=== PATIENT | male | born 1960 | race Caucasian/White ===

== ENCOUNTER → 2019-12-31 09:04 | Outpatient (BNVA) | payer MEDICARE, MEDICAID, SELFPAY | PROVIDERS: Family Provider Family Medicine; PCP Family Medicine; Referring Provider Dermatology; Visit Provider Dermatology | DX: L73.0 Acne keloid (principal); L72.9 Follicular cyst of the skin and subcutaneous tissue, unspecified | CPT/HCPCS: 10060; 99203; J3301 ==

== ENCOUNTER → 2020-01-08 14:52 | Outpatient (BNVA) | payer MEDICARE, SELFPAY | PROVIDERS: Family Provider Family Medicine; PCP Family Medicine; Visit Provider Dermatology | DX: L72.9 Follicular cyst of the skin and subcutaneous tissue, unspecified (principal); L08.9 Local infection of the skin and subcutaneous tissue, unspecified | CPT/HCPCS: 99024; 99213 ==

== ENCOUNTER → 2020-04-27 15:17 | Outpatient (BNVA) | payer MEDICARE, SELFPAY | PROVIDERS: Family Provider Family Medicine; PCP Family Medicine; Visit Provider Family Medicine Adult Medicine | DX: E66.9 Obesity, unspecified (principal); N52.9 Male erectile dysfunction, unspecified; E11.65 Type 2 diabetes mellitus with hyperglycemia; I10 Essential (primary) hypertension; I25.118 Atherosclerotic heart disease of native coronary artery with other forms of angina pectoris; E78.2 Mixed hyperlipidemia; F41.9 Anxiety disorder, unspecified; F32.9 Major depressive disorder, single episode, unspecified; I82.433 Acute embolism and thrombosis of popliteal vein, bilateral | CPT/HCPCS: 80053; 80061; 83036; 84403; 84443; 85025 ==

== ENCOUNTER 2020-05-12 11:59 | Emergency (ER) | payer MEDICARE, MEDICAID, SELFPAY ==
[2020-05-12 12:09] VITALS: BP 190/117; PULSE 104; RESP 18; TEMP 37.1; O2SAT 97; BMI 35.6
[2020-05-12 12:12] VITALS: BP 193/139; PULSE 103; RESP 18; O2SAT 97
--- NOTE | 2020-05-12 12:39 | W.ED.GENADLT ---
HPI - General Adult General: Chief complaint: General Medical Stated complaint: legs swollen Time Seen by Provider: 05/12/20 12:11 History of Present Illness: HPI narrative: 59-year-old male patient with a history of diabetes and coronary artery disease in with complaints of several weeks of lower extremity swelling. The patient reports that he doesn't seem like the swelling is going down. Is also complaining of some orthopnea and dyspnea on exertion. The patient is not currently on a diuretic. Patient has been taking his other medications as directed. He does report his blood sugars have been high. No chest pain. Denies any recent respiratory infection or exposure to COVID19. Bilateral lower extremity edema L>R. Onset (ago): week(s) Location: head Severity: moderate Associated symptoms: Reports nausea; Deny chest pain, headache(s), rash, palpitations, syncope or vomiting Review of Systems General: Reports: 10 or more systems reviewed and unremarkable except in HPI and below Const: Denies: fever(s) or chills Eyes: Denies: change in vision ENMT: Denies: throat pain Card: Reports: swelling of feet/ankles and orthopnea; Denies: chest pain, palpitations, irregular heart rhythm, lightheadedness or syncope Resp: Denies: productive cough GI: Reports: nausea; Denies: abdominal pain or vomiting : Denies: flank pain Skin/Breast: Denies: rash Neuro: Denies: headache(s) PFS ED PFSH: Medical History (Updated 05/12/20 @ 14:28 by Danyel Ayala DO) Abnormal nuclear stress test Adenomatous colon polyp Anxiety and depression Atherosclerotic heart disease of [place] coronary artery with other forms of angina pectoris Chest pain Deep vein thrombosis DVT involving the popliteal veins bilaterally Diabetes Diabetes type 2, uncontrolled Diabetic neuropathy History of claustrophobia Hyperlipidemia Hypertension Inability to maintain erection Insomnia 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 Ischemic cardiomyopathy Obesity (BMI 35.0-39.9 without comorbidity) Right foot drop Surgical History H/O circumcision Stented coronary artery Family History Mother Cancer Grandmother Diabetes Other Hypertension Denies family history of CAD (coronary artery disease) Social History Smoking and tobacco status: former smoker Alcohol intake: never Household members: spouse and children Marital status: service: No Current occupational status: disabled History of recent travel: No Physical Exam Const: COMMON NORMALS: no acute distress and no limitations; negative for average body habitus (Morbidly obese) HENMT: COMMON NORMALS: normocephalic HEAD & SCALP: normocephalic FACE & SINUS: normal facial exam Neck/C-Spine: COMMON NORMALS: full ROM GENERAL: Yes normal visual inspection Chest: COMMONS NORMALS: normal inspection of the chest Resp: COMMON NORMALS: normal respiratory effort AUSCULTATION: rales, no rhonchi, no wheezes, breath sounds present and lung sounds not diminished Cardio: COMMON NORMALS: regular rate and regular rhythm RATE: regular rate RHYTHM: regular rhythm GI: COMMON NORMALS: Normal to inspection, nondistended, normoactive bowel sounds present INSPECTION: Yes normal to inspection AUSCULTATION: Yes normoactive bowel sounds Extremity: COMMON NORMALS: full ROM and no clubbing, cyanosis or edema (2+ pitting edema up to knee bilaterally. Negative Homans sign. ); negative for normal to inspection Skin: COMMON NORMALS: no rashes or lesions noted GENERAL SKIN EXAM: no rashes or lesions noted Course Vital Signs: Vital signs: Vital Signs Temperature 98.8 F 05/12/20 12:09 Pulse Rate 104 H 05/12/20 12:09 Respiratory Rate 18 05/12/20 12:09 Blood Pressure 190/117 05/12/20 12:09 Pulse Oximetry 97 05/12/20 12:09 MDM - General Adult MDM Narrative: Medical decision making narrative: 51-year-old male with a history of hypertension and coronary artery disease presenting with persistent bilateral lower extremity edema. Patient also is complaining of orthopnea. Heart failure is leading consideration we talked about other things in the differential and recommended chest x-ray and routine serology and give some furosemide and nitroglycerin for symptomatic relief. Patient refused the nitroglycerin but felt much better after lasix. Breathing easier and overall improved. I think he likely has heart failure. Discussed DDx and likely diagnosis. Recommend sodium reduction, adding lasix and close follow up for ECHO. Return precautions were discussed. Lab Data: Labs: Lab Results 05/12/20 05/12/20 Range/Units 13:07 13:07 WBC 7.6 (4.0-10.0) 10^3/ uL RBC 5.70 H (4.1-5.3) 10^6/u L Hgb 16.6 (11.7-16.6) g/dL Hct 49.3 (42.0-52.0) % MCV 86.5 (80-94) fL MCH 29.1 (28.0-34.0) pg MCHC 33.7 (30.0-36.0) g/dL RDW 12.7 (12.1-15.1) % Plt Count 293 (130-400) 10^3/c mm MPV 11.1 H (7.4-10.4) fL Neut % (Auto) 52.4 % Lymph % (Auto) 34.1 % [place] % (Auto) 9.6 % Eos % (Auto) 2.8 % Baso % (Auto) 1.0 % Neut # (Auto) 3.99 (1.8-7.7) 10^3/u L Lymph # (Auto) 2.6 (0.8-4.8) 10^3/u L [place] # (Auto) 0.7 (0.2-0.9) 10^3/u L Eos # (Auto) 0.2 (0.0-0.8) 10^3/u L Baso # (Auto) 0.1 (0.0-0.1) 10^3/u L Nucleated RBC % (a uto) 0 % Nucleated RBCs # 0.0 /100WBC Sodium 136 (136-145) mmol/L Potassium 4.3 (3.5-5.1) mmol/L Chloride 100 (98-107) mmol/L Carbon Dioxide 27 (22-29) mmol/L Anion Gap 13.3 (5-19) BUN 12 (6-20) mg/dL Creatinine 0.7 (0.7-1.2) mg/dL GFR Calculation 115.8 (90-130) mL/min Calculated Osmolal ity 294 (285-295) mOsm/k g Calcium 9.5 (8.5-10.5) mg/dL Discharge Plan Discharge Patient Disposition: Home Clinical Impression: Edema leg Heart failure Qualifiers: Heart failure type: unspecified Heart failure chronicity: acute on chronic Qualified Code(s): I50.9 - Heart failure, unspecified Condition: Stable Prescriptions: New Lasix 20 mg tablet 20 mg PO DAILY Qty: 30 RF: 0 No Action sertraline 50 mg tablet 50 mg PO DAILY@0800 RF: 0 iodine 150 mcg Tablet 150 mcg PO DAILY@0800 RF: 0 Vitamin B-12 1 tab PO DAILY@0800 RF: 0 Vitamin C 1 tab PO DAILY@0800 RF: 0 Vitamin D3 1 tab PO DAILY@0800 RF: 0 selenium 1 tab PO DAILY@0800 RF: 0 zinc 1 tab PO DAILY@0800 RF: 0 glyburide 2.5 mg tablet 2.5 mg PO BID@0800,2000 RF: 0 Lopid 600 mg tablet 600 mg PO DAILY@0800 RF: 0 Xarelto 20 mg tablet 20 mg PO DAILY@0800 RF: 0 Discharge Orders: Discharge ED (Routine); Ordered 05/12/20 Ordered By: Danyel Ayala Referrals: Guy Burnham MD [Primary Care Provider] - Discharge Diet: Low Salt Discharge Activity: Resume usual activity Patient Instructions: Congestive Heart Failure Coding Level of Care Code 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
--- NOTE | 2020-05-12 12:41 | XRR_ITS ---
PROCEDURE INFORMATION: Exam: XR Chest, 1 View Exam date and time: 05/12/2020 1:16 PM Age: 59 years old Clinical indication: Shortness of breath; Additional info: SOB TECHNIQUE: Imaging protocol: XR of the chest Views: 1 view. COMPARISON: CR Chest 1 [place] [id number] 02/20/2019 1:18 PM FINDINGS: Lungs: Unremarkable. No consolidation. Pleural space: Unremarkable. No pleural effusion. No pneumothorax. Heart/Mediastinum: Unremarkable. No cardiomegaly. Bones/joints: Unremarkable. No interval changes are seen compared to prior examination XR/XR chest 1V portable [id number] IMPRESSION: Stable negative chest examination..
[2020-05-12] MEDS: FUROsemide 10 mg/mL SDV 4mL 40 MG IVP (12:45)
[2020-05-12 13:12] VITALS: BP 161/104; PULSE 93; RESP 18; O2SAT 96
[2020-05-12 13:45] LABS: Basophils # 0.1 10^3/uL (0.0-0.1); Eosinophils # 0.2 10^3/uL (0.0-0.8); Eosinophils % 2.8 %; Hematocrit 49.3 % (42.0-52.0); Hemoglobin 16.6 g/dL (11.7-16.6); Lymphocytes # 2.6 10^3/uL (0.8-4.8); Lymphocytes % 34.1 %; Mean Corpuscular HGB Conc 33.7 g/dL (30.0-36.0); Mean Corpuscular Hemoglobin 29.1 pg (28.0-34.0); Mean Corpuscular Volume 86.5 fL (80-94); Mean Platelet Volume 11.1 fL (7.4-10.4); Monocytes # 0.7 10^3/uL (0.2-0.9); Monocytes % 9.6 %; Neutrophils # 3.99 10^3/uL (1.8-7.7); Neutrophils % 52.4 %; Nucleated Red Blood Cells % 0 %; Platelet Count 293 10^3/cmm (130-400); Red Cell Distribution Width 12.7 % (12.1-15.1); White Blood Count 7.6 10^3/uL (4.0-10.0)
[2020-05-12] MEDS: nitroglycerin 0.4 mg sublingual Tablet SUBLINGUAL (14:08)
[2020-05-12 14:12] VITALS: BP 152/93; PULSE 91; RESP 18; O2SAT 93
[2020-05-12 14:25] LABS: Anion Gap 13.3 (5-19); Blood Urea Nitrogen 12 mg/dL (6-20); Calcium 9.5 mg/dL (8.5-10.5); Carbon Dioxide 27 mmol/L (22-29); Chloride 100 mmol/L (98-107); Glomerular Filtration Rate 115.8 mL/min (90-130); Glucose 310 mg/dL (65-115); NT Pro B Type Natriuretic Pept 168 pg/mL (0-125); Osmolality Calculated 294 mOsm/kg (285-295); Potassium 4.3 mmol/L (3.5-5.1); Sodium 136 mmol/L (136-145)
[2020-05-12 14:56] VITALS: BP 178/98; PULSE 92; RESP 18; O2SAT 91
== END 2020-05-12 14:58 | disposition home or self-care (01) ==
PROVIDERS: Emergency Provider Family Medicine; PCP Family Medicine
DX: R60.0 Localized edema (principal); I11.0 Hypertensive heart disease with heart failure; I50.9 Heart failure, unspecified; I25.118 Atherosclerotic heart disease of native coronary artery with other forms of angina pectoris; E11.40 Type 2 diabetes mellitus with diabetic neuropathy, unspecified; E78.5 Hyperlipidemia, unspecified; Z87.891 Personal history of nicotine dependence
CPT/HCPCS: 12345; 71045; 80048; 83880; 85025; 96374; 99281; 99283; J1940

== ENCOUNTER → 2020-06-22 08:34 | Outpatient (BNVA) | payer MEDICARE, SELFPAY | PROVIDERS: PCP Family Medicine Adult Medicine; Referring Provider Family Medicine Adult Medicine; Visit Provider Urology | DX: N52.9 Male erectile dysfunction, unspecified (principal); R79.89 Other specified abnormal findings of blood chemistry; Z12.5 Encounter for screening for malignant neoplasm of prostate | CPT/HCPCS: 81003; 84403; G0103 ==

== ENCOUNTER → 2021-04-05 09:13 | Outpatient (BNVA) | payer MEDICARE, MEDICAID, SELFPAY | PROVIDERS: PCP Family Medicine Adult Medicine; Visit Provider Family Medicine Adult Medicine | DX: S69.91XA Unspecified injury of right wrist, hand and finger(s), initial encounter (principal); X58.XXXA Exposure to other specified factors, initial encounter | CPT/HCPCS: 73120 ==

== ENCOUNTER → 2021-04-21 09:35 | Outpatient (BNVA) | payer MEDICARE, MEDICAID, SELFPAY | PROVIDERS: PCP Family Medicine Adult Medicine; Visit Provider Orthopaedic Surgery | DX: S62.90XA Unspecified fracture of unspecified hand, initial encounter for closed fracture (principal); X58.XXXA Exposure to other specified factors, initial encounter; Z46.89 Encounter for fitting and adjustment of other specified devices; S69.91XA Unspecified injury of right wrist, hand and finger(s), initial encounter | CPT/HCPCS: 73130; 97760; L3984 ==

== ENCOUNTER 2021-04-21 10:41 | Outpatient (CLI) | payer MEDICARE, MEDICAID, SELFPAY | END 2021-04-21 10:42 | disposition home or self-care (01) | LOC: SPT 10:41 | PROVIDERS: PCP Family Medicine Adult Medicine; Visit Provider Orthopaedic Surgery | DX: Z46.89 Encounter for fitting and adjustment of other specified devices (principal); S62.90XA Unspecified fracture of unspecified hand, initial encounter for closed fracture; S69.91XA Unspecified injury of right wrist, hand and finger(s), initial encounter; X58.XXXA Exposure to other specified factors, initial encounter | CPT/HCPCS: 97760; L3984 ==

== ENCOUNTER → 2021-08-30 10:18 | Outpatient (BNVA) | payer MEDICARE, MEDICAID, SELFPAY | PROVIDERS: PCP Family Medicine Adult Medicine; Visit Provider Family Medicine Adult Medicine | DX: E11.65 Type 2 diabetes mellitus with hyperglycemia (principal); E78.2 Mixed hyperlipidemia; I10 Essential (primary) hypertension; I82.433 Acute embolism and thrombosis of popliteal vein, bilateral; K59.00 Constipation, unspecified; E66.9 Obesity, unspecified; Z13.6 Encounter for screening for cardiovascular disorders | CPT/HCPCS: 80053; 80061; 83036; 84443; 85025 ==

== ENCOUNTER 2023-03-13 12:08 | Emergency (ER) | payer MEDICARE, MEDICAID, SELFPAY ==
[2023-03-13 12:23] VITALS: BP 166/136; PULSE 97; RESP 18; TEMP 36.8; O2SAT 98; BMI 33.9
--- NOTE | 2023-03-13 12:23 | ECG_ITS ---
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 Measurements Intervals [place] Rate: 98 P: 35 IN: 139 QRS: 11 QRSD: 94 T: 84 QT: 362 QTc: 463 Interpretive Statements SINUS RHYTHM POSSIBLE LEFT ATRIAL ENLARGEMENT [-0.1mV P-WAVE IN V1/V2] NONSPECIFIC ST & T-WAVE ABNORMALITY Compared to ECG 04/04/2019 06:16:35 Intraventricular conduction delay no longer present T-wave abnormality still present Electronically Signed On 03-13-2023 12:41:48 CDT by Thor Landin M.D. [id number]
[2023-03-13 12:29] VITALS: BP 169/107; PULSE 97; O2SAT 96
--- NOTE | 2023-03-13 12:45 | CT_ITS ---
WS: [id number] CT HEAD NONCONTRAST HISTORY: headache confusion TECHNIQUE: Contiguous axial imaging performed through the brain in 3.0 mm imaging. Bone and soft tiss ue windows. Sagittal and coronal reformats reviewed. All CT scans at [facility] use at least one of these dose optimization techniques: automated exposure control; mA and/or kV adjustment per pa tient size (includes targeted exams where dose is matched to clinical indication); or iterative recon struction. DLP: 1174.19 mGy.cm COMPARISON: 08/02/2017 No acute intracranial hemorrhage, midline shift or mass effect. Mild symmetric atrophy and volume loss. Moderate small vessel ischemic type changes throughout the wh ite matter. These findings have progressed since the prior examination from 2018. Small lacunar infar ct along the superior LEFT cerebellum. Mild volume loss in the cerebellum. Ventricles: Normal size with no hydrocephalus. No inferior displacement of the cerebellar tonsils. Paranasal sinuses: As visualized are clear. Mastoid air cells: Well pneumatized. Calvarium and scalp: Skull is intact with no soft tissue edema or swelling. IMPRESSION: 1. No acute intracranial hemorrhage or edema. 2. Mild cerebral and cerebellar volume loss. 3. Moderate small vessel ischemic type changes have progressed since the prior study from 2018. 4. Superior LEFT cerebellar lacunar infarct. New since 2018 but does not appear acute.
--- NOTE | 2023-03-13 12:58 | ED_ITS ---
HPI - Neuro Symptoms/Deficit General: Chief Complaint: Neuro Symptoms/Deficit Stated Complaint: hdache/weakness/confusion Time Seen by Provider: 03/13/23 12:23 Source: patient Mode of arrival: ambulatory History of Present Illness: 62-year-old male presents emergency room with 2 days of headache what he describes as confusion. He is complaining of numbness and tingling bilaterally in the arms and legs. He is awake and alert no difficulty with speech. He relates he was having difficulty finding words at times however at the time that I evaluated patient he is not having any difficulty with aphasia or dysarthria. Neurologic exam is benign NIH score is 0. He did have some balance issues when this first began but those have resolved. He is also complaining of some vague chest pain without radiation or shortness of breath. Onset (ago): day(s) (2) Location: left arm, right arm, left leg and right leg Quality: weak Relieving factors: none Exacerbating factors: none Associated symptoms: Reports chest pain; Deny cough, diaphoresis, fevers/chills, headache(s), anorexia, malaise, nausea, seizures, short of breath, syncope, tingling, vertigo, vomiting or weakness Treatments Prior to Arrival: none Review of Systems Const: Denies: fever(s), chills, malaise or diaphoresis Card: Reports: chest pain; Denies: palpitations, irregular heart rhythm, edema or syncope Resp: Denies: dyspnea GI: Denies: abdominal pain, nausea or vomiting : Denies: dysuria, urinary frequency or urinary urgency Musc: Denies: neck pain or back pain Skin/Breast: Denies: rash Neuro: Denies: headache(s) or vertigo PFSH ED PFSH: Medical History Abnormal nuclear stress test Adenomatous colon polyp Anxiety and depression Atherosclerotic heart disease of [place] coronary artery with other forms of angina pectoris Bilateral leg edema Closed hand fracture Right 4th metacarpal oblique, injury 04/03/2022 Constipation Diabetes Diabetes type 2, uncontrolled Diabetic neuropathy Erectile dysfunction History of claustrophobia History of DVT (deep vein thrombosis) 07/10/2019 DVT involving the popliteal veins bilaterally Hyperlipidemia Hypertension Insomnia 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 Ischemic cardiomyopathy Low testosterone Obesity (BMI 35.0-39.9 without comorbidity) Right foot drop Surgical History H/O circumcision Stented coronary artery Family History Mother , at age 45 Cancer lung Grandmother Diabetes Father , at age 23 [place] Other Hypertension Denies family history of CAD (coronary artery disease) Social History Smoking and tobacco/nicotine status: former use of tobacco/nicotine Alcohol intake: current Alcohol intake frequency: few times a month Substance/Drug Use: never Household members: spouse and children Marital status: service: No Current occupational status: disabled NIH stroke score NIHSS: Level Of Consciousness - 1a: 0 Level Of Consciousness Questions - 1b: Both Correct Level Of Consciousness Commands - 1c: Both Correct Best Gaze - 2: Normal Visual Bright - 3: No Visual Loss Facial Palsy - 4: Normal Motor Arm Right - 5: No Drift Motor Arm Left - 5: No Drift Motor Leg Right - 6: No Drift Motor Leg Left - 6: No Drift Limb Ataxia - 7: Absent Sensory - 8: Normal Best Language - 9: No Aphasia Dysarthia - 10: Normal Extinction And Inattention - 11: 0 Score: Total Score: 0 Physical Exam Const: GENERAL APPEARANCE: cooperative and comfortable ORIENTATION/CONSCIOUSNESS: Yes awake, Yes oriented to person, Yes oriented to place and Yes oriented to time HENMT: COMMON NORMALS: normocephalic, atraumatic and hearing grossly normal bilaterally HEAD & SCALP: normocephalic and atraumatic Resp: COMMON NORMALS: normal respiratory effort, No retractions, No use of accessory muscles and clear to auscultation bilaterally AUSCULTATION: clear to auscultation bilaterally Cardio: COMMON NORMALS: regular rate, regular rhythm and No murmurs present (Cardio) RATE: regular rate RHYTHM: regular rhythm GI: COMMON NORMALS: Soft to palpation and No hepatosplenomegaly present AUSCULTATION: Yes normoactive bowel sounds PALPATION: Yes Soft to palpation, No Tenderness to palpation present (GI), No Guarding due to palpation present (GI) and Yes No hepatosplenomegaly present Extremity: COMMON NORMALS: normal to inspection, capillary refill normal, no clubbing, cyanosis or edema, no calf tenderness and no pedal edema Neuro: SENSORIUM/ORIENTATION: Yes oriented to person, Yes oriented to place and Yes oriented to time Skin: COMMON NORMALS: no rashes or lesions noted GENERAL SKIN EXAM: no rashes or lesions noted Course Vital Signs: Vital signs: Vital Signs Temperature 98.2 F 03/13/23 12:23 Pulse Rate 93 03/13/23 15:17 Respiratory Rate 18 03/13/23 12:23 Blood Pressure 149/96 03/13/23 15:17 Pulse Oximetry 98 03/13/23 15:17 Oxygen Delivery Me thod Room Air 03/13/23 15:17 MDM - Neuro Symptoms/Deficit Medical Decision Making CT head shows old lacunar infarcts no subacute infarcts. Patient has a stroke score 0 at this time he is not having any further chest pain EKG is normal and cardiac enzymes are negative. We will discharge patient home set up outpatient Lexiscan sestamibi stress test as well as carotids echo MRI and follow-up with neurology. Add aspirin to his Xarelto. Recheck for his further problems. Medical Records I reviewed the patient's medical records. Lab Data I reviewed the patient's lab results. 03/13/23 13:15 03/13/23 13:15 Laboratory Results WBC 8.42 10^3/uL (3.29-11.43) 03/13/23 13:15 RBC 5.75 10^6/uL (3.85-5.65) H 03/13/23 13:15 Hgb 16.40 g/dL (11.27-16.99) 03/13/23 13:15 Hct 48.5 % (37-53) 03/13/23 13:15 MCV 84.3 fl (82-101) 03/13/23 13:15 MCH 28.5 pg (27-33) 03/13/23 13:15 MCHC 33.8 g/dL (30-55) 03/13/23 13:15 RDW 12.6 % (12.1-15.1) 03/13/23 13:15 Plt Count 304 10^3/cmm (157-399) 03/13/23 13:15 MPV 10.8 fL (7.4-10.4) H 03/13/23 13:15 Neut % (Auto) 57.6 % 03/13/23 13:15 Lymph % (Auto) 31.0 % 03/13/23 13:15 [place] % (Auto) 8.4 % 03/13/23 13:15 Eos % (Auto) 1.8 % 03/13/23 13:15 Baso % (Auto) 1.0 % 03/13/23 13:15 Neut # (Auto) 4.85 10^3/uL (1.8-7.7) 03/13/23 13:15 Lymph # (Auto) 2.6 10^3/uL (0.8-4.8) 03/13/23 13:15 [place] # (Auto) 0.7 10^3/uL (0.2-0.9) 03/13/23 13:15 Eos # (Auto) 0.2 10^3/uL (0.0-0.8) 03/13/23 13:15 Baso # (Auto) 0.1 10^3/uL (0.0-0.1) 03/13/23 13:15 Nucleated RBC % (auto) 0 % 03/13/23 13:15 Nucleated RBCs # 0.0 /100WBC 03/13/23 13:15 Sodium 134 mmol/L (136-145) L 03/13/23 13:15 Potassium 4.7 mmol/L (3.5-5.1) 03/13/23 13:15 Chloride 96 mmol/L (98-107) L 03/13/23 13:15 Carbon Dioxide 26 mmol/L (22-29) 03/13/23 13:15 Anion Gap 16.7 (5-19) 03/13/23 13:15 BUN 26 mg/dL (8-23) H 03/13/23 13:15 Creatinine 0.9 mg/dL (0.7-1.2) 03/13/23 13:15 GFR Calculation 85.8 mL/min (90-130) L 03/13/23 13:15 Glucose 365 mg/dL (65-115) H 03/13/23 13:15 Calculated Osmolality 298 mOsm/kg (285-295) H 03/13/23 13:15 Calcium 9.5 mg/dL (8.5-10.5) 03/13/23 13:15 Total Bilirubin 0.4 mg/dL (0.15-1.2) 03/13/23 13:15 AST 13 U/L (0-40) 03/13/23 13:15 ALT 17 U/L (0-41) 03/13/23 13:15 Alkaline Phosphatase 82 U/L (40-130) 03/13/23 13:15 Troponin T Baseline 47 ng/L (0-15) H 03/13/23 13:15 Troponin T 120 Minute 38.63 ng/L (0-15) H 03/13/23 15:10 Delta Troponin T -8.37 ABS# (0-10) L 03/13/23 15:10 Total Protein 7.4 g/dL (6.6-8.7) 03/13/23 13:15 Albumin 3.8 g/dL (3.5-5.2) 03/13/23 13:15 Globulin 3.6 g/dL (1.3-4.6) 03/13/23 13:15 Urine Color Yellow (Yellow) 03/13/23 13:10 Urine Appearance Clear (CLEAR) 03/13/23 13:10 Urine pH 5 (5-7) 03/13/23 13:10 Ur Specific [place] 1.020 (1.005-1.030) 03/13/23 13:10 Urine Protein Trace (Negative) 03/13/23 13:10 Urine Glucose (UA) 4+ (Normal) H 03/13/23 13:10 Urine Ketones 1+ (Negative) H 03/13/23 13:10 Urine Blood Neg (Negative) 03/13/23 13:10 Urine Nitrate Negative (Negative) 03/13/23 13:10 Urine Bilirubin Neg (Negative) 03/13/23 13:10 Urine Urobilinogen Norm mg/dL (Negative) 03/13/23 13:10 Ur Leukocyte Esterase Negative (Negative) 03/13/23 13:10 Urine RBC Rare /hpf (0-2) 03/13/23 13:10 Urine WBC Rare /hpf (0-5) 03/13/23 13:10 Ur Squamous Epith Cells Rare /hpf (0-5) 03/13/23 13:10 Amorphous Sediment Trace /hpf 03/13/23 13:10 Urine Bacteria None /hpf (NONE) 03/13/23 13:10 Hyaline Casts Rare /lpf 03/13/23 13:10 Fine Granular Casts Rare /lpf 03/13/23 13:10 Urine Mucus 1+ /hpf 03/13/23 13:10 All radiology interpretation(s) finalized by discharge Discharge Plan Discharge Patient Disposition: Home Clinical Impression: Diabetes type 2, uncontrolled, Bilateral leg edema, Factor V Leiden, Transient cerebral ischemia Condition: Stable Prescriptions: New aspirin 81 mg tablet,delayed release (DR/EC) 81 mg PO DAILY Qty: 30 0RF No Action turmeric root extract 500 mg capsule 500 mg PO DAILY (DME) fast form ulnar gutter See Rx Instructions .ROUTE .MEDSUPPLY Qty: 1 0RF Rx Instructions: As directed docusate sodium 250 mg capsule 250 mg PO BID Qty: 60 5RF (DME) Blood pressure machine See Rx Instructions .Route .MEDSUPPLY Qty: 1 0RF Rx Instructions: As directed, check blood pressure each day. (DME) blood-glucose meter [Accu-Chek Guide Glucose Meter] Misc See Rx Instructions .Route Qty: 1 0RF Rx Instructions: As directed, test blood sugar once a day. (DME) Accu-Chek Guide test strips Strip See Rx Instructions .Route Qty: 50 0RF Rx Instructions: As directed, check blood sugar, once a day. (DME) lancets [BD Ultra Fine Lancets] 33 gauge misc See Rx Instructions .Route Qty: 100 0RF Rx Instructions: As directed, test blood suagr once a day. iodine 150 mcg Tablet 150 mcg PO DAILY@0800 zinc acetate 25 mg (zinc) Capsule 25 mg PO DAILY selenium 50 mcg Tablet 50 mcg PO DAILY Vitamin C 500 mg Tablet 500 mg PO DAILY vitamin G12-uczgm acid 0.5-1 mg Tablet 1 tab PO DAILY Vitamin D3 50 mcg (2,000 unit) Capsule 50 mcg PO DAILY Xarelto 20 mg tablet 20 mg PO DAILY Discharge Orders: Discharge ED (Routine); Ordered 03/13/23 Ordered By: Jose Rafael Cavanaugh Referrals: Zach Amado MD [Primary Care Provider] - Discharge Diet: Usual diet Discharge Activity: Increase activity as tolerated Patient Instructions: Opioid Safety, Pain Management, TIA Activity Restrictions/Additional Instructions: You are seen today for complaints of weakness and visual changes. Your stroke score was [address] of your head was negative cardiac enzymes and EKG were normal. We will set you up for an outpatient stress test as well as echocardiogram 24-hour Holter and MRI head along with follow-up with neurology. Recommend you to start taking a baby aspirin daily in addition to your Xarelto. Coding Level of Care Code ED Bath Solution Maker for Lolita Gallegos
[2023-03-13 13:29] VITALS: BP 188/122; PULSE 93; O2SAT 95
--- NOTE | 2023-03-13 13:40 | XR_ITS ---
WS: [id number] Exam: XR chest 1V portable [id number] Date/Time of Exam: 03/13/2023 1:42 PM Reason For Exam: dyspnea/cough Comparison 05/12/2020. Findings: The lungs are clear and fully expanded. Costophrenic angles are sharp. No infiltrates. Bronchovascula r relief appears normal. Cardiac silhouette is unremarkable. Bony elements are intact. IMPRESSION: Unremarkable chest radiograph.
[2023-03-13 13:44] LABS: Basophils # 0.1 10^3/uL (0.0-0.1); Eosinophils # 0.2 10^3/uL (0.0-0.8); Eosinophils % 1.8 %; Hematocrit 48.5 % (37-53); Lymphocytes # 2.6 10^3/uL (0.8-4.8); Mean Corpuscular HGB Conc 33.8 g/dL (30-55); Mean Corpuscular Hemoglobin 28.5 pg (27-33); Mean Corpuscular Volume 84.3 fl (82-101); Mean Platelet Volume 10.8 fL (7.4-10.4); Monocytes # 0.7 10^3/uL (0.2-0.9); Monocytes % 8.4 %; Neutrophils # 4.85 10^3/uL (1.8-7.7); Neutrophils % 57.6 %; Nucleated Red Blood Cells % 0 %; Platelet Count 304 10^3/cmm (157-399); Red Blood Count 5.75 10^6/uL (3.85-5.65); Red Cell Distribution Width 12.6 % (12.1-15.1); White Blood Count 8.42 10^3/uL (3.29-11.43)
[2023-03-13 13:49] LABS: Add Urine Microscopic? YES; Bilirubin Urine Neg (Negative); Blood Urine Neg (Negative); Glucose Urine UA 4+ (Normal); Ketones Urine 1+ (Negative); Leukocyte Esterase Urine Negative (Negative); Nitrate Urine Negative (Negative); Protein Urine Trace (Negative); Urine Appearance Clear (CLEAR); Urine Color Yellow (Yellow); Urobilinogen Urine Norm (Negative); pH Urine 5 (5-7)
[2023-03-13 14:08] VITALS: BP 162/140; PULSE 92; O2SAT 98
[2023-03-13 14:08] LABS: Alanine Aminotransferase 17 U/L (0-41); Albumin Level 3.8 g/dL (3.5-5.2); Alkaline Phosphatase 82 U/L (40-130); Anion Gap 16.7 (5-19); Aspartate Amino Transferase 13 U/L (0-40); Blood Urea Nitrogen 26 mg/dL (8-23); Calcium 9.5 mg/dL (8.5-10.5); Carbon Dioxide 26 mmol/L (22-29); Chloride 96 mmol/L (98-107); Globulin 3.6 g/dL (1.3-4.6); Glomerular Filtration Rate 85.8 mL/min (90-130); Glucose 365 mg/dL (65-115); Osmolality Calculated 298 mOsm/kg (285-295); Potassium 4.7 mmol/L (3.5-5.1); Sodium 134 mmol/L (136-145); Total Bilirubin 0.4 mg/dL (0.15-1.2); Total Protein 7.4 g/dL (6.6-8.7)
--- NOTE | 2023-03-13 14:08 | ECG_ITS ---
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 Measurements Intervals [place] Rate: 94 P: 44 [place]: 156 QRS: 1 QRSD: 118 T: 11 QT: 369 QTc: 462 Interpretive Statements SINUS RHYTHM LEFT VENTRICULAR HYPERTROPHY AND ST-T CHANGE [VOLTAGE CRITERIA PLUS ST/T ABNORMALITY] INFERIOR MYOCARDIAL INFARCTION , PROBABLY OLD [40+ ms Q WAVE AND/OR ST/T ABNORMALITY IN II/aVF] Compared to ECG 03/13/2023 12:27:48 Left ventricular hypertrophy now present ST (T wave) deviation now present Myocardial infarct finding now present T-wave abnormality no longer present Electronically Signed On 03-13-2023 16:06:56 CDT by Thor Landin M.D. [id number]
[2023-03-13 14:11] LABS: Add Urine Culture? No; Amorphous Sediment Urine TRACE /hpf; Fine Granular Casts Urine RARE /lpf; Hyaline Casts Urine RARE /lpf; Mucus Urine 1+ /hpf; RBC Urine RARE /hpf (0-2); Squamous Epithelial Cell Urine RARE /hpf (0-5); WBC Urine RARE /hpf (0-5)
[2023-03-13 14:36] LABS: Troponin(5th) Baseline 47 ng/L (0-15)
[2023-03-13 15:17] VITALS: BP 149/96; PULSE 93; O2SAT 98
[2023-03-13 15:52] LABS: Troponin 5 2HR 38.63 ng/L (0-15); Troponin 5 2HR Delta -8.37 ABS# (0-10)
--- NOTE | 2023-03-13 15:52 | ECG_ITS ---
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 Measurements Intervals [place] Rate: 93 P: 43 [place]: 146 QRS: 4 QRSD: 120 T: 60 QT: 389 QTc: 485 Interpretive Statements SINUS RHYTHM POSSIBLE LEFT ATRIAL ENLARGEMENT [-0.1mV P-WAVE IN V1/V2] MODERATE INTRAVENTRICULAR CONDUCTION DELAY [110+ ms QRS DURATION] NONSPECIFIC T-WAVE ABNORMALITY Compared to ECG 03/13/2023 14:16:06 Intraventricular conduction delay now present T-wave abnormality now present Left ventricular hypertrophy no longer present ST (T wave) deviation no longer present Myocardial infarct finding no longer present Electronically Signed On 03-13-2023 16:07:13 CDT by Thor Landin M.D. [id number]
--- NOTE | 2023-03-14 08:47 | DCPLANNER ---
Sent message to heart care for referral of 48 hour holter monitor. SHAUNA 03/14/23 0848.
--- NOTE | 2023-03-15 07:57 | DCPLANNER ---
Referral was sent to Neurology for post MRI. Clinic to contact patient. 03/15 at 6721
--- NOTE | 2023-03-15 09:52 | DCPLANNER ---
Faxed stress test, echo,MRI head w/wo order to centralized scheduling on 03/15/23 at 0952. Centralized scheduling to contact patient.
== END 2023-03-13 16:26 | disposition home or self-care (01) ==
PROVIDERS: Emergency Provider Family Medicine; PCP Family Medicine Adult Medicine
DX: G45.9 Transient cerebral ischemic attack, unspecified (principal); D68.51 Activated protein C resistance; R60.0 Localized edema; Z87.891 Personal history of nicotine dependence; I25.10 Atherosclerotic heart disease of native coronary artery without angina pectoris; E11.40 Type 2 diabetes mellitus with diabetic neuropathy, unspecified; E78.5 Hyperlipidemia, unspecified; I10 Essential (primary) hypertension
CPT/HCPCS: 36415; 70450; 71045; 80053; 81001; 84484; 85025; 93005; 99285

== ENCOUNTER → 2023-03-26 15:32 | Outpatient (BNVA) | payer MEDICARE, MEDICAID, SELFPAY | PROVIDERS: PCP Family Medicine Adult Medicine; Visit Provider Specialist | DX: E11.65 Type 2 diabetes mellitus with hyperglycemia (principal); R56.9 Unspecified convulsions; F41.9 Anxiety disorder, unspecified; M51.06 Intervertebral disc disorders with myelopathy, lumbar region | CPT/HCPCS: 95813; 99205 ==

== ENCOUNTER 2023-03-29 08:36 | Outpatient (CLI) | payer MEDICARE, MEDICAID, SELFPAY ==
--- NOTE | 2023-03-29 | USCV_ITS ---
Adrián Vinson Age: 62 Gender: M : 1960 Exam Date: 03/29/2023 09:22 Ordering Phys: Jose Rafael Cavanaugh DO Technologist: DUC Exam Location: [facility] Indication: CHEST PAIN BP: 170 / 93 HR: 97 Rhythm: Sinus Technical Quality: Adequate MEASUREMENTS (Male / Female) Normal Values 2D ECHO LVOT Diameter 2.1 cm LV Ejection Fraction MOD 2C 42.6 % LV Ejection Fraction 2C AL 44.5 % LA Diameter 3.1 cm LA Width 3.5 cm LA Height 4.2 cm RA Width 3.2 cm RA Height 3.6 cm Aorta at Sinotubular Diameter 3.3 cm M-MODE Aortic Annulus Diameter 3.0 cm LA Ao Ratio MM 1.1 MV E Point Septal Separation 1.0 cm DOPPLER AV Peak Velocity 141.0 cm/s LVOT Peak Velocity 89.0 cm/s AV Area Cont Eq vti 2.3 cm squared AV Area Cont Eq pk 2.1 cm squared MV Peak Velocity 139.0 cm/s MV Area PHT 7.1 cm squared Mitral E to A Ratio 0.6 MV E' Velocity 70.0 cm/s Mitral E to LV E' Septal Ratio 20.0 TR Peak Velocity 157.3 cm/s TR Peak Gradient 9.9 mmHg TR Mean Velocity 106.0 cm/s TR Mean Gradient 5.3 mmHg TR Velocity Time Integral 43.7 cm TV Peak E Velocity 79.0 cm/s Right Atrial Pressure 8.0 mmHg Pulmonary Artery Systolic Pressu 17.9 mmHg PV Peak Velocity 98.0 cm/s FINDINGS Left Ventricle Normal LV size with a slightly diminished ejection fraction of 45 to 50%(based on contrast echo). Mild hypokinesia of the mid and apical septum and the anteroseptal segments. Right Ventricle Normal right ventricular systolic function. Right Atrium Normal right atrial size. Left Atrium Upper limit of normal size Mitral Valve Thickened mitral valve. Aortic Valve Thickened aortic valve. Tricuspid Valve No gross abnormalities noted Pulmonic Valve Pulmonic valve not well visualized. Pericardium No pericardial effusion. Aorta Normal aortic annulus size. IVC Normal inferior vena cava. CONCLUSIONS Normal LV size with a slightly diminished ejection fraction of 45 to 50%(based on contrast echo). Mild hypokinesia of the mid and apical septum and the anteroseptal segments. Thickened aortic and mitral valves Left atrium, upper limit of normal size. There is no pericardial effusion. Compared to the study from 02/27/2019, there may not be a significant change. Dr Cruz Bedolla MD [facility] (Electronically Signed) Final Date: 30 March 2023 07:48 S
--- NOTE | 2023-03-29 | ECG_ITS ---
[facility] Test Date: 2023-03-29 Pat Name: Adrián Vinson Department: Room: Gender: Male Superintendent Meters: Swetha LopezBoyd : 1960 Requested By: Jose Rafael Trevizo Order Number: [id number] Nadir MD: Cruz Bedolla M.D. Interpretive Statements NAME OF STUDY: LEXISCAN SESTAMIBI STRESS TEST INDICATION: Chest Pain, PROCEDURE: At the baseline, the EKG revealed normal sinus rhythm with normal ST Ts. The baseline heart was 98 bpm with a blood pressue of 177/122 mm of Hg Lexiscan was infused over a period of 20 seconds. A total of 0.4 milligrams of Lexiscan was infused. The stress phase was continued for a total of 5 minutes. Heart rate at the end of the stress phase was 103 bpm with a blood pressure 162/90 mm of Hg. The EKG at the peak infusion revealed no significant changes. Sestamibi was injected 20 seconds after the Lexiscan infusion. Heart rate at the end of the recovery phase was 93 bpm with a blood pressure of 158/100 mm of Hg. CONCLUSION: 1. No significant EKG changes with the LexiScan infusion 2. No LexiScan induced chest pain or cardiac arrhythmia 3. Normal blood pressure and heart rate response 4. Sestamibi/sestamibi perfusion scan pending; see separate report. Electronically Signed On 03-31-2023 13:35:30 [employer] by Cruz Bedolla M.D. [email or web address]
[2023-03-29 08:56] VITALS: BMI 33.0
--- NOTE | 2023-03-29 08:57 | NMCV_ITS ---
NM allison perf SPECT r/s* [id number] Adrián Vinson Age: 62 Gender: M : 1960 Exam Date: 03/29/2023 09:36 Ordering Phys: Jose Rafael Cavanaugh DO Technologist: OMAR Lozano Exam Location: [facility] Indications: TRANSIENT CEREBRAL ISCHEMIC ATTACK, ACTIVATED PROTEIN C RESISTANCE STRESS TEST Please [facility] IMAGE PROTOCOL Rest/Stress 1 Lexiscan Day Radiopharmaceutical Dose (mCi) Administration Site Administered by Rest: Tc-99m 10.8 IV OMAR Bahena Sestamibi Stress:Tc-99m 32.7 IV OMAR Bahena Sestamibi Rest: 29-Mar-2023 60 Discovery 630 Stress: 29-Mar-2023 30 Discovery 630 0.4mg Lexiscan. Supine position only as patient was unable to lay prone. SPECT RESULTS Technical Quality: Excellent Raw Data Analysis: Normal Image Corrections: No attenuation or motion correction applied Summed Stress Score: 13 Summed Rest Score: 10 Summed Difference Score: 3 PERFUSION FINDINGS Moderate area of moderate to severely decreased tracer uptake in the basal and mid inferior, basal and mid inferolateral, apical lateral and mid anterolateral segments. Some reversibility was noted at the basal inferior and mid anterolateral regions. FUNCTIONAL RESULTS (calculated via Gated SPECT) Stress Image LV EF (%): 46 Stress EDV (mL):151 TID: 0.88 Stress ESV (mL):81 FUNCTIONAL FINDINGS: Segmental wall motion analysis revealed mild diffuse hypokinesia diffuse hypokinesia of the septum and LV apex IMPRESSIONS 1. Myocardial perfusion imaging revealing moderate area of moderate to severely decreased aseptic involving the inferior, inferolateral knee, and lateral regions with some reversibility in the inferior and anterolateral regions, suggesting myocardial scarring in the distribution of the right coronary artery/circumflex artery with ischemia predominantly in the distribution of the circumflex artery and some involvement of the right coronary artery. 2. Slightly diminished left ventricular ejection fraction of 46%. 3. Segmental wall motion normalities as mentioned above. 3. Mildly dilated LV cavity with end-systolic volume of 81 ml. Compared to the study from 02/21/2019, there is some improvement in the LV ejection fraction with a slightly increased ischemic burden. Clinical correlation is recommended Dr Cruz Bedlola MD [facility] (Electronically Signed) Final Date: 29 March 2023 13:21 S
[2023-03-29] MEDS: perflutren protein-a microsphr 0.22 mg/mL SDV 3 mL IV (09:50)
[2023-03-29] MEDS: regadenoson 0.4 Mg/5 ml Syringe IVP (10:12)
[2023-03-29 10:21] VITALS: BP 158/100; PULSE 93
== END 2023-03-29 08:37 | disposition home or self-care (01) ==
PROVIDERS: PCP Family Medicine Adult Medicine; Visit Provider Family Medicine
DX: I08.0 Rheumatic disorders of both mitral and aortic valves (principal); D68.51 Activated protein C resistance; G45.9 Transient cerebral ischemic attack, unspecified; R07.9 Chest pain, unspecified; R06.02 Shortness of breath; I49.1 Atrial premature depolarization; I49.3 Ventricular premature depolarization
CPT/HCPCS: 36415; 78452; 93017; 93225; 96374; A9500; C8929; J2785; Q9956

== ENCOUNTER → 2023-04-22 11:45 | Outpatient (BNVA) | payer MEDICARE, MEDICAID, SELFPAY | PROVIDERS: PCP Family Medicine Adult Medicine; Visit Provider Emergency Medicine | DX: E11.621 Type 2 diabetes mellitus with foot ulcer (principal); L97.509 Non-pressure chronic ulcer of other part of unspecified foot with unspecified severity; M79.671 Pain in right foot | CPT/HCPCS: 73630 ==

== ENCOUNTER 2023-04-26 10:42 | Emergency (ER) | payer MEDICARE, MEDICAID, SELFPAY ==
[2023-04-26 10:48] VITALS: BP 165/97; PULSE 106; RESP 16; TEMP 36.6; O2SAT 96; BMI 33.6
--- NOTE | 2023-04-26 10:55 | XR_ITS ---
WS: [id number] Right foot, 3 views, 04/26/2023 Clinical Data: pain Comparison: Right foot, 04/22/2023 Findings: No fractures or dislocations are seen. No bone destruction or erosion is noted. There is narrowing of the right first MTP joint. The second through fifth PIP joints show narrowing. There is an Achilles spur. There is a soft tissue ulcer over the head of the right fifth metatarsal. Impression: 1. 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 2. Soft tissue ulceration over head of right fifth metatarsal.
--- NOTE | 2023-04-26 10:57 | ED_ITS ---
HPI - Extremity Problem 2 General: Chief complaint: Extremity Problem,Nontraumatic Stated complaint: right foot pain Time Seen by Provider: 04/26/23 10:48 Source: patient Mode of arrival: ambulatory Limitations: no limitations History of Present Illness: 62-year-old male has a history of diabet es states that he had a callus on the right lateral portion of his right foot over the weekend he had seen urgent care on Sunday was started on Zyvox states he had some worsening pain and erythema to that foot. He denies any fevers he has had a diabetic foot ulcer he states 2 years ago. Associated symptoms: Deny chest pain, fever(s) or rash Review of Systems 2 Const: Denies: fever(s), chills, body aches or change in appetite Eyes: Denies: blurry vision or eye discomfort ENMT: Denies: throat pain or dental pain Card: Denies: chest pain Resp: Denies: dyspnea GI: Denies: abdominal pain, nausea, vomiting or diarrhea Musc: Reports: extremity pain; Denies: neck pain or back pain Skin/Breast: Reports: erythema; Denies: rash Neuro: Denies: headache(s) PFSH ED 2 PFSH: Medical History Constipation History of DVT (deep vein thrombosis) 07/10/2019 DVT involving the popliteal veins bilaterally Closed hand fracture Right 4th metacarpal oblique, injury 04/03/2022 Bilateral leg edema Erectile dysfunction Low testosterone Anxiety and depression Obesity (BMI 35.0-39.9 without comorbidity) Diabetes type 2, uncontrolled Atherosclerotic heart disease of [place] coronary artery with other forms of angina pectoris Hypertension Hyperlipidemia Diabetes Diabetic neuropathy Insomnia Adenomatous colon polyp Ischemic cardiomyopathy Abnormal nuclear stress test History of claustrophobia Right foot drop 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 Surgical History Stented coronary artery H/O circumcision Family History Mother , at age 45 Cancer lung Grandmother Diabetes Father , at age 23 Drowning Other Hypertension Denies family history of CAD (coronary artery disease) Social History Smoking and tobacco/nicotine status: former use of tobacco/nicotine Alcohol intake: current Alcohol intake frequency: few times a month Substance/Drug Use: never Household members: spouse and children Marital status: service: No Current occupational status: disabled Physical Exam 2 Const: COMMON NORMALS: no acute distress, patient oriented x3 and healthy appearing HENMT: COMMON NORMALS: normocephalic and atraumatic HEAD & SCALP: n ormocephalic and atraumatic Neck/C-Spine: COMMON NORMALS: full ROM and supple Chest: COMMONS NORMALS: normal inspection of the chest Resp: COMMON NORMALS: normal respiratory effort Cardio: COMMON NORMALS: regular rate RATE: regular rate Extremity: COMMON NORMALS: normal to inspection and full ROM NARRATIVE EXTREMITY EXAM: Erythema noted to right foot going to the ankle slightly warm to touch she does have a callus with a small ulcer to the lateral portion of his foot no drainage Neuro: COMMON NORMALS: patient oriented x3, moves all extremities and no focal motor deficits Psych: COMMON NORMALS: mental status grossly normal, Normal thought process present and cooperative THOUGHT PROCESS: Normal thought process present Skin: COMMON NORMALS: no rashes or lesions noted and no wounds GENERAL SKIN EXAM: no rashes or lesions noted Course 2 Vital Signs: Vital signs: Vital Signs Temperature 97.8 F 04/26/23 10:48 Pulse Rate 103 H 04/26/23 11:23 Respiratory Rate 18 04/26/23 11:23 Blood Pressure 163/93 04/26/23 11:23 Pulse Oximetry 96 04/26/23 11:23 Oxygen Delivery Me thod Room Air 04/26/23 11:23 MDM - Extremity (Nontraumatic) Medical Decision Making Patient presents here with a diabetic foot ulcer he was seen by Dr. Lambert in the ER who debrided it he is going to follow him up he is continue antibiotics writing pain meds informed he is fever worsening he is to return to the ER he understands agrees to plan. Medical Records I reviewed the patient's medical records. Lab Data I reviewed the patient's lab results. 04/26/23 11:05 04/26/23 11:05 Laboratory Results WBC 12.33 10^3/uL (3.29-11.43) H 04/26/23 11:05 RBC 5.05 10^6/uL (3.85-5.65) 04/26/23 11:05 Hgb 14.00 g/dL (11.27-16.99) 04/26/23 11:05 Hct 42.3 % (37-53) 04/26/23 11:05 MCV 83.8 fl (82-101) 04/26/23 11:05 MCH 27.7 pg (27-33) 04/26/23 11:05 MCHC 33.1 g/dL (30-55) 04/26/23 11:05 RDW 13.2 % (12.1-15.1) 04/26/23 11:05 Plt Count 402 10^3/cmm (157-399) H 04/26/23 11:05 MPV 9.7 fL (7.4-10.4) 04/26/23 11:05 Neut % (Auto) 74.0 % 04/26/23 11:05 Lymph % (Auto) 13.4 % 04/26/23 11:05 [place] % (Auto) 9.7 % 04/26/23 11:05 Eos % (Auto) 0.8 % 04/26/23 11:05 Baso % (Auto) 0.8 % 04/26/23 11:05 Neut # (Auto) 9.13 10^3/uL (1.8-7.7) H 04/26/23 11:05 Lymph # (Auto) 1.7 10^3/uL (0.8-4.8) 04/26/23 11:05 [place] # (Auto) 1.2 10^3/uL (0.2-0.9) H 04/26/23 11:05 Eos # (Auto) 0.1 10^3/uL (0.0-0.8) 04/26/23 11:05 Baso # (Auto) 0.1 10^3/uL (0.0-0.1) 04/26/23 11:05 Nucleated RBC % (auto) 0 % 04/26/23 11:05 Nucleated RBCs # 0.0 /100WBC 04/26/23 11:05 ESR 41 mm/hr (0-10) H 04/26/23 11:05 Sodium 132 mmol/L (136-145) L 04/26/23 11:05 Potassium 4.3 mmol/L (3.5-5.1) 04/26/23 11:05 Chloride 92 mmol/L (98-107) L 04/26/23 11:05 Carbon Dioxide 26 mmol/L (22-29) 04/26/23 11:05 Anion Gap 18.3 (5-19) 04/26/23 11:05 BUN 14 mg/dL (8-23) 04/26/23 11:05 Creatinine 0.9 mg/dL (0.7-1.2) 04/26/23 11:05 GFR Calculation 85.8 mL/min (90-130) L 04/26/23 11:05 Glucose 303 mg/dL (65-115) H 04/26/23 11:05 Calculated Osmolality 286 mOsm/kg (285-295) 04/26/23 11:05 Calcium 10.4 mg/dL (8.5-10.5) 04/26/23 11:05 Total Bilirubin 0.6 mg/dL (0.15-1.2) 04/26/23 11:05 AST 62 U/L (0-40) H 04/26/23 11:05 ALT 107 U/L (0-41) H 04/26/23 11:05 Alkaline Phosphatase 311 U/L (40-130) H 04/26/23 11:05 C-Reactive Protein 311.8 mg/L (0.0-4.9) H 04/26/23 11:05 Total Protein 8.0 g/dL (6.6-8.7) 04/26/23 11:05 Albumin 3.5 g/dL (3.5-5.2) 04/26/23 11:05 Globulin 4.5 g/dL (1.3-4.6) 04/26/23 11:05 All radiology interpretation(s) finalized by discharge Discharge Plan Discharge Patient Disposition: Home Clinical Impression: Diabetic foot ulcer Condition: Stable Prescriptions: New hydrocodone-acetaminophen 5-325 mg tablet 1 tab PO Q6H PRN (Reason: pain) Qty: 14 0RF ondansetron 4 mg tablet,disintegrating 4 mg PO Q6H PRN (Reason: nausea and vomiting) Qty: 14 0RF No Action turmeric root extract 500 mg capsule 500 mg PO DAILY (DME) fast form ulnar gutter See Rx Instructions .ROUTE .MEDSUPPLY Qty: 1 0RF Rx Instructions: As directed Mounjaro 5 mg/0.5 mL pen injector 5 mg SUBCUT ONCE Qty: 2 0RF Rx Instructions: .25 mg/week for 4 weeks then 0.25 mg/week for 4 weeks then 0.75 mg/week Mounjaro 7.5 mg/0.5 mL pen injector 7.5 mg SUBCUT ONCE Qty: 2 0RF Rx Instructions: third month of treatment linezolid [Zyvox] 600 mg tablet 600 mg PO BID 6 Days Qty: 12 0RF (DME) Blood pressure machine See Rx Instructions .Route .MEDSUPPLY Qty: 1 0RF Rx Instructions: As directed, check blood pressure each day. (DME) blood-glucose meter [Accu-Chek Guide Glucose Meter] Misc See Rx Instructions .Route Qty: 1 0RF Rx Instructions: As directed, test blood sugar once a day. (DME) Accu-Chek Guide test strips Strip See Rx Instructions .Route Qty: 50 0RF Rx Instructions: As directed, check blood sugar, once a day. (DME) lancets [BD Ultra Fine Lancets] 33 gauge misc See Rx Instructions .Route Qty: 100 0RF Rx Instructions: As directed, test blood suagr once a day. iodine 150 mcg Tablet 150 mcg PO DAILY@0800 zinc acetate 25 mg (zinc) Capsule 25 mg PO DAILY selenium 50 mcg Tablet 50 mcg PO DAILY ascorbic acid (vitamin C) [Vitamin C] 500 mg Tablet 500 mg PO DAILY vitamin Q92-bvxtk acid 0.5-1 mg Tablet 1 tab PO DAILY cholecalciferol (vitamin D3) [Vitamin D3] 50 mcg (2,000 unit) Capsule 50 mcg PO DAILY Xarelto 20 mg tablet 20 mg PO DAILY aspirin 81 mg tablet,delayed release (DR/EC) 81 mg PO DAILY Qty: 30 0RF Discharge Orders: Discharge ED (Routine); Ordered 04/26/23 Ordered By: Edyta Bennett Referrals: Zach Amado MD [Primary Care Provider] - Manuel Lambert DPM [Physician] - 1-3 days Discharge Diet: Advance as tolerated Discharge Activity: Resume usual activity Patient Instructions: Diabetic Foot Ulcers (ED), Opioid Safety Coding Level of Care Code ED Industrial Diamond Polisher for Chg El
[2023-04-26 11:11] LABS: Basophils # 0.1 10^3/uL (0.0-0.1); Basophils % 0.8 %; Eosinophils # 0.1 10^3/uL (0.0-0.8); Eosinophils % 0.8 %; Hematocrit 42.3 % (37-53); Lymphocytes # 1.7 10^3/uL (0.8-4.8); Lymphocytes % 13.4 %; Mean Corpuscular HGB Conc 33.1 g/dL (30-55); Mean Corpuscular Hemoglobin 27.7 pg (27-33); Mean Corpuscular Volume 83.8 fl (82-101); Mean Platelet Volume 9.7 fL (7.4-10.4); Monocytes # 1.2 10^3/uL (0.2-0.9); Monocytes % 9.7 %; Neutrophils # 9.13 10^3/uL (1.8-7.7); Nucleated Red Blood Cells % 0 %; Platelet Count 402 10^3/cmm (157-399); Red Blood Count 5.05 10^6/uL (3.85-5.65); Red Cell Distribution Width 13.2 % (12.1-15.1); White Blood Count 12.33 10^3/uL (3.29-11.43)
[2023-04-26 11:14] LABS: Erythrocyte Sedimentation Rate 41 mm/hr (0-10)
[2023-04-26] MEDS: ondansetron 2 mg/ML SDV 2 mL 4 MG IVP (11:17)
[2023-04-26] MEDS: morphine 4 mg/mL SDV 1 mL IVP (11:22)
--- NOTE | 2023-04-26 11:22 | PC.PHAR ---
PT TOOK MOUNJARO 2.5 MG/05
[2023-04-26 11:23] VITALS: BP 163/93; PULSE 103; RESP 18; O2SAT 96
--- NOTE | 2023-04-26 11:23 | PC.PHAR ---
PT TOOK MOUNJARO 2.5 MG/0.5 ML LAST MONTH AND WAS DUE TO START 5 MG/0.5 ML TODAY. PT IS NOT SURE HE WILL BE ABLE TO START, DUE TO SIDE EFFECTS. 04/26/23
[2023-04-26 11:34] LABS: Alanine Aminotransferase 107 U/L (0-41); Albumin Level 3.5 g/dL (3.5-5.2); Alkaline Phosphatase 311 U/L (40-130); Anion Gap 18.3 (5-19); Aspartate Amino Transferase 62 U/L (0-40); Blood Urea Nitrogen 14 mg/dL (8-23); C Reactive Protein 311.8 mg/L (0.0-4.9); Calcium 10.4 mg/dL (8.5-10.5); Carbon Dioxide 26 mmol/L (22-29); Chloride 92 mmol/L (98-107); Globulin 4.5 g/dL (1.3-4.6); Glomerular Filtration Rate 85.8 mL/min (90-130); Glucose 303 mg/dL (65-115); Osmolality Calculated 286 mOsm/kg (285-295); Potassium 4.3 mmol/L (3.5-5.1); Sodium 132 mmol/L (136-145); Total Bilirubin 0.6 mg/dL (0.15-1.2)
[2023-04-26] MEDS: vancomycin 1,000 MG in sodium chloride 0.9% 250 ML 250 MG IV (11:41)
--- NOTE | 2023-04-26 12:17 | ED_ITS ---
HPI - Extremity Problem 2 General: Chief complaint: Extremity Problem,Nontraumatic Stated complaint: right foot pain Time Seen by Provider: 04/26/23 10:48 Source: patient Mode of arrival: ambulatory Limitations: no limitations History of Present Illness: 62-year-old diabetic male presents with worsening of wound right foot, was seen in urgent care and placed on Zyvox 2 to 3 days ago. Continues to have pain and is requesting pain medication. Patient denies any subjective nausea, vomiting, fever, chills, shortness of breath or chest pain. Associated symptoms: Deny chest pain or fever(s) Review of Systems 2 General: Reports: 10 or more systems reviewed and unremarkable except in HPI and below Const: Denies: fever(s) or chills Eyes: Denies: change in vision Card: Denies: chest pain or palpitations Resp: Denies: dyspnea or productive cough GI: Denies: abdominal pain, nausea or vomiting : Denies: flank pain Musc: Reports: extremity swelling, joint stiffness and deformity Skin/Breast: Reports: erythema, sores, changes in skin color, dry skin, nail changes and change in hair Neuro: Reports: numbness in extremities, sensory changes and difficulty walking Psych: Denies: suicidal ideation Endo: Denies: change in body appearance Mark/Lymph: Denies: tender lymph nodes PFSH ED 2 PFSH: Medical History Constipation History of DVT (deep vein thrombosis) 07/10/2019 DVT involving the popliteal veins bilaterally Closed hand fracture Right 4th metacarpal oblique, injury 04/03/2022 Bilateral leg edema Erectile dysfunction Low testosterone Anxiety and depression Obesity (BMI 35.0-39.9 without comorbidity) Diabetes type 2, uncontrolled Atherosclerotic heart disease of [place] coronary artery with other forms of angina pectoris Hypertension Hyperlipidemia Diabetes Diabetic neuropathy Insomnia Adenomatous colon polyp Ischemic cardiomyopathy Abnormal nuclear stress test History of claustrophobia Right foot drop 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 Surgical History Stented coronary artery H/O circumcision Family History Mother , at age 45 Cancer lung Grandmother Diabetes Father , at age 23 Drowning Other Hypertension Denies family history of CAD (coronary artery disease) Social History Smoking and tobacco/nicotine status: former use of tobacco/nicotine Alcohol intake: current Alcohol intake frequency: few times a month Substance/Drug Use: never Household members: spouse and children Marital status: service: No Current occupational status: disabled Physical Exam 2 Narrative: EXAM NARRATIVE: GENERAL: Patient is alert and oriented ?3 and in no acute distress. The following is a focused right lower extremity exam. Bedside with family. VASCULAR: Dorsalis pedis palpable bilaterally. Posterior tibial arteries palpable. Capillary refill time less than seconds to the distal hallux bilaterally. Calf is supple and nontender proximally and distally. NEUROLOGICAL: Protective sensation intact 0/10 sites, tested with [place] Di monofilament to bilateral feet. DERMATOLOGICAL: Grade 2 wound right plantar forefoot subfifth metatarsal head exposed to myofascial layer measures 2 cm x 3 cm x 0.3 cm, localized erythema, mild purulence. Wound does not probe to bone. MUSCULOSKELETAL: No crepitus with soft tissue palpation of the wound or with debridement. Tenderness to palpation at right foot. Course 2 Vital Signs: Vital signs: Vital Signs Temperature 97.8 F 04/26/23 10:48 Pulse Rate 103 H 04/26/23 11:23 Respiratory Rate 18 04/26/23 11:23 Blood Pressure 163/93 04/26/23 11:23 Pulse Oximetry 96 04/26/23 11:23 Oxygen Delivery Me thod Room Air 04/26/23 11:23 MDM - Extremity (Nontraumatic) Medical Decision Making Grade 2 ulceration down to myofascial layer right foot. Strict nonweightbearing right foot Discontinue Zyvox, begin clindamycin 3 mg 3 times daily and ciprofloxacin 500 mg twice daily for the next 7 days and gauge response Follow-up already scheduled appointment and wound care this 04/30/2023 Wheelchair order to [facility] medical admit facilitate nonweightbearing status. Also ordered bedside commode and cam boot for further offloading. PROCEDURE: Full thickness wound debridement Location: Right foot Local Anesthesia: none due to neuropathy Consent: Verbal Sterile Prep: with alcohol Details: full/partial thickness sharp debridement of the wound was performed using curette. The wound was debrided of hyperkeratotic rim and devitalized tissue down to myofascial layer, being the deepest level of debridement. Predebridement measurements: 2 cm x 3 cm x 0.3 cm Postdebridement measurements: 2.7 cm x 3.5 cm x 0.3 cm Hemostasis: Pressure Irrigation: sterile normal saline without Betadine Dressing: Betadine wet-to-dry Estimated Blood Loss: minimal Offloading: Cam boot and wheelchair Wound cultures taken postdebridement prior to Betadine dressing Differential Diagnosis Likely cellulitis Lab Data 04/26/23 11:05 04/26/23 11:05 Laboratory Results WBC 12.33 10^3/uL (3.29-11.43) H 04/26/23 11:05 RBC 5.05 10^6/uL (3.85-5.65) 04/26/23 11:05 Hgb 14.00 g/dL (11.27-16.99) 04/26/23 11:05 Hct 42.3 % (37-53) 04/26/23 11:05 MCV 83.8 fl (82-101) 04/26/23 11:05 MCH 27.7 pg (27-33) 04/26/23 11:05 MCHC 33.1 g/dL (30-55) 04/26/23 11:05 RDW 13.2 % (12.1-15.1) 04/26/23 11:05 Plt Count 402 10^3/cmm (157-399) H 04/26/23 11:05 MPV 9.7 fL (7.4-10.4) 04/26/23 11:05 Neut % (Auto) 74.0 % 04/26/23 11:05 Lymph % (Auto) 13.4 % 04/26/23 11:05 [place] % (Auto) 9.7 % 04/26/23 11:05 Eos % (Auto) 0.8 % 04/26/23 11:05 Baso % (Auto) 0.8 % 04/26/23 11:05 Neut # (Auto) 9.13 10^3/uL (1.8-7.7) H 04/26/23 11:05 Lymph # (Auto) 1.7 10^3/uL (0.8-4.8) 04/26/23 11:05 [place] # (Auto) 1.2 10^3/uL (0.2-0.9) H 04/26/23 11:05 Eos # (Auto) 0.1 10^3/uL (0.0-0.8) 04/26/23 11:05 Baso # (Auto) 0.1 10^3/uL (0.0-0.1) 04/26/23 11:05 Nucleated RBC % (auto) 0 % 04/26/23 11:05 Nucleated RBCs # 0.0 /100WBC 04/26/23 11:05 ESR 41 mm/hr (0-10) H 04/26/23 11:05 Sodium 132 mmol/L (136-145) L 04/26/23 11:05 Potassium 4.3 mmol/L (3.5-5.1) 04/26/23 11:05 Chloride 92 mmol/L (98-107) L 04/26/23 11:05 Carbon Dioxide 26 mmol/L (22-29) 04/26/23 11:05 Anion Gap 18.3 (5-19) 04/26/23 11:05 BUN 14 mg/dL (8-23) 04/26/23 11:05 Creatinine 0.9 mg/dL (0.7-1.2) 04/26/23 11:05 GFR Calculation 85.8 mL/min (90-130) L 04/26/23 11:05 Glucose 303 mg/dL (65-115) H 04/26/23 11:05 Calculated Osmolality 286 mOsm/kg (285-295) 04/26/23 11:05 Calcium 10.4 mg/dL (8.5-10.5) 04/26/23 11:05 Total Bilirubin 0.6 mg/dL (0.15-1.2) 04/26/23 11:05 AST 62 U/L (0-40) H 04/26/23 11:05 ALT 107 U/L (0-41) H 04/26/23 11:05 Alkaline Phosphatase 311 U/L (40-130) H 04/26/23 11:05 C-Reactive Protein 311.8 mg/L (0.0-4.9) H 04/26/23 11:05 Total Protein 8.0 g/dL (6.6-8.7) 04/26/23 11:05 Albumin 3.5 g/dL (3.5-5.2) 04/26/23 11:05 Globulin 4.5 g/dL (1.3-4.6) 04/26/23 11:05 All radiology interpretation(s) finalized by discharge Discharge Plan Discharge Patient Disposition: Home Clinical Impression: Diabetic foot ulcer Condition: Stable Prescriptions: New hydrocodone-acetaminophen 5-325 mg tablet 1 tab PO Q6H PRN (Reason: pain) Qty: 14 0RF ondansetron 4 mg tablet,disintegrating 4 mg PO Q6H PRN (Reason: nausea and vomiting) Qty: 14 0RF clindamycin HCl 300 mg capsule 300 mg PO TID 7 Days Qty: 21 0RF ciprofloxacin HCl 500 mg tablet 250 mg PO BID 7 Days Qty: 7 0RF No Action turmeric root extract 500 mg capsule 500 mg PO DAILY (DME) fast form ulnar gutter See Rx Instructions .ROUTE .MEDSUPPLY Qty: 1 0RF Rx Instructions: As directed Mounjaro 5 mg/0.5 mL pen injector 5 mg SUBCUT ONCE Qty: 2 0RF Rx Instructions: .25 mg/week for 4 weeks then 0.25 mg/week for 4 weeks then 0.75 mg/week Mounjaro 7.5 mg/0.5 mL pen injector 7.5 mg SUBCUT ONCE Qty: 2 0RF Rx Instructions: third month of treatment linezolid [Zyvox] 600 mg tablet 600 mg PO BID 6 Days Qty: 12 0RF (DME) Blood pressure machine See Rx Instructions .Route .MEDSUPPLY Qty: 1 0RF Rx Instructions: As directed, check blood pressure each day. (DME) blood-glucose meter [Accu-Chek Guide Glucose Meter] Misc See Rx Instructions .Route Qty: 1 0RF Rx Instructions: As directed, test blood sugar once a day. (DME) Accu-Chek Guide test strips Strip See Rx Instructions .Route Qty: 50 0RF Rx Instructions: As directed, check blood sugar, once a day. (DME) lancets [BD Ultra Fine Lancets] 33 gauge misc See Rx Instructions .Route Qty: 100 0RF Rx Instructions: As directed, test blood suagr once a day. iodine 150 mcg Tablet 150 mcg PO DAILY@0800 zinc acetate 25 mg (zinc) Capsule 25 mg PO DAILY selenium 50 mcg Tablet 50 mcg PO DAILY ascorbic acid (vitamin C) [Vitamin C] 500 mg Tablet 500 mg PO DAILY vitamin G46-dlhto acid 0.5-1 mg Tablet 1 tab PO DAILY cholecalciferol (vitamin D3) [Vitamin D3] 50 mcg (2,000 unit) Capsule 50 mcg PO DAILY Xarelto 20 mg tablet 20 mg PO DAILY aspirin 81 mg tablet,delayed release (DR/EC) 81 mg PO DAILY Qty: 30 0RF Discharge Orders: Discharge ED (Routine); Ordered 04/26/23 Ordered By: Edyta Bennett Referrals: Zach Amado MD [Primary Care Provider] - Manuel Lambert DPM [Physician] - 1-3 days Discharge Diet: Advance as tolerated Discharge Activity: Resume usual activity Patient Instructions: Diabetic Foot Ulcers (ED), Opioid Safety Coding Level of Care Code ED Log Washer for Lolita Gallegos
[2023-04-26 12:48] VITALS: PULSE 102; RESP 16; O2SAT 90
[2023-04-26 14:15] VITALS: PULSE 102; RESP 15; O2SAT 93
--- NOTE | 2023-04-26 16:34 | W.ED.EXTPRO ---
HPI - Extremity Problem General: Chief complaint: Extremity Problem,Nontraumatic Stated complaint: right foot pain Time Seen by Provider: 04/26/23 10:48 Source: patient Mode of arrival: ambulatory Limitations: no limitations History of Present Illness: 62-year-old diabetic male presents with worsening of wound right foot, was seen in urgent care and placed on Zyvox 2 to 3 days ago. Continues to have pain and is requesting pain medication. Patient denies any subjective nausea, vomiting, fever, chills, shortness of breath or chest pain. Associated symptoms: Deny chest pain or fever(s) Review of Systems General: Reports: 10 or more systems reviewed and unremarkable except in HPI and below Const: Denies: fever(s) or chills Eyes: Denies: change in vision Card: Denies: chest pain or palpitations Resp: Denies: dyspnea or productive cough GI: Denies: abdominal pain, nausea or vomiting : Denies: flank pain Musc: Reports: extremity swelling, joint stiffness and deformity Skin/Breast: Reports: erythema, sores, changes in skin color, dry skin, nail changes and change in hair Neuro: Reports: numbness in extremities, sensory changes and difficulty walking Psych: Denies: suicidal ideation Endo: Denies: change in body appearance Mark/Lymph: Denies: tender lymph nodes PFSH ED PFSH: Medical History Constipation History of DVT (deep vein thrombosis) 07/10/2019 DVT involving the popliteal veins bilaterally Closed hand fracture Right 4th metacarpal oblique, injury 04/03/2022 Bilateral leg edema Erectile dysfunction Low testosterone Anxiety and depression Obesity (BMI 35.0-39.9 without comorbidity) Diabetes type 2, uncontrolled Atherosclerotic heart disease of [place] coronary artery with other forms of angina pectoris Hypertension Hyperlipidemia Diabetes Diabetic neuropathy Insomnia Adenomatous colon polyp Ischemic cardiomyopathy Abnormal nuclear stress test History of claustrophobia Right foot drop 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 Surgical History Stented coronary artery H/O circumcision Family History Mother , at age 45 Cancer lung Grandmother Diabetes Father , at age 23 Drowning Other Hypertension Denies family history of CAD (coronary artery disease) Social History Smoking and tobacco/nicotine status: former use of tobacco/nicotine Alcohol intake: current Alcohol intake frequency: few times a month Substance/Drug Use: never Household members: spouse and children Marital status: service: No Current occupational status: disabled Physical Exam Narrative: EXAM NARRATIVE: Patient is alert and oriented ?3 and in no acute distress. The following is a focused right lower extremity exam. Bedside with family. VASCULAR: Dorsalis pedis palpable bilaterally. Posterior tibial arteries palpable. Capillary refill time less than seconds to the distal hallux bilaterally. Calf is supple and nontender proximally and distally. NEUROLOGICAL: Protective sensation intact 0/10 sites, tested with [place] Di monofilament to bilateral feet. DERMATOLOGICAL: Grade 2 wound right plantar forefoot subfifth metatarsal head exposed to myofascial layer measures 2 cm x 3 cm x 0.3 cm, localized erythema, mild purulence. Wound does not probe to bone. MUSCULOSKELETAL: No crepitus with soft tissue palpation of the wound or with debridement. Tenderness to palpation at right foot. Course Vital Signs: Vital signs: Vital Signs Temperature 97.8 F 04/26/23 10:48 Pulse Rate 102 H 04/26/23 14:15 Respiratory Rate 15 04/26/23 14:15 Blood Pressure 163/93 04/26/23 11:23 Pulse Oximetry 93 04/26/23 14:15 Oxygen Delivery Me thod Room Air 04/26/23 12:48 MDM - Extremity (Nontraumatic) Medical Decision Making Grade 2 ulceration down to myofascial layer right foot. Strict nonweightbearing right foot Discontinue Zyvox, begin clindamycin 3 mg 3 times daily and ciprofloxacin 500 mg twice daily for the next 7 days and gauge response Follow-up already scheduled appointment and wound care this 04/30/[address] [facility] medical admit facilitate nonweightbearing status. Also ordered bedside commode and cam boot for further offloading. PROCEDURE: Full thickness wound debridement Location: Right foot Local Anesthesia: none due to neuropathy Consent: Verbal Sterile Prep: with alcohol Details: full/partial thickness sharp debridement of the wound was performed using curette. The wound was debrided of hyperkeratotic rim and devitalized tissue down to myofascial layer, being the deepest level of debridement. Predebridement measurements: 2 cm x 3 cm x 0.3 cm Postdebridement measurements: 2.7 cm x 3.5 cm x 0.3 cm Hemostasis: Pressure Irrigation: sterile normal saline without Betadine Dressing: Betadine wet-to-dry Estimated Blood Loss: minimal Offloading: Cam boot and wheelchair Wound cultures taken postdebridement prior to Betadine dressing Lab Data 04/26/23 11:05 04/26/23 11:05 Laboratory Results WBC 12.33 10^3/uL (3.29-11.43) H 04/26/23 11:05 RBC 5.05 10^6/uL (3.85-5.65) 04/26/23 11:05 Hgb 14.00 g/dL (11.27-16.99) 04/26/23 11:05 Hct 42.3 % (37-53) 04/26/23 11:05 MCV 83.8 fl (82-101) 04/26/23 11:05 MCH 27.7 pg (27-33) 04/26/23 11:05 MCHC 33.1 g/dL (30-55) 04/26/23 11:05 RDW 13.2 % (12.1-15.1) 04/26/23 11:05 Plt Count 402 10^3/cmm (157-399) H 04/26/23 11:05 MPV 9.7 fL (7.4-10.4) 04/26/23 11:05 Neut % (Auto) 74.0 % 04/26/23 11:05 Lymph % (Auto) 13.4 % 04/26/23 11:05 [place] % (Auto) 9.7 % 04/26/23 11:05 Eos % (Auto) 0.8 % 04/26/23 11:05 Baso % (Auto) 0.8 % 04/26/23 11:05 Neut # (Auto) 9.13 10^3/uL (1.8-7.7) H 04/26/23 11:05 Lymph # (Auto) 1.7 10^3/uL (0.8-4.8) 04/26/23 11:05 [place] # (Auto) 1.2 10^3/uL (0.2-0.9) H 04/26/23 11:05 Eos # (Auto) 0.1 10^3/uL (0.0-0.8) 04/26/23 11:05 Baso # (Auto) 0.1 10^3/uL (0.0-0.1) 04/26/23 11:05 Nucleated RBC % (auto) 0 % 04/26/23 11:05 Nucleated RBCs # 0.0 /100WBC 04/26/23 11:05 ESR 41 mm/hr (0-10) H 04/26/23 11:05 Sodium 132 mmol/L (136-145) L 04/26/23 11:05 Potassium 4.3 mmol/L (3.5-5.1) 04/26/23 11:05 Chloride 92 mmol/L (98-107) L 04/26/23 11:05 Carbon Dioxide 26 mmol/L (22-29) 04/26/23 11:05 Anion Gap 18.3 (5-19) 04/26/23 11:05 BUN 14 mg/dL (8-23) 04/26/23 11:05 Creatinine 0.9 mg/dL (0.7-1.2) 04/26/23 11:05 GFR Calculation 85.8 mL/min (90-130) L 04/26/23 11:05 Glucose 303 mg/dL (65-115) H 04/26/23 11:05 Calculated Osmolality 286 mOsm/kg (285-295) 04/26/23 11:05 Calcium 10.4 mg/dL (8.5-10.5) 04/26/23 11:05 Total Bilirubin 0.6 mg/dL (0.15-1.2) 04/26/23 11:05 AST 62 U/L (0-40) H 04/26/23 11:05 ALT 107 U/L (0-41) H 04/26/23 11:05 Alkaline Phosphatase 311 U/L (40-130) H 04/26/23 11:05 C-Reactive Protein 311.8 mg/L (0.0-4.9) H 04/26/23 11:05 Total Protein 8.0 g/dL (6.6-8.7) 04/26/23 11:05 Albumin 3.5 g/dL (3.5-5.2) 04/26/23 11:05 Globulin 4.5 g/dL (1.3-4.6) 04/26/23 11:05 All radiology interpretation(s) finalized by discharge Discharge Plan Discharge Patient Disposition: Home Clinical Impression: Diabetic foot ulcer Condition: Stable Prescriptions: New hydrocodone-acetaminophen 5-325 mg tablet 1 tab PO Q6H PRN (Reason: pain) Qty: 14 0RF ondansetron 4 mg tablet,disintegrating 4 mg PO Q6H PRN (Reason: nausea and vomiting) Qty: 14 0RF clindamycin HCl 300 mg capsule 300 mg PO TID 7 Days Qty: 21 0RF ciprofloxacin HCl 500 mg tablet 250 mg PO BID 7 Days Qty: 7 0RF No Action turmeric root extract 500 mg capsule 500 mg PO DAILY (DME) fast form ulnar gutter See Rx Instructions .ROUTE .MEDSUPPLY Qty: 1 0RF Rx Instructions: As directed linezolid [Zyvox] 600 mg tablet 600 mg PO BID 6 Days Qty: 12 0RF (DME) Blood pressure machine See Rx Instructions .Route .MEDSUPPLY Qty: 1 0RF Rx Instructions: As directed, check blood pressure each day. (DME) blood-glucose meter [Accu-Chek Guide Glucose Meter] [facility] See Rx Instructions .Route Qty: 1 0RF Rx Instructions: As directed, test blood sugar once a day. (DME) Accu-Chek Guide test strips Strip See Rx Instructions .Route Qty: 50 0RF Rx Instructions: As directed, check blood sugar, once a day. (DME) lancets [BD Ultra Fine Lancets] [facility] See Rx Instructions .Route Qty: 100 0RF Rx Instructions: As directed, test blood suagr once a day. iodine 150 mcg Tablet 150 mcg PO DAILY@0800 zinc acetate 25 mg (zinc) Capsule 25 mg PO DAILY selenium 50 mcg Tablet 50 mcg PO DAILY ascorbic acid (vitamin C) [Vitamin C] 500 mg Tablet 500 mg PO DAILY vitamin Y25-cziqa acid 0.5-1 mg Tablet 1 tab PO DAILY cholecalciferol (vitamin D3) [Vitamin D3] 50 mcg (2,000 unit) Capsule 50 mcg PO DAILY Xarelto 20 mg tablet 20 mg PO DAILY aspirin 81 mg tablet,delayed release (DR/EC) 81 mg PO DAILY Qty: 30 0RF Discharge Orders: Discharge ED (Routine); Ordered 04/26/23 Ordered By: Edyta Bennett Referrals: Zach Amado MD [Primary Care Provider] - Manuel Lambert DPM [Physician] - 1-3 days Discharge Diet: Advance as tolerated Discharge Activity: Resume usual activity Patient Instructions: Diabetic Foot Ulcers (ED), Opioid Safety Coding Level of Care Code ED Recreational Vehicle Resort Manager for Lolita Gallegos
== END 2023-04-26 14:28 | disposition home or self-care (01) ==
PROVIDERS: Emergency Provider Emergency Medicine; PCP Family Medicine Adult Medicine
DX: L97.515 Non-pressure chronic ulcer of other part of right foot with muscle involvement without evidence of necrosis (principal); E11.621 Type 2 diabetes mellitus with foot ulcer; E11.42 Type 2 diabetes mellitus with diabetic polyneuropathy; M79.671 Pain in right foot; Z79.82 Long term (current) use of aspirin; Z87.891 Personal history of nicotine dependence; I25.10 Atherosclerotic heart disease of native coronary artery without angina pectoris; E78.5 Hyperlipidemia, unspecified; I25.5 Ischemic cardiomyopathy; I10 Essential (primary) hypertension
CPT/HCPCS: 11043; 73630; 80053; 85025; 85651; 86140; 87070; 87075; 87077; 87186; 87205; 96365; 96375; 99284; J2270; J2405; J3370; J7050

== ENCOUNTER → 2023-04-30 07:57 | Outpatient (BNVA) | payer MEDICARE, MEDICAID, SELFPAY | PROVIDERS: PCP Family Medicine Adult Medicine; Visit Provider Thoracic Surgery (Cardiothoracic Vascular Surgery) | DX: E11.52 Type 2 diabetes mellitus with diabetic peripheral angiopathy with gangrene (principal); E11.621 Type 2 diabetes mellitus with foot ulcer; L97.411 Non-pressure chronic ulcer of right heel and midfoot limited to breakdown of skin | CPT/HCPCS: 11042; 99213 ==

== ENCOUNTER → 2023-05-07 09:47 | Outpatient (BNVA) | payer MEDICARE, MEDICAID, SELFPAY | PROVIDERS: PCP Family Medicine Adult Medicine; Visit Provider Thoracic Surgery (Cardiothoracic Vascular Surgery) | DX: E11.52 Type 2 diabetes mellitus with diabetic peripheral angiopathy with gangrene (principal); E11.621 Type 2 diabetes mellitus with foot ulcer; L97.412 Non-pressure chronic ulcer of right heel and midfoot with fat layer exposed | CPT/HCPCS: 11042; A6213; A6252 ==

== ENCOUNTER → 2023-05-09 10:30 | Outpatient (BNVA) | payer MEDICARE, MEDICAID, SELFPAY | PROVIDERS: PCP Family Medicine Adult Medicine; Visit Provider Podiatrist Foot & Ankle Surgery | DX: E11.621 Type 2 diabetes mellitus with foot ulcer (principal); L97.522 Non-pressure chronic ulcer of other part of left foot with fat layer exposed; E11.52 Type 2 diabetes mellitus with diabetic peripheral angiopathy with gangrene; I96 Gangrene, not elsewhere classified; L97.412 Non-pressure chronic ulcer of right heel and midfoot with fat layer exposed; M86.171 Other acute osteomyelitis, right ankle and foot | CPT/HCPCS: 11043; 73630; 99214 ==

== ENCOUNTER 2023-05-11 05:39 | Day surgery (SDC) | payer MEDICARE, MEDICAID, SELFPAY ==
[2023-05-11] VITALS (11 sets, daily range): BP systolic 143–173; BP diastolic 90–116; PULSE 93–103; RESP 16–25; TEMP 36.1–36.8; O2SAT 93–98; BMI 33.6
[2023-05-11 06:20] LABS: Glucose Point of Care 336 mg/dL (70-110)
[2023-05-11] MEDS: sodium chloride 0.9% 1,000 ML 30 ML IV (06:21)
--- NOTE | 2023-05-11 06:30 | P.HPUD_ITS ---
Surgery/Procedure H&P Update DATE OF PROCEDURE: May 11, 2023 DATE H&P PERFORMED: 05/09/23 H&P UPDATE INFORMATION: I have reviewed H&P completed within last 30 days, I have examined patient prior to procedure, No changes to prior documentation and H&P is in [facility] on date indicated PREOP DIAGNOSIS: Diabetic ulcer right foot, gangrene right fifth toe PLANNED PROCEDURE: Operation Date: 05/11/23 07:00 Proposed Procedures p Incision of bone cortex, right foot, Right fifth toe amputation and Application of wound VAC right foot [id number], [id number], ,M86.171(Right) - Manuel hamilton DPM s Amputation Toe/s(Right) - Manuel Lambert DPM
--- NOTE | 2023-05-11 06:31 | P.OP_ITS ---
Operative Report Date of procedure: May 11, 2023 Pre-op diagnosis: Gangrene right fifth toe Osteomyelitis right fifth metatarsal Post-op diagnosis: None Procedure done: Incision of bone cortex, right foot. CPT code 10694 Right fifth toe amputation. CPT code 48152 Application of wound vac right foot. Surgeon: Manuel Lambert DPM
--- NOTE | 2023-05-11 06:31 | PM.OP ---
Operative Report Date of procedure: May 11, 2023 Pre-op diagnosis: Gangrene right fifth toe Osteomyelitis right fifth metatarsal Post-op diagnosis: None Procedure done: Incision of bone cortex, right foot. CPT code 57136 Right fifth toe amputation. CPT code 57513 Application of wound vac right foot. Surgeon: Manuel Lambert DPM
--- NOTE | 2023-05-11 07:00 | P.OP_ITS ---
Operative Report Date of procedure: May 16, 2023 Pre-op diagnosis: Gangrene right fifth toe Osteomyelitis right fifth metatarsal Post-op diagnosis: Same Procedure done: Incision of bone cortex, right foot. CPT code 59542 Right fifth toe amputation. CPT code 29227 Application of wound vac right foot. Implants: 3-0 Prolene Specimens removed/disposition: Bone cortex right fifth metatarsal sent to microbiology for Gram stain, culture and sensitivity. Pathology: Right fifth toe sent to pathology for permanent Surgeon: Manuel Lambert DPM Entry Level Automotive Technician: Jair Estimated blood loss: 5 See intraoperative documentation IV fluids: None Urine output: None Complications: None Brief History: Patient examined evaluated, findings and treatment options were discussed with patient at length. Discussed trying to preserve the fifth toe versus partial fifth ray resection of the right foot. Patient states that he would prefer a partial fifth ray amputation if this would offer a potential for more definitive means of infection control. Big picture would require advanced bracing to offload the right lateral column to help avoid transfer wound. Patient is in agreement. Plans for amputation of right fifth toe and incision down to bone on the right fifth metatarsal with application of wound VAC this Sunday. I reviewed at length with the patient, the risks, potential complications, benefits, alternatives, expectations, and typical outcomes associated with the surgery. The risks and potential complications were explained in detail, including but not limited to infection, wound dehiscence or soft tissue complications, bleeding and hematoma, chronic edema, neuritis or nerve damage producing numbness or chronic pain, CRPS, failure to relieve pain or worsening pain, thick / painful / unsightly scar, limited motion / stiffness, malposition, delayed union, malunion, or nonunion, fracture, reaction to implants, anesthetic complications, venous thromboembolism, and deformity recurrence. I discussed the notion of no regrets with the patient as it pertains to complications and outcomes. The patient seemed to understand the nature of the proposed care and required convalescence. They asked appropriate questions, answered to their satisfaction. They are aware no guarantees can be made as to a satisfactory outcome and they understand there may be other possible unforeseen complications or outcomes not listed here that will be treated accordingly if they arise. There were no written or implied guarantees given to the patient. They gave informed consent to proceed.
[2023-05-11] MEDS: ceFAZolin 2,000 MG in sodium chloride 0.9% (plus) 50 ML 100 MG IV (07:01)
[2023-05-11] MEDS: BUPivacaine 0.5% INJ 30 mL 15 ML INJECTION (07:19)
[2023-05-11] MEDS: lidocaine 2% INJ 20 mL 15 ML INJECTION (07:19)
[2023-05-11] MEDS: fentaNYL 50 mcg/mL INJ 2mL IVP (08:00)
--- NOTE | 2023-05-11 08:06 | P.ANESASSM_ITS ---
Pre-Anesthetic Assessment Height/Weight: Height 1.85 m Weight 115.666 kg Temp Pulse Resp BP Pulse Ox O2 Del Method 97.5 F L 95 17 173/116 96 Room Air 05/11/23 06:09 05/11/23 06:09 05/11/23 06:09 05/11/23 06:09 05/11/23 06:09 05/11/23 06:09 Preop Diagnosis: Diabetic ulcer right foot, gangrene right fifth toe Operation Date: 05/11/23 07:00 Proposed Procedures p Incision of bone cortex, right foot, Right fifth toe amputation and Application of wound VAC right foot 81254, [id number], ,M86.171(Right) - Manuel Lambert DPM s Amputation Toe/s(Right) - Manuel Lambert DPM Familial anesthetic complications: none Was Beta Chio taken within 24 hours: N/A Was Clonidine taken within 24 hours: N/A Last intake: Intake Last Liquid Date 05/10/23 Last Liquid Time 23:30 Last Solid Date 05/10/23 Last Solid Time 19:00 Social No alcohol and No tobacco Exam alert, oriented x 3, clear to auscultation bilaterally and regular rate & rhythm Airway Submandibular: within normal limits Cervical ROM: within normal limits Mallampati: Class II Dentition: chipped CV/HEM Deep Vein Thrombosis and Peripheral Vascular Disease anticoagulation, Factor 5 Leiden mutation Metabolic Diabetes Mellitus and Morbid Obesity [facility] [place] Lower Back Pain and Osteoarthritis/DJD Neuropsych Anxiety, Depression, Neuropathy and Transient Ischemic Attack Anesthetic Plan ASA status: 3 Anesthesia: Choice Medications/Allergies Home Medications Medication Instructions Recorded Confirmed Last Taken Type iodine 150 mcg tablet 150 mcg PO DAILY@0800 05/12/20 05/10/23 05/08/23 History turmeric root extract 500 mg 500 mg PO DAILY 06/22/20 05/10/23 04/25/23 History capsule fast form ulnar gutter #1 ea 04/21/21 05/09/23 Unknown Rx Blood pressure machine #1 ea 06/28/21 05/09/23 Unknown Rx blood sugar diagnostic (Accu-Chek #50 ea 06/29/21 05/09/23 Unknown Rx Guide test strips) blood-glucose meter (Accu-Chek #1 ea 06/29/21 05/09/23 Unknown Rx Guide Glucose Meter) lancets 33 gauge (BD Ultra Fine #100 ea 08/19/21 05/09/23 Unknown Rx Lancets) ascorbic acid (vitamin C) 500 mg 500 mg PO DAILY 03/13/23 05/11/23 05/09/23 History tablet (Vitamin C) aspirin 81 mg tablet,delayed 81 mg PO DAILY #30 tabs 03/13/23 05/10/23 05/08/23 Rx release cholecalciferol (vitamin D3) 50 50 mcg PO DAILY 03/13/23 05/10/23 05/08/23 History mcg (2,000 unit) capsule (Vitamin D3) rivaroxaban 20 mg tablet (Xarelto) 20 mg PO DAILY 03/13/23 05/10/23 05/08/23 History selenium 50 mcg tablet 50 mcg PO DAILY 03/13/23 05/10/23 04/25/23 History vitamin B12 0.5 mg-folic acid 1 mg 1 tab PO DAILY 03/13/23 05/11/23 04/25/23 History tablet zinc acetate 25 mg (zinc) capsule 25 mg PO DAILY 03/13/23 05/11/23 04/25/23 History ondansetron 4 mg disintegrating 4 mg PO Q6H PRN nausea and 04/26/23 05/11/23 05/10/23 Rx tablet vomiting #14 tabs ciprofloxacin HCl 500 mg tablet 500 mg PO BID 2 weeks #28 tabs 05/09/23 05/10/23 05/10/23 Rx oxycodone-acetaminophen 7.5 mg-325 1 tab PO DAILY PRN pain 7 days #7 05/09/23 05/10/23 05/10/23 Rx mg tablet (Percocet) tabs clindamycin HCl 300 mg capsule 300 mg PO TID 05/11/23 05/11/23 05/10/23 History Allergies Allergy/AdvReac Type Severity Reaction Status Date / Time No Known Allergies Allergy Verified 05/11/23 06:00 Current Medications Generic Name Dose Route Start Last Admin Trade Name Freq PRN Reason Stop Dose Admin Sodium Chloride 1,000 mls @ 30 mls/hr 05/11/23 06:00 05/11/23 06:21 Sodium Chloride 0.9% IV 05/12/23 05:59 30 mls/hr .Q24H SILVINA Administration PFSH Anesthesia Medical History Constipation History of DVT (deep vein thrombosis) 07/10/2019 DVT involving the popliteal veins bilaterally Closed hand fracture Right 4th metacarpal oblique, injury 04/03/2022 Bilateral leg edema Erectile dysfunction Low testosterone Anxiety and depression Obesity (BMI 35.0-39.9 without comorbidity) Diabetes type 2, uncontrolled 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 Hypertension Hyperlipidemia Diabetes Diabetic neuropathy Insomnia Adenomatous colon polyp Ischemic cardiomyopathy Abnormal nuclear stress test History of claustrophobia Right foot drop 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 Surgical History Stented coronary artery H/O circumcision Family History Mother , at age 45 Cancer lung Grandmother Diabetes Father , at age 23 Drowning Other Hypertension Denies family history of CAD (coronary artery disease) Social History Smoking and tobacco/nicotine status: former use of tobacco/nicotine Alcohol intake: current Alcohol intake frequency: few times a month Substance/Drug Use: never Household members: spouse and children Marital status: service: No Current occupational status: disabled Data Anesthesia Cardiac Studies: Echocardiogram 03/29/23 Sestamibi Stress Test (Cardiology) 03/29 Holter Monitor 03/29/23
--- NOTE | 2023-05-11 08:11 | PC.NURSE ---
0802 - right foot boot replaced per this nurse
--- NOTE | 2023-05-11 08:16 | W.PM.BPON ---
Date of Procedure: 05/11/23 Surgeon: Manuel Lambert DPM [employer] Counselor(s): Jair Procedure(s) performed: Right fifth toe amputation. Incision of bone cortex right foot. Application of wound VAC right foot. Findings of the procedure(s): Osteomyelitis right foot, gangrene right fifth toe Estimated blood loss: 5 Specimen(s) removed: Right fifth toe Post-operative diagnosis: Right fifth toe gangrene and osteomyelitis right foot
[2023-05-11] MEDS: HYDROmorphone 1 mg/mL INJ 1 mL 0.5 MG IVP (08:55)
[2023-05-11] MEDS: oxyCODONE-APAP 10-325 mg Tablet 1 TAB PO (09:25)
--- NOTE | 2023-05-11 14:04 | ANE.PACU2 ---
Inpatient post-anesthesia follow up: Airway intact: Yes Vital signs: Temperature 98.3 F Pulse Rate 93 Respiratory Rate 18 Blood Pressure 157/99 Pulse Oximetry 98 Oxygen Delivery Me thod Room Air Oxygen Flow Rate Fraction of Inspir ed Oxygen Hydration adequate: Yes Nausea and vomiting: No Pain level: 1 Mental status: Baseline
--- NOTE | 2023-05-15 | XR_ITS ---
WS: [id number] INTRAOPERATIVE TECHNIQUE: 2 Spot fluoroscopic images for intraoperative purposes. FLUOROSCOPY TIME: 2 seconds CLINICAL INFORMATION: Fifth toe amputation, or pic COMPARISON: None. FINDINGS: Intraoperative changes amputation through the proximal third fifth metatarsal shaft IMPRESSION: Images obtained for intraoperative purposes.
== END 2023-05-11 09:40 | disposition home or self-care (01) ==
PROVIDERS: PCP Family Medicine; Visit Provider Podiatrist Foot & Ankle Surgery
PROC: (CPT 28005; principal; 2023-05-11 07:00)
PROC: (CPT 28005; 2023-05-11 07:00)
DX: I96 Gangrene, not elsewhere classified (principal); M86.8X7 Other osteomyelitis, ankle and foot; Z86.718 Personal history of other venous thrombosis and embolism; E11.9 Type 2 diabetes mellitus without complications; E66.01 Morbid (severe) obesity due to excess calories; Z68.33 Body mass index [BMI] 33.0-33.9, adult; Z79.82 Long term (current) use of aspirin; I10 Essential (primary) hypertension; E11.40 Type 2 diabetes mellitus with diabetic neuropathy, unspecified; Z87.891 Personal history of nicotine dependence
CPT/HCPCS: 28005; 28820; 36416; 73620; 76000; 82962; 87070; 87075; 87176; 87205; 88305; 88311; J0690; J1170; J2250; J2704; J3010; J3490; J7030

== ENCOUNTER → 2023-05-15 14:20 | Outpatient (BNVA) | payer MEDICARE, MEDICAID, SELFPAY | PROVIDERS: PCP Family Medicine; Visit Provider Podiatrist Foot & Ankle Surgery | DX: Z98.890 Other specified postprocedural states (principal); I96 Gangrene, not elsewhere classified; M86.171 Other acute osteomyelitis, right ankle and foot; M79.671 Pain in right foot; E11.65 Type 2 diabetes mellitus with hyperglycemia | CPT/HCPCS: 99213 ==

== ENCOUNTER → 2023-05-28 13:47 | Outpatient (BNVA) | payer MEDICARE, MEDICAID, SELFPAY | PROVIDERS: PCP Family Medicine; Visit Provider Thoracic Surgery (Cardiothoracic Vascular Surgery) | DX: E11.621 Type 2 diabetes mellitus with foot ulcer (principal); E11.52 Type 2 diabetes mellitus with diabetic peripheral angiopathy with gangrene; L97.513 Non-pressure chronic ulcer of other part of right foot with necrosis of muscle | CPT/HCPCS: 11043 ==

== ENCOUNTER → 2023-05-31 10:44 | Outpatient (BNVA) | payer MEDICARE, MEDICAID, SELFPAY | PROVIDERS: PCP Family Medicine; Visit Provider Family Medicine | DX: E11.9 Type 2 diabetes mellitus without complications (principal); I25.118 Atherosclerotic heart disease of native coronary artery with other forms of angina pectoris; R94.39 Abnormal result of other cardiovascular function study; R79.89 Other specified abnormal findings of blood chemistry; I10 Essential (primary) hypertension; E78.2 Mixed hyperlipidemia; D68.51 Activated protein C resistance; Z86.718 Personal history of other venous thrombosis and embolism; E11.65 Type 2 diabetes mellitus with hyperglycemia; Z76.89 Persons encountering health services in other specified circumstances | CPT/HCPCS: 80053; 80061; 82607; 83036; 84403; 84443; 85025 ==

== ENCOUNTER 2023-06-01 13:16 | Outpatient (CLI) | payer MEDICARE, MEDICAID, SELFPAY ==
--- NOTE | 2023-06-01 14:00 | CTR_ITS ---
PROCEDURE INFORMATION: Exam: CTA Abdominal Aorta and Bilateral Lower Extremities (Run-off) With Contrast Exam date and time: 06/01/2023 2:12 PM Age: 62 years old Clinical indication: Condition or disease; Prior surgery; Surgery date: <1 month; Surgery type: 5th digit 05/12; Patient HX: Non-healing diabetic foot ulcer. PT states 5th digit removed from RT foot end of April with little healing TECHNIQUE: Imaging protocol: Computed tomographic angiography of the of the abdominal aorta, pelvis and bilateral lower extremities with contrast. 3D rendering (Not supervised by radiologist): MIP and/or 3D reconstructed images were created by the technologist. Radiation optimization: All CT scans at this facility use at least one of these dose optimization techniques: automated exposure control; mA and/or kV adjustment per patient size (includes targeted exams where dose is matched to clinical indication); or iterative reconstruction. Contrast material: OMNI 350; Contrast volume: 125 ml; Contrast route: INTRAVENOUS (IV); COMPARISON: 1. CT angio chest PE protcl [id number] 02/20/2019 2:07 PM 2. CR XR foot RT min 3V* [id number] 05/09/2023 10:36 AM RADIATION DOSE METRICS: Total DLP (mGy-cm): 1672.74 FINDINGS: Aorta: Mild atherosclerosis without aortic aneurysm. No aortic dissection. Celiac trunk and mesenteric arteries: Variant celiac axis anatomy with the left gastric artery arising directly from the aorta. Ghjr-cp-pyrhljmx narrowing of the celiac artery by soft plaque with moderate to high-grade proximal splenic artery stenosis, axial images 156-158 of series 6. No occlusion. SMA and SHINE are widely patent. Renal arteries: No occlusion or significant stenosis. Right iliac arteries: No occlusion or significant stenosis. Right femoral/popliteal arteries: Mild narrowing of the proximal femoral artery with subsequent focal moderate narrowing on axial image 553 of series 6. Intermittent areas of mild femoral and popliteal artery narrowing from the mid to lower thigh level. No occlusion. Right infrapopliteal arteries: Short-segment severe stenosis of the proximal anterior tibial artery with subsequent short-segment normal caliber prior to complete occlusion along nearly its entire length beginning on axial image 1000 of series 6 and extending distally. Severe stenosis of the tibioperoneal trunk with focal areas of non-opacification (axial images 1001 and 1013 of series 6) subsequent opacification at the tibioperoneal trunk bifurcation with patent posterior tibial and peroneal arteries. Left iliac arteries: No occlusion or significant stenosis. Left femoral/popliteal arteries: Multifocal areas of mild narrowing along the distal femoral and popliteal artery. No occlusion. Left infrapopliteal arteries: Multifocal stenoses along the anterior tibial artery. Posterior tibial and peroneal arteries remain patent. Lungs: Mild left basilar atelectasis. Mild dependent atelectasis. Right lower lobe calcified granuloma. Pleural spaces: Small gajg-wrrqhvm-gqnx-right pleural effusions. Heart: Mild aortic valve calcification. Coronary arteries: Coronary artery calcification. Liver: Enlarged liver measures 20.5 cm in craniocaudal dimension. No discrete masses. Gallbladder and bile ducts: Cholelithiasis without CT findings of cholecystitis. No biliary ductal dilatation. Pancreas: Normal without ductal dilatation. Spleen: Normal. Adrenal glands: Small bilateral adrenal nodules are stable from February 2019, favoring benignity. Kidneys and ureters: Left renal subcentimeter hypodensities too small to characterize are statistically likely benign and require no dedicated imaging follow-up. Otherwise unremarkable. Stomach and bowel: No obstruction. No mucosal thickening. Appendix: Normal. Urinary bladder: Urinary bladder is unremarkable. Reproductive: Enlarged prostate measures 5.2 cm in transverse dimension. Bilateral vas deferens calcification. Intraperitoneal space: No free air, free fluid, or well-organized fluid collection. Lymph nodes: No enlarged lymph nodes. Calcified mediastinal and right hilar lymph nodes in keeping with sequela of old granulomatous disease. Bones/joints: Status post right small toe amputation at the level of the metatarsal shaft with smooth margin and no focal demineralization or erosion. No acute fracture. Degenerative changes throughout the imaged axial and appendicular skeletal system. Soft tissues: Small fat containing bilateral inguinal hernias. Bilateral lower extremity subcutaneous edema from the mid thigh level distally. CT/CT angio abd aorta runof [id number] IMPRESSION: 1. Occlusion of nearly the entire right anterior tibial artery, likely nonacute. High-grade stenosis and possibly focal areas of occlusion at the right tibioperoneal trunk, also likely nonacute. 2. Status post right small toe amputation without evidence of osteomyelitis. 3. Multifocal stenoses along the left anterior tibial artery. 4. Moderate to high-grade proximal splenic artery stenosis. 5. Small yrut-cwocguz-ysbo-right pleural effusions and zlzy-waftedl-qmuo-right basilar/dependent atelectasis. 6. Additional chronic and incidental findings as above, to include hepatomegaly, cholelithiasis, and prostatomegaly. REFERENCES: Judit NELSON, et al. Management of Incidental Adrenal Masses: A White Paper of the ACR Incidental Findings Committee. J Am Kamari Radiol. 2017;14(8):5370-1480.
[2023-06-01] MEDS: iohexol 350 mg/mL 500 mL Btl (per mL) IV (14:25)
== END 2023-06-01 13:17 | disposition home or self-care (01) ==
LOC: RAD 13:16
PROVIDERS: PCP Family Medicine; Visit Provider Thoracic Surgery (Cardiothoracic Vascular Surgery)
DX: E11.621 Type 2 diabetes mellitus with foot ulcer (principal); L97.509 Non-pressure chronic ulcer of other part of unspecified foot with unspecified severity; I77.1 Stricture of artery; Z89.421 Acquired absence of other right toe(s); J90 Pleural effusion, not elsewhere classified; R94.8 Abnormal results of function studies of other organs and systems
CPT/HCPCS: 75635; Q9967

== ENCOUNTER 2023-06-04 12:27 | Emergency (ER) | payer MEDICARE, MEDICAID, SELFPAY ==
[2023-06-04 12:30] VITALS: BP 173/103; PULSE 88; TEMP 36.8; O2SAT 95; BMI 33.6
--- NOTE | 2023-06-04 12:38 | XR_ITS ---
WS: [id number] Exam: XR chest 1V portable [id number] Date/Time of Exam: 06/04/2023 12:40 PM Reason For Exam: sob Comparison 03/13/2023. Small LEFT basal pleural effusion has developed since the last exam. The lungs are clear and fully in flated. Normal cardiomediastinal silhouette. Regional bony structures are intact. Coronary artery digna cifications noted. IMPRESSION: 1. New small LEFT basal pleural effusion.
--- NOTE | 2023-06-04 12:39 | CT_ITS ---
WS: [id number] CT CHEST ANGIOGRAPHY WITH REFORMATS HISTORY: sob TECHNIQUE: Contiguous axial images are obtained through the chest during arterial injection of intrav enous contrast. Images are reconstructed to evaluate the pulmonary arteries. MIP imaging also reviewe d. All CT scans at [facility] use at least one of these dose optimization techniques: automat ed exposure control; mA and/or kV adjustment per patient size (includes targeted exams where dose is matched to clinical indication); or iterative reconstruction. CONTRAST: Omnipaque 350; 100 mL IV. DLP: 551.22 mGy.cm COMPARISON: 02/20/2019 Good opacification of the pulmonary arteries. No central pulmonary opacification. Reidentified are li near filling defects in the lower lobe segmental pulmonary arteries. These are nonocclusive filling d efects. Some of these defects were present on the prior study. The burden appears more pronounced kathleen n on the prior study but still minimal. There is a new nonocclusive filling defect proximal RIGHT upp er lobe pulmonary artery. Due to its position this is probably a chronic also. Mild hazy attenuation throughout the lungs. New, lobulated 6 mm noncalcified pulmonary nodule RIGHT u pper lobe. No additional pulmonary mass. Small bilateral pleural effusions, LEFT greater than RIGHT. Mild atelectasis at the LEFT lung base. H eart size is normal. No RIGHT heart strain. No adenopathy. Hepatic steatosis. No adrenal mass. Cholelithiasis. No evidence for acute cholecystitis. IMPRESSION: 1. Linear nonocclusive filling defects in the lower lobe pulmonary arteries and proximal RIGHT upper lobe pulmonary artery. Due to the appearance these are probably chronic. Filling defects were presen t on the prior study from 2019 but better visualized today due to better imaging technique. There is no large central or occlusive pulmonary emboli. 2. Small bilateral pleural effusions, LEFT greater than RIGHT. 3. New lobulated 6 mm nodule RIGHT upper lobe. Recommend follow-up chest CT in 6 months. 4. Cholelithiasis without acute cholecystitis.
--- NOTE | 2023-06-04 12:42 | W.ED.SOB ---
HPI - SOB/Dyspnea General: Chief Complaint: Shortness of Breath/Dyspnea Stated Complaint: sob Time Seen by Provider: 06/04/23 12:29 Source: patient and EMS Mode of arrival: EMS Limitations: no limitations History of Present Illness: HPI Narrative: 62-year-old male states over the last 2 days he had some slight dyspnea. He states he had a CT aorta runoff and got a call saying that he had a possible PE and recommended to have a CTA of his chest. He denies any cough or fever denies any worsening proving factors. Associated symptoms: Deny abdominal pain, chest pain, fever(s), nausea or vomiting Review of Systems Const: Denies: fever(s), chills, body aches or change in appetite ENMT: Denies: throat pain or dental pain Card: Denies: chest pain Resp: Reports: dyspnea GI: Denies: abdominal pain, nausea, vomiting or diarrhea : Denies: dysuria Musc: Denies: neck pain or back pain Skin/Breast: Denies: rash Neuro: Denies: headache(s) PFSH ED PFSH: Medical History (Updated 06/04/23 @ 15:13 by Edyta Bennett MD) Factor 5 Leiden mutation, heterozygous Constipation History of DVT (deep vein thrombosis) 07/10/2019 DVT involving the popliteal veins bilaterally Closed hand fracture Right 4th metacarpal oblique, injury 04/03/2022 Bilateral leg edema Erectile dysfunction Low testosterone Anxiety and depression Diabetes type 2, uncontrolled Atherosclerotic heart disease of [place] coronary artery with other forms of angina pectoris Hypertension Hyperlipidemia Diabetic neuropathy Adenomatous colon polyp Ischemic cardiomyopathy Abnormal nuclear stress test History of claustrophobia Right foot drop 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 Surgical History Stented coronary artery H/O circumcision Family History (Updated 05/31/23 @ 10:16 by Sondra May MD) Mother , at age 45 Lung cancer smoker Grandmother Diabetes Father , at age 23 Drowning Other Hypertension Denies family history of CAD (coronary artery disease) Social History (Updated 05/31/23 @ 10:22 by Sondra May MD) Smoking and tobacco/nicotine status: former use of tobacco/nicotine Quit status (tobacco/nicotine): has quit using Year quit tobacco: 2005 Alcohol intake: former Substance/Drug Use: former Household members: spouse and children Marital status: Number of children: 7 service: No Current occupational status: disabled 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 Abiola/Episcopalian: Christian Special abiola needs: Yes (seth) Agree to transfusion: Yes Physical Exam Const: COMMON NORMALS: patient oriented x3 HENMT: COMMON NORMALS: normocephalic and atraumatic HEAD & SCALP: normocephalic and atraumatic Eye: COMMON NORMALS: Equal, round and reactive pupils present and EOMs intact bilaterally PUPIL: Yes Equal, round and reactive pupils present Neck/C-Spine: COMMON NORMALS: full ROM and supple Chest: COMMONS NORMALS: normal inspection of the chest and normal palpation of entire chest wall Resp: COMMON NORMALS: normal respiratory effort, No retractions, No use of accessory muscles and clear to auscultation bilaterally AUSCULTATION: clear to auscultation bilaterally Cardio: COMMON NORMALS: regular rate, regular rhythm and No murmurs present (Cardio) RATE: regular rate RHYTHM: regular rhythm GI: COMMON NORMALS: Normal to inspection, nondistended, normoactive bowel sounds present, Soft to palpation, non-tender and no masses PALPATION: Yes Soft to palpation Extremity: COMMON NORMALS: normal to inspection and full ROM Neuro: COMMON NORMALS: patient oriented x3, moves all extremities and no focal motor deficits Psych: COMMON NORMALS: mental status grossly normal, Normal thought process present and cooperative THOUGHT PROCESS: Normal thought process present Skin: COMMON NORMALS: no rashes or lesions noted and no wounds GENERAL SKIN EXAM: no rashes or lesions noted Course Vital Signs: Vital signs: Vital Signs Temperature 98.3 F 06/04/23 12:30 Pulse Rate 102 H 06/04/23 15:00 Respiratory Rate 15 06/04/23 15:00 Blood Pressure 170/104 06/04/23 15:00 Pulse Oximetry 95 06/04/23 15:00 Oxygen Delivery Me thod Room Air 06/04/23 15:00 MDM - SOB/Dyspnea Medical Decision Making Patient presents here with shortness of breath CTA showed no signs of PE here. I did speak to Dr. Maradiaga will follow-up with patient with the CTA findings he has no signs of ischemic Mcintosh here he has good distal pulses and warm feet. He does have slightly elevated BNP we will start him on Lasix he is to return if worsening he understands agrees to plan. Medical Records I reviewed the patient's medical records. Lab Data I reviewed the patient's lab results. 06/04/23 13:19 06/04/23 12:00 Labs/Radiology: Laboratory Results WBC 9.11 10^3/uL (3.29-11.43) 06/04/23 13:19 Corrected WBC Cancelled 06/04/23 12:00 RBC 5.47 10^6/uL (3.85-5.65) 06/04/23 13:19 Hgb 14.70 g/dL (11.27-16.99) 06/04/23 13:19 Hct 44.9 % (37-53) 06/04/23 13:19 MCV 82.1 fl (82-101) 06/04/23 13:19 MCH 26.9 pg (27-33) L 06/04/23 13:19 MCHC 32.7 g/dL (30-55) 06/04/23 13:19 RDW 13.3 % (12.1-15.1) 06/04/23 13:19 Plt Count 326 10^3/cmm (157-399) 06/04/23 13:19 MPV 10.4 fL (7.4-10.4) 06/04/23 13:19 Gran % Cancelled 06/04/23 12:00 Neut % (Auto) 72.5 % 06/04/23 13:19 Lymph % (Auto) 16.9 % 06/04/23 13:19 [place] % (Auto) 8.5 % 06/04/23 13:19 Eos % (Auto) 1.1 % 06/04/23 13:19 Baso % (Auto) 0.8 % 06/04/23 13:19 Neut # (Auto) 6.61 10^3/uL (1.8-7.7) 06/04/23 13:19 Lymph # (Auto) 1.5 10^3/uL (0.8-4.8) 06/04/23 13:19 [place] # (Auto) 0.8 10^3/uL (0.2-0.9) 06/04/23 13:19 Eos # (Auto) 0.1 10^3/uL (0.0-0.8) 06/04/23 13:19 Baso # (Auto) 0.1 10^3/uL (0.0-0.1) 06/04/23 13:19 Absolute Gran (auto) Cancelled 06/04/23 12:00 Nucleated RBC % (auto) 0 % 06/04/23 13:19 Nucleated RBCs # 0.0 /100WBC 06/04/23 13:19 Sodium 130 mmol/L (136-145) L 06/04/23 12:00 Potassium 3.7 mmol/L (3.5-5.1) 06/04/23 12:00 Chloride 89 mmol/L (98-107) L 06/04/23 12:00 Carbon Dioxide 26 mmol/L (22-29) 06/04/23 12:00 Anion Gap 18.7 (5-19) 06/04/23 12:00 BUN 12 mg/dL (8-23) 06/04/23 12:00 Creatinine 0.7 mg/dL (0.7-1.2) 06/04/23 12:00 GFR Calculation 114.6 mL/min (90-130) 06/04/23 12:00 Glucose 412 mg/dL (65-115) H 06/04/23 12:00 Calculated Osmolality 287 mOsm/kg (285-295) 06/04/23 12:00 Calcium 10.0 mg/dL (8.5-10.5) 06/04/23 12:00 Total Bilirubin 0.5 mg/dL (0.15-1.2) 06/04/23 12:00 AST 11 U/L (0-40) 06/04/23 12:00 ALT 16 U/L (0-41) 06/04/23 12:00 Alkaline Phosphatase 128 U/L (40-130) 06/04/23 12:00 Troponin T Baseline 69 ng/L (0-15) H 06/04/23 12:00 Troponin T 120 Minute 53.53 ng/L (0-15) H 06/04/23 14:12 Delta Troponin T -15.47 ABS# (0-10) L 06/04/23 14:12 NT-Pro-B Natriuret Pep 2918 pg/mL (0-125) H 06/04/23 12:00 Total Protein 8.0 g/dL (6.6-8.7) 06/04/23 12:00 Albumin 3.5 g/dL (3.5-5.2) 06/04/23 12:00 Globulin 4.5 g/dL (1.3-4.6) 06/04/23 12:00 All radiology interpretation(s) finalized by discharge EKG Data EKG 1: I personally reviewed and interpreted this EKG as follows: EKG Interpretation Date: 06/04/23 EKG interpretation time: 12:47 Interpretation: sinus tach hr [address] or t wave abnormalities qrs 83 qtc 423 EKG 2: I personally reviewed and interpreted this EKG as follows: EKG Interpretation Date: 06/04/23 EKG interpretation time: 14:37 Interpretation: sinus tach hr [address] elevation qrs 89 qtc 427 Discharge Plan Discharge Patient Disposition: Home Clinical Impression: Dyspnea Condition: Stable Prescriptions: New Lasix 40 mg tablet 40 mg PO QAM Qty: 30 0RF No Action (DME) fast form ulnar gutter See Rx Instructions .ROUTE .MEDSUPPLY Qty: 1 0RF Rx Instructions: As directed (DME) blood-glucose meter Misc See Rx Instructions .MEDSUPPLY Qty: 1 0RF Rx Instructions: Use as directed for checking blood sugar (DME) Blood Glucose Test Strip See Rx Instructions .MEDSUPPLY Qty: 200 12RF Rx Instructions: Use as directed with glucometer to check blood sugar (DME) lancets Misc See Rx Instructions .MEDSUPPLY Qty: 200 12RF Rx Instructions: Use as directed to prick skin for blood sugar checks (DME) Blood pressure machine See Rx Instructions .Route .MEDSUPPLY Qty: 1 0RF Rx Instructions: As directed, check blood pressure each day. (DME) blood-glucose meter [Accu-Chek Guide Glucose Meter] Misc See Rx Instructions .Route Qty: 1 0RF Rx Instructions: As directed, test blood sugar once a day. (DME) Accu-Chek Guide test strips Strip See Rx Instructions .Route Qty: 50 0RF Rx Instructions: As directed, check blood sugar, once a day. (DME) lancets [BD Ultra Fine Lancets] 33 gauge misc See Rx Instructions .Route Qty: 100 0RF Rx Instructions: As directed, test blood suagr once a day. oxycodone-acetaminophen [Percocet] 5-325 mg tablet 1 tab PO Q12H PRN (Reason: pain) 7 Days Qty: 14 0RF Xarelto 20 mg tablet 20 mg PO DAILY aspirin 81 mg tablet,delayed release (DR/EC) 81 mg PO DAILY Qty: 30 0RF ondansetron 4 mg tablet,disintegrating 4 mg PO Q6H PRN (Reason: nausea and vomiting) Qty: 14 0RF Alocane Emergency Burn 4 % gel 1 applic TOPICAL BID PRN (Reason: Pain) Discharge Orders: Discharge ED (Routine); Ordered 06/04/23 Ordered By: Edyta Bennett Referrals: Sondra May MD [Primary Care Provider] - Discharge Diet: Advance as tolerated Discharge Activity: Resume usual activity Patient Instructions: Dyspnea (ED) Coding Level of Care Code ED Senior Software Quality Analyst for Lolita Gallegos
--- NOTE | 2023-06-04 12:47 | ECG_ITS ---
[facility] Test Date: 2023-06-04 Pat Name: Adrián Vinson Department: Room: Gender: Male Assistant Director: : 1960 Requested By: Edyta Bennett Order Number: [id number] Nadir MD: Cruz Bedolla M.D. Measurements Intervals [place] Rate: 107 P: 54 SD: 148 QRS: 65 QRSD: 83 T: 253 QT: 360 QTc: 481 Interpretive Statements SINUS TACHYCARDIA POSSIBLE LEFT ATRIAL ENLARGEMENT [-0.1mV P-WAVE IN V1/V2] SEPTAL MYOCARDIAL INFARCTION , PROBABLY OLD [40+ ms Q WAVE IN V1/V2] MODERATE T-WAVE ABNORMALITY, CONSIDER INFERIOR ISCHEMIA [-0.1+ mV T-WAVE IN II/aVF] Compared to ECG 03/13/2023 15:52:51 Myocardial infarct finding now present Possible ischemia now present Sinus rhythm no longer present Intraventricular conduction delay no longer present T-wave abnormality still present Electronically Signed On 06-05-2023 10:07:14 VEGETABLE INSPECTOR by Cruz Bedolla M.D. [id number]
--- NOTE | 2023-06-04 13:05 | PC.NURSE ---
Pt on bedside desk monitor
[2023-06-04 13:09] LABS: Troponin(5th) Baseline 69 ng/L (0-15)
[2023-06-04 13:24] LABS: Alanine Aminotransferase 16 U/L (0-41); Albumin Level 3.5 g/dL (3.5-5.2); Alkaline Phosphatase 128 U/L (40-130); Anion Gap 18.7 (5-19); Aspartate Amino Transferase 11 U/L (0-40); Blood Urea Nitrogen 12 mg/dL (8-23); Carbon Dioxide 26 mmol/L (22-29); Chloride 89 mmol/L (98-107); Globulin 4.5 g/dL (1.3-4.6); Glomerular Filtration Rate 114.6 mL/min (90-130); Glucose 412 mg/dL (65-115); NT Pro B Type Natriuretic Pept 2918 pg/mL (0-125); Osmolality Calculated 287 mOsm/kg (285-295); Potassium 3.7 mmol/L (3.5-5.1); Sodium 130 mmol/L (136-145); Total Bilirubin 0.5 mg/dL (0.15-1.2)
[2023-06-04 13:25] LABS: Basophils # 0.1 10^3/uL (0.0-0.1); Basophils % 0.8 %; Eosinophils # 0.1 10^3/uL (0.0-0.8); Eosinophils % 1.1 %; Hematocrit 44.9 % (37-53); Lymphocytes # 1.5 10^3/uL (0.8-4.8); Lymphocytes % 16.9 %; Mean Corpuscular HGB Conc 32.7 g/dL (30-55); Mean Corpuscular Hemoglobin 26.9 pg (27-33); Mean Corpuscular Volume 82.1 fl (82-101); Mean Platelet Volume 10.4 fL (7.4-10.4); Monocytes # 0.8 10^3/uL (0.2-0.9); Monocytes % 8.5 %; Neutrophils # 6.61 10^3/uL (1.8-7.7); Neutrophils % 72.5 %; Nucleated Red Blood Cells % 0 %; Platelet Count 326 10^3/cmm (157-399); Red Blood Count 5.47 10^6/uL (3.85-5.65); Red Cell Distribution Width 13.3 % (12.1-15.1); White Blood Count 9.11 10^3/uL (3.29-11.43)
[2023-06-04 13:37] VITALS: BP 163/102; PULSE 103; RESP 20; O2SAT 93
[2023-06-04] MEDS: iohexol 350 mg/mL 500 mL Btl (per mL) IV (14:03)
[2023-06-04 14:36] LABS: Troponin 5 2HR 53.53 ng/L (0-15)
--- NOTE | 2023-06-04 14:37 | ECG_ITS ---
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 Measurements Intervals [place] Rate: 105 P: 62 ND: 136 QRS: 66 QRSD: 89 T: 14 QT: 366 QTc: 486 Interpretive Statements SINUS TACHYCARDIA POSSIBLE LEFT ATRIAL ENLARGEMENT [-0.1mV P-WAVE IN V1/V2] SEPTAL MYOCARDIAL INFARCTION , OF INDETERMINATE AGE [40+ ms Q WAVE IN V1/V2] MODERATE T-WAVE ABNORMALITY, CONSIDER LATERAL ISCHEMIA [-0.1+ mV T-WAVE IN I/aVL/V5/V6] MODERATE T-WAVE ABNORMALITY, CONSIDER INFERIOR ISCHEMIA [-0.1+ mV T-WAVE IN II/aVF] Compared to ECG 06/04/2023 12:47:03 No significant changes Electronically Signed On 06-05-2023 19:40:22 JEWEL LATHE OPERATOR by Cruz Bedolla M.D. [id number]
[2023-06-04 15:00] VITALS: BP 170/104; PULSE 102; RESP 15; O2SAT 95
[2023-06-04] MEDS: FUROsemide 10 mg/mL SDV 4mL 40 MG IVP (15:17)
[2023-06-04 16:12] VITALS: BP 184/99; PULSE 91; RESP 18; O2SAT 94
--- NOTE | 2023-06-04 18:38 | ECG_ITS ---
[facility] Test Date: 2023-06-04 Pat Name: Adrián Vinson Department: Room: Gender: Male Obiee Obia Solution Architect: : 1960 Requested By: Edyta Bennett Order Number: [id number] Nadir MD: Cruz Bedolla M.D. Measurements Intervals [place] Rate: 108 P: 57 [place]: 132 QRS: 61 QRSD: 96 T: 39 QT: 228 QTc: 306 Interpretive Statements SINUS TACHYCARDIA POSSIBLE LEFT ATRIAL ENLARGEMENT [-0.1mV P-WAVE IN V1/V2] NONSPECIFIC ST & T-WAVE ABNORMALITY ABNORMAL RHYTHM ECG Compared to ECG 03/13/2023 15:52:51 Sinus rhythm no longer present Intraventricular conduction delay no longer present T-wave abnormality still present Electronically Signed On 06-05-2023 19:39:58 PRESS SET UP PERSON by Cruz Bedolla M.D. [id number]
== END 2023-06-04 16:17 | disposition home or self-care (01) ==
PROVIDERS: Emergency Provider Emergency Medicine; PCP Family Medicine
DX: R06.00 Dyspnea, unspecified (principal); Z79.82 Long term (current) use of aspirin; Z87.891 Personal history of nicotine dependence; I25.10 Atherosclerotic heart disease of native coronary artery without angina pectoris; I25.5 Ischemic cardiomyopathy; I10 Essential (primary) hypertension; E11.40 Type 2 diabetes mellitus with diabetic neuropathy, unspecified; E78.5 Hyperlipidemia, unspecified
CPT/HCPCS: 36415; 71045; 71275; 80053; 83880; 84484; 85025; 93005; 96374; 99285; J1940; Q9967

== ENCOUNTER → 2023-06-06 13:52 | Outpatient (BNVA) | payer MEDICARE, MEDICAID, SELFPAY | PROVIDERS: PCP Family Medicine; Visit Provider Thoracic Surgery (Cardiothoracic Vascular Surgery) | DX: E11.621 Type 2 diabetes mellitus with foot ulcer (principal); E11.52 Type 2 diabetes mellitus with diabetic peripheral angiopathy with gangrene; L97.514 Non-pressure chronic ulcer of other part of right foot with necrosis of bone | CPT/HCPCS: 11044; 87070; 87077; 87176; 87186; 87205 ==

== ENCOUNTER → 2023-06-07 08:29 | Outpatient (BNVA) | payer MEDICARE, MEDICAID, SELFPAY | PROVIDERS: PCP Family Medicine; Visit Provider Specialist | DX: R56.9 Unspecified convulsions (principal) | CPT/HCPCS: 95816 ==

== ENCOUNTER 2023-06-15 15:36 | Inpatient (IN) | payer MEDICARE, MEDICAID, SELFPAY ==
[2023-06-15] VITALS (10 sets, daily range): BP systolic 133–144; BP diastolic 83–90; PULSE 84–122; RESP 16–18; TEMP 36.7–37; O2SAT 92–95; BMI 33.6
--- NOTE | 2023-06-15 15:41 | XR_ITS ---
WS: [id number] XR foot RT min 3V* [id number] REASON FOR EXAM: pain FINDINGS: Last examination for comparison was 05/09/2023. Since that time there has been amputation of the fift h toe distal to the proximal third of the fifth metatarsal. The remnant of the first metatarsal has a permeative ill-defined cortex compared to 05/09/2023 along with irregular periosteal reaction. These findings are of concern for osteomyelitis. Compared to the previous examination of 05/09/2023 there is been fragmentation and loss of cortical d efinition in the base of the proximal phalanx of the fourth toe. These findings could represent a sub acute fracture however would have concern for osteomyelitis. No other interval change is identified compared to the previous study. IMPRESSION: Findings of concern for osteomyelitis in the remnant fifth metatarsal and possibly the base of the pr oximal phalanx of the fourth toe.
--- NOTE | 2023-06-15 16:39 | XRR_ITS ---
PROCEDURE INFORMATION: Exam: XR Chest Exam date and time: 06/15/2023 5:38 PM Age: 62 years old Clinical indication: Patient HX: Cough; SOB TECHNIQUE: Imaging protocol: Radiologic exam of the chest. Views: 1 view. COMPARISON: CT angio chest PE protcl [id number] 06/04/2023 1:53 PM FINDINGS: Lungs: Increased interstitial markings with peribronchial cuffing in the lung bases are nonspecific but can be seen the setting of bronchitis, pulmonary vascular congestion, viral infection and small-vessel airways disease. Pleural spaces: Unremarkable. No pleural effusion. No pneumothorax. Heart/Mediastinum: Unremarkable. No cardiomegaly. Bones/joints: Unremarkable. XR/XR chest 1V portable [id number] IMPRESSION: Increased interstitial markings with peribronchial cuffing in the lung bases are nonspecific but can be seen the setting of bronchitis, pulmonary vascular congestion, viral infection and small-vessel airways disease.
--- NOTE | 2023-06-15 16:44 | ED_ITS ---
Documented by User: LOIDA Atkinson 06/15/23 16:57 HPI - Extremity Problem 2 General: Chief complaint: General Medical Stated complaint: right foot pain Time Seen by Provider: 06/15/23 15:46 Source: patient Mode of arrival: wheelchair Limitations: no limitations History of Present Illness: Patient is a 62-year-old male who presents to ED today with concerns regarding a right foot infection. Patient had a right fifth digit and metatarsal amputation for osteomyelitis performed by Dr. Lambert approximately a month ago. He states he had been following up with Dr. Lambert as well as wound care although recently has been sick along with several of his children so these appointments have been delayed. Patient is here complaining of foul-smelling purulent drainage to the wound as well as redness and warmth to the top of his foot. Patient is complaining of some mild dyspnea. Again all of his children have been sick with similar symptoms. Patient was recently seen and evaluated for these complaints. He has also recently underwent CTA imaging. MD Complaint: extremity pain Onset (ago): day(s) Pain Consistency: constant Location: right and lower extremity Radiation: none Relieving factors: nothing Exacerbating factors: nothing Associated symptoms: Deny fever(s) Review of Systems 2 Const: Reports: chills; Denies: fever(s), body aches, fatigue or malaise Musc: Reports: extremity pain (R foot) Skin/Breast: Reports: other (redness/drainage from R foot) Neuro: Denies: headache(s), numbness in extremities, weakness in extremities or sensory changes PFS ED 2 PFSH: Medical History Factor 5 Leiden mutation, heterozygous Constipation History of DVT (deep vein thrombosis) 07/10/2019 DVT involving the popliteal veins bilaterally Closed hand fracture Right 4th metacarpal oblique, injury 04/03/2022 Bilateral leg edema Erectile dysfunction Low testosterone Anxiety and depression Diabetes type 2, uncontrolled Atherosclerotic heart disease of [place] coronary artery with other forms of angina pectoris Hypertension Hyperlipidemia Diabetic neuropathy Adenomatous colon polyp Ischemic cardiomyopathy Abnormal nuclear stress test History of claustrophobia Right foot drop 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 Surgical History Stented coronary artery H/O circumcision Family History Mother , at age 45 Lung cancer smoker Grandmother Diabetes Father , at age 23 Drowning Other Hypertension Denies family history of CAD (coronary artery disease) Social History Smoking and tobacco/nicotine status: former use of tobacco/nicotine Quit status (tobacco/nicotine): has quit using Year quit tobacco: 2005 Alcohol intake: former Substance/Drug Use: former Household members: spouse and children Marital status: Number of children: 7 service: No Current occupational status: disabled 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 Abiola/Synagogue: Synagogue Special abiola needs: Yes (seth) Agree to transfusion: Yes Physical Exam 2 Const: COMMON NORMALS: no acute distress, patient oriented x3, no limitations, alert and well nourished GENERAL APPEARANCE: cooperative O RIENTATION/CONSCIOUSNESS: Yes awake, Yes oriented to person, Yes oriented to place and Yes oriented to time Resp: COMMON NORMALS: normal respiratory effort and clear to auscultation bilaterally AUSCULTATION: clear to auscultation bilaterally Cardio: COMMON NORMALS: regular rhythm RATE: tachycardic RHYTHM: regular rhythm GI: COMMON NORMALS: Normal to inspection, nondistended, normoactive bowel sounds present, Soft to palpation, non-tender and no masses PALPATION: Yes Soft to palpation Extremity: RIGHT LOWER EXTREMITY: Yes foot & digits OTHER: pt has erythema to the dorsum of the R foot; wound to lateral R foot has purulent drainage; there is an area to the plantar aspect of the foot that is fluctuant and when pushed then purulent drainage flows from the open lateral wound; no lymphangitic streaking Neuro: COMMON NORMALS: patient oriented x3, moves all extremities, no focal motor deficits and no sensory deficits noted SENSORIUM/ORIENTATION: Yes alert, Yes oriented to person, Yes oriented to place and Yes oriented to time Course 2 Consultations: Consultation #1: Dr. Lambert-will come evaluate patient in ED Vital Signs: Vital signs: Vital Signs Temperature 98.6 F 06/15/23 20:00 Pulse Rate 115 H 06/15/23 20:30 Respiratory Rate 18 06/15/23 20:39 Blood Pressure 144/90 06/15/23 20:00 Pulse Oximetry 94 06/15/23 20:30 Oxygen Delivery Me thod Room Air 06/15/23 20:30 MDM - Extremity (Nontraumatic) Lab Data 06/15/23 17:00 06/15/23 17:00 Radiology Impressions Chest X-Ray 06/15/23 16:39 IMPRESSION: Increased interstitial markings with peribronchial cuffing in the lung bases are nonspecific but can be seen the setting of bronchitis, pulmonary vascular congestion, viral infection and small-vessel airways disease. Laboratory Results WBC 17.59 10^3/uL (3.29-11.43) H 06/15/23 17:00 RBC 5.02 10^6/uL (3.85-5.65) 06/15/23 17:00 Hgb 13.20 g/dL (11.27-16.99) 06/15/23 17:00 Hct 40.2 % (37-53) 06/15/23 17:00 MCV 80.1 fl (82-101) L 06/15/23 17:00 MCH 26.3 pg (27-33) L 06/15/23 17:00 MCHC 32.8 g/dL (30-55) 06/15/23 17:00 RDW 13.8 % (12.1-15.1) 06/15/23 17:00 Plt Count 347 10^3/cmm (157-399) 06/15/23 17:00 MPV 11.1 fL (7.4-10.4) H 06/15/23 17:00 Neut % (Auto) 86.8 % 06/15/23 17:00 Lymph % (Auto) 6.0 % 06/15/23 17:00 [place] % (Auto) 5.4 % 06/15/23 17:00 Eos % (Auto) 0.2 % 06/15/23 17:00 Baso % (Auto) 0.4 % 06/15/23 17:00 Neut # (Auto) 15.27 10^3/uL (1.8-7.7) H 06/15/23 17:00 Lymph # (Auto) 1.1 10^3/uL (0.8-4.8) 06/15/23 17:00 [place] # (Auto) 1.0 10^3/uL (0.2-0.9) H 06/15/23 17:00 Eos # (Auto) 0.0 10^3/uL (0.0-0.8) 06/15/23 17:00 Baso # (Auto) 0.1 10^3/uL (0.0-0.1) 06/15/23 17:00 Nucleated RBC % (auto) 0 % 06/15/23 17:00 Nucleated RBCs # 0.0 /100WBC 06/15/23 17:00 ESR > 130 mm/hr (0-10) H 06/15/23 17:00 Sodium 121 mmol/L (136-145) L 06/15/23 17:00 Potassium 5.0 mmol/L (3.5-5.1) 06/15/23 17:00 Chloride 83 mmol/L (98-107) L 06/15/23 17:00 Carbon Dioxide 25 mmol/L (22-29) 06/15/23 17:00 Anion Gap 18.0 (5-19) 06/15/23 17:00 BUN 36 mg/dL (8-23) H 06/15/23 17:00 Creatinine 1.3 mg/dL (0.7-1.2) H 06/15/23 17:00 GFR Calculation 56.1 mL/min (90-130) L 06/15/23 17:00 Glucose 428 mg/dL (65-115) H 06/15/23 17:00 Calculated Osmolality 279 mOsm/kg (285-295) L 06/15/23 17:00 Lactic Acid 2.7 mmol/L (0.5-2.2) H 06/15/23 17:00 Calcium 9.6 mg/dL (8.5-10.5) 06/15/23 17:00 Iron 18 ug/dL (59-158) L 06/15/23 17:00 TIBC 174 mcg/dl 06/15/23 17:00 % Saturation 10.3 % (20-50) L 06/15/23 17:00 Unsat Iron Binding 156 ug/dL (112-347) 06/15/23 17:00 Total Bilirubin 0.3 mg/dL (0.15-1.2) 06/15/23 17:00 AST 31 U/L (0-40) 06/15/23 17:00 ALT 35 U/L (0-41) 06/15/23 17:00 Alkaline Phosphatase 278 U/L (40-130) H 06/15/23 17:00 C-Reactive Protein 299.1 mg/L (0.0-4.9) H 06/15/23 17:00 Total Protein 8.0 g/dL (6.6-8.7) 06/15/23 17:00 Albumin 2.9 g/dL (3.5-5.2) L 06/15/23 17:00 Globulin 5.1 g/dL (1.3-4.6) H 06/15/23 17:00 Vitamin B12 802 pg/mL (232-1245) 06/15/23 17:00 Procalcitonin 0.39 ng/mL (0-0.5) 06/15/23 17:00 Adenovirus (PCR) Not detected (NOT DETECT) 06/15/23 17:17 C. pneumoniae DNA (PCR) Not detected (NOT DETECT) 06/15/23 17:17 Coronavirus 229E (PCR) Not detected (NOT DETECT) 06/15/23 17:17 Human Metapneumovir PCR Detected (NOT DETECT) A 06/15/23 17:17 Influenza A (H1) PCR Not detected (NOT DETECT) 06/15/23 17:17 Influ A (H1/09) PCR Not detected (NOT DETECT) 06/15/23 17:17 Influenza A (H3) PCR Not detected (NOT DETECT) 06/15/23 17:17 Influenza Type A (PCR) Not detected (NOT DETECT) 06/15/23 17:17 Influenza Type B (PCR) Not detected (NOT DETECT) 06/15/23 17:17 M. pneumoniae (PCR) Not detected (NOT DETECT) 06/15/23 17:17 Parainfluenza 1 (PCR) Not detected (NOT DETECT) 06/15/23 17:17 Parainfluenza 2 (PCR) Not detected (NOT DETECT) 06/15/23 17:17 Parainfluenza 3 (PCR) Not detected (NOT DETECT) 06/15/23 17:17 Parainfluenza 4 (PCR) Not detected (NOT DETECT) 06/15/23 17:17 RSV Type A (PCR) Not detected (NOT DETECT) 06/15/23 17:17 RSV Type B (PCR) Not detected (NOT DETECT) 06/15/23 17:17 Entero/Rhino (PCR) Not detected (NOT DETECT) 06/15/23 17:17 SARS-CoV-2 (PCR) Not detected (NOT DETECT) 06/15/23 17:17 Discharge Plan Discharge Patient Disposition: Admitted As Inpatient Admit Provider: Donaldo Oneal Clinical Impression: Acute osteomyelitis of right foot, Diabetic neuropathy, Cellulitis of right foot Condition: Stable Sign Out Sign Out Data: Patient Sign Out occurred on 06/15/23 at 17:23. Patient's care was discussed, and care was transferred from LOIDA Atkinson to LOIDA Neff. Coding Level of Care Code ED Weatherization Coordinator for Chg Fwd Documented by User: LOIDA Neff 06/15/23 18:57 HPI - Extremity Problem 2 General: Chief complaint: General Medical Stated complaint: right foot pain Time Seen by Provider: 06/15/23 15:46 PFS ED 2 PFSH: Medical History Factor 5 Leiden mutation, heterozygous Constipation History of DVT (deep vein thrombosis) 07/10/2019 DVT involving the popliteal veins bilaterally Closed hand fracture Right 4th metacarpal oblique, injury 04/03/2022 Bilateral leg edema Erectile dysfunction Low testosterone Anxiety and depression Diabetes type 2, uncontrolled Atherosclerotic heart disease of [place] coronary artery with other forms of angina pectoris Hypertension Hyperlipidemia Diabetic neuropathy Adenomatous colon polyp Ischemic cardiomyopathy Abnormal nuclear stress test History of claustrophobia Right foot drop 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 Surgical History Stented coronary artery H/O circumcision Family History Mother , at age 45 Lung cancer smoker Grandmother Diabetes Father , at age 23 Drowning Other Hypertension Denies family history of CAD (coronary artery disease) Social History Smoking and tobacco/nicotine status: former use of tobacco/nicotine Quit status (tobacco/nicotine): has quit using Year quit tobacco: 2006 Alcohol intake: former Substance/Drug Use: former Household members: spouse and children Marital status: Number of children: 7 service: No Current occupational status: disabled 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 Leola informed of the patient's past medical history and indicated that lab work has been collected, initial x-ray had been performed and that she had already consulted with Dr. Lambert with podiatry for this patient. Dr. Lambert was planning on coming down and talking to the patient at bedside. Dr. Lambert evaluated this patient here in the emergency department and afterwards, we were able to speak regarding treatment plan for this patient. He is requesting starting empiric therapy with vancomycin and Zosyn-both of which were ordered here in the emergency department. He indicated the need for the patient to have an MRI with contrast tomorrow and requested the patient be admitted to the hospitalist services [facility] for further evaluation and possible surgical intervention tomorrow. I then called Dr. Oneal to discuss my consult with Dr. Lambert. He indicated that he would come see the patient here in the emergency department as well. Patient will be admitted to the hospitalist services. Both Dr. Bennett and Dr. Saenz were consulted during the patient's evaluation here in the emergency department. We will defer further intervention and imaging to the hospitalist and podiatry services for management and treatment of this patient. Patient was notified of the plan for admission and treatment by the specialty services and was in agreement to the treatment plan. Differential Diagnosis Likely cellulitis; Unlikely herpes zoster, gout, superficial thrombophlebitis, lower extremity edema or deep vein thrombosis of lower extremity Lab Data 06/15/23 17:00 06/15/23 17:00 Radiology Impressions Chest X-Ray 06/15/23 16:39 IMPRESSION: Increased interstitial markings with peribronchial cuffing in the lung bases are nonspecific but can be seen the setting of bronchitis, pulmonary vascular congestion, viral infection and small-vessel airways disease. Laboratory Results WBC 17.59 10^3/uL (3.29-11.43) H 06/15/23 17:00 RBC 5.02 10^6/uL (3.85-5.65) 06/15/23 17:00 Hgb 13.20 g/dL (11.27-16.99) 06/15/23 17:00 Hct 40.2 % (37-53) 06/15/23 17:00 MCV 80.1 fl (82-101) L 06/15/23 17:00 MCH 26.3 pg (27-33) L 06/15/23 17:00 MCHC 32.8 g/dL (30-55) 06/15/23 17:00 RDW 13.8 % (12.1-15.1) 06/15/23 17:00 Plt Count 347 10^3/cmm (157-399) 06/15/23 17:00 MPV 11.1 fL (7.4-10.4) H 06/15/23 17:00 Neut % (Auto) 86.8 % 06/15/23 17:00 Lymph % (Auto) 6.0 % 06/15/23 17:00 [place] % (Auto) 5.4 % 06/15/23 17:00 Eos % (Auto) 0.2 % 06/15/23 17:00 Baso % (Auto) 0.4 % 06/15/23 17:00 Neut # (Auto) 15.27 10^3/uL (1.8-7.7) H 06/15/23 17:00 Lymph # (Auto) 1.1 10^3/uL (0.8-4.8) 06/15/23 17:00 [place] # (Auto) 1.0 10^3/uL (0.2-0.9) H 06/15/23 17:00 Eos # (Auto) 0.0 10^3/uL (0.0-0.8) 06/15/23 17:00 Baso # (Auto) 0.1 10^3/uL (0.0-0.1) 06/15/23 17:00 Nucleated RBC % (auto) 0 % 06/15/23 17:00 Nucleated RBCs # 0.0 /100WBC 06/15/23 17:00 ESR > 130 mm/hr (0-10) H 06/15/23 17:00 Sodium 121 mmol/L (136-145) L 06/15/23 17:00 Potassium 5.0 mmol/L (3.5-5.1) 06/15/23 17:00 Chloride 83 mmol/L (98-107) L 06/15/23 17:00 Carbon Dioxide 25 mmol/L (22-29) 06/15/23 17:00 Anion Gap 18.0 (5-19) 06/15/23 17:00 BUN 36 mg/dL (8-23) H 06/15/23 17:00 Creatinine 1.3 mg/dL (0.7-1.2) H 06/15/23 17:00 GFR Calculation 56.1 mL/min (90-130) L 06/15/23 17:00 Glucose 428 mg/dL (65-115) H 06/15/23 17:00 Calculated Osmolality 279 mOsm/kg (285-295) L 06/15/23 17:00 Lactic Acid 2.7 mmol/L (0.5-2.2) H 06/15/23 17:00 Calcium 9.6 mg/dL (8.5-10.5) 06/15/23 17:00 Iron 18 ug/dL (59-158) L 06/15/23 17:00 TIBC 174 mcg/dl 06/15/23 17:00 % Saturation 10.3 % (20-50) L 06/15/23 17:00 Unsat Iron Binding 156 ug/dL (112-347) 06/15/23 17:00 Total Bilirubin 0.3 mg/dL (0.15-1.2) 06/15/23 17:00 AST 31 U/L (0-40) 06/15/23 17:00 ALT 35 U/L (0-41) 06/15/23 17:00 Alkaline Phosphatase 278 U/L (40-130) H 06/15/23 17:00 C-Reactive Protein 299.1 mg/L (0.0-4.9) H 06/15/23 17:00 Total Protein 8.0 g/dL (6.6-8.7) 06/15/23 17:00 Albumin 2.9 g/dL (3.5-5.2) L 06/15/23 17:00 Globulin 5.1 g/dL (1.3-4.6) H 06/15/23 17:00 Vitamin B12 802 pg/mL (232-1245) 06/15/23 17:00 Procalcitonin 0.39 ng/mL (0-0.5) 06/15/23 17:00 Adenovirus (PCR) Not detected (NOT DETECT) 06/15/23 17:17 C. pneumoniae DNA (PCR) Not detected (NOT DETECT) 06/15/23 17:17 Coronavirus 229E (PCR) Not detected (NOT DETECT) 06/15/23 17:17 Human Metapneumovir PCR Detected (NOT DETECT) A 06/15/23 17:17 Influenza A (H1) PCR Not detected (NOT DETECT) 06/15/23 17:17 Influ A (H1/09) PCR Not detected (NOT DETECT) 06/15/23 17:17 Influenza A (H3) PCR Not detected (NOT DETECT) 06/15/23 17:17 Influenza Type A (PCR) Not detected (NOT DETECT) 06/15/23 17:17 Influenza Type B (PCR) Not detected (NOT DETECT) 06/15/23 17:17 M. pneumoniae (PCR) Not detected (NOT DETECT) 06/15/23 17:17 Parainfluenza 1 (PCR) Not detected (NOT DETECT) 06/15/23 17:17 Parainfluenza 2 (PCR) Not detected (NOT DETECT) 06/15/23 17:17 Parainfluenza 3 (PCR) Not detected (NOT DETECT) 06/15/23 17:17 Parainfluenza 4 (PCR) Not detected (NOT DETECT) 06/15/23 17:17 RSV Type A (PCR) Not detected (NOT DETECT) 06/15/23 17:17 RSV Type B (PCR) Not detected (NOT DETECT) 06/15/23 17:17 Entero/Rhino (PCR) Not detected (NOT DETECT) 06/15/23 17:17 SARS-CoV-2 (PCR) Not detected (NOT DETECT) 06/15/23 17:17 All radiology interpretation(s) finalized by discharge Discharge Plan Discharge Patient Disposition: Admitted As Inpatient Admit Provider: Donaldo Oneal Clinical Impression: Acute osteomyelitis of right foot, Diabetic neuropathy, Cellulitis of right foot Condition: Stable Sign Out Sign Out Data: Patient Sign Out occurred on 06/15/23 at 17:23. Patient's care was discussed, and care was transferred from LOIDA Atkinson to LOIDA Neff. Coding Level of Care Code ED Weatherization Coordinator for Chg Fwd Documented by User: Sb Saenz, 06/15/23 23:48 HPI - Extremity Problem 2 General: Chief complaint: General Medical Stated complaint: right foot pain Time Seen by Provider: 06/15/23 15:46 PFS ED 2 PFSH: Medical History Factor 5 Leiden mutation, heterozygous Constipation History of DVT (deep vein thrombosis) 07/10/2019 DVT involving the popliteal veins bilaterally Closed hand fracture Right 4th metacarpal oblique, injury 04/03/2022 Bilateral leg edema Erectile dysfunction Low testosterone Anxiety and depression Diabetes type 2, uncontrolled Atherosclerotic heart disease of [place] coronary artery with other forms of angina pectoris Hypertension Hyperlipidemia Diabetic neuropathy Adenomatous colon polyp Ischemic cardiomyopathy Abnormal nuclear stress test History of claustrophobia Right foot drop 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 Surgical History Stented coronary artery H/O circumcision Family History Mother , at age 45 Lung cancer smoker Grandmother Diabetes Father , at age 23 Drowning Other Hypertension Denies family history of CAD (coronary artery disease) Social History Smoking and tobacco/nicotine status: former use of tobacco/nicotine Quit status (tobacco/nicotine): has quit using Year quit tobacco: 2006 Alcohol intake: former Substance/Drug Use: former Household members: spouse and children Marital status: Number of children: 7 service: No Current occupational status: disabled 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 Leola informed of the patient's past medical history and indicated that lab work has been collected, initial x-ray had been performed and that she had already consulted with Dr. Lambert with podiatry for this patient. Dr. Lambert was planning on coming down and talking to the patient at bedside. Dr. Lambert evaluated this patient here in the emergency department and afterwards, we were able to speak regarding treatment plan for this patient. He is requesting starting empiric therapy with vancomycin and Zosyn-both of which were ordered here in the emergency department. He indicated the need for the patient to have an MRI with contrast tomorrow and requested the [facility] and possible surgical intervention tomorrow. I then called Dr. Oneal to discuss my consult with Dr. Lambert. He indicated that he would come see the patient here in the emergency department as well. Patient will be admitted to the hospitalist services. Both Dr. Bennett and Dr. Saenz were consulted during the patient's evaluation here in the emergency department. We will defer further intervention and imaging to the hospitalist and podiatry services for management and treatment of this patient. Patient was notified of the plan for admission and treatment by the specialty services and was in agreement to the treatment plan. This patient was originally seen by Mrs. Wong?DEVEN Kitchen.? I agree with her history, evaluation, and treatment. Lab Data 06/15/23 17:00 06/15/23 17:00 Radiology Impressions Chest X-Ray 06/15/23 16:39 IMPRESSION: Increased interstitial markings with peribronchial cuffing in the lung bases are nonspecific but can be seen the setting of bronchitis, pulmonary vascular congestion, viral infection and small-vessel airways disease. Laboratory Results WBC 17.59 10^3/uL (3.29-11.43) H 06/15/23 17:00 RBC 5.02 10^6/uL (3.85-5.65) 06/15/23 17:00 Hgb 13.20 g/dL (11.27-16.99) 06/15/23 17:00 Hct 40.2 % (37-53) 06/15/23 17:00 MCV 80.1 fl (82-101) L 06/15/23 17:00 MCH 26.3 pg (27-33) L 06/15/23 17:00 MCHC 32.8 g/dL (30-55) 06/15/23 17:00 RDW 13.8 % (12.1-15.1) 06/15/23 17:00 Plt Count 347 10^3/cmm (157-399) 06/15/23 17:00 MPV 11.1 fL (7.4-10.4) H 06/15/23 17:00 Neut % (Auto) 86.8 % 06/15/23 17:00 Lymph % (Auto) 6.0 % 06/15/23 17:00 [place] % (Auto) 5.4 % 06/15/23 17:00 Eos % (Auto) 0.2 % 06/15/23 17:00 Baso % (Auto) 0.4 % 06/15/23 17:00 Neut # (Auto) 15.27 10^3/uL (1.8-7.7) H 06/15/23 17:00 Lymph # (Auto) 1.1 10^3/uL (0.8-4.8) 06/15/23 17:00 [place] # (Auto) 1.0 10^3/uL (0.2-0.9) H 06/15/23 17:00 Eos # (Auto) 0.0 10^3/uL (0.0-0.8) 06/15/23 17:00 Baso # (Auto) 0.1 10^3/uL (0.0-0.1) 06/15/23 17:00 Nucleated RBC % (auto) 0 % 06/15/23 17:00 Nucleated RBCs # 0.0 /100WBC 06/15/23 17:00 ESR > 130 mm/hr (0-10) H 06/15/23 17:00 Sodium 121 mmol/L (136-145) L 06/15/23 17:00 Potassium 5.0 mmol/L (3.5-5.1) 06/15/23 17:00 Chloride 83 mmol/L (98-107) L 06/15/23 17:00 Carbon Dioxide 25 mmol/L (22-29) 06/15/23 17:00 Anion Gap 18.0 (5-19) 06/15/23 17:00 BUN 36 mg/dL (8-23) H 06/15/23 17:00 Creatinine 1.3 mg/dL (0.7-1.2) H 06/15/23 17:00 GFR Calculation 56.1 mL/min (90-130) L 06/15/23 17:00 Glucose 428 mg/dL (65-115) H 06/15/23 17:00 Calculated Osmolality 279 mOsm/kg (285-295) L 06/15/23 17:00 Lactic Acid 2.7 mmol/L (0.5-2.2) H 06/15/23 17:00 Calcium 9.6 mg/dL (8.5-10.5) 06/15/23 17:00 Iron 18 ug/dL (59-158) L 06/15/23 17:00 TIBC 174 mcg/dl 06/15/23 17:00 % Saturation 10.3 % (20-50) L 06/15/23 17:00 Unsat Iron Binding 156 ug/dL (112-347) 06/15/23 17:00 Total Bilirubin 0.3 mg/dL (0.15-1.2) 06/15/23 17:00 AST 31 U/L (0-40) 06/15/23 17:00 ALT 35 U/L (0-41) 06/15/23 17:00 Alkaline Phosphatase 278 U/L (40-130) H 06/15/23 17:00 C-Reactive Protein 299.1 mg/L (0.0-4.9) H 06/15/23 17:00 Total Protein 8.0 g/dL (6.6-8.7) 06/15/23 17:00 Albumin 2.9 g/dL (3.5-5.2) L 06/15/23 17:00 Globulin 5.1 g/dL (1.3-4.6) H 06/15/23 17:00 Vitamin B12 802 pg/mL (232-1245) 06/15/23 17:00 Procalcitonin 0.39 ng/mL (0-0.5) 06/15/23 17:00 Adenovirus (PCR) Not detected (NOT DETECT) 06/15/23 17:17 C. pneumoniae DNA (PCR) Not detected (NOT DETECT) 06/15/23 17:17 Coronavirus 229E (PCR) Not detected (NOT DETECT) 06/15/23 17:17 Human Metapneumovir PCR Detected (NOT DETECT) A 06/15/23 17:17 Influenza A (H1) PCR Not detected (NOT DETECT) 06/15/23 17:17 Influ A (H1/09) PCR Not detected (NOT DETECT) 06/15/23 17:17 Influenza A (H3) PCR Not detected (NOT DETECT) 06/15/23 17:17 Influenza Type A (PCR) Not detected (NOT DETECT) 06/15/23 17:17 Influenza Type B (PCR) Not detected (NOT DETECT) 06/15/23 17:17 M. pneumoniae (PCR) Not detected (NOT DETECT) 06/15/23 17:17 Parainfluenza 1 (PCR) Not detected (NOT DETECT) 06/15/23 17:17 Parainfluenza 2 (PCR) Not detected (NOT DETECT) 06/15/23 17:17 Parainfluenza 3 (PCR) Not detected (NOT DETECT) 06/15/23 17:17 Parainfluenza 4 (PCR) Not detected (NOT DETECT) 06/15/23 17:17 RSV Type A (PCR) Not detected (NOT DETECT) 06/15/23 17:17 RSV Type B (PCR) Not detected (NOT DETECT) 06/15/23 17:17 Entero/Rhino (PCR) Not detected (NOT DETECT) 06/15/23 17:17 SARS-CoV-2 (PCR) Not detected (NOT DETECT) 06/15/23 17:17 Discharge Plan Discharge Patient Disposition: Admitted As Inpatient Admit Provider: Donaldo Oneal Clinical Impression: Acute osteomyelitis of right foot, Diabetic neuropathy, Cellulitis of right foot Condition: Stable Sign Out Sign Out Data: Patient Sign Out occurred on 06/15/23 at 17:23. Patient's care was discussed, and care was transferred from LOIDA Atkinson to LOIDA Neff. Coding Level of Care Code ED Weatherization Coordinator for Lolita Gallegos
[2023-06-15 17:16] LABS: Basophils # 0.1 10^3/uL (0.0-0.1); Basophils % 0.4 %; Eosinophils % 0.2 %; Hematocrit 40.2 % (37-53); Lymphocytes # 1.1 10^3/uL (0.8-4.8); Mean Corpuscular HGB Conc 32.8 g/dL (30-55); Mean Corpuscular Hemoglobin 26.3 pg (27-33); Mean Corpuscular Volume 80.1 fl (82-101); Mean Platelet Volume 11.1 fL (7.4-10.4); Monocytes % 5.4 %; Neutrophils # 15.27 10^3/uL (1.8-7.7); Neutrophils % 86.8 %; Nucleated Red Blood Cells % 0 %; Platelet Count 347 10^3/cmm (157-399); Red Blood Count 5.02 10^6/uL (3.85-5.65); Red Cell Distribution Width 13.8 % (12.1-15.1); White Blood Count 17.59 10^3/uL (3.29-11.43)
[2023-06-15] MEDS: sodium chloride 0.9% 1,000 ML 999 ML IV (17:35)
--- NOTE | 2023-06-15 17:37 | PC.NURSE ---
this nurse was starting fluids on pt and pt stated he hates his life. this nurse asked why pt said that. pt stated just look at me and everything i have going on. pt states he is more than frustrated with everything going on.
[2023-06-15 17:41] LABS: Alanine Aminotransferase 35 U/L (0-41); Albumin Level 2.9 g/dL (3.5-5.2); Alkaline Phosphatase 278 U/L (40-130); Aspartate Amino Transferase 31 U/L (0-40); Blood Urea Nitrogen 36 mg/dL (8-23); C Reactive Protein 299.1 mg/L (0.0-4.9); Calcium 9.6 mg/dL (8.5-10.5); Carbon Dioxide 25 mmol/L (22-29); Chloride 83 mmol/L (98-107); Globulin 5.1 g/dL (1.3-4.6); Glomerular Filtration Rate 56.1 mL/min (90-130); Glucose 428 mg/dL (65-115); Osmolality Calculated 279 mOsm/kg (285-295); Sodium 121 mmol/L (136-145); Total Bilirubin 0.3 mg/dL (0.15-1.2)
[2023-06-15 17:42] LABS: Lactic Sepsis W/Reflex 2.7 mmol/L (0.5-2.2)
--- NOTE | 2023-06-15 18:21 | P.CONIM_ITS ---
Providers/Reason For Consult 2 Consulting Physician/Specialty*: Manuel Lambert D.P.M. Reason for Consult*: Acute osteomyelitis right foot Primary Care Provider: Sondra May MD History of Present Illness History of Present Illness Adrián Vinson is a 62 year old uncontrolled diabetic male presents with worsening of right diabetic foot ulceration with increased redness, increased pain and purulent drainage. Has had upper respiratory symptoms along with his and children over the past few weeks. Endorses malaise, nausea and decreased appetite increasing over the past 3 days. He was unable to keep his wound care clinic appointment for his right foot wound, he had contacted wound care and they advised him to report to the emergency department given his exacerbation of symptoms. Review of Systems 2 General: Reports: 10 or more systems reviewed and unremarkable except in HPI and below Const: Denies: fever(s) or chills Eyes: Denies: change in vision Card: Denies: chest pain or palpitations Resp: Denies: dyspnea or productive cough GI: Denies: abdominal pain, nausea or vomiting : Denies: flank pain Musc: Reports: extremity swelling, joint stiffness and deformity Skin/Breast: Reports: erythema, sores, changes in skin color, dry skin, nail changes and change in hair Neuro: Reports: numbness in extremities, sensory changes and difficulty walking Psych: Denies: suicidal ideation Endo: Denies: change in body appearance Mark/Lymph: Denies: tender lymph nodes Medications/Allergies Home Medications Medication Instructions Recorded Confirmed Last Taken Type fast form ulnar gutter #1 ea 04/21/21 06/08/23 Unknown Rx lancets 33 gauge (BD Ultra Fine #100 ea 08/19/21 06/08/23 Unknown Rx Lancets) aspirin 81 mg tablet,delayed 81 mg PO DAILY #30 tabs 03/13/23 06/08/23 06/04/23 Rx release rivaroxaban 20 mg tablet (Xarelto) 20 mg PO DAILY 03/13/23 06/08/23 06/04/23 History ondansetron 4 mg disintegrating 4 mg PO Q6H PRN nausea and 04/26/23 06/08/23 05/10/23 Rx tablet vomiting #14 tabs oxycodone-acetaminophen 5 mg-325 1 tab PO Q12H PRN pain 7 days #14 05/24/23 06/08/23 Unknown Rx mg tablet (Percocet) tabs Blood pressure machine #1 ea 05/31/23 06/08/23 Unknown Rx blood sugar diagnostic (Blood #200 ea 05/31/23 06/08/23 Unknown Rx Glucose Test strips) blood-glucose meter #1 ea 05/31/23 06/08/23 Unknown Rx lancets #200 ea 05/31/23 06/08/23 Unknown Rx furosemide 40 mg tablet (Lasix) 40 mg PO QAM #30 tabs 06/04/23 06/08/23 Unknown Rx lidocaine HCl 4 % topical gel 1 applic topical BID PRN Pain 06/04/23 06/08/23 Unknown History (Alocane Emergency Burn) blood sugar diagnostic (Accu-Chek #100 ea 06/05/23 06/08/23 Unknown Rx Guide test strips) blood-glucose meter (Accu-Chek #1 ea 06/05/23 06/08/23 Unknown Rx Guide Glucose Meter) sulfamethoxazole 800 1 tab PO BID #14 tabs 06/06/23 06/08/23 Unknown Rx mg-trimethoprim 160 mg tablet (Bactrim DS) Allergies Allergy/AdvReac Type Severity Reaction Status Date / Time No Known Allergies Allergy Verified 06/04/23 12:37 PFSH Acute 2 PFSH: Medical History Factor 5 Leiden mutation, heterozygous Constipation History of DVT (deep vein thrombosis) 07/10/2019 DVT involving the popliteal veins bilaterally Closed hand fracture Right 4th metacarpal oblique, injury 04/03/2022 Bilateral leg edema Erectile dysfunction Low testosterone Anxiety and depression Diabetes type 2, uncontrolled Atherosclerotic heart disease of [place] coronary artery with other forms of angina pectoris Hypertension Hyperlipidemia Diabetic neuropathy Adenomatous colon polyp Ischemic cardiomyopathy Abnormal nuclear stress test History of claustrophobia Right foot drop 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 Surgical History Stented coronary artery H/O circumcision Family History Mother , at age 45 Lung cancer smoker Grandmother Diabetes Father , at age 23 Drowning Other Hypertension Denies family history of CAD (coronary artery disease) Social History (Reviewed 06/15/23 @ 16:54 by JACKELYN Atkinson Smoking and tobacco/nicotine status: former use of tobacco/nicotine Quit status (tobacco/nicotine): has quit using Year quit tobacco: 2005 Alcohol intake: former Substance/Drug Use: former Household members: spouse and children Marital status: Number of children: 7 service: No Current occupational status: disabled 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 The following is a focused right lower extremity exam. He is agitated. VASCULAR: Dorsalis pedis palpable bilaterally. Posterior tibial arteries palpable. Capillary refill time less than seconds to the distal hallux bilaterally. Increased warmth right lateral forefoot. NEUROLOGICAL: Protective sensation absent to light touch bilateral foot. DERMATOLOGICAL: Wound probes to bone right forefoot, probes to fifth metatarsal diaphysis and fourth metatarsal phalangeal joint. Right lateral forefoot wound has erythema to the level of the midfoot, purulent drainage expressed from the wound, fluctuance at the plantar lateral aspect of the right forefoot, no crepitus with palpation of soft tissue. MUSCULOSKELETAL: No crepitus with soft tissue palpation of the wound or with debridement. Tenderness to palpation at right foot. Status post partial right fifth ray amputation. Data 06/15/23 17:00 06/15/23 17:00 A&P Assessment and plan (1) Acute osteomyelitis of right foot: (2) Cellulitis of right foot: (3) Diabetes type 2, uncontrolled: Qualifiers: Glycemic state: with hyperglycemia Qualified Code(s): E11.65 - Type 2 diabetes mellitus with hyperglycemia Plan 62-year-old uncontrolled diabetic male with infected wound that probes to bone right foot, acute osteomyelitis and cellulitis to the midfoot. Patient has malaise, nausea, decreased appetite leukocytosis with white count of 17.59, CRP 299.1 mg/L X-ray shows acute osteomyelitis at remaining diaphysis right fifth metatarsal and at the right fourth proximal phalanx base Patient has failed outpatient antibiotics and outpatient wound care clinic Recommend hospital admission Recommend empiric IV antibiotics. Last right foot culture taken 06/06/2023 significant for Enterobacter and Staph aureus also historically right foot wound culture 04/26/2023 demonstrated Klebsiella and Staph aureus. Betadine wet-to-dry dressing Nonweightbearing right foot Recommend MRI right foot with and without contrast to further evaluate extent of acute osteomyelitis. Will await MRI findings prior to formulating definitive surgical procedure. Podiatry will follow, greatly appreciate hospitalist for medical management of this admission. Coding Level of Care Code Acute Code for [facility] Diagnoses Acute osteomyelitis of right foot M86.171 Cellulitis of right foot L03.115 Uncontrolled type 2 diabetes mellitus with hyperglycemia E11.65 Glycemic state: with hyperglycemia
--- NOTE | 2023-06-15 18:24 | P.HP_ITS ---
Providers/Chief Complaint 2 Primary Care Provider: Sondra May MD Chief Complaint: right foot pain History of Present Illness Adrián Vinson is a 62 year old male with past medical history of factor V Leyden mutation, DVT, type 2 diabetes mellitus which is uncontrolled not on any medications with last A1c of 11.7 within the last 1 week on chronic anticoagulation with Xarelto, hyperlipidemia, hypertension, possibility of noncompliance who underwent right fifth toe amputation with wound VAC placement on 05/11/[address] Lambert after which she was discharged on oral antibiotics which she finished and was following up in wound care. Patient was also on oral Bactrim a week ago for which he finished a 7-day course. He missed few sessions of his wound care within the last 1 week because of not feeling well and having a viral prodrome after which his dose started having foul-smelling odor along with purulent discharge and redness hence he presented to the ER. In the ER he was diagnosed of having acute osteomyelitis and cellulitis of the midfoot hence podiatry was consulted and they recommended patient to be admitted. Review of Systems 2 General: Reports: 10 or more systems reviewed and unremarkable except in HPI and below Const: Denies: fever(s), chills, body aches, fatigue or malaise Eyes: Denies: change in vision or photophobia ENMT: Denies: enlarged tonsils Card: Denies: chest pain or palpitations Resp: Denies: dyspnea or productive cough GI: Denies: abdominal pain, nausea or vomiting : Denies: flank pain Musc: Reports: extremity pain (R foot), extremity swelling, joint stiffness and deformity Skin/Breast: Reports: erythema, sores, changes in skin color, dry skin, surgical incision, nail changes, change in hair and other (redness/drainage from R foot) Neuro: Reports: numbness in extremities, sensory changes and difficulty walking; Denies: headache(s) or weakness in extremities Psych: Denies: suicidal ideation Endo: Denies: change in body appearance Mark/Lymph: Denies: tender lymph nodes All/Imm: Denies: acute wheezing Medications/Allergies Home Medications Medication Instructions Recorded Confirmed Last Taken Type fast form ulnar gutter #1 ea 04/21/21 06/16/23 Unknown Rx lancets 33 gauge (BD Ultra Fine #100 ea 08/19/21 06/16/23 Unknown Rx Lancets) aspirin 81 mg tablet,delayed 81 mg PO DAILY #30 tabs 03/13/23 06/16/23 06/15/23 Rx release rivaroxaban 20 mg tablet (Xarelto) 20 mg PO QAM 03/13/23 06/16/23 06/15/23 History oxycodone-acetaminophen 5 mg-325 1 tab PO Q12H PRN pain 7 days #14 05/24/23 06/16/23 Unknown Rx mg tablet (Percocet) tabs Blood pressure machine #1 ea 05/31/23 06/16/23 Unknown Rx blood sugar diagnostic (Blood #200 ea 05/31/23 06/16/23 Unknown Rx Glucose Test strips) blood-glucose meter #1 ea 05/31/23 06/16/23 Unknown Rx lancets #200 ea 05/31/23 06/16/23 Unknown Rx furosemide 40 mg tablet (Lasix) 40 mg PO QAM #30 tabs 06/04/23 06/16/23 06/15/23 Rx lidocaine HCl 4 % topical gel 1 applic topical BID PRN Pain 06/04/23 06/16/23 Unknown History (Alocane Emergency Burn) blood sugar diagnostic (Accu-Chek #100 ea 06/05/23 06/16/23 Unknown Rx Guide test strips) blood-glucose meter (Accu-Chek #1 ea 06/05/23 06/16/23 Unknown Rx Guide Glucose Meter) sulfamethoxazole 800 1 tab PO BID #14 tabs 06/06/23 06/16/23 Unknown Rx mg-trimethoprim 160 mg tablet (Bactrim DS) ondansetron HCl 8 mg tablet 8 mg PO Q8H PRN Nausea And Vomiting 06/16/23 06/16/23 Unknown History tramadol 50 mg tablet 50 mg PO Q4H PRN Pain 06/16/23 06/16/23 Unknown History Allergies Allergy/AdvReac Type Severity Reaction Status Date / Time No Known Allergies Allergy Verified 06/04/23 12:37 PFSH Acute 2 PFSH: Medical History Factor 5 Leiden mutation, heterozygous Constipation History of DVT (deep vein thrombosis) 07/10/2019 DVT involving the popliteal veins bilaterally Closed hand fracture Right 4th metacarpal oblique, injury 04/03/2022 Bilateral leg edema Erectile dysfunction Low testosterone Anxiety and depression Diabetes type 2, uncontrolled Atherosclerotic heart disease of [place] coronary artery with other forms of angina pectoris Hypertension Hyperlipidemia Diabetic neuropathy Adenomatous colon polyp Ischemic cardiomyopathy Abnormal nuclear stress test History of claustrophobia Right foot drop 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 Surgical History Stented coronary artery H/O circumcision Family History Mother , at age 45 Lung cancer smoker Grandmother Diabetes Father , at age 23 Drowning Other Hypertension Denies family history of CAD (coronary artery disease) Social History Smoking and tobacco/nicotine status: former use of tobacco/nicotine Quit status (tobacco/nicotine): has quit using Year quit tobacco: 2006 Alcohol intake: former Substance/Drug Use: former Household members: spouse and children Marital status: Number of children: 7 service: No Current occupational status: disabled 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 Abiola/Cheondoism: Buddhism Special abiola needs: Yes (seth) Agree to transfusion: Yes Vitals/I&O/Wt Last Vital Signs Temp 98.1 F 06/15/23 15:55 Pulse 87 06/15/23 17:21 Resp 16 06/15/23 17:21 BP 138/86 06/15/23 17:21 Pulse Ox 93 06/15/23 17:21 O2 Del Method Room Air 06/15/23 17:21 Weight last 48 hrs Weight 115.666 kg Physical Exam 2 Narrative: General: No acute distress, AO x3, mildly obese HEENT: PERRLA, pupils bilaterally equal and reactive Chest: Normal vesicular breath sounds, no added sounds, equal good air entry bilaterally CVS: S1-S2 regular, no murmurs, no tachycardia, no gallops, no rubs Abdomen: Soft, nontender, no organomegaly, bowel sounds present VASCULAR: Dorsalis pedis palpable bilaterally. Posterior tibial arteries palpable. Capillary refill time less than seconds to the distal hallux bilaterally. Increased warmth right lateral forefoot. DERMATOLOGICAL: Right lateral forefoot wound has erythema to the level of the midfoot, purulent drainage expressed from the wound, fluctuance at the plantar lateral aspect of the right forefoot, no crepitus with palpation of soft tissue. MUSCULOSKELETAL: No crepitus with soft tissue palpation of the wound or with debridement. Tenderness to palpation at right foot. Status post partial right fifth ray amputation. Data 06/16/23 02:46 06/16/23 02:46 A&P Assessment and plan (1) Sepsis: (2) Acute osteomyelitis of right foot: (3) ELSY (acute kidney injury): (4) Hyponatremia: (5) Cellulitis of right foot: (6) Diabetes type 2, uncontrolled: Qualifiers: Glycemic state: with hyperglycemia Qualified Code(s): E11.65 - Type 2 diabetes mellitus with hyperglycemia (7) Hypertension: Qualifiers: Hypertension type: essential hypertension Qualified Code(s): I10 - Essential (primary) hypertension (8) Hyperlipidemia: Qualifiers: Hyperlipidemia type: mixed hyperlipidemia Qualified Code(s): E78.2 - Mixed hyperlipidemia (9) Abnormal stress test: Most recent cardiac stress test in March 2023 which showed a moderate area of moderate to severe decreased perfusion involving inferior, inferior lateral and lateral region with some reversibility in the inferior and anterolateral region suggesting of myocardial scarring in distribution of RCA/LCx with ischemia predominantly in LCx region. Patient should follow-up with cardiology as an outpatient. No active chest pain. Appreciate recent A1c and lipid panel. Started on baby aspirin, statin. Start on metoprolol 25 mg twice daily (10) Factor 5 Leiden mutation, heterozygous: (11) History of DVT (deep vein thrombosis): (12) S/P foot surgery: Plan Sepsis: In setting of osteomyelitis. Ruled in by leukocytosis, elevated lactate, tachycardia. Secondary to osteomyelitis. Endorgan damage with renal dysfunction. Already received fluid as per sepsis bolus in the ER. Osteomyelitis of the right foot: Appreciate podiatry recommendations. Plan for MRI foot and then definitive OR treatment plan. Reviewed patient's culture history which is positive for MSSA, Enterobacter and Klebsiella. Check blood culture, MRSA swab, procalcitonin, urine Legionella, bacterial antigen. Check ESR, CRP. Empirically start on IV vancomycin and Zosyn as per culture history. Wound care and weightbearing status as per podiatry team. Given need for OR for now we will hold off on Xarelto. Type 2 diabetes mellitus: Uncontrolled. Not sure of compliance. Patient states she was never started on medications. For now start on insulin sliding scale at moderate dose protocol. Will add Lantus as per insulin requirements. Hyponatremia: Most likely in setting of dehydration and hyperglycemia. Normal saline at 75 cc/h. Monitor BMP daily. ELSY: Baseline creatinine normal. Currently 1.3. Most likely in setting of dehydration and infection. Fluid as above. Monitor BMP daily. Medical reconciliation done for nephrotoxic drugs. Factor V Leiden mutation/history of DVT: Xarelto held as above. For now start patient on IV heparin drip. Hyperlipidemia: Start on oral atorvastatin 40 mg daily. Full code Cardiac carb consistent diet Heparin drip will suffice for DVT prophylaxis Protonix for PUD prophylaxis. Attestations 2 Medical Necessity Statement*: Admission for more than 2 midnights for management of right foot osteomyelitis in a patient with uncontrolled type 2 diabetes mellitus Diagnoses Sepsis A41.9 Acute osteomyelitis of right foot M86.171 ELSY (acute kidney injury) N17.9 Hyponatremia E87.1 Cellulitis of right foot L03.115 Uncontrolled type 2 diabetes mellitus with hyperglycemia E11.65 Glycemic state: with hyperglycemia Essential hypertension I10 Hypertension type: essential hypertension Mixed hyperlipidemia E78.2 Hyperlipidemia type: mixed hyperlipidemia Abnormal stress test R94.39 Factor 5 Leiden mutation, heterozygous D68.51 History of DVT (deep vein thrombosis) Z86.718 S/P foot surgery Z98.890
[2023-06-15] MEDS: vancomycin 1,500 MG/300 ML PIGGYBACK 200 MG IV (18:36)
[2023-06-15 18:58] LABS: Reflex Lactate Order REFLEX LACTIC ORDERD
[2023-06-15 19:00] LABS: Erythrocyte Sedimentation Rate > 130 mm/hr (0-10)
[2023-06-15 19:07] LABS: Adenovirus Not Detected (NOT DETECT); Chlamydia Pneumoniae Not Detected (NOT DETECT); Coronavirus 229E,HKU1,NL63,OC4 Not Detected (NOT DETECT); Human Metapneumovirus Detected (NOT DETECT); Human Rhinovirus/Enterovirus Not Detected (NOT DETECT); Influenza A Not Detected (NOT DETECT); Influenza A H1 Not Detected (NOT DETECT); Influenza A H1-2009 Not Detected (NOT DETECT); Influenza A H3 Not Detected (NOT DETECT); Influenza B Not Detected (NOT DETECT); Mycoplasma Pneumoniae Not Detected (NOT DETECT); Parainfluenza Virus Type 1 Not Detected (NOT DETECT); Parainfluenza Virus Type 2 Not Detected (NOT DETECT); Parainfluenza Virus Type 3 Not Detected (NOT DETECT); Parainfluenza Virus Type 4 Not Detected (NOT DETECT); Respiratory Syncytial Virus A Not Detected (NOT DETECT); Respiratory Syncytial Virus B Not Detected (NOT DETECT); SARS-COV-2 Not Detected (NOT DETECT)
[2023-06-15 19:15] LABS: Procalcitonin 0.39 ng/mL (0-0.5)
[2023-06-15 20:14] LABS: Iron 18 ug/dL (59-158); Percent Saturation 10.3 % (20-50); Total Iron Binding Capacity 174 mcg/dl; Unsaturated Iron Binding 156 ug/dL (112-347)
[2023-06-15 20:30] LABS: Vitamin B12 802 pg/mL (232-1245)
[2023-06-15] MEDS: ipratropium-albuterol 3 mL Neb INHALATION (20:30)
[2023-06-15] MEDS: morphine 4 mg/mL SDV 1 mL 2 MG IVP (20:39)
[2023-06-15] MEDS: pantoprazole 40 mg SDV IVP (20:40)
[2023-06-15] MEDS: piperacillin-tazobactam 3.375 GM in sodium chloride 0.9% (plus) 50 ML IV (20:42)
[2023-06-15] MEDS: sodium chloride 0.9% 1,000 ML 75 ML IV (20:42)
[2023-06-15] MEDS: heparin drip 25,000 UNIT/500 ML PREMIX 32.39 UNIT IV (20:49)
[2023-06-15 22:27] LABS: Glucose Point of Care 340 mg/dL (70-110)
[2023-06-15] MEDS: insulin lispro 100 unit/1 mL SUBCUT (22:53)
[2023-06-16] VITALS (16 sets, daily range): BP systolic 142–156; BP diastolic 84–98; PULSE 92–122; RESP 16–24; TEMP 36.7–37.2; O2SAT 86–98; BMI 35.3
[2023-06-16] MEDS: ipratropium-albuterol 3 mL Neb INHALATION ×4 (02:14→19:47)
[2023-06-16 02:59] LABS: Basophils # 0.1 10^3/uL (0.0-0.1); Basophils % 0.4 %; Eosinophils % 0.1 %; Hematocrit 38.8 % (37-53); Lymphocytes # 1.5 10^3/uL (0.8-4.8); Lymphocytes % 8.8 %; Mean Corpuscular HGB Conc 32.5 g/dL (30-55); Mean Corpuscular Hemoglobin 26.7 pg (27-33); Mean Corpuscular Volume 82.2 fl (82-101); Monocytes # 1.2 10^3/uL (0.2-0.9); Monocytes % 6.6 %; Neutrophils # 14.56 10^3/uL (1.8-7.7); Neutrophils % 83.5 %; Nucleated Red Blood Cells % 0 %; Platelet Count 391 10^3/cmm (157-399); Red Blood Count 4.72 10^6/uL (3.85-5.65); White Blood Count 17.45 10^3/uL (3.29-11.43)
[2023-06-16 03:21] LABS: Alanine Aminotransferase 33 U/L (0-41); Albumin Level 2.7 g/dL (3.5-5.2); Alkaline Phosphatase 263 U/L (40-130); Anion Gap 18.5 (5-19); Aspartate Amino Transferase 23 U/L (0-40); Blood Urea Nitrogen 31 mg/dL (8-23); Calcium 9.1 mg/dL (8.5-10.5); Carbon Dioxide 22 mmol/L (22-29); Chloride 90 mmol/L (98-107); Glomerular Filtration Rate 68.1 mL/min (90-130); Glucose 339 mg/dL (65-115); Magnesium 2.1 mg/dL (1.7-2.3); Osmolality Calculated 282 mOsm/kg (285-295); Phosphorus 3.4 mg/dL (2.5-4.5); Potassium 4.5 mmol/L (3.5-5.1); Sodium 126 mmol/L (136-145); Total Bilirubin 0.3 mg/dL (0.15-1.2); Total Protein 7.7 g/dL (6.6-8.7)
[2023-06-16 03:36] LABS: Folate Level 6.6 ng/mL (4.5-32.2)
[2023-06-16] MEDS: heparin 5,000 unit/mL INJ 1 mL IV (03:37)
[2023-06-16] MEDS: ondansetron 2 mg/ML SDV 2 mL 4 MG IVP (03:39)
[2023-06-16] MEDS: oxyCODONE-APAP 5-325 mg Tablet 1 TAB PO ×2 (03:43→22:17)
[2023-06-16] MEDS: piperacillin-tazobactam 3.375 GM in sodium chloride 0.9% (plus) 50 ML IV ×3 (03:44→20:16)
[2023-06-16] MEDS: vancomycin 1,500 MG/300 ML PIGGYBACK 200 MG IV (05:44)
[2023-06-16 07:30] LABS: Glucose Point of Care 323 mg/dL (70-110)
[2023-06-16 07:58] LABS: Glucose Point of Care 346 mg/dL (70-110)
[2023-06-16] MEDS: insulin lispro 100 unit/1 mL SUBCUT ×4 (08:42→22:16)
[2023-06-16] MEDS: aspirin 81 mg EC Tablet PO (08:42)
[2023-06-16] MEDS: morphine 4 mg/mL SDV 1 mL 2 MG IVP (08:43)
--- NOTE | 2023-06-16 08:43 | PC.PHAR ---
PT STATES TAKES CARE OF HIS MEDICATIONS. LEFT MESSAGE AT 8:44AM 06/16/23
[2023-06-16 09:50] LABS: Partial Thromboplastin Time 54.1 SECONDS (23.9-36.7)
--- NOTE | 2023-06-16 10:40 | P.PN_ITS ---
Subjective 2 Subjective: No acute events overnight. Today morning seen sitting at the edge of the bed. Denies any nausea, ting, headache. Agreeable to continue with insulin. Agreeable to discharge on insulin as well. States he is claustrophobic for MRI and his concern. But is agreeable to try. Vitals/I&O/Wt Last Vital Signs Temp 98.7 F 06/16/23 08:00 Pulse 112 H 06/16/23 08:30 Resp 18 06/16/23 08:43 BP 142/98 06/16/23 08:00 Pulse Ox 92 06/16/23 08:00 O2 Del Method Room Air 06/16/23 08:00 O2 Flow Rate 2 06/16/23 04:00 06/15/23 06/16/23 06/16/23 22:59 06:59 14:59 Intake Total 1300 / 1300 270.252 / 1570.252 494.32 / 494.32 Output Total 725 / 725 Balance 575 / 575 270.252 / 845.252 494.32 / 494.32 Weight last 48 hrs Weight 121.563 kg Weight 115.666 kg Weight 115.666 kg Physical Exam 2 Narrative: General: No acute distress, AO x3, mildly obese HEENT: PERRLA, pupils bilaterally equal and reactive Chest: Normal vesicular breath sounds, no added sounds, equal good air entry bilaterally CVS: S1-S2 regular, no murmurs, no tachycardia, no gallops, no rubs Abdomen: Soft, nontender, no organomegaly, bowel sounds present Foot: Surgically bandaged Data 06/16/23 02:46 06/16/23 02:46 Micro: Microbiology 06/15/23 17:15 Gram Stain - Final Toe - Toe and Finger A&P Assessment and plan (1) Sepsis: (2) Acute osteomyelitis of right foot: (3) ELSY (acute kidney injury): (4) Hyponatremia: (5) Cellulitis of right foot: (6) Diabetes type 2, uncontrolled: Qualifiers: Glycemic state: with hyperglycemia Qualified Code(s): E11.65 - Type 2 diabetes mellitus with hyperglycemia (7) Hypertension: Qualifiers: Hypertension type: essential hypertension Qualified Code(s): I10 - Essential (primary) hypertension (8) Hyperlipidemia: Qualifiers: Hyperlipidemia type: mixed hyperlipidemia Qualified Code(s): E78.2 - Mixed hyperlipidemia (9) Abnormal stress test: Most recent cardiac stress test in March 2023 which showed a moderate area of moderate to severe decreased perfusion involving inferior, inferior lateral and lateral region with some reversibility in the inferior and anterolateral region suggesting of myocardial scarring in distribution of RCA/LCx with ischemia predominantly in LCx region. Patient should follow-up with cardiology as an outpatient. No active chest pain. Appreciate recent A1c and lipid panel. Started on baby aspirin, statin. Start on metoprolol 25 mg twice daily (10) Factor 5 Leiden mutation, heterozygous: (11) History of DVT (deep vein thrombosis): (12) S/P foot surgery: Plan Sepsis: In setting of osteomyelitis. Ruled in by leukocytosis, elevated lactate, tachycardia. Secondary to osteomyelitis. Endorgan damage with renal dysfunction. Already received fluid as per sepsis bolus in the ER. Continue normal saline at 75 cc/h. Osteomyelitis of the right foot: Appreciate podiatry recommendations. Plan for MRI foot and then definitive OR treatment plan. Reviewed patient's culture history which is positive for MSSA, Enterobacter and Klebsiella. Check blood culture, MRSA swab, procalcitonin, urine Legionella, bacterial antigen. Check ESR, CRP. Empirically start on IV vancomycin and Zosyn as per culture history. Wound care and weightbearing status as per podiatry team. Given need for OR for now we will hold off on Xarelto. Type 2 diabetes mellitus: Uncontrolled. Not sure of compliance. Most recent A1c more than 11. Patient states she was never started on medications. Continue with insulin sliding scale at moderate dose protocol. Add Lantus 10 units twice daily Hyponatremia: Improving. Most likely in setting of dehydration and hyperglycemia. Normal saline at 75 cc/h. Monitor BMP daily. ELSY: Baseline creatinine normal. Improving. Most likely in setting of dehydration and infection. Fluid as above. Monitor BMP daily. Medical reconciliation done for nephrotoxic drugs. Factor V Leiden mutation/history of DVT: Xarelto held as above. For now start patient on IV heparin drip. Hyperlipidemia: Start on oral atorvastatin 40 mg daily. Hypertension: Goal blood pressure less than 140/90 MAG. # Tachycardia. Add metoprolol 25 mg twice daily. If needed will add ED inhibitor. Full code Cardiac carb consistent diet Heparin drip will suffice for DVT prophylaxis Protonix for PUD prophylaxis. Attestations 2 Medical Necessity Statement*: Requires further hospitalization for management of sepsis-in setting of right fourth in a patient with uncontrolled type 2 diabetes mellitus while MRI and surgical treatment plan is awaited Diagnoses Sepsis A41.9 Acute osteomyelitis of right foot M86.171 ELSY (acute kidney injury) N17.9 Hyponatremia E87.1 Cellulitis of right foot L03.115 Uncontrolled type 2 diabetes mellitus with hyperglycemia E11.65 Glycemic state: with hyperglycemia Essential hypertension I10 Hypertension type: essential hypertension Mixed hyperlipidemia E78.2 Hyperlipidemia type: mixed hyperlipidemia Abnormal stress test R94.39 Factor 5 Leiden mutation, heterozygous D68.51 History of DVT (deep vein thrombosis) Z86.718 S/P foot surgery Z98.890
[2023-06-16 11:24] LABS: Glucose Point of Care 353 mg/dL (70-110)
[2023-06-16] MEDS: metoprolol tartrate 25 mg Tablet PO ×2 (12:09→20:16)
[2023-06-16] MEDS: insulin glargine 100 units/1 mL 10 UNIT SUBCUT ×2 (12:17→17:25)
[2023-06-16] MEDS: sodium chloride 0.9% 1,000 ML 75 ML IV (12:17)
[2023-06-16] MEDS: heparin drip 25,000 UNIT/500 ML PREMIX 39.4 UNIT IV (14:18)
[2023-06-16 15:38] LABS: Partial Thromboplastin Time 75.4 SECONDS (23.9-36.7)
[2023-06-16 16:02] LABS: Glucose Point of Care 221 mg/dL (70-110)
[2023-06-16] MEDS: vancomycin 1,500 MG/300 ML PIGGYBACK 150 MG IV (17:25)
[2023-06-16] MEDS: pantoprazole 40 mg SDV IVP (20:13)
[2023-06-16] MEDS: atorvastatin 40 mg Tablet PO (20:16)
[2023-06-16 21:44] LABS: Glucose Point of Care 203 mg/dL (70-110)
[2023-06-16 22:16] LABS: Partial Thromboplastin Time 85.7 SECONDS (23.9-36.7)
[2023-06-17] VITALS (14 sets, daily range): BP systolic 111–169; BP diastolic 72–127; PULSE 75–120; RESP 16–28; TEMP 36.5–37.3; O2SAT 90–95; BMI 33.0
[2023-06-17] MEDS: morphine 4 mg/mL SDV 1 mL 2 MG IVP (00:59)
--- NOTE | 2023-06-17 01:04 | XRR_ITS ---
PROCEDURE INFORMATION: Exam: XR Chest Exam date and time: 06/17/2023 1:15 AM Age: 62 years old Clinical indication: Shortness of breath and wheezing; Patient HX: SOB with audible rales; Additional info: Cp SOB, crackles in bases TECHNIQUE: Imaging protocol: Radiologic exam of the chest. Views: 1 view. COMPARISON: CR (CHEST, ) 06/15/2023 5:38 PM FINDINGS: Lungs: Diffuse irregular opacities throughout both lungs with a lower lobe predominance. Pleural spaces: Unremarkable. No pleural effusion. No pneumothorax. Heart/Mediastinum: Unremarkable. No cardiomegaly. Bones/joints: Unremarkable. XR/XR chest 1V portable [id number] IMPRESSION: Diffuse irregular opacities throughout both lungs with a lower lobe predominance.
--- NOTE | 2023-06-17 01:06 | ECG_ITS ---
[facility] Test Date: 2023-06-17 Pat Name: Adrián Vinson Department: Room: 252 Gender: Male [employer] Teacher: : 1960 Requested By: Matty Schroeder Order Number: [id number] Nadir MD: Cruz Bedolla M.D. Measurements Intervals [place] Rate: 120 P: 35 HI: 116 QRS: 22 QRSD: 89 T: 214 QT: 338 QTc: 479 Interpretive Statements SINUS TACHYCARDIA WITH SHORT HI INTERVAL NONSPECIFIC ST & T-WAVE ABNORMALITY Compared to ECG 06/04/2023 14:37:37 Short HI interval now present Myocardial infarct finding no longer present Possible ischemia no longer present T-wave abnormality still present Electronically Signed On 06-17-2023 21:23:07 NOCTURNIST by Cruz Bedolla M.D. [id number]
[2023-06-17] MEDS: ipratropium-albuterol 3 mL Neb INHALATION ×3 (01:24→20:02)
[2023-06-17] MEDS: FUROsemide 10 mg/mL SDV 4mL 40 MG IVP ×2 (01:30→17:47)
--- NOTE | 2023-06-17 02:56 | PC.NURSE ---
Patient turned unix consultant light. Patient had pulled his IV out in his L wrist which had his heparin drip running through it. Patient had already stopped bleeding. Patient had pulled his oxygen off. Patient was tachypneic with audible wheezes. Patient was assisted over into a chair and bed was changed and patient was placed into a hospital gown. Patient was assisted back into bed. Patient become more tachypneic and auditory inspiratory and expiratory wheezes became more pronounced. This nurse educated the patient the importance of leaving his oxygen on. Patient was educated on keeping his legs elevated to help reduce swelling. Patient stated, I feel like I am dying. This nurse listened to the patient and fine crackles were heard in posterior bases. IVF fluids were stopped. Vital signs were obtained and a blood pressure of 162/120 was manually recorded. Patient stated he was having chest pain. Patient kept asking if he could get up and sit on the side of the bed. This nurse as well as SARAH Bassett educated the patient that due to him having chest pain and an elevated blood pressure that he was not able to get up at this moment. An order for EKG was put in and Dr. Schroeder was notified. Chest xray, IV lasix, IVF stopped, mcneal catheter was ordered. RT Gloria was notified for a breathing treatment and to assess the patient. Patient again asked to get up to the side of the bed and was instructed not to do so. Patient stated. I'm just lying to you. I am not having chest pain. SARAH Bassett inquired as to why the patient stated he had then stated he was lying about it. Patient stated, I've been through this before and that's how you get medication. SARAH Bassett educated patient that chest pain is taken very seriously and with patient's shortness of breath and elevated blood pressure that the likelihood of chest pain seemed very real and that a workup needed to be done before allowing the patient to sit at the side of the bed. Patient was very agitated about having to wait due to being in respiratory distress and kept cursing at situation.
--- NOTE | 2023-06-17 03:16 | PC.NURSE ---
Patient resting in bed. Patient asked, Well, where have you been? This nurse asked the patient how he was feeling. The patient stated, I don't know what you did, but you fixed me! The patient no longer had audible wheezes and respirations were even and non-labored. This nurse reminded patient to leave his oxygen and that we were going to take good care of him.
[2023-06-17] MEDS: piperacillin-tazobactam 3.375 GM in sodium chloride 0.9% (plus) 50 ML IV ×3 (04:37→20:47)
[2023-06-17] MEDS: heparin drip 25,000 UNIT/500 ML PREMIX 32.4 UNIT IV (04:38)
[2023-06-17 06:04] LABS: Basophils # 0.1 10^3/uL (0.0-0.1); Basophils % 0.4 %; Eosinophils % 0.1 %; Hematocrit 41.3 % (37-53); Lymphocytes # 1.4 10^3/uL (0.8-4.8); Lymphocytes % 7.2 %; Mean Corpuscular HGB Conc 31.7 g/dL (30-55); Mean Corpuscular Hemoglobin 26.4 pg (27-33); Mean Corpuscular Volume 83.3 fl (82-101); Mean Platelet Volume 12.8 fL (7.4-10.4); Neutrophils # 16.95 10^3/uL (1.8-7.7); Neutrophils % 86.5 %; Nucleated Red Blood Cells % 0 %; Platelet Count 292 10^3/cmm (157-399); Red Blood Count 4.96 10^6/uL (3.85-5.65); Red Cell Distribution Width 14.6 % (12.1-15.1)
[2023-06-17 06:26] LABS: Alanine Aminotransferase 42 U/L (0-41); Albumin Level 2.9 g/dL (3.5-5.2); Alkaline Phosphatase 384 U/L (40-130); Blood Urea Nitrogen 38 mg/dL (8-23); Calcium 8.8 mg/dL (8.5-10.5); Carbon Dioxide 21 mmol/L (22-29); Chloride 92 mmol/L (98-107); Globulin 4.2 g/dL (1.3-4.6); Glomerular Filtration Rate 56.1 mL/min (90-130); Glucose 167 mg/dL (65-115); Osmolality Calculated 283 mOsm/kg (285-295); Sodium 130 mmol/L (136-145); Total Bilirubin 0.3 mg/dL (0.15-1.2); Total Protein 7.1 g/dL (6.6-8.7)
[2023-06-17 06:30] LABS: Anion Gap 22.2 (5-19); Aspartate Amino Transferase 45 U/L (0-40); Potassium 5.2 mmol/L (3.5-5.1)
[2023-06-17] MEDS: vancomycin 1,500 MG/300 ML PIGGYBACK 200 MG IV ×2 (06:42→18:01)
[2023-06-17] MEDS: heparin 5,000 unit/mL INJ 1 mL IV ×2 (07:09→23:00)
[2023-06-17 07:44] LABS: Glucose Point of Care 180 mg/dL (70-110)
--- NOTE | 2023-06-17 07:51 | USCV_ITS ---
Adrián Vinson Age: 62 Gender: M : 1960 Exam Date: 06/17/2023 13:54 Ordering Phys: Donaldo Oneal MD Technologist: Rom Patrick [place] [facility] [place]: chf BP: 123 / 85 HR: 106 Rhythm: Sinus Technical Quality: Adequate MEASUREMENTS (Male / Female) Normal Values 2D ECHO LVOT Diameter 2.0 cm LV Ejection Fraction MOD 2C 28.1 % LV Ejection Fraction 2C AL 30.6 % LA Diameter 4.0 cm LA Width 3.5 cm LA Height 4.3 cm RA Width 3.2 cm RA Height 4.5 cm Aorta at Sinotubular Diameter 3.1 cm IVC Diameter 2.5 cm M-MODE Aortic Annulus Diameter 2.3 cm LA Ao Ratio MM 1.9 MV E Point Septal Separation 1.1 cm DOPPLER AV Peak Velocity 195.0 cm/s LVOT Peak Velocity 81.0 cm/s AV Area Cont Eq vti 1.5 cm squared AV Area Cont Eq pk 1.3 cm squared MV Peak Velocity 132.0 cm/s MV Area PHT 4.3 cm squared Mitral E to A Ratio 1.2 MV E' Velocity 54.5 cm/s Mitral E to MV E' Ratio 13.9 Mitral E to LV E' Lateral Ratio 12.1 Mitral E to LV E' Septal Ratio 16.6 TR Peak Velocity 333.3 cm/s TR Peak Gradient 44.4 mmHg TR Mean Velocity 249.7 cm/s TR Mean Gradient 29.8 mmHg TR Velocity Time Integral 81.4 cm Right Atrial Pressure 8.0 mmHg Pulmonary Artery Systolic Pressu 52.4 mmHg PV Peak Velocity 82.0 cm/s RV Acceleration Time 0.1 s RV Ejection Time 0.2 s RV AcT/ET 0.3 FINDINGS Left Ventricle Slightly dilated left-ventricle ejection fraction of 35 to 40%, by echocardiogram (visual). Since that the endocardium could not be visualized, the ejection fraction estimation could be misleading technically difficult study Right Ventricle The right ventricle is normal in size and function. Right Atrium The right atrium is normal in size. Left Atrium Mildly increased left atrial size. Mitral Valve Thickened mitral valve. Aortic Valve Thickened aortic valve. Tricuspid Valve No gross abnormalities noted Pulmonic Valve No pulmonary valve regurgitation. Pericardium No pericardial effusion. Aorta Normal ascending aorta dimension. IVC The inferior vena cava appears normal. CONCLUSIONS Mildly dilated left ventricular with an ejection fraction around 40% 35 to 40% (visual). Because of the poor endocardial delineation, the ejection fraction estimation could be misleading. Recommend contrast echo to better evaluate the ejection fraction I am the endocardial delineation 03/29/2023 Mildly dilated left atrium. No intracardiac masses. Comparison with the previous echocardiogram from 03/29/2023. There appears to be a drop in the ejection fraction. Because of the suboptimal study, this cannot be ascertained Dr Cruz Bedolla MD [facility] (Electronically Signed) Final Date: 17 June 2023 18:31 S
--- NOTE | 2023-06-17 07:55 | CTR_ITS ---
PROCEDURE INFORMATION: Exam: CT Abdomen And Pelvis Without Contrast Exam date and time: 06/17/2023 12:54 PM Age: 62 years old Clinical indication: Abdominal pain; Additional info: Transaminitis, chon, possible obs nephropathy TECHNIQUE: Imaging protocol: Computed tomography of the abdomen and pelvis without contrast. Radiation optimization: All CT scans at this facility use at least one of these dose optimization techniques: automated exposure control; mA and/or kV adjustment per patient size (includes targeted exams where dose is matched to clinical indication); or iterative reconstruction. COMPARISON: CT angio abd aorta runof [id number] 06/01/2023 2:12 PM current chest x-ray. RADIATION DOSE METRICS: Total DLP (mGy-cm): 1016.68 FINDINGS: Lungs: The imaged lung bases demonstrate areas of consolidation in the bilateral lung bases.. Additional patchy opacities are noted in the right lower lobe. Pleural spaces: Moderate bilateral pleural effusions. Coronary arteries: Coronary artery atherosclerotic calcification. Mediastinal space: Mediastinal calcification favored post granulomatous. Liver: Unremarkable. The liver is enlarged although appears homogeneous. Attenuation does not suggest significant fatty infiltration. Gallbladder and bile ducts: Gallbladder is unremarkable. No extrahepatic biliary ductal dilatation for age. Radiodense material in the gallbladder consistent with sludge or stones. Internal lucency favored to represent nitrogenous degeneration within a gallstone. Pancreas: Unremarkable. Mild fatty replacement of the pancreas, pancreas is otherwise unremarkable. Spleen: Unremarkable. The spleen is homogeneous without enlargement. Small accessory splenule. Adrenal glands: Not enlarged. Kidneys and ureters: No hydronephrosis. No intrarenal calculus evident. Stomach and bowel: No bowel obstruction identified. No bowel wall thickening noted, within the limits of the examination. The right colon is distended by stool at up to 9 cm, but no discrete obstruction is identified. Appendix: No acute inflammatory change of the appendix noted. Intraperitoneal space: Increased density is noted along the left paracolic gutter region, thought to represent a motion artifact, less likely fluid, please correlate with clinical findings. There is no free intraperitoneal fluid. Vasculature: No abdominal aortic aneurysm identified. Lymph nodes: Several small retroperitoneal nodes are identified without pathologic jonatan enlargement observed. There are however prominent bilateral inguinal nodes more so on the right. Urinary bladder: Urinary bladder is decompressed by a Govea catheter. Small amount of gas within the bladder presumably secondary to recent instrumentation. Reproductive: Unremarkable as visualized. Bones/joints: Skeletal windows demonstrate moderate multilevel degenerative changes. Anterior wedge compression deformity of the T12 through L2 vertebral bodies appears unchanged as does retrolisthesis of L2 on L3 favored degenerative. Soft tissues: There is moderate edema of the body wall of the subcutaneous tissues bilaterally. Other findings: Mild motion artifact. CT/CT abdomen pelvis wo con [id number] IMPRESSION: 1. Bilateral pulmonary opacities, increased from 06/01/2023 and consistent with findings on current chest x-ray. Differential diagnosis would include pneumonia or aspiration. 2. Enlarged bilateral pleural effusions. 3. Mild hepatomegaly without evidence of significant hepatic steatosis. 4. Nitrogenous degeneration within a gallstone. Faint radiodensity within the gallbladder contents could reflect radiodense sludge. 5. No hydronephrosis. 6. Moderate body wall edema. 7. Please see above additional comments. COMMENTS: Please note that lack of IV contrast limits both the sensitivity, and the specificity, of the examination, particularly as regards focal lesions in the solid organs.
[2023-06-17] MEDS: dextrose 50% syringe 50 mL IVP (08:26)
[2023-06-17] MEDS: sodium bicarbonate 8.4% 1 mEq/mL 50mL Syr 50 MEQ IVP (08:26)
[2023-06-17] MEDS: calcium gluconate 0.9% NaCL 1 GM/50 ML PREMIX IV (08:26)
[2023-06-17] MEDS: insulin regular-human 10 UNIT in SYRINGE 1 EACH IVP (08:27)
--- NOTE | 2023-06-17 08:56 | P.PN_ITS ---
Vitals/I&O/Wt Last Vital Signs Temp 98.3 F 06/17/23 07:46 Pulse 106 H 06/17/23 07:46 Resp 18 06/17/23 07:46 BP 160/104 06/17/23 07:46 Pulse Ox 95 06/17/23 07:46 O2 Del Method Nasal Cannula 06/17/23 04:00 O2 Flow Rate 4 06/17/23 01:26 06/16/23 06/17/23 06/17/23 22:59 06:59 14:59 Intake Total 988.81 / 2978.558 654.39 / 3632.948 Output Total 500 / 500 800 / 1300 Balance 488.81 / 2478.558 -145.61 / 2332.948 Weight last 48 hrs Weight 250 lb 9.6 oz Weight 273 lb Weight 268 lb Weight 255 lb Weight 255 lb Physical Exam 2 Narrative: Patient is alert and oriented ?3 and in no acute distress. The following is a focused right lower extremity exam. He is agitated. VASCULAR: Dorsalis pedis palpable bilaterally. Posterior tibial arteries palpable. Capillary refill time less than seconds to the distal hallux bilaterally. Increased warmth right lateral forefoot. NEUROLOGICAL: Protective sensation absent to light touch bilateral foot. DERMATOLOGICAL: Wound probes to bone right forefoot, probes to fifth metatarsal diaphysis and fourth metatarsal phalangeal joint. Right lateral forefoot wound has erythema to the level of the midfoot, purulent drainage expressed from the wound, fluctuance at the plantar lateral aspect of the right forefoot that tracks plantarly to the instep medially, no crepitus with palpation of soft tissue. MUSCULOSKELETAL: No crepitus with soft tissue palpation of the wound or with debridement. Tenderness to palpation at right foot. Status post partial right fifth ray amputation. Urinary Catheter Management: Govea: Cath Placed During This Visit: yes Reason for Continuing Indwelling Catheter: Other Urinary Catheter Date of Insertion: 06/17/23 Urinary Catheter Time of Insertion: 01:20 Data 06/17/23 05:24 06/17/23 05:24 Micro: Microbiology 06/15/23 17:15 Gram Stain - Final Toe - Toe and Finger Wound Culture - Preliminary Coag positive Staphylococcus A&P Assessment and plan (1) Acute osteomyelitis of right foot: (2) Cellulitis of right foot: (3) Diabetes type 2, uncontrolled: Qualifiers: Glycemic state: with hyperglycemia Qualified Code(s): E11.65 - Type 2 diabetes mellitus with hyperglycemia Plan 62-year-old uncontrolled diabetic male with infected wound that probes to bone right foot, acute osteomyelitis and cellulitis to the midfoot. Patient has malaise, nausea, decreased appetite leukocytosis with white count of 17.59, CRP 299.1 mg/L X-ray shows acute osteomyelitis at remaining diaphysis right fifth metatarsal and at the right fourth proximal phalanx base Patient has failed outpatient antibiotics and outpatient wound care clinic Recommend hospital admission Recommend empiric IV antibiotics. Wound culture pending. Previous cultures grew Enterobacter, Staphylococcus and Klebsiella. Nonweightbearing right foot Pending MRI right foot with and without contrast to further evaluate extent of acute osteomyelitis. Podiatry will follow, greatly appreciate hospitalist for medical management of this admission. Moving forward I think patient would be best served being transferred to a senior living facility. He has already failed a right partial fifth ray resection and wound care due to poor follow-up and noncompliance of weightbearing status. Attestations 2 Medical Necessity Statement*: Diabetic foot infection Coding Level of Care Code Acute Code for [facility] Diagnoses Acute osteomyelitis of right foot M86.171 Cellulitis of right foot L03.115 Uncontrolled type 2 diabetes mellitus with hyperglycemia E11.65 Glycemic state: with hyperglycemia
[2023-06-17] MEDS: insulin lispro 100 unit/1 mL SUBCUT ×4 (09:29→23:00)
[2023-06-17] MEDS: insulin glargine 100 units/1 mL 10 UNIT SUBCUT ×2 (09:31→18:01)
[2023-06-17] MEDS: oxyCODONE-APAP 5-325 mg Tablet 1 TAB PO (09:41)
[2023-06-17] MEDS: amlodipine 10 mg Tablet PO (09:41)
[2023-06-17] MEDS: aspirin 81 mg EC Tablet PO (09:41)
[2023-06-17] MEDS: metoprolol tartrate 25 mg Tablet PO ×2 (09:41→20:47)
[2023-06-17 09:50] LABS: Troponin T (5th) Once 91 ng/L (0-15)
[2023-06-17 11:12] LABS: Glucose Point of Care 162 mg/dL (70-110)
[2023-06-17 12:49] LABS: Partial Thromboplastin Time 66.2 SECONDS (23.9-36.7)
[2023-06-17 12:57] LABS: Anion Gap 18.2 (5-19); Blood Urea Nitrogen 40 mg/dL (8-23); Calcium 9.4 mg/dL (8.5-10.5); Carbon Dioxide 21 mmol/L (22-29); Chloride 91 mmol/L (98-107); Glomerular Filtration Rate 68.1 mL/min (90-130); Glucose 127 mg/dL (65-115); Osmolality Calculated 273 mOsm/kg (285-295); Potassium 4.2 mmol/L (3.5-5.1); Sodium 126 mmol/L (136-145)
--- NOTE | 2023-06-17 15:13 | P.PN_ITS ---
Subjective 2 Subjective: Overnight patient developed mild shortness of breath with concerns of congestive heart failure for which fluid was stopped and he was given IV Lasix 40 mg one- time. Govea catheter was placed. Today morning patient is again seen sitting at the side of the bed saturating around 90% on 2 to 3 L of supplementation. Blood pressure mildly elevated. Seen with family at bedside. Vitals/I&O/Wt Last Vital Signs Temp 98.2 F 06/17/23 12:00 Pulse 76 06/17/23 13:43 Resp 16 06/17/23 13:42 BP 123/85 06/17/23 12:00 Pulse Ox 90 06/17/23 13:43 O2 Del Method Nasal Cannula 06/17/23 13:42 O2 Flow Rate 3 06/17/23 13:42 06/17/23 06/17/23 06/17/23 06:59 14:59 22:59 Intake Total 654.39 / 3632.948 1120.1 / 1120.1 Output Total 800 / 1300 Balance -145.61 / 2332.948 1120.1 / 1120.1 Weight last 48 hrs Weight 113.67 kg Weight 123.831 kg Weight 121.563 kg Weight 115.666 kg Weight 115.666 kg Physical Exam 2 Narrative: General: No acute distress, AO x3, mildly obese HEENT: PERRLA, pupils bilaterally equal and reactive Chest: Normal vesicular breath sounds, no added sounds, equal good air entry bilaterally CVS: S1-S2 regular, Pansystolic murmur at apex radiating to axilla, no tachycardia, no gallops, no rubs Abdomen: Soft, nontender, no organomegaly, bowel sounds present Foot: VASCULAR: Dorsalis pedis palpable bilaterally. Posterior tibial arteries palpable. Capillary refill time less than seconds to the distal hallux bilaterally. Increased warmth right lateral forefoot. DERMATOLOGICAL: Wound probes to bone right forefoot, probes to fifth metatarsal diaphysis and fourth metatarsal phalangeal joint. Right lateral forefoot wound has erythema to the level of the midfoot, purulent drainage expressed from the wound, fluctuance at the plantar lateral aspect of the right forefoot that tracks plantarly to the instep medially, no crepitus with palpation of soft tissue. MUSCULOSKELETAL: No crepitus with soft tissue palpation of the wound or with debridement. Tenderness to palpation at right foot. Status post partial right fifth ray amputation. Urinary Catheter Management: Govea: Cath Placed During This Visit: yes Reason for Continuing Indwelling Catheter: Other Urinary Catheter Date of Insertion: 06/17/23 Urinary Catheter Time of Insertion: 01:20 Data 06/17/23 05:24 06/17/23 12:32 Micro: Microbiology 06/15/23 17:15 Gram Stain - Final Toe - Toe and Finger Wound Culture - Preliminary Coag positive Staphylococcus A&P Assessment and plan (1) Sepsis: (2) Acute osteomyelitis of right foot: (3) ELSY (acute kidney injury): (4) Hyponatremia: (5) Cellulitis of right foot: (6) Congestive heart failure: (7) Diabetes type 2, uncontrolled: Qualifiers: Glycemic state: with hyperglycemia Qualified Code(s): E11.65 - Type 2 diabetes mellitus with hyperglycemia (8) Abnormal stress test: Most recent cardiac stress test in March 2023 which showed a moderate area of moderate to severe decreased perfusion involving inferior, inferior lateral and lateral region with some reversibility in the inferior and anterolateral region suggesting of myocardial scarring in distribution of RCA/LCx with ischemia predominantly in LCx region. With concerns for congestive heart failure/fluid overload overnight will check troponin one-time. Repeat echocardiogram. If shows worsening in ejection fraction or worsening of regional wall motion normality patient would benefit from cardiology consultation and possible angiogram. If echocardiogram stable would most likely need an outpatient cardiology follow- up. Appreciate recent A1c and lipid panel. Started on baby aspirin, statin. Continue with metoprolol 25 mg twice daily (9) Hypertension: Qualifiers: Hypertension type: essential hypertension Qualified Code(s): I10 - Essential (primary) hypertension (10) Hyperlipidemia: Qualifiers: Hyperlipidemia type: mixed hyperlipidemia Qualified Code(s): E78.2 - Mixed hyperlipidemia (11) Factor 5 Leiden mutation, heterozygous: (12) History of DVT (deep vein thrombosis): (13) S/P foot surgery: (14) Hyperkalemia: Plan Sepsis: In setting of osteomyelitis. Ruled in by leukocytosis, elevated lactate, tachycardia. Secondary to osteomyelitis. Endorgan damage with renal dysfunction. Already received fluid as per sepsis bolus in the ER. Stop fluids. Concerns for fluid overload overnight. Osteomyelitis of the right foot: Appreciate podiatry recommendations. Plan for MRI foot and then definitive OR treatment plan. Reviewed patient's culture history which is positive for MSSA, Enterobacter and Klebsiella. Blood cultures so far negative, MRSA swab negative, procalcitonin mildly elevated. Urine Legionella, bacterial antigen negative. Appreciate ESR, CRP. Wound cultures are now growing coag positive staph. Empirically start on IV vancomycin and Zosyn as per culture history. Wound care and weightbearing status as per podiatry team. Given need for OR for now we will hold off on Xarelto. Congestive heart failure: Last known EF of 45 to 50%. Stress test positive. Most likely ischemic in nature. Repeat echocardiogram today. IV Lasix 40 mg given at night. Will repeat 1 more dose. Patient will most likely need daily Lasix 40 mg IV for now. Govea in place. Strict input charting, daily weights. Patient would benefit with guideline directed medical therapy. Would plan to add ED/ARB once infection improves. Type 2 diabetes mellitus: Uncontrolled. Not sure of compliance. Most recent A1c more than 11. Patient states she was never started on medications. Blood sugars better controlled. Continue with insulin sliding scale at moderate dose protocol. Continue with Lantus 10 units twice daily Hyponatremia: Most likely pseudohyponatremia along with hypervolemic hyponatremia Monitor BMP daily. Already received IV Lasix 40 mg one-time. Will repeat during the day depending on urine output. ELSY: Baseline creatinine normal. Most likely CRS. Lasix as above. Monitor BMP daily. Medical reconciliation done for nephrotoxic drugs. Hyperkalemia: Most likely in setting of mild ELSY. Will treat with calcium gluconate 1 g IV, D50 and 10 units of insulin. Repeat BMP in afternoon. Factor V Leiden mutation/history of DVT: Xarelto held as above. For now start patient on IV heparin drip. Hyperlipidemia: Start on oral atorvastatin 40 mg daily. Hypertension: Goal blood pressure less than 140/90 mmHg. Blood pressure elevated. Continue with metoprolol 25 mg twice daily. Add amlodipine 10 mg oral daily. Patient would benefit with ED/ARB. Would like to add once renal function stable. Full code Cardiac carb consistent diet Heparin drip will suffice for DVT prophylaxis Protonix for PUD prophylaxis. Care plan discussed in detail with patient and patient's family at bedside. They verbalized understanding. They are agreeable with treatment plan. Attestations 2 Medical Necessity Statement*: Requires further hospitalization for management of sepsis in setting of osteomyelitis of right foot, uncontrolled type 2 diabetes mellitus, CAD with positive stress test, congestive heart failure Diagnoses Sepsis A41.9 Acute osteomyelitis of right foot M86.171 ELSY (acute kidney injury) N17.9 Hyponatremia E87.1 Cellulitis of right foot L03.115 Congestive heart failure I50.9 Uncontrolled type 2 diabetes mellitus with hyperglycemia E11.65 Glycemic state: with hyperglycemia Abnormal stress test R94.39 Essential hypertension I10 Hypertension type: essential hypertension Mixed hyperlipidemia E78.2 Hyperlipidemia type: mixed hyperlipidemia Factor 5 Leiden mutation, heterozygous D68.51 History of DVT (deep vein thrombosis) Z86.718 S/P foot surgery Z98.890 Hyperkalemia E87.5
[2023-06-17 16:36] LABS: Glucose Point of Care 179 mg/dL (70-110)
[2023-06-17] MEDS: pantoprazole 40 mg SDV IVP (20:44)
[2023-06-17] MEDS: heparin drip 25,000 UNIT/500 ML PREMIX 34.4 UNIT IV (20:45)
[2023-06-17 20:46] LABS: Partial Thromboplastin Time 50.2 SECONDS (23.9-36.7)
[2023-06-17] MEDS: atorvastatin 40 mg Tablet PO (20:47)
[2023-06-17 22:04] LABS: Glucose Point of Care 258 mg/dL (70-110)
[2023-06-18] VITALS (15 sets, daily range): BP systolic 106–142; BP diastolic 68–91; PULSE 75–107; RESP 16–20; TEMP 36.3–36.6; O2SAT 90–97; BMI 22.8
[2023-06-18] MEDS: ipratropium-albuterol 3 mL Neb INHALATION ×4 (01:56→20:00)
[2023-06-18] MEDS: piperacillin-tazobactam 3.375 GM in sodium chloride 0.9% (plus) 50 ML IV ×3 (04:22→23:19)
[2023-06-18 05:26] LABS: Basophils # 0.1 10^3/uL (0.0-0.1); Basophils % 0.4 %; Eosinophils % 0.2 %; Hematocrit 42.4 % (37-53); Lymphocytes # 1.5 10^3/uL (0.8-4.8); Lymphocytes % 7.8 %; Mean Corpuscular HGB Conc 30.4 g/dL (30-55); Mean Corpuscular Hemoglobin 26.4 pg (27-33); Mean Corpuscular Volume 86.9 fl (82-101); Mean Platelet Volume 9.9 fL (7.4-10.4); Monocytes # 1.3 10^3/uL (0.2-0.9); Monocytes % 6.7 %; Neutrophils # 16.41 10^3/uL (1.8-7.7); Nucleated Red Blood Cells % 0 %; Platelet Count 483 10^3/cmm (157-399); Red Blood Count 4.88 10^6/uL (3.85-5.65); Red Cell Distribution Width 14.6 % (12.1-15.1); White Blood Count 19.53 10^3/uL (3.29-11.43)
[2023-06-18 05:34] LABS: Partial Thromboplastin Time 44.2 SECONDS (23.9-36.7)
[2023-06-18 05:38] LABS: Alanine Aminotransferase 34 U/L (0-41); Albumin Level 2.6 g/dL (3.5-5.2); Alkaline Phosphatase 334 U/L (40-130); Anion Gap 17.4 (5-19); Aspartate Amino Transferase 25 U/L (0-40); Blood Urea Nitrogen 39 mg/dL (8-23); Calcium 8.9 mg/dL (8.5-10.5); Carbon Dioxide 21 mmol/L (22-29); Chloride 94 mmol/L (98-107); Globulin 5.2 g/dL (1.3-4.6); Glomerular Filtration Rate 68.1 mL/min (90-130); Glucose 215 mg/dL (65-115); Osmolality Calculated 282 mOsm/kg (285-295); Potassium 4.4 mmol/L (3.5-5.1); Sodium 128 mmol/L (136-145); Total Bilirubin 0.3 mg/dL (0.15-1.2); Total Protein 7.8 g/dL (6.6-8.7)
[2023-06-18] MEDS: vancomycin 1,500 MG/300 ML PIGGYBACK 200 MG IV ×2 (06:13→16:59)
[2023-06-18] MEDS: heparin 5,000 unit/mL INJ 1 mL IV (06:19)
[2023-06-18] MEDS: morphine 4 mg/mL SDV 1 mL 2 MG IVP ×2 (06:23→21:20)
--- NOTE | 2023-06-18 07:00 | MR_ITS ---
WS: [id number] EXAMINATION: MR foot RT wo/w con [id number] ORDER DATE: 06/18/2023 7:00 AM COMPARISON: None. HISTORY: Osteo/abscess CONTRAST: None. TECHNIQUE: Sagittal T1, sagittal STIR, coronal PD, coronal T2, axial T1, axial T2, and axial PD imagi ng with fat saturation technique. Post gadolinium imaging includes axial T1, coronal T1, and sagittal T1 with fat saturation technique. FINDINGS: Osteopenia. Prior postoperative changes amputation at the fifth mid metatarsal and distal phalanges. Plantar and Achilles calcaneal spurring. Diffuse soft tissue edema lower leg, ankle, and foot. No evidence of drainable abscess or fluid collection. Soft tissue edema with soft tissue enhancement worse involving the lateral aspect of the foot compatible with postoperative changes and cellulitis. Associated skin thickening. Replacement of the normal bone marrow signal involving the fourth proxima l phalanx suspicious for osteomyelitis. Replacement of the normal bone marrow signal involving the re mnant fifth metatarsal with distal enhancement suspicious for osteomyelitis. Additional edema and enhancement involving the fourth metatarsal head suspicious for developing osteo myelitis IMPRESSION: 1. Replacement of normal fatty T1 bone marrow signal involving the remnant distal fifth metatarsal a nd fourth proximal phalanx compatible with osteomyelitis. 2. Additional edema and enhancement involving the fourth metatarsal head suspicious for developing o steomyelitis. Fluid within the fourth MTP joint. 3. Diffuse skin thickening with edema and enhancement compatible with cellulitis worse involving the lateral aspect of the foot. 4. No drainable abscess or fluid collection.
[2023-06-18 07:42] LABS: Glucose Point of Care 239 mg/dL (70-110)
[2023-06-18] MEDS: aspirin 81 mg EC Tablet PO (07:57)
[2023-06-18] MEDS: amlodipine 10 mg Tablet PO (07:57)
[2023-06-18] MEDS: metoprolol tartrate 25 mg Tablet PO ×2 (07:57→21:21)
[2023-06-18] MEDS: insulin lispro 100 unit/1 mL SUBCUT ×4 (07:58→21:20)
[2023-06-18] MEDS: insulin glargine 100 units/1 mL 10 UNIT SUBCUT ×2 (07:58→17:00)
--- NOTE | 2023-06-18 10:48 | PC.SOCIAL ---
Pg 2 IMM Explained to pt Pg 2 IMM. No questions voiced. Provided pt a copy. Initialed, dated, & timed a copy & placed in chart.
[2023-06-18] MEDS: gadobenate dimeglumine 20 mL vial IV (11:48)
[2023-06-18] MEDS: heparin drip 25,000 UNIT/500 ML PREMIX 41.4 UNIT IV (11:51)
--- NOTE | 2023-06-18 12:00 | PC.NURSE ---
Patient complains of not being able to shave his face and head due to being too sick previously. Patient asked if he wanted staff to perform hygiene care or if he wanted supplies to care for himself today. Patient offered shaving supplies for hygiene and patient refused. Patient refuses bath pack and oral hygiene care.
[2023-06-18 12:01] LABS: Glucose Point of Care 271 mg/dL (70-110)
[2023-06-18] MEDS: FUROsemide 10 mg/mL SDV 4mL 40 MG IVP ×2 (14:30→18:47)
[2023-06-18] MEDS: oxyCODONE-APAP 5-325 mg Tablet 1 TAB PO (14:45)
[2023-06-18 15:16] LABS: Methicillin-Resist S.aureu PCR NOT DETECTED (NOT DETECTED)
--- NOTE | 2023-06-18 16:33 | P.PN_ITS ---
Subjective 2 Subjective: Patient seen bedside this afternoon after his MRI was completed of his right foot. His is also present. Wishing to review MRI findings and treatment options. Vitals/I&O/Wt Last Vital Signs Temp 97.6 F 06/18/23 16:07 Pulse 99 06/18/23 16:07 Resp 16 06/18/23 16:07 BP 136/88 06/18/23 16:07 Pulse Ox 90 06/18/23 16:07 O2 Del Method Nasal Cannula 06/18/23 16:07 O2 Flow Rate 3 06/18/23 13:26 06/18/23 06/18/23 06/18/23 06:59 14:59 22:59 Intake Total 393.660 / 2533.560 706.34 / 706.34 50 / 756.34 Output Total 900 / 900 Balance -506.340 / 1633.560 706.34 / 706.34 50 / 756.34 Weight last 48 hrs Weight 173 lb 8 oz Weight 172 lb 3.2 oz Weight 250 lb 9.6 oz Physical Exam 2 Narrative: Patient is alert and oriented ?3 and in no acute distress. The following is a focused right lower extremity exam. He is agitated. VASCULAR: Dorsalis pedis palpable bilaterally. Posterior tibial arteries palpable. Capillary refill time less than seconds to the distal hallux bilaterally. Increased warmth right lateral forefoot. NEUROLOGICAL: Protective sensation absent to light touch bilateral foot. DERMATOLOGICAL: Wound probes to bone right forefoot, probes to fifth metatarsal diaphysis and fourth metatarsal phalangeal joint. Right lateral forefoot wound has erythema to the level of the midfoot, purulent drainage expressed from the wound, fluctuance at the plantar lateral aspect of the right forefoot that tracks plantarly to the instep medially, no crepitus with palpation of soft tissue. MUSCULOSKELETAL: No crepitus with soft tissue palpation of the wound or with debridement. Tenderness to palpation at right foot. Status post partial right fifth ray amputation. Urinary Catheter Management: Govea: Cath Placed During This Visit: yes Reason for Continuing Indwelling Catheter: Other Urinary Catheter Date of Insertion: 06/17/23 Urinary Catheter Time of Insertion: 01:20 Data 06/18/23 05:10 06/18/23 05:10 Micro: Microbiology 06/15/23 17:08 Blood Culture - Preliminary Blood 06/15/23 17:00 Blood Culture - Preliminary Blood 06/15/23 17:15 Gram Stain - Final Toe - Toe and Finger Wound Culture - Final Methicillin Resis Staph Aureus A&P Assessment and plan (1) Acute osteomyelitis of right foot: (2) Cellulitis of right foot: (3) Diabetes type 2, uncontrolled: Qualifiers: Glycemic state: with hyperglycemia Qualified Code(s): E11.65 - Type 2 diabetes mellitus with hyperglycemia Plan 62-year-old uncontrolled diabetic male with infected wound that probes to bone right foot, acute osteomyelitis and cellulitis to the midfoot. X-ray 06/15/2023 shows acute osteomyelitis at remaining diaphysis right fifth metatarsal and at the right fourth proximal phalanx base MRI right foot with and without contrast 06/18/2023 findings suggestive of osteomyelitis of the fifth metatarsal, fourth proximal phalanx and head of the fourth metatarsal all right foot. Cellulitis right lateral foot. Patient receiving vancomycin and Zosyn, culture 06/15/2023 grew MRSA, culture 06/06/2023 grew Enterobacter and Staph aureus Nonweightbearing right foot Patient continues to have leukocytosis, right foot is the likely source. My initial recommendation is right below-knee amputation as most definitive source control. Patient is not open to the idea of a right below-knee amputation at this time. I also discussed this at length with his . I am guarded as to whether a right transmetatarsal amputation would provide adequate infection source control. Explained to the patient that a right transmetatarsal potation and resection of fifth metatarsal that is remaining will result in a varus foot as the posterior tibial tendon will overpower the lack of insertion of peroneal brevis. Should he successfully heal a right right transmetatarsal amputation would then he could stage out a right peroneal brevis tendon transfer for tendon balancing and plantar-grade foot. I also recommended a skilled nursing transfer for nursing home care. I discussed risks of proceeding with right transmetatarsal amputation and excision of complete right fifth metatarsal included but not limited to persistent infection, persistent sepsis, need for higher level of amputation such as below-knee amputation or above-knee amputation, varus foot deformity, nonfunctional and not plantigrade foot, need for long-term antibiotics and subsequent adverse reactions, need for long-term wound care, transfer pressure and transfer wound and future infections. Patient is agreeable and wishes to proceed with surgery tomorrow consisting of right transmetatarsal potation and right fifth metatarsal excision. I informed him that he does not have healthy soft tissue envelope that would allow primary closure, would require amputation and delayed closure pending his response to continued antibiotic therapy. Planning on surgery tomorrow at noon. Moving forward I think patient would be best served being transferred to a nursing home facility. He has already failed a right partial fifth ray resection and wound care due to poor follow-up and noncompliance of weightbearing status. Attestations 2 Medical Necessity Statement*: Right diabetic foot infection Coding Level of Care Code Acute Code for [facility] Diagnoses Acute osteomyelitis of right foot M86.171 Cellulitis of right foot L03.115 Uncontrolled type 2 diabetes mellitus with hyperglycemia E11.65 Glycemic state: with hyperglycemia
[2023-06-18 16:41] LABS: Glucose Point of Care 252 mg/dL (70-110)
--- NOTE | 2023-06-18 16:58 | P.CONIM_ITS ---
Providers/Reason For Consult 2 Consulting Physician/Specialty*: Thor Landin MD/ Cardiology Reason for Consult*: Congestive heart failure Requesting Physician: Dr Chew Attending Physician: Ap Chew Primary Care Provider: Sondra May MD History of Present Illness History of Present Illness Adrián Vinson is a 62 year old male with past medical history of ischemic cardiomyopathy, factor V [place], DVT on anticoagulation, TIA, diabetes and hypertension who was admitted for osteomyelitis of right foot. Plan for amputation. Some consideration of below the knee amputation as well however patient has declined. His troponins have not trended up. He did become short of breath and requiring Lasix. Echo shows moderately reduced LV systolic function with EF of 35 to 40%. This is slightly less than before. He had a stress test about 2 months ago that showed prior infarct with reva-infarct ischemia in circumflex artery and RCA territories. However ischemia territory was not significant and plan was for medical therapy. He denies any chest pain. Review of Systems 2 General: Reports: 10 or more systems reviewed and unremarkable except in HPI and below Const: Denies: fever(s), chills, body aches, fatigue or malaise Eyes: Denies: change in vision or photophobia ENMT: Denies: enlarged tonsils Card: Denies: chest pain or palpitations Resp: Denies: dyspnea or productive cough GI: Denies: abdominal pain, nausea or vomiting : Denies: flank pain Musc: Reports: extremity pain (R foot), extremity swelling, joint stiffness and deformity Skin/Breast: Reports: erythema, sores, changes in skin color, dry skin, surgical incision, nail changes, change in hair and other (redness/drainage from R foot) Neuro: Reports: numbness in extremities, sensory changes and difficulty walking; Denies: headache(s) or weakness in extremities Psych: Denies: suicidal ideation Endo: Denies: change in body appearance Mark/Lymph: Denies: tender lymph nodes All/Imm: Denies: acute wheezing Medications/Allergies Home Medications Medication Instructions Recorded Confirmed Last Taken Type fast form ulnar gutter #1 ea 04/21/21 06/16/23 Unknown Rx lancets 33 gauge (BD Ultra Fine #100 ea 08/19/21 06/16/23 Unknown Rx Lancets) aspirin 81 mg tablet,delayed 81 mg PO DAILY #30 tabs 03/13/23 06/16/23 06/15/23 Rx release rivaroxaban 20 mg tablet (Xarelto) 20 mg PO QAM 03/13/23 06/16/23 06/15/23 History oxycodone-acetaminophen 5 mg-325 1 tab PO Q12H PRN pain 7 days #14 05/24/23 06/16/23 Unknown Rx mg tablet (Percocet) tabs Blood pressure machine #1 ea 05/31/23 06/16/23 Unknown Rx blood sugar diagnostic (Blood #200 ea 05/31/23 06/16/23 Unknown Rx Glucose Test strips) blood-glucose meter #1 ea 05/31/23 06/16/23 Unknown Rx lancets #200 ea 05/31/23 06/16/23 Unknown Rx furosemide 40 mg tablet (Lasix) 40 mg PO QAM #30 tabs 06/04/23 06/16/23 06/15/23 Rx lidocaine HCl 4 % topical gel 1 applic topical BID PRN Pain 06/04/23 06/16/23 Unknown History (Alocane Emergency Burn) blood sugar diagnostic (Accu-Chek #100 ea 06/05/23 06/16/23 Unknown Rx Guide test strips) blood-glucose meter (Accu-Chek #1 ea 06/05/23 06/16/23 Unknown Rx Guide Glucose Meter) sulfamethoxazole 800 1 tab PO BID #14 tabs 06/06/23 06/16/23 Unknown Rx mg-trimethoprim 160 mg tablet (Bactrim DS) ondansetron HCl 8 mg tablet 8 mg PO Q8H PRN Nausea And Vomiting 06/16/23 06/16/23 Unknown History tramadol 50 mg tablet 50 mg PO Q4H PRN Pain 06/16/23 06/16/23 Unknown History Allergies Allergy/AdvReac Type Severity Reaction Status Date / Time No Known Allergies Allergy Verified 06/04/23 12:37 Current Medications Generic Name Dose Route Start Last Admin Trade Name Freq PRN Reason Stop Dose Admin Albuterol/Ipratropium 3 ml 06/16/23 14:00 06/18/23 13:26 Ipratropium-Albuterol 3 Ml Neb INHALATION 3 ml Q6H.RESP SILVINA Administration Amlodipine Besylate 10 mg 06/17/23 09:00 06/18/23 07:57 Amlodipine 10 Mg Tablet PO 10 mg DAILY SILVINA Administration Aspirin 81 mg 06/16/23 09:00 06/18/23 07:57 Aspirin 81 Mg Ec Tablet PO 81 mg DAILY SILVINA Administration Atorvastatin Calcium 40 mg 06/16/23 21:00 06/17/23 20:47 Atorvastatin 40 Mg Tablet PO 40 mg BEDTIME SILVINA Administration Heparin Sodium (Porcine) 0 unit 06/15/23 19:47 06/18/23 06:19 Heparin 5,000 Unit/Ml Inj 1 Ml IV 4,600 unit PRN PRN Administration Heparin weight-base protocol Protocol Piperacillin Sod/Tazobactam 50 mls @ 12.5 mls/hr 06/15/23 19:30 06/18/23 15:58 Sod 3.375 gm/ Sodium Chloride IV Infused Q8H SILVINA Infusion Protocol Vancomycin/PEG/NADA/Lysine/Water 1,500 mg in 300 mls @ 200 mls/hr 06/15/23 18:30 06/18/23 08:56 Vancocin IV Infused Q12H SILVINA Infusion Heparin Sodium/Sodium Chloride 25,000 unit in 500 mls @ 0 mls/hr 06/15/23 20:00 06/18/23 11:51 Heparin Drip IV 17.9 unit/kg/hr .Q0M SILVINA 41.4 mls/hr Administration Protocol Per Protocol Insulin Glargine 10 unit 06/16/23 10:25 06/18/23 07:58 Insulin Glargine 100 Units/1 Ml SUBCUT 10 unit BID SILVINA Administration Insulin Human Lispro 0 unit 06/15/23 21:00 06/18/23 12:48 Insulin Lispro 100 Unit/1 Ml SUBCUT 10 unit WM&BEDTIME SILVINA Administration Protocol Metoprolol Tartrate 25 mg 06/16/23 10:30 06/18/23 07:57 Metoprolol Tartrate 25 Mg Tablet PO 25 mg BID@0900,2100 SILVINA Administration Morphine Sulfate 2 mg 06/15/23 19:45 06/18/23 06:23 Morphine 4 Mg/Ml Sdv 1 Ml IVP 2 mg Q4H PRN Administration SEVERE PAIN Ondansetron HCl 4 mg 06/15/23 19:45 06/16/23 03:39 Ondansetron 2 Mg/Ml Sdv 2 Ml IVP 4 mg Q8H PRN Administration vomiting, or N/V if npo Oxycodone/Acetaminophen 1 tab 06/15/23 19:45 06/18/23 14:45 Oxycodone-Apap 5-325 Mg Tablet PO 1 tab Q12H PRN Administration pain Pantoprazole Sodium 40 mg 06/15/23 19:45 06/17/23 20:44 Pantoprazole 40 Mg Sdv IVP 40 mg Q24H SILVINA Administration PFSH Acute 2 PFSH: Medical History Factor 5 Leiden mutation, heterozygous Constipation History of DVT (deep vein thrombosis) 07/10/2019 DVT involving the popliteal veins bilaterally Closed hand fracture Right 4th metacarpal oblique, injury 04/03/2022 Bilateral leg edema Erectile dysfunction Low testosterone Anxiety and depression Diabetes type 2, uncontrolled Atherosclerotic heart disease of [place] coronary artery with other forms of angina pectoris Hypertension Hyperlipidemia Diabetic neuropathy Adenomatous colon polyp Ischemic cardiomyopathy Abnormal nuclear stress test History of claustrophobia Right foot drop 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 Surgical History Stented coronary artery H/O circumcision Family History Mother , at age 45 Lung cancer smoker Grandmother Diabetes Father , at age 23 Drowning Other Hypertension Denies family history of CAD (coronary artery disease) Social History Smoking and tobacco/nicotine status: former use of tobacco/nicotine Quit status (tobacco/nicotine): has quit using Year quit tobacco: 2006 Alcohol intake: former Substance/Drug Use: former Household members: spouse and children Marital status: Number of children: 7 service: No Current occupational status: disabled 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 Abiola/Yazidism: Mosque Special abiola needs: Yes (seth) Agree to transfusion: Yes Vitals/I&O/Wt Last Vital Signs Temp 97.6 F 06/18/23 16:07 Pulse 99 06/18/23 16:07 Resp 16 06/18/23 16:07 BP 136/88 06/18/23 16:07 Pulse Ox 90 06/18/23 16:07 O2 Del Method Nasal Cannula 06/18/23 16:07 O2 Flow Rate 3 06/18/23 13:26 06/18/23 06/18/23 06/18/23 06:59 14:59 22:59 Intake Total 393.660 / 2533.560 706.34 / 706.34 50 / 756.34 Output Total 900 / 900 Balance -506.340 / 1633.560 706.34 / 706.34 50 / 756.34 Weight last 48 hrs Weight 173 lb 8 oz Weight 172 lb 3.2 oz Weight 250 lb 9.6 oz Physical Exam 2 Narrative: GENERAL: Patient is alert, awake and oriented x3. [] NECK: No jugular vein distension. [] HEENT: No cyanosis. No icterus. No pallor. [] HEART: Regular S1 and S2. No murmur, rub or gallop. [] LUNGS:Diminished air entry CENTRAL NERVOUS SYSTEM: Grossly nonfocal. [] EXTREMITIES: Lower extremities with 1+ edema bilaterally Urinary Catheter Management: Govea: Cath Placed During This Visit: yes Reason for Continuing Indwelling Catheter: Other Urinary Catheter Date of Insertion: 06/17/23 Urinary Catheter Time of Insertion: 01:20 Data 06/19/23 01:15 06/19/23 01:15 Micro: Microbiology 06/15/23 17:08 Blood Culture - Preliminary Blood 06/15/23 17:00 Blood Culture - Preliminary Blood 06/15/23 17:15 Gram Stain - Final Toe - Toe and Finger Wound Culture - Final Methicillin Resis Staph Aureus A&P Assessment and plan (1) Atherosclerotic heart disease of [place] coronary artery with other forms of angina pectoris: (2) Hypertension: Qualifiers: Hypertension type: essential hypertension Qualified Code(s): I10 - Essential (primary) hypertension (3) Hyperlipidemia: Qualifiers: Hyperlipidemia type: mixed hyperlipidemia Qualified Code(s): E78.2 - Mixed hyperlipidemia (4) Factor 5 Leiden mutation, heterozygous: (5) Congestive heart failure: (6) Diabetes type 2, uncontrolled: Qualifiers: Glycemic state: with hyperglycemia Qualified Code(s): E11.65 - Type 2 diabetes mellitus with hyperglycemia Plan Patient is not having any chest pain. LV systolic function is slightly lower compared to before. Troponins have not trended up significantly. With a recent stress test that was not showing any large area of ischemia, we will continue with medical therapy at this time. Can increase Lasix for today in preparation for surgery tomorrow. Resume oral anticoagulation after the surgery when appropriate per surgical team. Thank you for involving us with care of this patient. Will continue to follow. Please call with questions. Consult Attestations 2 Medical Necessity Statement: Care expected to cross 2 midnights. Coding Level of Care Code Acute Code for [facility] Diagnoses Atherosclerotic heart disease of [place] coronary artery with other forms of angina pectoris I25.118 Essential hypertension I10 Hypertension type: essential hypertension Mixed hyperlipidemia E78.2 Hyperlipidemia type: mixed hyperlipidemia Factor 5 Leiden mutation, heterozygous D68.51 Congestive heart failure I50.9 Uncontrolled type 2 diabetes mellitus with hyperglycemia E11.65 Glycemic state: with hyperglycemia
--- NOTE | 2023-06-18 19:17 | PC.NURSE ---
Home medication documented and placed in sealed envelope at bedside. Oxycodone 3 tablets. Patient signature on envelope. Verified with second nurse.
[2023-06-18 19:44] LABS: Partial Thromboplastin Time 64.1 SECONDS (23.9-36.7)
[2023-06-18 20:42] LABS: Glucose Point of Care 197 mg/dL (70-110)
--- NOTE | 2023-06-18 20:47 | P.PN_ITS ---
Subjective 2 Subjective: He reports he is doing all right. Awaiting MRI. Denies chest pain or pressure. Has been having some cough, having trouble bringing up phlegm. Did not tolerate humidifier on the oxygen. Vitals/I&O/Wt Last Vital Signs Temp 97.8 F 06/18/23 20:00 Pulse 97 06/18/23 20:00 Resp 17 06/18/23 20:00 BP 138/81 06/18/23 20:00 Pulse Ox 93 06/18/23 20:00 O2 Del Method Room Air 06/18/23 20:00 O2 Flow Rate 3 06/18/23 13:26 06/18/23 06/18/23 06/18/23 06:59 14:59 22:59 Intake Total 393.660 / 2533.560 706.34 / 706.34 550 / 1256.34 Output Total 900 / 900 1000 / 1000 Balance -506.340 / 1633.560 706.34 / 706.34 -450 / 256.34 Weight last 48 hrs Weight 78.698 kg Weight 78.109 kg Weight 113.67 kg Physical Exam 2 Narrative: Accompanied by his and children. Const: COMMON NORMALS: patient oriented x3 and alert GENERAL APPEARANCE: c ooperative ORIENTATION/CONSCIOUSNESS: Yes awake HENMT: COMMON NORMALS: oropharynx normal Neck/C-Spine: COMMON NORMALS: no JVD Resp: COMMON NORMALS: normal respiratory effort and clear to auscultation bilaterally AUSCULTATION: clear to auscultation bilaterally Cardio: COMMON NORMALS: no JVD, regular rhythm, S1 normal heart sound present, S2 normal heart sound present and No murmurs present (Cardio) RHYTHM: regular rhythm HEART SOUNDS: S1 normal heart sound present and S2 normal heart sound present GI: COMMON NORMALS: Normal to inspection, nondistended, normoactive bowel sounds present, Soft to palpation and non-tender PALPATION: Yes Soft to palpation Extremity: OTHER: R foot/ankle wrapped in elastic dressing. Neuro: COMMON NORMALS: patient oriented x3 and moves all extremities S ENSORIUM/ORIENTATION: Yes alert Urinary Catheter Management: Govea: Cath Placed During This Visit: yes Reason for Continuing Indwelling Catheter: Other Urinary Catheter Date of Insertion: 06/17/23 Urinary Catheter Time of Insertion: 01:20 Data 06/18/23 05:10 06/18/23 05:10 Micro: Microbiology 06/15/23 17:08 Blood Culture - Preliminary Blood 06/15/23 17:00 Blood Culture - Preliminary Blood 06/15/23 17:15 Gram Stain - Final Toe - Toe and Finger Wound Culture - Final Methicillin Resis Staph Aureus A&P Assessment and plan (1) Sepsis: (2) Acute osteomyelitis of right foot: (3) ELSY (acute kidney injury): (4) Hyponatremia: (5) Cellulitis of right foot: (6) Congestive heart failure: (7) Diabetes type 2, uncontrolled: Qualifiers: Glycemic state: with hyperglycemia Qualified Code(s): E11.65 - Type 2 diabetes mellitus with hyperglycemia (8) Abnormal stress test: Most recent cardiac stress test in March 2023 which showed a moderate area of moderate to severe decreased perfusion involving inferior, inferior lateral and lateral region with some reversibility in the inferior and anterolateral region suggesting of myocardial scarring in distribution of RCA/LCx with ischemia predominantly in LCx region. With concerns for congestive heart failure/fluid overload overnight will check troponin one-time. Repeat echocardiogram. If shows worsening in ejection fraction or worsening of regional wall motion normality patient would benefit from cardiology consultation and possible angiogram. If echocardiogram stable would most likely need an outpatient cardiology follow- up. Appreciate recent A1c and lipid panel. Started on baby aspirin, statin. Continue with metoprolol 25 mg twice daily (9) Hypertension: Qualifiers: Hypertension type: essential hypertension Qualified Code(s): I10 - Essential (primary) hypertension (10) Hyperlipidemia: Qualifiers: Hyperlipidemia type: mixed hyperlipidemia Qualified Code(s): E78.2 - Mixed hyperlipidemia (11) Factor 5 Leiden mutation, heterozygous: (12) History of DVT (deep vein thrombosis): (13) S/P foot surgery: (14) Hyperkalemia: Plan Sepsis: Reviewed vitals, CBC, PTT, CMP. Persistent leukocytosis 19.53. Noted BUN elevation but creatinine is better, down to 1.11. Reviewed MRI of the foot, noted no abscess, osteomyelitis, possible fourth metatarsal septic arthritis. Discussed with spinning bath person. Discussed with patient and his . Appreciate additional cardiology assessment. Discussed with grounds maintenance manager. Secondary to osteomyelitis, Septic arthritis. Recommendation by podiatry is for BKA, however, he declines. Reviewed podiatry documentation. Transmetatarsal amputation at the minimum discussed. Given his condition, her, there is no guarantee that this may heal. He will also require IV antibiotics after surgery. With previously failed outpatient management at home, requirement for antibiotics, wound care, hyperglycemia/diabetes management, recommendation is also for him to go to nursing home facility after discharge. Otherwise he may be again at further elevated risk of failure. Continue optimization of blood glucose control. Patient is agreeable to continue with insulin at discharge, which he requires. Bronchitis: Reviewed panel. Human metapneumovirus Infection noted. Continues with bronchitis. Continue breathing treatments, add flutter valve. Will add Mucinex. Continue isolation. Oxygen support. Wean down as tolerating. Osteomyelitis of the right foot: Appreciate podiatry recommendations. Continue Zosyn, vancomycin. Monitor for risk of kidney injury with antibiotic combination. Reassess kidney function. Reviewed BUN, creatinine. Wound care and weightbearing status as per podiatry team. Given need for OR for now we will hold off on Xarelto. Congestive heart failure: Worsening ejection fraction discussed with him and spinning bath person. Anasarca. Received additional Lasix this morning, and prescription cardiology giving additional dose this evening. After cardiology assessment recommendation for the additional Lasix, otherwise cautiously likely to be safe for proceeding with needed amputation as opposed to delaying further. Small amount of reva- infarct ischemia noted on recent stress test. Govea in place. Strict input charting, daily weights. Patient would benefit with guideline directed medical therapy. Would plan to add ED/ARB once infection improves. Type 2 diabetes mellitus: He states they have discussed with prior hospitalist regarding continuation of insulin after discharge. He requires a due to uncontrolled diabetes, leading to elevated risk of poor wound healing, further infection, further loss of limb. Most recent A1c more than 11. Patient states she was never started on medications. Blood sugars better controlled. Continue with insulin sliding scale at moderate dose protocol. Continue with Lantus 10 units twice daily Hyponatremia: Reviewed sodium, 128. Continue diuresis with hypervolemic hyponatremia. Recheck chemistry. At risk of electrolyte abnormalities with diuresis. Reassess chemistry. Monitor on telemetry. Most likely pseudohyponatremia along with hypervolemic hyponatremia Monitor BMP daily. Already received IV Lasix 40 mg one-time. Will repeat during the day depending on urine output. ELSY: Baseline creatinine normal. Most likely CRS. Lasix as above. Monitor BMP daily. Medical reconciliation done for nephrotoxic drugs. Hyperkalemia: Most likely in setting of mild ELSY. Will treat with calcium gluconate 1 g IV, D50 and 10 units of insulin. Repeat BMP in afternoon. Factor V Leiden mutation/history of DVT: Xarelto held as above. For now start patient on IV heparin drip. Hyperlipidemia: Start on oral atorvastatin 40 mg daily. Hypertension: Goal blood pressure less than 140/90 mmHg. Blood pressure elevated. Continue with metoprolol 25 mg twice daily. Add amlodipine 10 mg oral daily. Patient would benefit with ED/ARB. Would like to add once renal function stable. Full code Cardiac carb consistent diet Heparin drip will suffice for DVT prophylaxis Protonix for PUD prophylaxis. Care plan discussed in detail with patient and patient's family at bedside. They verbalized understanding. They are agreeable with treatment plan. Attestations 2 Medical Necessity Statement*: Continue admission for assessment management of sepsis, osteomyelitis, septic arthritis, congestive heart failure exacerbation, uncontrolled diabetes. Additional medical problems as above. Diagnoses Sepsis A41.9 Acute osteomyelitis of right foot M86.171 ELSY (acute kidney injury) N17.9 Hyponatremia E87.1 Cellulitis of right foot L03.115 Congestive heart failure I50.9 Uncontrolled type 2 diabetes mellitus with hyperglycemia E11.65 Glycemic state: with hyperglycemia Abnormal stress test R94.39 Essential hypertension I10 Hypertension type: essential hypertension Mixed hyperlipidemia E78.2 Hyperlipidemia type: mixed hyperlipidemia Factor 5 Leiden mutation, heterozygous D68.51 History of DVT (deep vein thrombosis) Z86.718 S/P foot surgery Z98.890 Hyperkalemia E87.5
[2023-06-18] MEDS: atorvastatin 40 mg Tablet PO (21:21)
[2023-06-18] MEDS: pantoprazole 40 mg SDV IVP (21:21)
--- NOTE | 2023-06-18 22:39 | USCV_ITS ---
Adrián Vinson Age: 62 Gender: M : 1960 Exam Date: 06/18/2023 21:23 Ordering Phys: Donaldo Oneal MD Technologist: YOSHI Exam Location: [facility] [place] Indication: for EF and RWMA as per Dr. Bedolla. LIMITED STUDY BP: 136 / 88 HR: 104 Rhythm: Sinus Technical Quality: Adequate with [employer] MEASUREMENTS (Male / Female) Normal Values 2D ECHO LV Diastolic Diameter PLAX 5.5 cm 4.2 - 5.9 / 3.9 - 5.3 cm LV Systolic Diameter PLAX 4.1 cm IVS Diastolic Thickness 1.2 cm 0.6 - 1.0 / 0.6 - 0.9 cm IVS Systolic Thickness 1.5 cm LVPW Diastolic Thickness 1.2 cm 0.6 - 1.0 / 0.6 - 0.9 cm LVPW Systolic Thickness 1.4 cm LV Ejection Fraction 2D Teich 42.4 % LV Ejection Fraction MOD 2C 41.4 % LV Ejection Fraction 2C AL 41.8 % FINDINGS Left Ventricle Diffuse hypokinesia of the left ventricular with ejection fraction of 42%. Mildly dilated LV cavity Right Ventricle Normal right ventricular size. Normal right ventricular systolic function. Right Atrium Normal right atrial size. Left Atrium Mildly increased left atrial size. Mitral Valve Moderate mitral annular calcification. Aortic Valve Thickened aortic valve. Tricuspid Valve No gross abnormalities noted Pulmonic Valve Pulmonic valve not well visualized. Pericardium No pericardial effusion. Aorta Normal size aortic root and proximal ascending aorta. IVC Inferior vena cava not visualized. CONCLUSIONS Diffuse hypokinesia of the left ventricular with ejection fraction of 42%. Mildly dilated LV cavity. Mildly increased left atrial size. Moderate mitral annular calcification. Thickened aortic valve. There is no pericardial effusion. There are no intracardiac masses. The echo contrast study was a suboptimal quality . compared to the study from 03/29/2023, there is slight drop in the LV ejection fraction from 45- 50% to 42 % Dr Cruz Bedolla MD [facility] (Electronically Signed) Final Date: 08 July 2023 20:22 S
[2023-06-19] VITALS (15 sets, daily range): BP systolic 113–138; BP diastolic 65–89; PULSE 96–106; RESP 16–22; TEMP 36.4–36.6; O2SAT 91–99
--- NOTE | 2023-06-19 00:11 | PC.NURSE ---
This nurse went into patient room to give medications and patient notified this nurse that he did not want to do the scheduled surgery for tomorrow and would like to proceed with the BKA. This nurse called and notified Dr Lambert of the patient's request. will have to put in consult to Ortho for amputation
[2023-06-19] MEDS: magnesium hydroxide 30 mL UDC PO (00:16)
[2023-06-19] MEDS: heparin drip 25,000 UNIT/500 ML PREMIX 41.4 UNIT IV (00:16)
[2023-06-19 01:38] LABS: Basophils # 0.1 10^3/uL (0.0-0.1); Basophils % 0.3 %; Eosinophils # 0.1 10^3/uL (0.0-0.8); Eosinophils % 0.7 %; Hematocrit 37.9 % (37-53); Lymphocytes # 1.8 10^3/uL (0.8-4.8); Lymphocytes % 10.7 %; Mean Corpuscular HGB Conc 32.2 g/dL (30-55); Mean Corpuscular Hemoglobin 25.9 pg (27-33); Mean Corpuscular Volume 80.5 fl (82-101); Mean Platelet Volume 10.9 fL (7.4-10.4); Nucleated Red Blood Cells % 0 %; Platelet Count 428 10^3/cmm (157-399); Red Blood Count 4.71 10^6/uL (3.85-5.65); Red Cell Distribution Width 14.4 % (12.1-15.1); White Blood Count 16.77 10^3/uL (3.29-11.43)
[2023-06-19 01:47] LABS: Alanine Aminotransferase 25 U/L (0-41); Albumin Level 2.8 g/dL (3.5-5.2); Alkaline Phosphatase 294 U/L (40-130); Anion Gap 16.9 (5-19); Aspartate Amino Transferase 17 U/L (0-40); Blood Urea Nitrogen 38 mg/dL (8-23); Carbon Dioxide 22 mmol/L (22-29); Chloride 96 mmol/L (98-107); Globulin 4.8 g/dL (1.3-4.6); Glucose 175 mg/dL (65-115); Osmolality Calculated 285 mOsm/kg (285-295); Partial Thromboplastin Time 72.9 SECONDS (23.9-36.7); Potassium 3.9 mmol/L (3.5-5.1); Sodium 131 mmol/L (136-145); Total Bilirubin 0.3 mg/dL (0.15-1.2); Total Protein 7.6 g/dL (6.6-8.7)
[2023-06-19] MEDS: ipratropium-albuterol 3 mL Neb INHALATION ×4 (01:53→20:46)
[2023-06-19] MEDS: vancomycin 1,500 MG/300 ML PIGGYBACK 200 MG IV ×2 (05:39→17:38)
[2023-06-19] MEDS: oxyCODONE-APAP 5-325 mg Tablet 1 TAB PO ×3 (05:47→20:27)
[2023-06-19] MEDS: perflutren protein-a microsphr 0.22 mg/mL SDV 3 mL IV (06:09)
[2023-06-19 06:28] LABS: Glucose Point of Care 176 mg/dL (70-110)
--- NOTE | 2023-06-19 06:53 | P.PN_ITS ---
Subjective 2 Subjective: Patient seen bedside this morning, he is sitting on the side of his bed, he is in good spirits this morning. He is face timing his . He states that over night he decided to proceed with a right below-knee amputation thinking it would be his best option for infection control. Vitals/I&O/Wt Last Vital Signs Temp 97.9 F 06/19/23 04:00 Pulse 98 06/19/23 04:00 Resp 16 06/19/23 05:47 BP 138/89 06/19/23 04:00 Pulse Ox 93 06/19/23 04:00 O2 Del Method Nasal Cannula 06/19/23 01:53 O2 Flow Rate 4 06/19/23 01:53 06/18/23 06/18/23 06/19/23 14:59 22:59 06:59 Intake Total 706.34 / 706.34 1181.92 / 1888.26 158.08 / 2046.34 Output Total 1850 / 1850 250 / 2100 Balance 706.34 / 706.34 -668.08 / 38.26 -91.92 / -53.66 Weight last 48 hrs Weight 284 lb 14.4 oz Weight 173 lb 8 oz Weight 172 lb 3.2 oz Physical Exam 2 Narrative: Patient is alert and oriented ?3 and in no acute distress. The following is a focused right lower extremity exam. He is agitated. VASCULAR: Dorsalis pedis palpable bilaterally. Posterior tibial arteries palpable. Capillary refill time less than seconds to the distal hallux bilaterally. Increased warmth right lateral forefoot. NEUROLOGICAL: Protective sensation absent to light touch bilateral foot. DERMATOLOGICAL: Wound probes to bone right forefoot, probes to fifth metatarsal diaphysis and fourth metatarsal phalangeal joint. Right lateral forefoot wound has erythema to the level of the midfoot, purulent drainage expressed from the wound, fluctuance at the plantar lateral aspect of the right forefoot that tracks plantarly to the instep medially, no crepitus with palpation of soft tissue. MUSCULOSKELETAL: No crepitus with soft tissue palpation of the wound or with debridement. Tenderness to palpation at right foot. Status post partial right fifth ray amputation. Urinary Catheter Management: Govea: Cath Placed During This Visit: yes Reason for Continuing Indwelling Catheter: Acute Urinary Retention or Obstruction Urinary Catheter Date of Insertion: 06/17/23 Urinary Catheter Time of Insertion: 01:20 Data 06/19/23 01:15 06/19/23 01:15 A&P Assessment and plan (1) Acute osteomyelitis of right foot: (2) Cellulitis of right foot: (3) Diabetes type 2, uncontrolled: Qualifiers: Glycemic state: with hyperglycemia Qualified Code(s): E11.65 - Type 2 diabetes mellitus with hyperglycemia Plan 62-year-old uncontrolled diabetic male with infected wound that probes to bone right foot, acute osteomyelitis and cellulitis to the midfoot. X-ray 06/15/2023 shows acute osteomyelitis at remaining diaphysis right fifth metatarsal and at the right fourth proximal phalanx base MRI right foot with and without contrast 06/18/2023 findings suggestive of osteomyelitis of the fifth metatarsal, fourth proximal phalanx and head of the fourth metatarsal all right foot. Cellulitis right lateral foot. Patient receiving vancomycin and Zosyn, culture 06/15/2023 grew MRSA, culture 06/06/2023 grew Enterobacter and Staph aureus Patient's condition warrants consideration for a more proximal level of amputation, specifically a below-knee or above-knee amputation. 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 Mr. Vinson be demonstrated comprehension of the situation and the need for further surgical intervention. Mr. Vinson expressed agreement to proceed with the higher level of amputation as recommended. He understands the need for another surgical consultation with the appropriate expertise for further evaluation and has agreed to the referral process. Attestations 2 Medical Necessity Statement*: Right diabetic foot infection Coding Level of Care Code Acute Code for [facility] Diagnoses Acute osteomyelitis of right foot M86.171 Cellulitis of right foot L03.115 Uncontrolled type 2 diabetes mellitus with hyperglycemia E11.65 Glycemic state: with hyperglycemia
[2023-06-19] MEDS: piperacillin-tazobactam 3.375 GM in sodium chloride 0.9% (plus) 50 ML IV ×3 (07:26→23:38)
[2023-06-19 08:14] LABS: Partial Thromboplastin Time 90.9 SECONDS (23.9-36.7)
--- NOTE | 2023-06-19 08:29 | P.PN_ITS ---
Subjective 2 Subjective: Patient is stable. Deies chest pain. Vitals/I&O/Wt Last Vital Signs Temp 97.5 F L 06/19/23 08:06 Pulse 96 06/19/23 08:06 Resp 19 H 06/19/23 08:06 BP 135/65 06/19/23 08:06 Pulse Ox 99 06/19/23 08:06 O2 Del Method Nasal Cannula 06/19/23 08:06 O2 Flow Rate 4 06/19/23 01:53 06/18/23 06/19/23 06/19/23 22:59 06:59 14:59 Intake Total 1181.92 / 1888.26 158.08 / 2046.34 300 / 300 Output Total 1850 / 1850 250 / 2100 Balance -668.08 / 38.26 -91.92 / -53.66 300 / 300 Weight last 48 hrs Weight 284 lb 14.4 oz Weight 173 lb 8 oz Weight 172 lb 3.2 oz Physical Exam 2 Narrative: GENERAL: Patient is alert, awake and oriented x3. [] NECK: No jugular vein distension. [] HEENT: No cyanosis. No icterus. No pallor. [] HEART: Regular S1 and S2. No murmur, rub or gallop. [] LUNGS:Diminished air entry CENTRAL NERVOUS SYSTEM: Grossly nonfocal. [] EXTREMITIES: Lower extremities with 1+ edema bilaterally Urinary Catheter Management: Govea: Cath Placed During This Visit: yes Reason for Continuing Indwelling Catheter: Acute Urinary Retention or Obstruction Urinary Catheter Date of Insertion: 06/17/23 Urinary Catheter Time of Insertion: 01:20 Data 06/20/23 03:53 06/20/23 03:53 A&P Assessment and plan (1) Atherosclerotic heart disease of [place] coronary artery with other forms of angina pectoris: (2) Hypertension: Qualifiers: Hypertension type: essential hypertension Qualified Code(s): I10 - Essential (primary) hypertension (3) Hyperlipidemia: Qualifiers: Hyperlipidemia type: mixed hyperlipidemia Qualified Code(s): E78.2 - Mixed hyperlipidemia (4) Factor 5 Leiden mutation, heterozygous: (5) Congestive heart failure: (6) Diabetes type 2, uncontrolled: Qualifiers: Glycemic state: with hyperglycemia Qualified Code(s): E11.65 - Type 2 diabetes mellitus with hyperglycemia Plan Patient is diuresing. Continue diuresis. Plan for below the knee amputation tomorrow. Given recent stress test findings, he is at acceptable cardiac risk to undergo the procedure. Thank you for involving us with care of this patient. Will continue to follow. Please call with questions. Attestations 2 Medical Necessity Statement*: Care expected to cross 2 midnights. Coding Level of Care Code Acute Code for [facility] Diagnoses Atherosclerotic heart disease of [place] coronary artery with other forms of angina pectoris I25.118 Essential hypertension I10 Hypertension type: essential hypertension Mixed hyperlipidemia E78.2 Hyperlipidemia type: mixed hyperlipidemia Factor 5 Leiden mutation, heterozygous D68.51 Congestive heart failure I50.9 Uncontrolled type 2 diabetes mellitus with hyperglycemia E11.65 Glycemic state: with hyperglycemia
[2023-06-19] MEDS: insulin lispro 100 unit/1 mL SUBCUT ×4 (08:42→20:41)
[2023-06-19] MEDS: FUROsemide 10 mg/mL SDV 4mL 40 MG IVP (08:43)
[2023-06-19] MEDS: amlodipine 10 mg Tablet PO (08:43)
[2023-06-19] MEDS: insulin glargine 100 units/1 mL 10 UNIT SUBCUT ×2 (08:43→17:37)
[2023-06-19] MEDS: metoprolol tartrate 25 mg Tablet PO ×2 (08:43→20:41)
[2023-06-19] MEDS: aspirin 81 mg EC Tablet PO (08:43)
[2023-06-19] MEDS: guaiFENesin 600 mg Tablet 1200 MG PO ×2 (08:43→17:37)
[2023-06-19] MEDS: morphine 4 mg/mL SDV 1 mL 2 MG IVP (08:47)
--- NOTE | 2023-06-19 10:30 | PM.CONSULT ---
Providers/Reason For Consult Consulting Physician/Specialty*: hospitalist Reason for Consult*: Infected foot needing below the knee amputation Attending Physician: Ap Chew Primary Care Provider: Sondra May MD History of Present Illness History of Present Illness Adrián Vinson is a 62 year old male has an infected foot seen by podiatry and has got to the point where they cannot control infection the foot so patient needs a BKA Review of Systems General: Reports: 10 or more systems reviewed and unremarkable except in HPI and below Const: Denies: fever(s), chills, body aches, fatigue or malaise Eyes: Denies: change in vision or photophobia ENMT: Denies: enlarged tonsils Card: Denies: chest pain or palpitations Resp: Denies: dyspnea or productive cough GI: Denies: abdominal pain, nausea or vomiting : Denies: flank pain Musc: Reports: extremity pain (R foot), extremity swelling, joint stiffness and deformity Skin/Breast: Reports: erythema, sores, changes in skin color, dry skin, surgical incision, nail changes, change in hair and other (redness/drainage from R foot) Neuro: Reports: numbness in extremities, sensory changes and difficulty walking; Denies: headache(s) or weakness in extremities Psych: Denies: suicidal ideation Endo: Denies: change in body appearance Mark/Lymph: Denies: tender lymph nodes All/Imm: Denies: acute wheezing Medications/Allergies Home Medications Medication Instructions Recorded Confirmed Last Taken Type fast form ulnar gutter #1 ea 04/21/21 06/16/23 Unknown Rx lancets 33 gauge (BD Ultra Fine #100 ea 08/19/21 06/16/23 Unknown Rx Lancets) aspirin 81 mg tablet,delayed 81 mg PO DAILY #30 tabs 03/13/23 06/16/23 06/15/23 Rx release rivaroxaban 20 mg tablet (Xarelto) 20 mg PO QAM 03/13/23 06/16/23 06/15/23 History oxycodone-acetaminophen 5 mg-325 1 tab PO Q12H PRN pain 7 days #14 05/24/23 06/16/23 Unknown Rx mg tablet (Percocet) tabs Blood pressure machine #1 ea 05/31/23 06/16/23 Unknown Rx blood sugar diagnostic (Blood #200 ea 05/31/23 06/16/23 Unknown Rx Glucose Test strips) blood-glucose meter #1 ea 05/31/23 06/16/23 Unknown Rx lancets #200 ea 05/31/23 06/16/23 Unknown Rx furosemide 40 mg tablet (Lasix) 40 mg PO QAM #30 tabs 06/04/23 06/16/23 06/15/23 Rx lidocaine HCl 4 % topical gel 1 applic topical BID PRN Pain 06/04/23 06/16/23 Unknown History (Alocane Emergency Burn) blood sugar diagnostic (Accu-Chek #100 ea 06/05/23 06/16/23 Unknown Rx Guide test strips) blood-glucose meter (Accu-Chek #1 ea 06/05/23 06/16/23 Unknown Rx Guide Glucose Meter) sulfamethoxazole 800 1 tab PO BID #14 tabs 06/06/23 06/16/23 Unknown Rx mg-trimethoprim 160 mg tablet (Bactrim DS) ondansetron HCl 8 mg tablet 8 mg PO Q8H PRN Nausea And Vomiting 06/16/23 06/16/23 Unknown History tramadol 50 mg tablet 50 mg PO Q4H PRN Pain 06/16/23 06/16/23 Unknown History Allergies Allergy/AdvReac Type Severity Reaction Status Date / Time No Known Allergies Allergy Verified 06/04/23 12:37 Current Medications Generic Name Dose Route Start Last Admin Trade Name Freq PRN Reason Stop Dose Admin Albuterol/Ipratropium 3 ml 06/16/23 14:00 06/19/23 08:33 Ipratropium-Albuterol 3 Ml Neb INHALATION 3 ml Q6H.RESP SILVINA Administration Amlodipine Besylate 10 mg 06/17/23 09:00 06/19/23 08:43 Amlodipine 10 Mg Tablet PO 10 mg DAILY SILVINA Administration Aspirin 81 mg 06/16/23 09:00 06/19/23 08:43 Aspirin 81 Mg Ec Tablet PO 81 mg DAILY SILVINA Administration Atorvastatin Calcium 40 mg 06/16/23 21:00 06/18/23 21:21 Atorvastatin 40 Mg Tablet PO 40 mg BEDTIME SILVINA Administration Furosemide 40 mg 06/19/23 09:00 06/19/23 08:43 Furosemide 10 Mg/Ml Sdv 4ml IVP 40 mg DAILY SILVINA Administration Guaifenesin 1,200 mg 06/19/23 09:00 06/19/23 08:43 Guaifenesin 600 Mg Tablet PO 1,200 mg BID SILVINA Administration Heparin Sodium (Porcine) 0 unit 06/15/23 19:47 06/18/23 06:19 Heparin 5,000 Unit/Ml Inj 1 Ml IV 4,600 unit PRN PRN Administration Heparin weight-base protocol Protocol Piperacillin Sod/Tazobactam 50 mls @ 12.5 mls/hr 06/15/23 19:30 06/19/23 07:26 Sod 3.375 gm/ Sodium Chloride IV 12.5 mls/hr Q8H SILVINA Administration Protocol Vancomycin/PEG/NADA/Lysine/Water 1,500 mg in 300 mls @ 200 mls/hr 06/15/23 18:30 06/19/23 08:01 Vancocin IV Infused Q12H SILVINA Infusion Heparin Sodium/Sodium Chloride 25,000 unit in 500 mls @ 0 mls/hr 06/15/23 20:00 06/19/23 08:40 Heparin Drip IV 15.91 unit/kg/hr .Q0M SILVINA 36.8 mls/hr Titration Protocol Per Protocol Insulin Glargine 10 unit 06/16/23 10:25 06/19/23 08:43 Insulin Glargine 100 Units/1 Ml SUBCUT 10 unit BID SILVINA Administration Insulin Human Lispro 0 unit 06/15/23 21:00 06/19/23 08:42 Insulin Lispro 100 Unit/1 Ml SUBCUT 4 unit WM&BEDTIME SILVINA Administration Protocol Magnesium Hydroxide 30 ml 06/15/23 19:45 06/19/23 00:16 Magnesium Hydroxide 30 Ml Udc PO 30 ml DAILY PRN Administration Constipation (see protocol) Protocol Metoprolol Tartrate 25 mg 06/16/23 10:30 06/19/23 08:43 Metoprolol Tartrate 25 Mg Tablet PO 25 mg BID@0900,2100 [facility] Administration Morphine Sulfate 2 mg 06/15/23 19:45 06/19/23 08:47 Morphine 4 Mg/Ml Sdv 1 Ml IVP 2 mg Q4H PRN Administration SEVERE PAIN Ondansetron HCl 4 mg 06/15/23 19:45 06/16/23 03:39 Ondansetron 2 Mg/Ml Sdv 2 Ml IVP 4 mg Q8H PRN Administration vomiting, or N/V if npo Oxycodone/Acetaminophen 1 tab 06/15/23 19:45 06/19/23 05:47 Oxycodone-Apap 5-325 Mg Tablet PO 1 tab Q12H PRN Administration pain Pantoprazole Sodium 40 mg 06/15/23 19:45 06/18/23 21:21 Pantoprazole 40 Mg Sdv IVP 40 mg Q24H SILVINA Administration PFSH Acute PFSH: Medical History Factor 5 Leiden mutation, heterozygous Constipation History of DVT (deep vein thrombosis) 07/10/2019 DVT involving the popliteal veins bilaterally Closed hand fracture Right 4th metacarpal oblique, injury 04/03/2022 Bilateral leg edema Erectile dysfunction Low testosterone Anxiety and depression Diabetes type 2, uncontrolled Atherosclerotic heart disease of [place] coronary artery with other forms of angina pectoris Hypertension Hyperlipidemia Diabetic neuropathy Adenomatous colon polyp Ischemic cardiomyopathy Abnormal nuclear stress test History of claustrophobia Right foot drop 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 Surgical History Stented coronary artery H/O circumcision Family History Mother , at age 45 Lung cancer smoker Grandmother Diabetes Father , at age 23 Drowning Other Hypertension Denies family history of CAD (coronary artery disease) Social History Smoking and tobacco/nicotine status: former use of tobacco/nicotine Quit status (tobacco/nicotine): has quit using Year quit tobacco: 2006 Alcohol intake: former Substance/Drug Use: former Household members: spouse and children Marital status: Number of children: 7 service: No Current occupational status: disabled 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 [employer]: [employer] Special aboila needs: Yes (seth) Agree to transfusion: Yes Vitals/I&O/Wt Last Vital Signs Temp 97.5 F L 06/19/23 08:06 Pulse 99 06/19/23 08:34 Resp 18 06/19/23 08:47 BP 135/65 06/19/23 08:06 Pulse Ox 95 01/30/24 08:25 O2 Del Method Nasal Cannula 06/19/23 08:25 O2 Flow Rate 3 06/19/23 08:25 06/18/23 06/19/23 06/19/23 22:59 06:59 14:59 Intake Total 1181.92 / 1888.26 158.08 / 2046.34 647.76 / 647.76 Output Total 1850 / 1850 250 / 2100 Balance -668.08 / 38.26 -91.92 / -53.66 647.76 / 647.76 Weight last 48 hrs Weight 284 lb 14.4 oz Weight 173 lb 8 oz Physical Exam Narrative: Foot is wrapped up had previous surgeries skin around distal to the knee looks good Urinary Catheter Management: Govea: Cath Placed During This Visit: yes Reason for Continuing Indwelling Catheter: Acute Urinary Retention or Obstruction Urinary Catheter Date of Insertion: 06/17/23 Urinary Catheter Time of Insertion: 01:20 Data 06/19/23 01:15 06/19/23 01:15 A&P Assessment and plan (1) Gangrene of toe of right foot: Will plan on right below the knee amputation tomorrow. I had an open and honest discussion with the patient about the risks, benefits and alternatives to both surgical and nonsurgical treatment. The patient verbalized understanding of the inherent unpredictability associated with surgery. Risk of surgery were discussed including, but not limited to, infection, bleeding, temporary and permanent nerve damage, continued pain, stiffness, incomplete healing, need for revision surgery, blood clot and other complications. The patient verbalized understanding that there is spine is elective in nature and if they find any of these risks to be unacceptable then they should choose not to have the surgery. The patient verbalized understanding of these risks and elected to proceed with the surgery. Coding Level of Care Code Acute Code for Chg Fwd Diagnoses Gangrene of toe of right foot I96
[2023-06-19 11:07] LABS: Glucose Point of Care 191 mg/dL (70-110)
--- NOTE | 2023-06-19 11:20 | P.PN_ITS ---
Subjective 2 Subjective: Feel slightly better today. Breathing slightly easier. Lower extremity edema showing improvement. Vitals/I&O/Wt Last Vital Signs Temp 97.5 F L 06/19/23 08:06 Pulse 99 06/19/23 08:34 Resp 18 06/19/23 08:47 BP 135/65 06/19/23 08:06 Pulse Ox 95 06/19/23 08:25 O2 Del Method Nasal Cannula 06/19/23 08:25 O2 Flow Rate 3 06/19/23 08:25 06/18/23 06/19/23 06/19/23 22:59 06:59 14:59 Intake Total 1181.92 / 1888.26 158.08 / 2046.34 647.76 / 647.76 Output Total 1850 / 1850 250 / 2100 Balance -668.08 / 38.26 -91.92 / -53.66 647.76 / 647.76 Weight last 48 hrs Weight 129.228 kg Weight 78.698 kg Physical Exam 2 Narrative: Accompanied by his and children. Const: COMMON NORMALS: patient oriented x3 and alert GENERAL APPEARANCE: c ooperative ORIENTATION/CONSCIOUSNESS: Yes awake HENMT: COMMON NORMALS: oropharynx normal Neck/C-Spine: COMMON NORMALS: no JVD Resp: COMMON NORMALS: normal respiratory effort and clear to auscultation bilaterally AUSCULTATION: clear to auscultation bilaterally Cardio: COMMON NORMALS: no JVD, regular rhythm, S1 normal heart sound present, S2 normal heart sound present and No murmurs present (Cardio) RHYTHM: regular rhythm HEART SOUNDS: S1 normal heart sound present and S2 normal heart sound present GI: COMMON NORMALS: Normal to inspection, nondistended, normoactive bowel sounds present, Soft to palpation and non-tender PALPATION: Yes Soft to palpation Extremity: COMMON NORMALS: no joint enlargement and no pedal edema OTHER: R foot/ankle wrapped in elastic dressing. Neuro: COMMON NORMALS: patient oriented x3 and moves all extremities S ENSORIUM/ORIENTATION: Yes alert Skin: COMMON NORMALS: no rashes or lesions noted GENERAL SKIN EXAM: no rashes or lesions noted Urinary Catheter Management: Govea: Cath Placed During This Visit: yes Reason for Continuing Indwelling Catheter: Acute Urinary Retention or Obstruction Urinary Catheter Date of Insertion: 06/17/23 Urinary Catheter Time of Insertion: 01:20 Data 06/19/23:15 06/19/23 01:15 A&P Assessment and plan (1) Sepsis: (2) Acute osteomyelitis of right foot: (3) ELSY (acute kidney injury): (4) Hyponatremia: (5) Cellulitis of right foot: (6) Congestive heart failure: (7) Diabetes type 2, uncontrolled: Qualifiers: Glycemic state: with hyperglycemia Qualified Code(s): E11.65 - Type 2 diabetes mellitus with hyperglycemia (8) Abnormal stress test: Most recent cardiac stress test in March 2023 which showed a moderate area of moderate to severe decreased perfusion involving inferior, inferior lateral and lateral region with some reversibility in the inferior and anterolateral region suggesting of myocardial scarring in distribution of RCA/LCx with ischemia predominantly in LCx region. Aspirin, statin. Continue with metoprolol 25 mg twice daily (9) Hypertension: Qualifiers: Hypertension type: essential hypertension Qualified Code(s): I10 - Essential (primary) hypertension (10) Hyperlipidemia: Qualifiers: Hyperlipidemia type: mixed hyperlipidemia Qualified Code(s): E78.2 - Mixed hyperlipidemia (11) Factor 5 Leiden mutation, heterozygous: (12) History of DVT (deep vein thrombosis): (13) S/P foot surgery: (14) Hyperkalemia: Plan Sepsis: Reviewed vitals, CBC, PTT, CMP. Discussed with supervisor shuttle veneering this morning. Reviewed podiatry note. Discussed with orthopedic surgeon this morning. Patient is telling me he has reconsidered and would like to proceed with BKA. Discussed with orthopedic surgeon. N.p.o. after midnight. In the meantime we will keep on working on lower extremity edema, continue diuresis. Discussed with telephonic nurse case manager. Secondary to osteomyelitis, Septic arthritis. Continue Zosyn, vancomycin. Bronchitis: Discussed with him positive for human metapneumovirus. Continue isolation. Continue supportive care. Symptomatically he is showing some improvement. Oxygen requirement is improving as well, down to 3 L. Continue to wean off oxygen as tolerated. Continue breathing treatments, add flutter valve. Mucinex. Continue isolation. Oxygen support. Wean down as tolerating. Osteomyelitis of the right foot: Appreciate podiatry recommendations.Orthopedic recommendations. He is having pain. IV morphine and oxycodone did not take care of the pain. Switch to IV Dilaudid. Continue Zosyn, vancomycin. Monitor for risk of kidney injury with antibiotic combination. Reassess kidney function. Reviewed BUN, creatinine. Wound care and weightbearing status as per podiatry team. Given need for OR for now we will hold off on Xarelto. Congestive heart failure: Decompensated systolic congestive heart failure with worsened ejection fraction. Significant lower extremity edema. Reviewed vitals, CBC, chemistry, potassium, BUN, creatinine. So far tolerating diuresis. Discussed with him additional diuresis tonight, will give 60 mg IV Lasix, additionally start metolazone 2.5 mg 30 minutes before Lasix. Monitor AARON. Monitor on telemetry. At risk of electrolyte deficiency with IV diuretics, reassess chemistry. Check magnesium. At risk of arrhythmia, telemetry. At risk of renal dysfunction, reassess renal function. Anasarca. As above. Govea in place. Strict input charting, daily weights. Patient would benefit with guideline directed medical therapy. Would plan to add ED/ARB once infection improves. Type 2 diabetes mellitus: Reviewed Accu-Cheks. Continue insulin. Monitor for hypoglycemia. May be at risk of hypoglycemia with improving insulin sensitivity with control of source of infection. Hypoglycemia protocol Continue with insulin sliding scale at moderate dose protocol. Continue with Lantus 10 units twice daily Hyponatremia: Reviewed sodium, Improving. Sodium up to 131 Continue IV diuresis with hypervolemic hyponatremia. Recheck chemistry. At risk of electrolyte abnormalities with diuresis. Reassess chemistry. Monitor on telemetry. Most likely pseudohyponatremia along with hypervolemic hyponatremia Monitor BMP daily. ELSY: Baseline creatinine normal. Most likely CRS. Lasix as above. Monitor BMP daily. Medical reconciliation done for nephrotoxic drugs. Hyperkalemia: Reviewed potassium, hyperkalemia resolved. Most likely in setting of mild ELSY. Repeat chemistry requested Factor V Leiden mutation/history of DVT: Xarelto held as above. For now start patient on IV heparin drip. Hyperlipidemia: Start on oral atorvastatin 40 mg daily. Hypertension: Goal blood pressure less than 140/90 mmHg. Blood pressure elevated. Continue with metoprolol 25 mg twice daily. Add amlodipine 10 mg oral daily. Patient would benefit with ED/ARB. Would like to add once renal function stable. Full code Cardiac carb consistent diet Heparin drip will suffice for DVT prophylaxis Protonix for PUD prophylaxis. Attestations 2 Medical Necessity Statement*: Continue admission for assessment management of sepsis, osteomyelitis, septic arthritis, congestive heart failure exacerbation, uncontrolled diabetes. Additional medical problems as above. Diagnoses Sepsis A41.9 Acute osteomyelitis of right foot M86.171 ELSY (acute kidney injury) N17.9 Hyponatremia E87.1 Cellulitis of right foot L03.115 Congestive heart failure I50.9 Uncontrolled type 2 diabetes mellitus with hyperglycemia E11.65 Glycemic state: with hyperglycemia Abnormal stress test R94.39 Essential hypertension I10 Hypertension type: essential hypertension Mixed hyperlipidemia E78.2 Hyperlipidemia type: mixed hyperlipidemia Factor 5 Leiden mutation, heterozygous D68.51 History of DVT (deep vein thrombosis) Z86.718 S/P foot surgery Z98.890 Hyperkalemia E87.5
[2023-06-19] MEDS: HYDROmorphone 1 mg/mL INJ 1 mL 0.75 MG IVP (11:34)
[2023-06-19] MEDS: heparin drip 25,000 UNIT/500 ML PREMIX 36.8 UNIT IV (11:39)
[2023-06-19 15:36] LABS: Partial Thromboplastin Time 64.5 SECONDS (23.9-36.7)
[2023-06-19 16:04] LABS: Glucose Point of Care 166 mg/dL (70-110)
[2023-06-19] MEDS: metOLazone 5 MG Tablet 2.5 MG PO (16:29)
[2023-06-19] MEDS: saline nasal spray 44mL Btl 1 SPRAY NASAL (16:29)
[2023-06-19] MEDS: FUROsemide 10 mg/mL SDV 4mL 60 MG IVP (17:38)
[2023-06-19 20:14] LABS: Glucose Point of Care 206 mg/dL (70-110)
[2023-06-19] MEDS: atorvastatin 40 mg Tablet PO (20:27)
[2023-06-19] MEDS: pantoprazole 40 mg SDV IVP (20:27)
[2023-06-19 21:20] LABS: Partial Thromboplastin Time 65.6 SECONDS (23.9-36.7)
--- NOTE | 2023-06-19 23:41 | PC.NURSE ---
Paused heparin drip in preparation for surgery.
[2023-06-20] VITALS (25 sets, daily range): BP systolic 132–168; BP diastolic 80–108; PULSE 51–110; RESP 2–20; TEMP 36.4–36.8; O2SAT 90–98
[2023-06-20] MEDS: ipratropium-albuterol 3 mL Neb INHALATION ×3 (01:30→21:11)
[2023-06-20] MEDS: phenol oral Spray 177 mL 3 SPRAY MUCOUS MEM (03:46)
[2023-06-20] MEDS: metOLazone 5 MG Tablet 2.5 MG PO (03:46)
[2023-06-20] MEDS: oxyCODONE-APAP 5-325 mg Tablet 1 TAB PO ×4 (03:49→22:09)
[2023-06-20 04:22] LABS: Basophils # 0.1 10^3/uL (0.0-0.1); Basophils % 0.3 %; Eosinophils # 0.1 10^3/uL (0.0-0.8); Eosinophils % 0.6 %; Lymphocytes # 2.1 10^3/uL (0.8-4.8); Lymphocytes % 11.7 %; Mean Corpuscular HGB Conc 32.4 g/dL (30-55); Mean Corpuscular Hemoglobin 26.2 pg (27-33); Mean Corpuscular Volume 80.8 fl (82-101); Monocytes # 1.2 10^3/uL (0.2-0.9); Monocytes % 6.7 %; Neutrophils # 14.14 10^3/uL (1.8-7.7); Neutrophils % 79.2 %; Nucleated Red Blood Cells % 0 %; Platelet Count 462 10^3/cmm (157-399); Red Blood Count 4.58 10^6/uL (3.85-5.65); Red Cell Distribution Width 14.5 % (12.1-15.1); White Blood Count 17.85 10^3/uL (3.29-11.43)
[2023-06-20 04:43] LABS: Magnesium 2.1 mg/dL (1.7-2.3)
[2023-06-20 04:46] LABS: Alanine Aminotransferase 20 U/L (0-41); Albumin Level 2.6 g/dL (3.5-5.2); Alkaline Phosphatase 330 U/L (40-130); Anion Gap 18.6 (5-19); Aspartate Amino Transferase 14 U/L (0-40); Blood Urea Nitrogen 31 mg/dL (8-23); Calcium 9.2 mg/dL (8.5-10.5); Carbon Dioxide 22 mmol/L (22-29); Chloride 98 mmol/L (98-107); Globulin 4.8 g/dL (1.3-4.6); Glucose 88 mg/dL (65-115); Osmolality Calculated 286 mOsm/kg (285-295); Potassium 3.6 mmol/L (3.5-5.1); Sodium 135 mmol/L (136-145); Total Bilirubin 0.3 mg/dL (0.15-1.2); Total Protein 7.4 g/dL (6.6-8.7)
[2023-06-20] MEDS: FUROsemide 10 mg/mL SDV 4mL 60 MG IVP (05:00)
[2023-06-20] MEDS: vancomycin 1,500 MG/300 ML PIGGYBACK 200 MG IV ×2 (05:49→18:02)
[2023-06-20] MEDS: HYDROmorphone 1 mg/mL INJ 1 mL 0.75 MG IVP (06:01)
[2023-06-20 06:34] LABS: Glucose Point of Care 104 mg/dL (70-110)
[2023-06-20] MEDS: piperacillin-tazobactam 3.375 GM in sodium chloride 0.9% (plus) 50 ML IV ×2 (07:43→23:51)
--- NOTE | 2023-06-20 11:14 | ANES.PREANE2 ---
Pre-Anesthetic Assessment Height/Weight: Height 1.85 m Weight 117.934 kg Temp Pulse Resp BP Pulse Ox O2 Del Method O2 Flow Rate 97.8 F 57 L 20 H 133/89 93 Nasal Cannula 3 06/20/23 07:56 06/20/23 09:17 06/20/23 09:10 06/20/23 07:56 06/20/23 09:10 06/20/23 09:10 06/20/23 09:10 Preop Diagnosis: Acute osteomyelitis right foot Operation Date: 06/19/23 12:20 Proposed Procedures p Amputation Transmetatarsal with possible wound vac placement(Right) - Manuel Lambert DPM Operation Date: 06/20/23 12:35 Proposed Procedures p Below Knee Amputation(Right) - Moe Barbour DO Last intake: Intake Last Liquid Date 06/19/23 Last Liquid Time 00:00 Last Solid Date 06/19/23 Last Solid Time 22:00 CV/HEM Coronary Artery Disease, Deep Vein Thrombosis and Hypertension Perfusion Scan 2022 IMPRESSIONS 1. Myocardial perfusion imaging revealing moderate area of moderate to severely decreased aseptic involving the inferior, inferolateral knee, and lateral regions with some reversibility in the inferior and anterolateral regions, suggesting myocardial scarring in the distribution of the right coronary artery/circumflex artery with ischemia predominantly in the distribution of the circumflex artery and some involvement of the right coronary artery. 2. Slightly diminished left ventricular ejection fraction of 46%. 3. Segmental wall motion normalities as mentioned above. 3. Mildly dilated LV cavity with end-systolic volume of 81 ml. Compared to the study from 02/21/2019, there is some improvement in the LV ejection fraction with a slightly increased ischemic burden. Clinical correlation is recommended 06/17/23 [facility] CONCLUSIONS Mildly dilated left ventricular with an ejection fraction around 40% 35 to 40% (visual). Because of the poor endocardial delineation, the ejection fraction estimation could be misleading. Recommend contrast echo to better evaluate the ejection fraction I am the endocardial delineation 03/29/2023 Mildly dilated left atrium. No intracardiac masses. Comparison with the previous echocardiogram from 03/29/2023. There appears to be a drop in the ejection fraction. Because of the suboptimal study, this cannot be ascertained sestamibi stress test CONCLUSION: 1. No significant EKG changes with the LexiScan infusion 2. No LexiScan induced chest pain or cardiac arrhythmia 3. Normal blood pressure and heart rate response 4. Sestamibi/sestamibi perfusion scan pending; see separate report. Metabolic Hyperlipidemia [facility] [place] Factor V leiden mutation Anesthetic Plan ASA status: 3 Anesthesia: General and Regional (specify below) Risk of > 500 ml blood loss (7ml/kg in children): No Medications/Allergies Home Medications Medication Instructions Recorded Confirmed Last Taken Type fast form ulnar gutter #1 ea 04/21/21 06/16/23 Unknown Rx lancets 33 gauge (BD Ultra Fine #100 ea 08/19/21 06/16/23 Unknown Rx Lancets) aspirin 81 mg tablet,delayed 81 mg PO DAILY #30 tabs 03/13/23 06/16/23 06/15/23 Rx release rivaroxaban 20 mg tablet (Xarelto) 20 mg PO QAM 03/13/23 06/16/23 06/15/23 History oxycodone-acetaminophen 5 mg-325 1 tab PO Q12H PRN pain 7 days #14 05/24/23 06/16/23 Unknown Rx mg tablet (Percocet) tabs Blood pressure machine #1 ea 05/31/23 06/16/23 Unknown Rx blood sugar diagnostic (Blood #200 ea 05/31/23 06/16/23 Unknown Rx Glucose Test strips) blood-glucose meter #1 ea 05/31/23 06/16/23 Unknown Rx lancets #200 ea 05/31/23 06/16/23 Unknown Rx furosemide 40 mg tablet (Lasix) 40 mg PO QAM #30 tabs 06/04/23 06/16/23 06/15/23 Rx lidocaine HCl 4 % topical gel 1 applic topical BID PRN Pain 06/04/23 06/16/23 Unknown History (Alocane Emergency Burn) blood sugar diagnostic (Accu-Chek #100 ea 06/05/23 06/16/23 Unknown Rx Guide test strips) blood-glucose meter (Accu-Chek #1 ea 06/05/23 06/16/23 Unknown Rx Guide Glucose Meter) sulfamethoxazole 800 1 tab PO BID #14 tabs 06/06/23 06/16/23 Unknown Rx mg-trimethoprim 160 mg tablet (Bactrim DS) ondansetron HCl 8 mg tablet 8 mg PO Q8H PRN Nausea And Vomiting 06/16/23 06/16/23 Unknown History tramadol 50 mg tablet 50 mg PO Q4H PRN Pain 06/16/23 06/16/23 Unknown History Allergies Allergy/AdvReac Type Severity Reaction Status Date / Time No Known Allergies Allergy Verified 06/04/23 12:37 Current Medications Generic Name Dose Route Start Last Admin Trade Name Freq PRN Reason Stop Dose Admin Albuterol/Ipratropium 3 ml 06/16/23 14:00 06/20/23 09:14 Ipratropium-Albuterol 3 Ml Neb INHALATION 3 ml Q6H.RESP SILVINA Administration Amlodipine Besylate 10 mg 06/17/23 09:00 06/20/23 07:24 Amlodipine 10 Mg Tablet PO Not Given DAILY SILVINA Aspirin 81 mg 06/16/23 09:00 06/20/23 07:24 Aspirin 81 Mg Ec Tablet PO Not Given DAILY SILVINA Atorvastatin Calcium 40 mg 06/16/23 21:00 06/19/23 20:27 Atorvastatin 40 Mg Tablet PO 40 mg BEDTIME SILVINA Administration Furosemide 60 mg 06/19/23 16:00 06/20/23 05:00 Furosemide 10 Mg/Ml Sdv 4ml IVP 60 mg BID@0400,1600 SILVINA Administration Guaifenesin 1,200 mg 06/19/23 09:00 06/20/23 07:25 Guaifenesin 600 Mg Tablet PO Not Given BID [facility] Heparin Sodium (Porcine) 0 unit 06/15/23 19:47 06/18/23 06:19 Heparin 5,000 Unit/Ml Inj 1 Ml IV 4,600 unit PRN PRN Administration Heparin weight-base protocol Protocol Hydromorphone HCl 0.75 mg 06/19/23 11:28 06/20/23 06:01 Hydromorphone 1 Mg/Ml Inj 1 Ml IVP 0.75 mg Q4H PRN Administration SEVERE PAIN Piperacillin Sod/Tazobactam 50 mls @ 12.5 mls/hr 06/15/23 19:30 06/20/23 07:43 Sod 3.375 gm/ Sodium Chloride IV 12.5 mls/hr Q8H SILVINA Administration Protocol Vancomycin/PEG/NADA/Lysine/Water 1,500 mg in 300 mls @ 200 mls/hr 06/15/23 18:30 06/20/23 07:40 Vancocin IV Infused Q12H SILVINA Infusion Heparin Sodium/Sodium Chloride 25,000 unit in 500 mls @ 0 mls/hr 06/15/23 20:00 06/19/23 23:40 Heparin Drip IV 0 unit/kg/hr .Q0M SILVINA 0 mls/hr Titration Protocol Per Protocol Insulin Glargine 10 unit 06/16/23 10:25 06/20/23 07:39 Insulin Glargine 100 Units/1 Ml SUBCUT Not Given BID SILVINA Insulin Human Lispro 0 unit 06/15/23 21:00 06/20/23 11:10 Insulin Lispro 100 Unit/1 Ml SUBCUT Not Given WM&BEDTIME [facility] Protocol Magnesium Hydroxide 30 ml 06/15/23 19:45 06/19/23 00:16 Magnesium Hydroxide 30 Ml Udc PO 30 ml DAILY PRN Administration Constipation (see protocol) Protocol Metolazone 2.5 mg 06/19/23 15:30 06/20/23 03:46 Metolazone 5 Mg Tablet PO 2.5 mg BID@0330,1530 SILVINA Administration Metoprolol Tartrate 25 mg 06/16/23 10:30 06/20/23 07:25 Metoprolol Tartrate 25 Mg Tablet PO Not Given BID@0900,2100 SILVINA Ondansetron HCl 4 mg 06/15/23 19:45 06/16/23 03:39 Ondansetron 2 Mg/Ml Sdv 2 Ml IVP 4 mg Q8H PRN Administration vomiting, or N/V if npo Oxycodone/Acetaminophen 1 tab 06/19/23 12:49 06/20/23 07:48 Oxycodone-Apap 5-325 Mg Tablet PO 1 tab Q4H PRN Administration pain Pantoprazole Sodium 40 mg 06/15/23 19:45 06/19/23 20:27 Pantoprazole 40 Mg Sdv IVP 40 mg Q24H SILVINA Administration Phenol 3 spray 06/20/23 02:51 06/20/23 03:46 Phenol Oral [place] 177 Ml MUCOUS MEM 3 spray Q2H PRN Administration SORE THROAT Sodium Chloride 1 spray 06/19/23 13:05 06/19/23 16:29 Saline Nasal [place] 44ml Btl NASAL 1 spray PRN PRN Administration DRYNESS PFSH Anesthesia Medical History Factor 5 Leiden mutation, heterozygous Constipation History of DVT (deep vein thrombosis) 07/10/2019 DVT involving the popliteal veins bilaterally Closed hand fracture Right 4th metacarpal oblique, injury 04/03/2022 Bilateral leg edema Erectile dysfunction Low testosterone Anxiety and depression Diabetes type 2, uncontrolled Atherosclerotic heart disease of [place] coronary artery with other forms of angina pectoris Hypertension Hyperlipidemia Diabetic neuropathy Adenomatous colon polyp Ischemic cardiomyopathy Abnormal nuclear stress test History of claustrophobia Right foot drop 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 Surgical History Stented coronary artery H/O circumcision Family History Mother , at age 45 Lung cancer smoker Grandmother Diabetes Father , at age 23 Drowning Other Hypertension Denies family history of CAD (coronary artery disease) Social History Smoking and tobacco/nicotine status: former use of tobacco/nicotine Quit status (tobacco/nicotine): has quit using Year quit tobacco: 2005 Alcohol intake: former Substance/Drug Use: former Household members: spouse and children Marital status: Number of children: 7 service: No Current occupational status: disabled 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 Abiola/Pentec[employer]alism: [employer]ism Special abiola needs: Yes (seth) Agree to transfusion: Yes Data Anesthesia 06/20/23 03:53 06/20/23 03:53 Short CBC 06/19/23 06/20/23 Range/Units 01:15 03:53 WBC 16.77 H 17.85 H (3.29-11.43) 10^3/uL Hgb 12.20 12.00 (11.27-16.99) g/dL Hct 37.9 37.0 (37-53) % MCV 80.5 L D 80.8 L (82-101) fl Plt Count 428 H 462 H (157-399) 10^3/cmm Neut % (Auto) 81.0 79.2 % Neut # (Auto) 13.60 H 14.14 H (1.8-7.7) 10^3/uL BMP 06/19/23 06/20/23 01:15 03:53 Sodium 131 L 135 L Potassium 3.9 3.6 Chloride 96 L 98 Carbon Dioxide 22 22 BUN 38 H 31 H Creatinine 1.0 1.0 Glucose 175 H 88 Calcium 9.0 9.2 Liver Function 06/19/23 06/20/23 Range/Units 01:15 03:53 Total Bilirubin 0.3 0.3 (0.15-1.2) mg/dL AST 17 14 (0-40) U/L ALT 25 20 (0-41) U/L Alkaline Phosphatase 294 H 330 H (40-130) U/L Albumin 2.8 L 2.6 L (3.5-5.2) g/dL Coags 06/18/23 06/18/23 06/19/23 11:56 18:37 01:15 APTT 40.0 H 64.1 H D 72.9 H 06/19/23 06/19/23 06/19/23 07:28 15:00 20:59 APTT 90.9 H 64.5 H 65.6 H Cardiac Studies: Echocardiogram 06/17/23 Sestamibi Stress Test (Cardiology) 03/29/23 Holter Monitor 03/29/23
[2023-06-20 11:31] LABS: Glucose Point of Care 91 mg/dL (70-110)
--- NOTE | 2023-06-20 12:06 | PC.SOCIAL ---
IMM Updated Updated pt on IMM. No questions voiced. Provided pt a copy. Initialed, dated, & timed copy in chart.
--- NOTE | 2023-06-20 12:26 | P.PN_ITS ---
Subjective 2 Subjective: Patient had with below-knee amputation today. No chest pain. Vitals/I&O/Wt Last Vital Signs Temp 98 F 06/20/23 11:53 Pulse 109 H 06/20/23 11:53 Resp 17 06/20/23 11:53 BP 153/97 06/20/23 11:53 Pulse Ox 97 06/20/23 11:53 O2 Del Method Nasal Cannula 06/20/23 11:53 O2 Flow Rate 3 06/20/23 09:10 06/19/23 06/20/23 06/20/23 22:59 06:59 14:59 Intake Total 830 / 2117.547 582.213 / 2699.760 210 / 210 Output Total 2900 / 2900 2400 / 2400 Balance 830 / 2117.547 -2317.787 / -200.240 -2190 / -2190 Weight last 48 hrs Weight 260 lb Weight 284 lb 14.4 oz Physical Exam 2 Narrative: GENERAL: Patient is alert, awake and oriented x3. [] NECK: No jugular vein distension. [] HEENT: No cyanosis. No icterus. No pallor. [] HEART: Regular S1 and S2. No murmur, rub or gallop. [] LUNGS:Diminished air entry CENTRAL NERVOUS SYSTEM: Grossly nonfocal. [] EXTREMITIES: Lower extremities with 1+ edema bilaterally Urinary Catheter Management: Govea: Cath Placed During This Visit: yes Reason for Continuing Indwelling Catheter: Other Urinary Catheter Date of Insertion: 06/17/23 Urinary Catheter Time of Insertion: 01:20 Data 06/21/23 05:02 06/21/23 05:02 A&P Assessment and plan (1) Atherosclerotic heart disease of [place] coronary artery with other forms of angina pectoris: (2) Hypertension: Qualifiers: Hypertension type: essential hypertension Qualified Code(s): I10 - Essential (primary) hypertension (3) Hyperlipidemia: Qualifiers: Hyperlipidemia type: mixed hyperlipidemia Qualified Code(s): E78.2 - Mixed hyperlipidemia (4) Factor 5 Leiden mutation, heterozygous: (5) Congestive heart failure: (6) Diabetes type 2, uncontrolled: Qualifiers: Glycemic state: with hyperglycemia Qualified Code(s): E11.65 - Type 2 diabetes mellitus with hyperglycemia Plan Normal we will continue with diuresis. Monitor renal function. Close I&O's. He is s/p amputation. Resume anticoagulation once cleared by surgery. Thank you for involving us with care of this patient. Will continue to follow. Please call with questions. Attestations 2 Medical Necessity Statement*: Care expected to cross 2 midnights. Coding Level of Care Code Acute Code for Kathering Fwd Diagnoses Atherosclerotic heart disease of [place] coronary artery with other forms of angina pectoris I25.118 Essential hypertension I10 Hypertension type: essential hypertension Mixed hyperlipidemia E78.2 Hyperlipidemia type: mixed hyperlipidemia Factor 5 Leiden mutation, heterozygous D68.51 Congestive heart failure I50.9 Uncontrolled type 2 diabetes mellitus with hyperglycemia E11.65 Glycemic state: with hyperglycemia
--- NOTE | 2023-06-20 13:07 | ANES.PROC ---
Anesthesia Procedures Procedure/Date: 06/20/23 Nerve Block ^: Nerve Block 1: Main Anesthesia: general anesthesia Time Out Performed: Yes Consent: requested by attending/covering physician, from patient, from other, risks and benefits reviewed and patient agrees to proceed Nerve block location: popliteal (R) Anesthesia monitors applied: pulse oximetry, EKG and BP cuff Nerve block position: supine Anesthetic Used: ropivicaine 0.5% (30 ml) and with decadron (4 mg) Ultrasound used to: recognize landmarks Nerve Stimulator Used?: No Interscalene/Femoral BLK: 4 stimuplex 21 g needle used for position and inplane approach, visualize local anesthetic spread and no vascular puncture identified Patient Tolerated Procedure: well Complications: none
[2023-06-20] MEDS: sodium chloride 0.9% 1,000 ML 30 ML IV (13:11)
--- NOTE | 2023-06-20 14:15 | P.PN_ITS ---
Subjective 2 Subjective: Today overall he is doing better. Breathing is gradually improving. Still has some phlegm that he has bring up. Lower extremity edema is decreasing. No chest pain or pressure. Vitals/I&O/Wt Last Vital Signs Temp 98 F 06/20/23 12:30 Pulse 110 H 06/20/23 12:30 Resp 18 06/20/23 12:30 BP 168/108 06/20/23 12:30 Pulse Ox 96 06/20/23 12:30 O2 Del Method Nasal Cannula 06/20/23 12:30 O2 Flow Rate 3 06/20/23 12:30 06/19/23 06/20/23 06/20/23 22:59 06:59 14:59 Intake Total 830 / 2117.547 582.213 / 2699.760 210 / 210 Output Total 2900 / 2900 2400 / 2400 Balance 830 / 2117.547 -2317.787 / -200.240 -2190 / -2190 Weight last 48 hrs Weight 117.934 kg Weight 129.228 kg Physical Exam 2 Narrative: Accompanied by his and children. Const: COMMON NORMALS: patient oriented x3 and alert GENERAL APPEARANCE: c ooperative ORIENTATION/CONSCIOUSNESS: Yes awake HENMT: COMMON NORMALS: oropharynx normal Neck/C-Spine: COMMON NORMALS: no JVD Resp: COMMON NORMALS: normal respiratory effort AUSCULTATION: rhonchi Cardio: COMMON NORMALS: no JVD, regular rhythm, S1 normal heart sound present, S2 normal heart sound present and No murmurs present (Cardio) RHYTHM: regular rhythm HEART SOUNDS: S1 normal heart sound present and S2 normal heart sound present GI: COMMON NORMALS: Normal to inspection, nondistended, normoactive bowel sounds present, Soft to palpation and non-tender PALPATION: Yes Soft to palpation Extremity: COMMON NORMALS: no joint enlargement and no pedal edema OTHER: R foot/ankle wrapped in elastic dressing. Neuro: COMMON NORMALS: patient oriented x3 and moves all extremities S ENSORIUM/ORIENTATION: Yes alert Skin: COMMON NORMALS: no rashes or lesions noted GENERAL SKIN EXAM: no rashes or lesions noted Urinary Catheter Management: Govea: Cath Placed During This Visit: yes Reason for Continuing Indwelling Catheter: Other Urinary Catheter Date of Insertion: 06/17/23 Urinary Catheter Time of Insertion: 01:20 Data 06/20/23 03:53 06/20/23 03:53 A&P Assessment and plan (1) Sepsis: (2) Acute osteomyelitis of right foot: (3) ELSY (acute kidney injury): (4) Hyponatremia: (5) Cellulitis of right foot: (6) Congestive heart failure: (7) Diabetes type 2, uncontrolled: Qualifiers: Glycemic state: with hyperglycemia Qualified Code(s): E11.65 - Type 2 diabetes mellitus with hyperglycemia (8) Abnormal stress test: Most recent cardiac stress test in March 2023 which showed a moderate area of moderate to severe decreased perfusion involving inferior, inferior lateral and lateral region with some reversibility in the inferior and anterolateral region suggesting of myocardial scarring in distribution of RCA/LCx with ischemia predominantly in LCx region. Aspirin, statin. Continue with metoprolol 25 mg twice daily (9) Hypertension: Qualifiers: Hypertension type: essential hypertension Qualified Code(s): I10 - Essential (primary) hypertension (10) Hyperlipidemia: Qualifiers: Hyperlipidemia type: mixed hyperlipidemia Qualified Code(s): E78.2 - Mixed hyperlipidemia (11) Factor 5 Leiden mutation, heterozygous: (12) History of DVT (deep vein thrombosis): (13) S/P foot surgery: (14) Hyperkalemia: Plan Sepsis: Plans for BKA today. Has not been eating or drinking anything this morning. Shortness of breath has been improving, oxygenation has remained good since decreasing oxygen down to 3 L. Will continue to taper off as tolerating postoperatively. Proceeding to source control with right foot infection with septic arthritis, osteomyelitis. Continue treatment of bronchitis/viral pneumonia/possible secondary bacterial pneumonia. Reviewed vitals, CBC, PTT, CMP. Reviewed orthopedic note. Discussed with case filler. Bronchitis: Discussed with him positive for human metapneumovirus. With viral pneumonia. Possibility of superimposed bacterial pneumonia. Continue treatment with broad-spectrum antibiotic with Zosyn, vancomycin. Monitor due to risk of kidney injury, reassess kidney function. Reviewed kidney function. He is still bringing up phlegm. Will request from culture. Continue isolation. Continue supportive care. Symptomatically he is showing some improvement. Oxygen requirement is improving as well, down to 3 L. Continue to wean off oxygen as tolerated. Continue breathing treatments, flutter valve. Mucinex. Continue isolation. Oxygen support. Wean down as tolerating. Osteomyelitis of the right foot: Appreciate podiatry recommendations.Orthopedic recommendations. IV Dilaudid as needed for severe pain. Oxycodone for moderate. Continue Zosyn, vancomycin. Monitor for risk of kidney injury with antibiotic combination. Reassess kidney function. Reviewed BUN, creatinine. Wound care and weightbearing status as per podiatry team. Given need for OR for now we will hold off on Xarelto. Congestive heart failure: Reviewed vitals, INR, CBC, chemistry, magnesium. He responded well to increase in dose of Lasix, and addition of metolazone. Continue diuretics. Monitor renal function, electrolytes. Decompensated systolic congestive heart failure with worsened ejection fraction. Significant lower extremity edema. Reviewed vitals, CBC, chemistry, potassium, BUN, creatinine. So far tolerating diuresis. Discussed with him additional diuresis tonight, will give 60 mg IV Lasix, additionally start metolazone 2.5 mg 30 minutes before Lasix. Monitor AARON. Monitor on telemetry. At risk of electrolyte deficiency with IV diuretics, reassess chemistry. Check magnesium. At risk of arrhythmia, telemetry. At risk of renal dysfunction, reassess renal function. SVT: Had a run of SVT up to 190s and a self-limited episode this morning. Monitor on telemetry. Reviewed potassium, noted 3.6. Reviewed magnesium. Gave him a dose of potassium. Discussed with patient relations coordinator. Anasarca. As above. Govea in place. Strict input charting, daily weights. Patient would benefit with guideline directed medical therapy. Would plan to add ED/ARB once infection improves. Type 2 diabetes mellitus: Reviewed Accu-Cheks. Glucose with some further decrease down to 80s-90s. Decrease Lantus to 7 units twice daily. Risk of hypoglycemia. Continue insulin. Monitor for hypoglycemia. May be at risk of hypoglycemia with improving insulin sensitivity with control of source of infection. Hypoglycemia protocol Continue with insulin sliding scale at moderate dose protocol. Hyponatremia: Reviewed sodium, hyponatremia is resolving. Continue IV diuresis with hypervolemic hyponatremia. Recheck chemistry. At risk of electrolyte abnormalities with diuresis. Reassess chemistry. Monitor on telemetry. Most likely pseudohyponatremia along with hypervolemic hyponatremia Monitor BMP daily. ELSY: Baseline creatinine normal. Most likely CRS. Lasix as above. Monitor BMP daily. Medical reconciliation done for nephrotoxic drugs. Hyperkalemia: Reviewed potassium, hyperkalemia resolved. Most likely in setting of mild ELSY. Repeat chemistry requested Factor V Leiden mutation/history of DVT: Xarelto held as above. For now start patient on IV heparin drip. Hyperlipidemia: Start on oral atorvastatin 40 mg daily. Hypertension: Goal blood pressure less than 140/90 mmHg. Blood pressure elevated. Continue with metoprolol 25 mg twice daily. Add amlodipine 10 mg oral daily. Patient would benefit with ED/ARB. Would like to add once renal function stable. Full code Cardiac carb consistent diet Heparin drip will suffice for DVT prophylaxis Protonix for PUD prophylaxis. Attestations 2 Medical Necessity Statement*: Continue admission for assessment management of sepsis, osteomyelitis, septic arthritis, congestive heart failure exacerbation, uncontrolled diabetes., Viral bronchitis, pneumonia, possible secondary bacterial pneumonia. Additional medical problems as above. and High MDM includes amount and/or complexity of data reviewed/ordered [ resulted lab(s)/test(s), ordered lab(s)/test(s) and other healthcare professional discussion] and described risk of complication, morbidity or mortality of management as documented Diagnoses Sepsis A41.9 Acute osteomyelitis of right foot M86.171 ELSY (acute kidney injury) N17.9 Hyponatremia E87.1 Cellulitis of right foot L03.115 Congestive heart failure I50.9 Uncontrolled type 2 diabetes mellitus with hyperglycemia E11.65 Glycemic state: with hyperglycemia Abnormal stress test R94.39 Essential hypertension I10 Hypertension type: essential hypertension Mixed hyperlipidemia E78.2 Hyperlipidemia type: mixed hyperlipidemia Factor 5 Leiden mutation, heterozygous D68.51 History of DVT (deep vein thrombosis) Z86.718 S/P foot surgery Z98.890 Hyperkalemia E87.5
[2023-06-20] MEDS: midazolam 1 mg/mL INJ 2 mL 2 MG IVP (14:38)
--- NOTE | 2023-06-20 14:46 | W.PM.OPSUD ---
Surgery/Procedure H&P Update DATE OF PROCEDURE: June 20, 2023 DATE H&P PERFORMED: 06/19/23 H&P UPDATE INFORMATION: I have reviewed H&P completed within last 30 days, I have examined patient prior to procedure and No changes to prior documentation PREOP DIAGNOSIS: Acute osteomyelitis right foot PLANNED PROCEDURE: Operation Date: 06/19/23 12:20 Proposed Procedures p Amputation Transmetatarsal with possible wound vac placement(Right) - Manuel Lambert DPM Operation Date: 06/20/23 12:35 Proposed Procedures p Below Knee Amputation(Right) - Moe Barbour DO
--- NOTE | 2023-06-20 16:08 | PC.NURSE ---
Below the knee amputation sent with Pamela, Spinner [employer]er
--- NOTE | 2023-06-20 17:05 | PM.OP ---
Operative Report Date of procedure: June 20, 2023 Pre-op diagnosis: Infected foot on the right Post-op diagnosis: same Post-op findings: Right below the knee amputation Surgeon: Moe Barbour DO Estimated blood loss (mL): 50 Procedure: Right below the knee amputation Patient is brought to the operative suite after undergoing anesthesia was placed in the supine position. All his impingement well-padded. Patient was prepped draped normal sterile fashion. The bone cut was measured out to 12 cm. Skin incision was distal to this. Made in a flap posteriorly. The skin was cut and then Bovie was used to cut through the fascia tibia was exposed the anterior Part was cut through the fibula was exposed Hohmann retractors were placed and the tibia and fibula were cut. Once the tibia and fibula were cut then the muscle stripped off the back of it the tibial artery was tied off the and vein the tibial nerve was pulled and retracted and then cut proximally the posterior gastroc and soleus were used as a flap and sutured up into the anterior fascia covering the bone. Then the skin flap was brought up and sutured with 0 Vicryl 2-0 Vicryl and nylon suture. Sterile dressings were applied and patient was transferred to the PACU in stable condition.
[2023-06-20 17:07] LABS: Glucose Point of Care 95 mg/dL (70-110)
[2023-06-20] MEDS: labetalol 5 mg/mL SDV 20mL 100 MG (17:18)
--- NOTE | 2023-06-20 17:25 | ANE.PACU2 ---
Inpatient post-anesthesia follow up: Airway intact: Yes Vital signs: Temperature 97.6 F Pulse Rate 103 Respiratory Rate 24 Blood Pressure 133/77 Pulse Oximetry 98 Oxygen Delivery Me thod Nasal Cannula Oxygen Flow Rate 4 Fraction of Inspir ed Oxygen Hydration adequate: Yes Nausea and vomiting: No Pain level: 1 Mental status: Baseline
[2023-06-20] MEDS: guaiFENesin 600 mg Tablet 1200 MG PO (18:02)
--- NOTE | 2023-06-20 18:05 | PC.NURSE ---
Pt returns from surgery. Awake and alert. Continuous pulse ox placed on pt. VSS. at bedside
[2023-06-20] MEDS: metoprolol tartrate 25 mg Tablet PO (20:35)
[2023-06-20] MEDS: atorvastatin 40 mg Tablet PO (20:35)
[2023-06-20] MEDS: pantoprazole 40 mg SDV IVP (20:35)
[2023-06-20] MEDS: insulin glargine 100 units/1 mL 7 UNIT SUBCUT (20:35)
[2023-06-20] MEDS: insulin lispro 100 unit/1 mL SUBCUT (22:09)
[2023-06-21] VITALS (15 sets, daily range): BP systolic 122–149; BP diastolic 75–87; PULSE 94–105; RESP 16–24; TEMP 36.4–37.1; O2SAT 93–100
[2023-06-21] MEDS: HYDROmorphone 1 mg/mL INJ 1 mL 0.75 MG IVP (00:06)
[2023-06-21 01:23] LABS: Glucose Point of Care 261 mg/dL (70-110)
[2023-06-21 01:24] LABS: Glucose Point of Care 110 mg/dL (70-110)
[2023-06-21] MEDS: ipratropium-albuterol 3 mL Neb INHALATION ×3 (02:53→13:19)
[2023-06-21] MEDS: metOLazone 5 MG Tablet 2.5 MG PO (03:54)
[2023-06-21] MEDS: oxyCODONE-APAP 5-325 mg Tablet PO ×3 (03:54→13:59)
[2023-06-21] MEDS: FUROsemide 10 mg/mL SDV 4mL 60 MG IVP (05:02)
[2023-06-21 05:39] LABS: Basophils % 0.1 %; Hematocrit 35.6 % (37-53); Lymphocytes # 0.8 10^3/uL (0.8-4.8); Lymphocytes % 4.8 %; Mean Corpuscular HGB Conc 32.3 g/dL (30-55); Mean Corpuscular Hemoglobin 26.3 pg (27-33); Mean Corpuscular Volume 81.5 fl (82-101); Monocytes # 0.8 10^3/uL (0.2-0.9); Neutrophils # 14.49 10^3/uL (1.8-7.7); Neutrophils % 88.3 %; Nucleated Red Blood Cells % 0 %; Platelet Count 474 10^3/cmm (157-399); Red Blood Count 4.37 10^6/uL (3.85-5.65); Red Cell Distribution Width 14.7 % (12.1-15.1); White Blood Count 16.41 10^3/uL (3.29-11.43)
[2023-06-21] MEDS: vancomycin 1,500 MG/300 ML PIGGYBACK 200 MG IV (05:47)
[2023-06-21 06:07] LABS: Alanine Aminotransferase 16 U/L (0-41); Albumin Level 2.4 g/dL (3.5-5.2); Alkaline Phosphatase 292 U/L (40-130); Anion Gap 19.9 (5-19); Aspartate Amino Transferase 18 U/L (0-40); Blood Urea Nitrogen 32 mg/dL (8-23); Calcium 8.7 mg/dL (8.5-10.5); Carbon Dioxide 21 mmol/L (22-29); Chloride 98 mmol/L (98-107); Globulin 4.8 g/dL (1.3-4.6); Glomerular Filtration Rate 61.6 mL/min (90-130); Glucose 279 mg/dL (65-115); Osmolality Calculated 297 mOsm/kg (285-295); Potassium 3.9 mmol/L (3.5-5.1); Sodium 135 mmol/L (136-145); Total Bilirubin 0.2 mg/dL (0.15-1.2); Total Protein 7.2 g/dL (6.6-8.7)
[2023-06-21 06:38] LABS: Glucose Point of Care 346 mg/dL (70-110)
--- NOTE | 2023-06-21 07:47 | P.PN_ITS ---
Subjective 2 Subjective: Patient's pain is controlled. Sitting up at bedside eating breakfast. Told patient to keep his leg elevated is much as possible to keep swelling down. Vitals/I&O/Wt Last Vital Signs Temp 97.6 F 06/21/23 04:00 Pulse 98 06/21/23 07:38 Resp 18 06/21/23 07:38 BP 133/77 06/21/23 07:38 Pulse Ox 96 06/21/23 07:38 O2 Del Method Room Air 06/21/23 07:38 O2 Flow Rate 3 06/21/23 02:00 06/20/23 06/21/23 06/21/23 22:59 06:59 14:59 Intake Total 828.5 / 1038.5 290 / 1328.5 300 / 300 Output Total 750 / 3150 800 / 3950 Balance 78.5 / -2111.5 -510 / -2621.5 300 / 300 Weight last 48 hrs Weight 260 lb Weight 260 lb Physical Exam 2 Narrative: Dressing is clean dry and intact no evidence of any leakage to dressing. 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 Attestations 2 Medical Necessity Statement*: Per primary service Coding Level of Care Code Acute Code for Chg Fwd Diagnoses Gangrene of toe of right foot I96
[2023-06-21] MEDS: metoprolol tartrate 25 mg Tablet PO (08:18)
[2023-06-21] MEDS: aspirin 81 mg EC Tablet PO (08:21)
[2023-06-21] MEDS: guaiFENesin 600 mg Tablet 1200 MG PO (08:21)
[2023-06-21] MEDS: amlodipine 10 mg Tablet PO (08:21)
[2023-06-21] MEDS: insulin lispro 100 unit/1 mL SUBCUT ×2 (08:22→11:53)
[2023-06-21] MEDS: piperacillin-tazobactam 3.375 GM in sodium chloride 0.9% (plus) 50 ML IV (08:22)
[2023-06-21] MEDS: insulin glargine 100 units/1 mL 7 UNIT SUBCUT (09:38)
--- NOTE | 2023-06-21 10:16 | PC.CHAP ---
Pastoral Care Encounter/Spiritual Assessment Type of Contact [] Declined inventory control planner visit [] Patient/Family/Request visit [] Outpatient visit [] Follow-up visit [] Physician referral [] Code/Alert [] Routine visit [] Staff referral [] Actively dying [] Patient sleeping [] Family support [] [] Out of room [] Palliative care [] [] Receiving care in room [] Pre-surgical visit [] Trauma [] Long length of stay [] ICU visit [x ] Other: nIsolation Relational/Emotional Strength [] Patient feels connected with others/family/visitors/staff [] Distress [] Loneliness/isolation [] Abandonment Spirituality of Patient [] Person of [place] [] Attends [employer] of their [place] [] Believes in Prayer [] Reads Bible or Protestant materials [] There are Spiritual issues to be addressed Assistant Accounting Manager Interventions [] Prayer [] Active listening [] Non-anxious presence [] Spiritual/emotional support [] Crisis/trauma care [] Spiritual counseling [] Bereavement support [] Provided bereavement packet [] Provided Bible/devotional materials [] Provided toy/stuffed animal, coloring book to patient or family member [] Provided Communion [] Anointing/[place] [] Salvation [] Completed spiritual assessment [] Other: Impact on Illness or Injury [] Angry [] Fearful [] Anxious [] Often cries [] Exhaustion [] Unable to work [] Unable to attend yazidi [] Unable to walk/stand [] Unable to read [] Unable to drive [] Unable to eat/drink [] Unable to sleep [] Unable to be with family [] Patient intubated [] Other: Summary nIsolation Time spent with patient 5 mins
[2023-06-21 11:32] LABS: Glucose Point of Care 299 mg/dL (70-110)
[2023-06-21] MEDS: rivaroxaban 10 mg Tablet 20 MG PO (11:52)
--- NOTE | 2023-06-21 12:10 | P.PN_ITS ---
Subjective 2 Subjective: Patient is doing well. no chest pain. Vitals/I&O/Wt Last Vital Signs Temp 97.7 F 06/21/23 11:45 Pulse 102 H 06/21/23 11:45 Resp 18 06/21/23 11:45 BP 149/79 06/21/23 11:45 Pulse Ox 97 06/21/23 11:45 O2 Del Method Nasal Cannula 06/21/23 11:45 O2 Flow Rate 4 06/21/23 08:11 06/20/23 06/21/23 06/21/23 22:59 06:59 14:59 Intake Total 828.5 / 1038.5 290 / 1328.5 660 / 660 Output Total 750 / 3150 800 / 3950 Balance 78.5 / -2111.5 -510 / -2621.5 660 / 660 Weight last 48 hrs Weight 260 lb Weight 260 lb Physical Exam 2 Narrative: GENERAL: Patient is alert, awake and oriented x3. [] NECK: No jugular vein distension. [] HEENT: No cyanosis. No icterus. No pallor. [] HEART: Regular S1 and S2. No murmur, rub or gallop. [] LUNGS:Diminished air entry CENTRAL NERVOUS SYSTEM: Grossly nonfocal. [] EXTREMITIES: Lower extremities with 1+ edema Urinary Catheter Management: Govea: Cath Placed During This Visit: yes Reason for Continuing Indwelling Catheter: Other Urinary Catheter Date of Insertion: 06/17/23 Urinary Catheter Time of Insertion: 01:20 Data 06/21/23 05:02 06/21/23 05:02 A&P Assessment and plan (1) Atherosclerotic heart disease of [place] coronary artery with other forms of angina pectoris: (2) Hypertension: Qualifiers: Hypertension type: essential hypertension Qualified Code(s): I10 - Essential (primary) hypertension (3) Hyperlipidemia: Qualifiers: Hyperlipidemia type: mixed hyperlipidemia Qualified Code(s): E78.2 - Mixed hyperlipidemia (4) Factor 5 Leiden mutation, heterozygous: (5) Congestive heart failure: (6) Diabetes type 2, uncontrolled: Qualifiers: Glycemic state: with hyperglycemia Qualified Code(s): E11.65 - Type 2 diabetes mellitus with hyperglycemia Plan Patient is overall stable. Anticoagulation to be resumed. Outpatient further cardiac workup. Thank you for involving us with care of this patient. Patient is stable to be discharged from cardiology standpoint. Please call with questions. Attestations 2 Medical Necessity Statement*: Care expected to cross 2 midnights. Coding Level of Care Code Acute Code for Chg Fwd Diagnoses Atherosclerotic heart disease of [place] coronary artery with other forms of angina pectoris I25.118 Essential hypertension I10 Hypertension type: essential hypertension Mixed hyperlipidemia E78.2 Hyperlipidemia type: mixed hyperlipidemia Factor 5 Leiden mutation, heterozygous D68.51 Congestive heart failure I50.9 Uncontrolled type 2 diabetes mellitus with hyperglycemia E11.65 Glycemic state: with hyperglycemia
--- NOTE | 2023-06-21 14:08 | PM.DCS ---
Discharge Providers Date of Admission: 06/15/23 18:37 Date of Discharge: June 21, 2023 Attending Provider at Admission: Donaldo Oneal MD Attending Provider at Discharge: Ap Chew Primary Care Provider: Sondra May MD Diagnoses at Discharge Discharge Diagnosis (1) Atherosclerotic heart disease of [place] coronary artery with other forms of angina pectoris: Status: Acute (2) Hypertension: Status: Acute Qualifiers: Hypertension type: essential hypertension Qualified Code(s): I10 - Essential (primary) hypertension (3) Hyperlipidemia: Status: Acute Qualifiers: Hyperlipidemia type: mixed hyperlipidemia Qualified Code(s): E78.2 - Mixed hyperlipidemia (4) Factor 5 Leiden mutation, heterozygous: Status: Acute (5) Congestive heart failure: Status: Acute Permanent problem details: Systolic in nature. Last known EF 45 to 50%. 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 With poor healing, failed attempt at outpatient treatment, elevated risk of additional treatment failure recommendation for BKA, he initially hesitated but subsequently agreed and orthopedic service was consulted. Wound cultures grew MRSA. In addition while in the hospital requiring oxygen support, no PE on recent CTA, chest x-ray with increased interstitial markings, peribronchial cuffing, bronchitis, pulmonary vascular congestion, additionally with worsening dyspnea with fluid resuscitation initially, with congestive heart failure exacerbation started on IV diuretics, viral panel did come back positive for human metapneumovirus, continue treatment for combination of viral pneumonia, possible superimposed bacterial pneumonia, as well as congestive heart failure exacerbation. Echocardiogram showed new decrease in ejection fraction down to 30-40% with apparent drop in ejection fraction from before. With suspected prior PR with moderate area of hypokinesis with [place] of surrounding ischemia on prior stress test back in March cardiology was consulted for additional assessment. He has remained chest pain-free, no signs of additional new cardiac ischemia at the moment, most diuresed more extensively including with Lasix and metolazone with improving lower extremity edema, congestive changes, improving oxygenation. Weaning down on nasal cannula oxygen from 4 L down to room air at rest. Home oxygen evaluation is requested prior to discharge. He underwent right BKA, doing well per surgery, restarted on Xarelto. Returning home with request for home health, follow-up with orthopedics. He is agreeable to resume on insulin. He states he has previously had insulin in the past and knows how to administer it and how to measure his blood glucose. Discussed with him again regarding insulin administration including side rotation, glucose control strategies, hypoglycemia, other precautions. He knows to seek medical attention in case of any worsening or new concerning symptoms. Please follow-up following right-sided BKA, he is referred to wound care for additional assessment to reassess wound healing, he is asked to follow-up with her PCP in 2 weeks. Please reassess blood glucose control, assist with continued optimization of diabetes control and insulin therapy. Continue optimize cardiovascular risk factors, he started on antihypertensives to help control blood pressure including amlodipine, metoprolol, losartan. Please reassess kidney function with noted improving ELSY. Reassess electrolytes including potassium. Hyperkalemia on presentation resolved. He is asked to maintain low potassium diet. Had mild hyponatremia in the hospital. Avoid any potentially nephrotoxic medications. Reassess recovery from human metapneumovirus, suspected secondary pneumonia, bronchitis, he is given prescription for albuterol inhaler as needed, will complete antibiotic course with Levaquin, linezolid. Reassess respiratory status, consider referral for pulmonary function testing depending on condition and any residual/chronic symptoms. Reassess blood counts, he is resumed on Xarelto for history of DVT and factor V Leiden. Physical Exam Narrative: Sitting up at the side of the bed, he is overall feeling much better. Still having some cough bringing up a bit of phlegm, breathing overall better, continue to improve. No chest pain or pressure. No additional new symptoms. Doing well and would like to return home. Const: COMMON NORMALS: patient oriented x3 and alert GENERAL APPEARANCE: cooperative ORIENTATION/CONSCIOUSNESS: Yes awake HENMT: COMMON NORMALS: oropharynx normal Neck/C-Spine: COMMON NORMALS: no JVD Resp: COMMON NORMALS: normal respiratory effort and clear to auscultation bilaterally AUSCULTATION: clear to auscultation bilaterally and rhonchi Cardio: COMMON NORMALS: no JVD, regular rhythm, S1 normal heart sound present, S2 normal heart sound present and No murmurs present (Cardio) RHYTHM: regular rhythm HEART SOUNDS: S1 normal heart sound present and S2 normal heart sound present GI: COMMON NORMALS: Normal to inspection, nondistended, normoactive bowel sounds present, Soft to palpation and non-tender PALPATION: Yes Soft to palpation Extremity: COMMON NORMALS: no joint enlargement NARRATIVE EXTREMITY EXAM: R BKA, post-op dressing. Neuro: COMMON NORMALS: patient oriented x3 and moves all extremities SENSORIUM/ORIENTATION: Yes alert Skin: COMMON NORMALS: no rashes or lesions noted GENERAL SKIN EXAM: no rashes or lesions noted Urinary Catheter Management: Govea: Cath Placed During This Visit: yes Reason for Continuing Indwelling Catheter: Other Urinary Catheter Date of Insertion: 06/17/23 Urinary Catheter Time of Insertion: 01:20 Discharge Data Studies Completed and Pending Completed Studies During Hospitalization Category Date Time Status CT abdomen pelvis wo con [id number] Routine Cat Scan 06/17/23 07:55 Completed XR chest 1V portable [id number] Stat Exams 06/15/23 16:39 Completed XR chest 1V portable [id number] Stat Exams 06/17/23 01:04 Completed XR foot RT min 3V* [id number] Stat Exams 06/15/23 15:41 Completed MR foot RT wo/w con [id number] Routine MRI 06/18/23 07:00 Completed CV. echo complete* [id number] Routine Ultrasound 06/17/23 07:51 Completed Pending at discharge Category Date Time Status Blood Cultures ([facility]) Routine Lab 06/15/23 17:00 Results Blood Cultures ([facility]) Routine Lab 06/15/23 17:08 Results Sputum Culture and Gram Stain Routine Lab 06/20/23 14:24 Uncollected Pathology: Surgical [PTH] Routine Pth 06/20/23 16:08 Received CV. echo lmt w/w contras [id number] Routine Ultrasound 06/18/23 22:39 Taken Radiology Impressions Chest X-Ray 06/17/23 01:04 IMPRESSION: Diffuse irregular opacities throughout both lungs with a lower lobe predominance. Abdomen/Pelvis CT 06/17/23 07:55 IMPRESSION: 1. Bilateral pulmonary opacities, increased from 06/01/2023 and consistent with findings on current chest x-ray. Differential diagnosis would include pneumonia or aspiration. 2. Enlarged bilateral pleural effusions. 3. Mild hepatomegaly without evidence of significant hepatic steatosis. 4. Nitrogenous degeneration within a gallstone. Faint radiodensity within the gallbladder contents could reflect radiodense sludge. 5. No hydronephrosis. 6. Moderate body wall edema. 7. Please see above additional comments. COMMENTS: Please note that lack of IV contrast limits both the sensitivity, and the specificity, of the examination, particularly as regards focal lesions in the solid organs. Laboratory Results WBC 16.41 10^3/uL (3.29-11.43) H 06/21/23 05:02 RBC 4.37 10^6/uL (3.85-5.65) 06/21/23 05:02 Hgb 11.50 g/dL (11.27-16.99) 06/21/23 05:02 Hct 35.6 % (37-53) L 06/21/23 05:02 MCV 81.5 fl (82-101) L 06/21/23 05:02 MCH 26.3 pg (27-33) L 06/21/23 05:02 MCHC 32.3 g/dL (30-55) 06/21/23 05:02 RDW 14.7 % (12.1-15.1) 06/21/23 05:02 Plt Count 474 10^3/cmm (157-399) H 06/21/23 05:02 MPV 10.0 fL (7.4-10.4) 06/21/23 05:02 Neut % (Auto) 88.3 % 06/21/23 05:02 Lymph % (Auto) 4.8 % 06/21/23 05:02 Mcpherson % (Auto) 5.0 % 06/21/23 05:02 Eos % (Auto) 0.0 % 06/21/23 05:02 Baso % (Auto) 0.1 % 06/21/23 05:02 Neut # (Auto) 14.49 10^3/uL (1.8-7.7) H 06/21/23 05:02 Lymph # (Auto) 0.8 10^3/uL (0.8-4.8) 06/21/23 05:02 Mcpherson # (Auto) 0.8 10^3/uL (0.2-0.9) 06/21/23 05:02 Eos # (Auto) 0.0 10^3/uL (0.0-0.8) 06/21/23 05:02 Baso # (Auto) 0.0 10^3/uL (0.0-0.1) 06/21/23 05:02 Nucleated RBC % (auto) 0 % 06/21/23 05:02 Nucleated RBCs # 0.0 /100WBC 06/21/23 05:02 ESR > 130 mm/hr (0-10) H 06/15/23 17:00 APTT 65.6 SECONDS (23.9-36.7) H 06/19/23 20:59 Sodium 135 mmol/L (136-145) L 06/21/23 05:02 Potassium 3.9 mmol/L (3.5-5.1) 06/21/23 05:02 Chloride 98 mmol/L (98-107) 06/21/23 05:02 Carbon Dioxide 21 mmol/L (22-29) L 06/21/23 05:02 Anion Gap 19.9 (5-19) H 06/21/23 05:02 BUN 32 mg/dL (8-23) H 06/21/23 05:02 Creatinine 1.2 mg/dL (0.7-1.2) 06/21/23 05:02 GFR Calculation 61.6 mL/min (90-130) L 06/21/23 05:02 Glucose 279 mg/dL (65-115) H 06/21/23 05:02 POC Glucose 299 mg/dL (70-110) H 06/21/23 10:42 Calculated Osmolality 297 mOsm/kg (285-295) H 06/21/23 05:02 Lactic Acid 2.7 mmol/L (0.5-2.2) H 06/15/23 17:00 Lactic Acid (Sepsis) 3.0 mmol/L (0.5-2.2) H 06/15/23 20:09 Calcium 8.7 mg/dL (8.5-10.5) 06/21/23 05:02 Phosphorus 3.4 mg/dL (2.5-4.5) 06/16/23 02:46 Magnesium 2.1 mg/dL (1.7-2.3) 06/20/23 03:53 Iron 18 ug/dL (59-158) L 06/15/23 17:00 TIBC 174 mcg/dl 06/15/23 17:00 % Saturation 10.3 % (20-50) L 06/15/23 17:00 Unsat Iron Binding 156 ug/dL (112-347) 06/15/23 17:00 Total Bilirubin 0.2 mg/dL (0.15-1.2) 06/21/23 05:02 AST 18 U/L (0-40) 06/21/23 05:02 ALT 16 U/L (0-41) 06/21/23 05:02 Alkaline Phosphatase 292 U/L (40-130) H 06/21/23 05:02 Troponin T 5th Gen ng/L 91 ng/L (0-15) H 06/17/23 08:52 C-Reactive Protein 299.1 mg/L (0.0-4.9) H 06/15/23 17:00 Total Protein 7.2 g/dL (6.6-8.7) 06/21/23 05:02 Albumin 2.4 g/dL (3.5-5.2) L 06/21/23 05:02 Globulin 4.8 g/dL (1.3-4.6) H 06/21/23 05:02 Vitamin B12 802 pg/mL (232-1245) 06/15/23 17:00 Folate 6.6 ng/mL (4.5-32.2) 06/16/23 02:46 Procalcitonin 0.39 ng/mL (0-0.5) 06/15/23 17:00 Vancomycin Trough 17.0 ug/mL (10-15) H 06/17/23 05:24 Adenovirus (PCR) Not detected (NOT DETECT) 06/15/23 17:17 C. pneumoniae DNA (PCR) Not detected (NOT DETECT) 06/15/23 17:17 Coronavirus 229E (PCR) Not detected (NOT DETECT) 06/15/23 17:17 Human Metapneumovir PCR Detected (NOT DETECT) A 06/15/23 17:17 Influenza A (H1) PCR Not detected (NOT DETECT) 06/15/23 17:17 Influ A (H1/09) PCR Not detected (NOT DETECT) 06/15/23 17:17 Influenza A (H3) PCR Not detected (NOT DETECT) 06/15/23 17:17 Influenza Type A (PCR) Not detected (NOT DETECT) 06/15/23 17:17 Influenza Type B (PCR) Not detected (NOT DETECT) 06/15/23 17:17 M. pneumoniae (PCR) Not detected (NOT DETECT) 06/15/23 17:17 Parainfluenza 1 (PCR) Not detected (NOT DETECT) 06/15/23 17:17 Parainfluenza 2 (PCR) Not detected (NOT DETECT) 06/15/23 17:17 Parainfluenza 3 (PCR) Not detected (NOT DETECT) 06/15/23 17:17 Parainfluenza 4 (PCR) Not detected (NOT DETECT) 06/15/23 17:17 RSV Type A (PCR) Not detected (NOT DETECT) 06/15/23 17:17 RSV Type B (PCR) Not detected (NOT DETECT) 06/15/23 17:17 Entero/Rhino (PCR) Not detected (NOT DETECT) 06/15/23 17:17 SARS-CoV-2 (PCR) Not detected (NOT DETECT) 06/15/23 17:17 MRSA (PCR) Not detected (NOT DETECTED) 06/16/23 05:55 Vitals Last Vital Signs Temp 97.7 F 06/21/23 11:45 Pulse 104 H 06/21/23 13:20 Resp 20 H 06/21/23 13:59 BP 149/79 06/21/23 11:45 Pulse Ox 96 06/21/23 13:20 O2 Del Method Room Air 06/21/23 13:20 O2 Flow Rate 4 06/21/23 08:11 Discharge Plan Discharge Patient Disposition: Home Health Service Condition: Stable Prescriptions: New atorvastatin 40 mg Tablet 40 mg PO BEDTIME Qty: 90 0RF amlodipine 10 mg Tablet 10 mg PO DAILY Qty: 90 0RF metoprolol tartrate 25 mg Tablet 25 mg PO BID@0900,2100 Qty: 180 0RF linezolid 600 mg tablet 600 mg PO BID Qty: 10 0RF levofloxacin 750 mg tablet 750 mg PO DAILY 4 Days Qty: 4 0RF losartan 50 mg tablet 25 mg PO DAILY Qty: 90 0RF insulin glargine 100 unit/mL (3 mL) insulin pen 15 unit SUBCUT QAM Qty: 15 3RF insulin lispro 100 unit/mL insulin pen See Rx Instructions .ROUTE .COMPLEX Qty: 15 3RF Rx Instructions: TID before meals Glucose: 141-180 - 4 units 181-220 - 6 221-260 - 8 261-300 - 10 301-350 - 12 351-400 - 14 >400 - 16 units albuterol sulfate 90 mcg/actuation HFA aerosol inhaler 2 inh inhalation QID PRN (Reason: shortness of breath or wheezing) Qty: 8.5 0RF Continued (DME) fast form ulnar gutter See Rx Instructions .ROUTE .MEDSUPPLY Qty: 1 0RF Rx Instructions: As directed (DME) blood-glucose meter Misc See Rx Instructions .MEDSUPPLY Qty: 1 0RF Rx Instructions: Use as directed for checking blood sugar (DME) Blood Glucose Test Strip See Rx Instructions .MEDSUPPLY Qty: 200 12RF Rx Instructions: Use as directed with glucometer to check blood sugar (DME) lancets Misc See Rx Instructions .MEDSUPPLY Qty: 200 12RF Rx Instructions: Use as directed to prick skin for blood sugar checks (DME) Blood pressure machine See Rx Instructions .Route .MEDSUPPLY Qty: 1 0RF Rx Instructions: As directed, check blood pressure each day. (DME) lancets [BD Ultra Fine Lancets] 33 gauge misc See Rx Instructions .Route Qty: 100 0RF Rx Instructions: As directed, test blood suagr once a day. (DME) Accu-Chek Guide test strips Strip See Rx Instructions .Route Qty: 100 0RF Rx Instructions: As directed, check blood sugar, 4 times daily (DME) blood-glucose meter [Accu-Chek Guide Glucose Meter] Misc See Rx Instructions .Route Qty: 1 0RF Rx Instructions: As directed, test blood sugar once a day. Xarelto 20 mg tablet 20 mg PO QAM aspirin 81 mg tablet,delayed release (DR/EC) 81 mg PO DAILY Qty: 30 0RF Alocane Emergency Burn 4 % gel 1 applic TOPICAL BID PRN (Reason: Pain) ondansetron HCl 8 mg tablet 8 mg PO Q8H PRN (Reason: Nausea And Vomiting) Percocet 5-325 mg tablet 1 tab PO Q12H PRN (Reason: pain) 7 Days Qty: 10 0RF Changed Lasix 40 mg tablet 40 mg PO BID@0800,1600 Qty: 30 0RF Discontinued sulfamethoxazole-trimethoprim [Bactrim DS] 800-160 mg tablet 1 tab PO BID Qty: 14 0RF tramadol 50 mg tablet 50 mg PO Q4H PRN (Reason: Pain) Discharge Orders: Discharge Order (Routine); Ordered 06/21/23 Ordered By: Ap Chew Referrals: Wound Care [Provider Group] - 4-7 days (We have notified your physician's clinic of the need for a follow-up appointment to be scheduled. If you have not heard from them within the next 2 business days, please call them directly. ) Moe Barbour DO [Physician] - 2 weeks (We have notified your physician's clinic of the need for a follow-up appointment to be scheduled. If you have not heard from them within the next 2 business days, please call them directly. ) Sondra May MD [Primary Care Provider] - 4-7 days (We have notified your physician's clinic of the need for a follow-up appointment to be scheduled. If you have not heard from them within the next 2 business days, please call them directly. ) Amy Tang FNP [Nurse Practitioner] - 2 weeks (We have notified your physician's clinic of the need for a follow-up appointment to be scheduled. If you have not heard from them within the next 2 business days, please call them directly. ) Discharge Diet: Cardiac and Diabetic Discharge Activity: As per PT/OT instructions Patient Instructions: Diabetes and Diet, Insulin Glargine (By injection), Insulin Lispro (By injection), Potassium Content of Foods List (GEN), How to Give an Insulin Injection (GEN), Bacterial Pneumonia (GEN), Below the Knee Amputation (GEN), What to Do if Your Blood Sugar is Low (GEN), How to Check your Blood Sugar (GEN), Opioid Safety, Pneumonia - Viral Activity Restrictions/Additional Instructions: Continue to monitor blood glucose, target blood glucose 100-200, ideally 100-450. Avoid low blood glucoses discussed. In case of low blood sugar, less than 70, skip insulin dose and take sugary snacks, recheck in 15-20 minutes, if you are getting mental status changes or if sugars not improving, seek medical attention immediately. In case of low blood sugar contact your primary provider's office as insulin dose will need to be decreased. Rotate insulin injection sites. Continue consistent carbohydrate diet. Maintaining good sugar levels will be extremely important for healing after amputation. Follow-up also with wound care clinic for reassessment of wound healing and follow-up with orthopedics for reassessment after the amputation. Follow-up with cardiology as well for reassessment of suspected coronary disease as well as decreased ejection fraction, congestive heart failure. Continue diuretic. In case of rapid weight gain, worsening edema, worsening shortness of breath with laying flat or with exertion take additional dose of 40 mg Lasix, contact your primary provider's office. Follow-up with your primary doctor for reassessment of your kidney function. Avoid any medications that may injure your kidneys, avoid any NSAIDs like ibuprofen, Aleve, etc. Have your primary doctor also recheck your electrolytes at next visit. Monitor blood pressures at home, continue blood pressure medications as started here. You are also started on losartan, medication can lead to some transient worsening of creatinine, long-term should help protect your kidneys in the setting of diabetes, however, in case of persistent worsening creatinine may have to be discontinued. This medication can also help retain potassium. Have your primary doctor to recheck potassium level. Avoid large amount of foods rich in potassium. Discharge Attestations Time Spent in Discharge Care*: greater than 30 min Quality Metrics Clinical Quality Measures [ No reported AMI, CVA or VTE this stay] Coding Level of Care Code 66335 Total time (in minutes) for Discharge: 60 Diagnoses Atherosclerotic heart disease of [place] coronary artery with other forms of angina pectoris I25.118 Essential hypertension I10 Hypertension type: essential hypertension Mixed hyperlipidemia E78.2 Hyperlipidemia type: mixed hyperlipidemia Factor 5 Leiden mutation, heterozygous D68.51 Congestive heart failure I50.9 Uncontrolled type 2 diabetes mellitus with hyperglycemia E11.65 Glycemic state: with hyperglycemia
--- NOTE | 2023-06-21 15:22 | PC.OT ---
OT EVALUATION ORDERS RECEIVED. PATIENT SCHEDULED FOR D/C TODAY. WILL HOLD EVALUATION AT THIS TIME.
== END 2023-06-21 17:14 | disposition home health service (06) | DRG 853 ==
LOC: ER 18:57 → MEDSURG 19:20
PROVIDERS: Orthopaedic Surgery; Physician Assistant; Admitting Provider Student in an Organized Health Care Education/Training Program; Emergency Provider Physician Assistant; PCP Family Medicine; Visit Provider Internal Medicine
PROC: 0Y6H0Z1 Detachment at Right Lower Leg, High, Open Approach (ICD-10-PCS; CPT 27880; principal; 2023-06-20 12:25)
DX: A41.9 Sepsis, unspecified organism (principal); I50.23 Acute on chronic systolic (congestive) heart failure; J12.9 Viral pneumonia, unspecified; E11.52 Type 2 diabetes mellitus with diabetic peripheral angiopathy with gangrene; D68.51 Activated protein C resistance; L03.115 Cellulitis of right lower limb; L97.419 Non-pressure chronic ulcer of right heel and midfoot with unspecified severity; I47.10 Supraventricular tachycardia, unspecified; E87.1 Hypo-osmolality and hyponatremia; N17.9 Acute kidney failure, unspecified; E11.65 Type 2 diabetes mellitus with hyperglycemia; E11.40 Type 2 diabetes mellitus with diabetic neuropathy, unspecified; B97.81 Human metapneumovirus as the cause of diseases classified elsewhere; J40 Bronchitis, not specified as acute or chronic; E78.2 Mixed hyperlipidemia; I11.0 Hypertensive heart disease with heart failure; E11.621 Type 2 diabetes mellitus with foot ulcer; N52.9 Male erectile dysfunction, unspecified; F41.9 Anxiety disorder, unspecified; F32.A Depression, unspecified; I25.119 Atherosclerotic heart disease of native coronary artery with unspecified angina pectoris; B95.62 Methicillin resistant Staphylococcus aureus infection as the cause of diseases classified elsewhere; E87.70 Fluid overload, unspecified; E86.0 Dehydration; R94.39 Abnormal result of other cardiovascular function study; E87.5 Hyperkalemia; F40.240 Claustrophobia; I25.5 Ischemic cardiomyopathy; Z11.52 Encounter for screening for COVID-19; Z86.718 Personal history of other venous thrombosis and embolism; Z79.01 Long term (current) use of anticoagulants; Z89.421 Acquired absence of other right toe(s); Z79.82 Long term (current) use of aspirin; Z95.5 Presence of coronary angioplasty implant and graft; Z86.010 Personal history of colon polyps; Z87.891 Personal history of nicotine dependence
CPT/HCPCS: 36415; 36416; 51702; 71045; 73630; 73720; 74176; 80048; 80053; 80202; 82607; 82746; 82962; 83540; 83550; 83605; 83735; 84100; 84145; 84484; 85025; 85651; 85730; 86140; 87040; 87070; 87075; 87077; 87186; 87205; 87486; 87581; 87633; 87641; 88307; 88311; 93005; 93306; 94640; 94664; 94760; 96365; 96372; 97110; 97163; 99285; A9577; C8924; C9113; J0610; J1100; J1170; J1644; J1815; J1940; J2250; J2270; J2405; J2543; J2704; J2795; J3010; J3370; J3490; J7030; Q9956

== ENCOUNTER → 2023-07-06 11:06 | Outpatient (BNVA) | payer MEDICARE, MEDICAID, SELFPAY | PROVIDERS: PCP Family Medicine; Visit Provider Orthopaedic Surgery | DX: Z47.89 Encounter for other orthopedic aftercare (principal); Z89.511 Acquired absence of right leg below knee | CPT/HCPCS: 99024 ==

== ENCOUNTER → 2023-07-13 08:48 | Outpatient (BNVA) | payer MEDICARE, MEDICAID, SELFPAY | PROVIDERS: PCP Family Medicine; Visit Provider Orthopaedic Surgery | DX: Z47.89 Encounter for other orthopedic aftercare (principal); Z89.511 Acquired absence of right leg below knee | CPT/HCPCS: 99024 ==

== ENCOUNTER → 2023-07-16 11:28 | Outpatient (BNVA) | payer MEDICARE, MEDICAID, SELFPAY | PROVIDERS: PCP Family Medicine; Visit Provider Family Medicine | DX: N17.9 Acute kidney failure, unspecified (principal); M86.171 Other acute osteomyelitis, right ankle and foot | CPT/HCPCS: 80053; 85025 ==

== ENCOUNTER → 2023-07-26 14:08 | Outpatient (BNVA) | payer MEDICARE, MEDICAID, SELFPAY | PROVIDERS: PCP Family Medicine; Visit Provider Family Medicine | DX: R74.01 Elevation of levels of liver transaminase levels (principal) | CPT/HCPCS: 80053; 85025 ==

== ENCOUNTER → 2023-07-30 13:13 | Outpatient (BNVA) | payer MEDICARE, MEDICAID, SELFPAY | PROVIDERS: PCP Family Medicine; Referring Provider Family Medicine; Visit Provider Nurse Practitioner Family | DX: I11.0 Hypertensive heart disease with heart failure (principal); I50.22 Chronic systolic (congestive) heart failure; Z87.891 Personal history of nicotine dependence; I25.118 Atherosclerotic heart disease of native coronary artery with other forms of angina pectoris | CPT/HCPCS: 99213 ==

== ENCOUNTER → 2023-07-31 10:15 | Outpatient (BNVA) | payer MEDICARE, MEDICAID, SELFPAY | PROVIDERS: PCP Family Medicine; Referring Provider Thoracic Surgery (Cardiothoracic Vascular Surgery); Visit Provider Internal Medicine | DX: E11.65 Type 2 diabetes mellitus with hyperglycemia (principal); E78.2 Mixed hyperlipidemia; Z79.4 Long term (current) use of insulin; Z86.73 Personal history of transient ischemic attack (TIA), and cerebral infarction without residual deficits | CPT/HCPCS: 99204 ==

== ENCOUNTER → 2023-08-09 12:50 | Outpatient (BNVA) | payer MEDICARE, MEDICAID, SELFPAY | PROVIDERS: PCP Family Medicine; Visit Provider Orthopaedic Surgery | DX: Z98.890 Other specified postprocedural states; M25.561 Pain in right knee | CPT/HCPCS: 99024 ==

== ENCOUNTER → 2023-08-30 10:27 | Outpatient (BNVA) | payer MEDICARE, MEDICAID, SELFPAY | PROVIDERS: PCP Family Medicine; Visit Provider Internal Medicine | DX: E11.65 Type 2 diabetes mellitus with hyperglycemia (principal); E78.2 Mixed hyperlipidemia; R79.89 Other specified abnormal findings of blood chemistry; Z12.5 Encounter for screening for malignant neoplasm of prostate; Z79.4 Long term (current) use of insulin | CPT/HCPCS: 99215 ==

== ENCOUNTER → 2023-09-03 10:03 | Outpatient (BNVA) | payer MEDICARE, MEDICAID, SELFPAY | PROVIDERS: PCP Family Medicine; Visit Provider Nurse Practitioner Family | DX: I11.0 Hypertensive heart disease with heart failure (principal); I50.22 Chronic systolic (congestive) heart failure; Z87.891 Personal history of nicotine dependence | CPT/HCPCS: 99213 ==

== ENCOUNTER → 2023-09-10 09:31 | Outpatient (BNVA) | payer MEDICARE, MEDICAID, SELFPAY | PROVIDERS: PCP Family Medicine; Visit Provider Nurse Practitioner Family | DX: I50.22 Chronic systolic (congestive) heart failure (principal); J90 Pleural effusion, not elsewhere classified; I10 Essential (primary) hypertension | CPT/HCPCS: 36415; 71046; 80048; 83880; 99214 ==

== ENCOUNTER → 2023-09-17 08:43 | Outpatient (BNVA) | payer MEDICARE, MEDICAID, SELFPAY | PROVIDERS: PCP Family Medicine; Visit Provider Nurse Practitioner Family | DX: I11.0 Hypertensive heart disease with heart failure (principal); I50.22 Chronic systolic (congestive) heart failure; Z87.891 Personal history of nicotine dependence | CPT/HCPCS: 36415; 80048; 83880; 99214 ==

== ENCOUNTER 2023-10-01 14:26 | Outpatient (CLI) | payer MEDICARE, MEDICAID, SELFPAY ==
[2023-10-01 15:31] LABS: Alanine Aminotransferase 113 U/L (0-41); Albumin Level 3.8 g/dL (3.5-5.2); Alkaline Phosphatase 127 U/L (40-130); Aspartate Amino Transferase 73 U/L (0-40); Blood Urea Nitrogen 29 mg/dL (8-23); Calcium 9.1 mg/dL (8.5-10.5); Carbon Dioxide 29 mmol/L (22-29); Chloride 98 mmol/L (98-107); Globulin 4.5 g/dL (1.3-4.6); Glomerular Filtration Rate 61.3 mL/min (90-130); Glucose 233 mg/dL (65-115); NT Pro B Type Natriuretic Pept 1201 pg/mL (0-125); Osmolality Calculated 293 mOsm/kg (285-295); Sodium 135 mmol/L (136-145); Total Bilirubin 0.3 mg/dL (0.15-1.2); Total Protein 8.3 g/dL (6.6-8.7)
[2023-10-01 15:39] LABS: Anion Gap 11.9 (5-19); Potassium 3.9 mmol/L (3.5-5.1)
== END 2023-10-01 14:27 | disposition home or self-care (01) ==
LOC: LAB 14:28
PROVIDERS: PCP Family Medicine; Visit Provider Nurse Practitioner Family
DX: I50.22 Chronic systolic (congestive) heart failure (principal); E11.65 Type 2 diabetes mellitus with hyperglycemia; E78.2 Mixed hyperlipidemia
CPT/HCPCS: 36415; 80053; 83880

== ENCOUNTER 2023-10-24 09:43 | Emergency (ER) | payer MEDICARE, SELFPAY ==
[2023-10-24 09:48] VITALS: BP 149/97; PULSE 92; TEMP 36.8; O2SAT 99; BMI 33.0
[2023-10-24 11:12] LABS: Basophils # 0.1 10^3/uL (0.0-0.1); Basophils % 0.8 %; Eosinophils # 0.2 10^3/uL (0.0-0.8); Eosinophils % 2.1 %; Lymphocytes % 22.1 %; Mean Corpuscular Hemoglobin 27.5 pg (27-33); Mean Corpuscular Volume 83.2 fl (82-101); Mean Platelet Volume 10.7 fL (7.4-10.4); Monocytes # 0.6 10^3/uL (0.2-0.9); Monocytes % 6.3 %; Neutrophils # 6.32 10^3/uL (1.8-7.7); Neutrophils % 68.6 %; Nucleated Red Blood Cells % 0 %; Platelet Count 236 10^3/cmm (157-399); Red Blood Count 5.53 10^6/uL (3.85-5.65); Red Cell Distribution Width 13.6 % (12.1-15.1)
[2023-10-24 11:38] LABS: Alanine Aminotransferase 132 U/L (0-41); Albumin Level 3.6 g/dL (3.5-5.2); Alkaline Phosphatase 109 U/L (40-130); Anion Gap 15.9 (5-19); Aspartate Amino Transferase 38 U/L (0-40); Blood Urea Nitrogen 18 mg/dL (8-23); Calcium 9.3 mg/dL (8.5-10.5); Carbon Dioxide 23 mmol/L (22-29); Chloride 100 mmol/L (98-107); Creatinine Clr Calc Pharmacy 112.3046; Globulin 3.8 g/dL (1.3-4.6); Glomerular Filtration Rate 85.5 mL/min (90-130); Glucose 266 mg/dL (65-115); Lipase 37 U/L (13-60); Osmolality Calculated 291 mOsm/kg (285-295); Potassium 3.9 mmol/L (3.5-5.1); Sodium 135 mmol/L (136-145); Total Bilirubin 0.3 mg/dL (0.15-1.2); Total Protein 7.4 g/dL (6.6-8.7)
[2023-10-24 11:43] VITALS: BP 133/90; PULSE 99; RESP 16; O2SAT 100
--- NOTE | 2023-10-24 11:48 | CT_ITS ---
WS: [id number] CT ABDOMEN AND PELVIS WITH CONTRAST HISTORY: right flank pain TECHNIQUE: Imaging performed of the abdomen and pelvis with IV contrast. Single phase imaging of the abdomen. Coronal and sagittal reformats are submitted. All CT scans at [facility] use at [facility] one of these dose optimization techniques: automated exposure control; mA and/or kV adjustment per patient size (includes targeted exams where dose is matched to clinical indication); or iterative re construction. IV CONTRAST: Omnipaque 350; 100 mL IV. Oral contrast: No DLP: 1147.96 mGy.cm COMPARISON: 06/17/2023 Lower thorax: Increased pleural fat deposition. Heart is normal size. No hiatal hernia. Liver/biliary system: Normal size with no intrahepatic dilatation. Gallbladder: Cholelithiasis. Several stones are present within the gallbladder. No pericholecystic fl uid or gallbladder wall thickening. Mild hyperemia towards the neck of the gallbladder. No common sidney e duct dilatation. Pancreas: Normal size pancreas and pancreatic duct. No adjacent inflammation. Spleen: Normal size spleen. No mass or infarct. Adrenal glands: Mild adrenal gland nodularity. Right kidney: Normal. Left kidney: Normal size kidney. Cortical hypodensities too small to characterize in the upper pole. No obstruction. Aorta: Mild atherosclerosis with no aneurysm. Celiac axis and SMA are patent but do contain plaque. Lymphadenopathy: None. Free fluid: None. GI tract: Stomach is moderately distended with fluid and air. No small bowel obstruction. Normal appe ndix. No colon obstruction. Abdominal wall: Unremarkable abdominal wall. No hernia. Pelvis: Normally distended urinary bladder. No adenopathy or free fluid. Patent bilateral inguinal ca nals. Bones: Moderate lumbar degenerative disc disease and spondylosis. CT/CT abdomen pelvis w con* [id number] IMPRESSION: 1. Cholelithiasis with mild gallbladder wall hyperemia. Gallbladder ultrasound may provide additional information concerning acute cholecystitis. No bile [place] t dilatation. 2. No renal obstruction or perinephric stranding. 3. Normal appendix. 4. No GI tract obstruction.
--- NOTE | 2023-10-24 11:50 | W.ED.ABDPA2 ---
HPI - Abdominal Pain General: Chief Complaint: Abdominal Pain Stated Complaint: abd pain Time Seen by Provider: 10/24/23 11:38 Source: patient and family Mode of arrival: ambulatory History of Present Illness: This patient comes to the emergency department because of concerns about an episode of right flank pain that began this morning somewhere around 4:30 AM and continued for a period of time and then eventually went away and did not return since that time however he is never experienced pain like this before and therefore he is concerned. He has a history of coronary disease and congestive heart failure but is not having any cardiovascular symptoms. He has not any fevers or chills. He did get nauseated when the pain was at its maximum but has not had any nausea or vomiting since that time. He states states that he had an urge to have a bowel movement but did not have a bowel movement despite going to the toilet. He did urinate a small amount of urine. No prior history of kidney stones bowel obstruction etc. He has diabetes which is insulin controlled as well. He has had a prior below the knee amputation because of the nonhealing diabetic ulcer. He was no history of back injury etc. MD elicited complaint: abdominal pain and flank pain Pertinent past history: none Pain Consistency: now resolved Radiation: R flank Associated Symptoms: Denies chills, diarrhea, dysuria, fever(s), hematemesis and melena Review of Systems Const: Denies: fever(s) or chills ENMT: Denies: odynophagia, nasal discharge or nasal congestion Card: Denies: chest pain or palpitations Resp: Denies: dyspnea, productive cough or non-productive cough GI: Denies: hematemesis, diarrhea or melena : Reports: flank pain; Denies: difficulty urinating, dysuria or urinary frequency Musc: Denies: neck pain, back pain or extremity pain Skin/Breast: Denies: rash or pruritus Neuro: Denies: headache(s) or weakness in extremities Endo: Denies: polyuria or polydipsia [facility] ED PFSH: Medical History Factor 5 Leiden mutation, heterozygous Constipation History of DVT (deep vein thrombosis) 07/10/2019 DVT involving the popliteal veins bilaterally Closed hand fracture Right 4th metacarpal oblique, injury 04/03/2022 Bilateral leg edema Erectile dysfunction Low testosterone Anxiety and depression Diabetes type 2, uncontrolled Atherosclerotic heart disease of [place] coronary artery with other forms of angina pectoris Hypertension Hyperlipidemia Diabetic neuropathy Adenomatous colon polyp Ischemic cardiomyopathy Abnormal nuclear stress test History of claustrophobia Right foot drop 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 Surgical History Stented coronary artery H/O circumcision Family History Mother , at age 45 Lung cancer smoker Grandmother Diabetes Father , at age 23 Drowning Other Hypertension Denies family history of CAD (coronary artery disease) Social History Smoking and tobacco/nicotine status: former use of tobacco/nicotine Quit status (tobacco/nicotine): has quit using Year quit tobacco: 2005 Alcohol intake: former Substance/Drug Use: former Household members: spouse and children Marital status: Number of children: 7 service: No Current occupational status: disabled 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 Const: COMMON NORMALS: no acute distress and patient oriented x3 GENERAL APPEARANCE: cooperative and comfortable NUTRITIONAL APPEARANCE: overweight HENMT: COMMON NORMALS: normocephalic, Normal nasal mucous membranes and turbinates present, moist oral mucous membranes and oropharynx normal HEAD & SCALP: normocephalic FACE & SINUS: normal facial exam NOSE: Normal nasal mucous membranes and turbinates present Eye: COMMON NORMALS: Equal, round and reactive pupils present, EOMs intact bilaterally and conjunctivae normal CONJUNCTIVA: Yes conjunctivae normal PUPIL: Yes Equal, round and reactive pupils present Neck/C-Spine: COMMON NORMALS: full ROM, no lymphadenopathy, no JVD and No carotid bruits Chest: COMMONS NORMALS: normal inspection of the chest Resp: COMMON NORMALS: normal respiratory effort, No retractions, No use of accessory muscles and clear to auscultation bilaterally EFFORT & INSPECTION: Yes able to speak in complete sentences AUSCULTATION: clear to auscultation bilaterally Cardio: COMMON NORMALS: no JVD, regular rate, regular rhythm, No murmurs present (Cardio) and Peripheral pulses 2+ throughout RATE: regular rate RHYTHM: regular rhythm PERIPHERAL PULSES: Peripheral pulses 2+ throughout GI: COMMON NORMALS: Normal to inspection, nondistended, normoactive bowel sounds present, Soft to palpation, non-tender and no masses PALPATION: Yes Soft to palpation : COMMON NORMALS: Yes no CVA tenderness BLADDER/KIDNEY EXAM: Yes no CVA tenderness Back/Pelvis: COMMON NORMALS: no CVA tenderness, thoracic and lumbar spine normal to inspection, no thoracic nor lumbar tenderness, thoraco-lumbar ROM normal and straight leg raise negative bilaterally Extremity: COMMON NORMALS: full ROM, capillary refill normal and no calf tenderness NARRATIVE EXTREMITY EXAM: He has right BKA. Neuro: COMMON NORMALS: patient oriented x3, moves all extremities, no focal motor deficits and no sensory deficits noted CRANIAL NERVES: Yes CN normal except as noted Psych: COMMON NORMALS: mental status grossly normal Skin: COMMON NORMALS: no rashes or lesions noted, no wounds and turgor normal GENERAL SKIN EXAM: no rashes or lesions noted and turgor normal Course Reevaluation(s): Reevaluation #1: Patient remains comfortable and pain-free. Discussed current findings including CT scan and ultrasound report. He has gallstones without any evidence of cholecystitis Common bile duct obstruction etc. Emily expectant management and reasons to return or seek additional care such as fever increasing pain jaundice etc. Will provide him a prescription for Levsin to help with any recurrent symptoms. Both he and his spouse voiced understanding and were appreciative of care. Time: 14:41 Vital Signs: Vital signs: Vital Signs Temperature 98.2 F 10/24/23 09:48 Pulse Rate 88 10/24/23 13:37 Respiratory Rate 16 10/24/23 11:43 Blood Pressure 159/97 10/24/23 13:37 Pulse Oximetry 96 10/24/23 13:37 Oxygen Delivery Me thod Room Air 10/24/23 13:37 MDM - Abdominal Pain Medical Decision Making This patient initially presented to our emergency department because of right sided right upper quadrant abdominal pain. States the pain began early this morning and had a waxing and waning character to it. At time of arrival to the emergency department he was pain-free and had been for several hours was prompted to come by family. No prior history of similar symptoms no associated fevers chills chest pain etc. Differential included possible biliary colic, renal colic, bowel obstruction or other potential intra-abdominal pathology. Medical examination was reassuring without any evidence of surgical abdomen. Imaging as well as ancillary studies were obtained to help narrow the differential. CT scan did reveal evidence of gallstones without any other obvious pathology and a subsequent gallbladder ultrasound did not reveal wall thickening pericolic fluid or common bile duct dilatation. Patient is being discharged to outpatient and expectant management with good return precautions. No indication for additional observation and/or admission at this time. Lab Data I reviewed the patient's lab results. 10/24/23 11:01 10/24/23 11:01 Labs/Radiology: Radiology Impressions Abdomen/Pelvis CT 10/24/23 11:48 IMPRESSION: 1. Cholelithiasis with mild gallbladder wall hyperemia. Gallbladder ultrasound may provide additional information concerning acute cholecystitis. No bile duct dilatation. 2. No renal obstruction or perinephric stranding. 3. Normal appendix. 4. No GI tract obstruction. Gallbladder Ultrasound 10/24/23 13:25 IMPRESSION: 1. Cholelithiasis without acute cholecystitis. Without evidence for acute cholecystitis. 2. No bile duct dilatation. Laboratory Results WBC 9.20 10^3/uL (3.29-11.43) 10/24/23 11:01 RBC 5.53 10^6/uL (3.85-5.65) 10/24/23 11:01 Hgb 15.20 g/dL (11.27-16.99) 10/24/23 11:01 Hct 46.0 % (37-53) 10/24/23 11:01 MCV 83.2 fl (82-101) 10/24/23 11:01 MCH 27.5 pg (27-33) 10/24/23 11:01 MCHC 33.0 g/dL (30-55) 10/24/23 11:01 RDW 13.6 % (12.1-15.1) 10/24/23 11:01 Plt Count 236 10^3/cmm (157-399) 10/24/23 11:01 MPV 10.7 fL (7.4-10.4) H 10/24/23 11:01 Neut % (Auto) 68.6 % 10/24/23 11:01 Lymph % (Auto) 22.1 % 10/24/23 11:01 [place] % (Auto) 6.3 % 10/24/23 11:01 Eos % (Auto) 2.1 % 10/24/23 11:01 Baso % (Auto) 0.8 % 10/24/23 11:01 Neut # (Auto) 6.32 10^3/uL (1.8-7.7) 10/24/23 11:01 Lymph # (Auto) 2.0 10^3/uL (0.8-4.8) 10/24/23 11:01 [place] # (Auto) 0.6 10^3/uL (0.2-0.9) 10/24/23 11:01 Eos # (Auto) 0.2 10^3/uL (0.0-0.8) 10/24/23 11:01 Baso # (Auto) 0.1 10^3/uL (0.0-0.1) 10/24/23 11:01 Nucleated RBC % (auto) 0 % 10/24/23 11:01 Nucleated RBCs # 0.0 /100WBC 10/24/23 11:01 Sodium 135 mmol/L (136-145) L 10/24/23 11:01 Potassium 3.9 mmol/L (3.5-5.1) 10/24/23 11:01 Chloride 100 mmol/L (98-107) 10/24/23 11:01 Carbon Dioxide 23 mmol/L (22-29) 10/24/23 11:01 Anion Gap 15.9 (5-19) 10/24/23 11:01 BUN 18 mg/dL (8-23) 10/24/23 11:01 Creatinine 0.9 mg/dL (0.7-1.2) 10/24/23 11:01 GFR Calculation 85.5 mL/min (90-130) L 10/24/23 11:01 Glucose 266 mg/dL (65-115) H 10/24/23 11:01 Calculated Osmolality 291 mOsm/kg (285-295) 10/24/23 11:01 Calcium 9.3 mg/dL (8.5-10.5) 10/24/23 11:01 Total Bilirubin 0.3 mg/dL (0.15-1.2) 10/24/23 11:01 AST 38 U/L (0-40) 10/24/23 11:01 ALT 132 U/L (0-41) H 10/24/23 11:01 Alkaline Phosphatase 109 U/L (40-130) 10/24/23 11:01 Total Protein 7.4 g/dL (6.6-8.7) 10/24/23 11:01 Albumin 3.6 g/dL (3.5-5.2) 10/24/23 11:01 Globulin 3.8 g/dL (1.3-4.6) 10/24/23 11:01 Lipase 37 U/L (13-60) 10/24/23 11:01 Urine Color Yellow (Yellow) 10/24/23 11:29 Urine Appearance Clear (CLEAR) 10/24/23 11:29 Urine pH 7 (5-7) 10/24/23 11:29 Ur Specific [place] 1.020 (1.005-1.030) 10/24/23 11:29 Urine Protein 2+ (Negative) H 10/24/23 11:29 Urine Glucose (UA) 2+ (Normal) H 10/24/23 11:29 Urine Ketones Negative (Negative) 10/24/23 11:29 Urine Blood 2+ (Negative) H 10/24/23 11:29 Urine Nitrate Negative (Negative) 10/24/23 11:29 Urine Bilirubin Neg (Negative) 10/24/23 11:29 Urine Urobilinogen Norm mg/dL (Negative) 10/24/23 11:29 Ur Leukocyte Esterase Negative (Negative) 10/24/23 11:29 Urine RBC 0-4 /hpf (0-2) H 10/24/23 11:29 Urine WBC None /hpf (0-5) 10/24/23 11:29 Ur Squamous Epith Cells None /hpf (0-5) 10/24/23 11:29 Amorphous Sediment Not Reportable 10/24/23 11:29 Urine Bacteria None /hpf (NONE) 10/24/23 11:29 Urine Mucus Trace /hpf 10/24/23 11:29 All radiology interpretation(s) finalized by discharge Discharge Plan Discharge Patient Disposition: Home Clinical Impression: Biliary colic Cholelithiasis Qualifiers: Cholelithiasis location: gallbladder Biliary obstruction: without biliary obstruction Condition: Stable Prescriptions: New hyoscyamine sulfate [Levsin] 0.125 mg tablet 0.125 mg PO TID PRN (Reason: biliary colic) Qty: 30 0RF No Action (DME) blood-glucose meter Misc See Rx Instructions .MEDSUPPLY Qty: 1 0RF Rx Instructions: Use as directed for checking blood sugar (DME) Blood Glucose Test Strip See Rx Instructions .MEDSUPPLY Qty: 200 12RF Rx Instructions: Use as directed with glucometer to check blood sugar (DME) lancets Misc See Rx Instructions .MEDSUPPLY Qty: 200 12RF Rx Instructions: Use as directed to prick skin for blood sugar checks (DME) Stump Security Vehicle Patrol Officer See Rx Instructions .Route .MEDSUPPLY Qty: 1 0RF Rx Instructions: As directed by [place] and [place] rizatriptan 5 mg tablet See Rx Instructions PO .COMPLEX Qty: 10 0RF Rx Instructions: Take 1 tablet at onset of headache; if no relief, may repeat 1 tablet after at least 2 hrs. NEEDED furosemide 40 mg tablet 40 mg PO DAILY Qty: 90 2RF potassium chloride [Klor-Con 8] 8 mEq tablet extended release 8 meq PO DAILY Qty: 90 0RF (DME) lancets [BD Ultra Fine Lancets] 33 gauge misc See Rx Instructions .Route Qty: 100 0RF Rx Instructions: As directed, test blood suagr once a day. (DME) Accu-Chek Guide test strips Strip See Rx Instructions .Route Qty: 100 0RF Rx Instructions: As directed, check blood sugar, 4 times daily (DME) blood-glucose meter [Accu-Chek Guide Glucose Meter] Misc See Rx Instructions .Route Qty: 1 0RF Rx Instructions: As directed, test blood sugar once a day. (DME) Blood pressure machine See Rx Instructions .Route .MEDSUPPLY Qty: 1 0RF Rx Instructions: As directed, check blood pressure each day. (DME) fast form ulnar gutter See Rx Instructions .ROUTE .MEDSUPPLY Qty: 1 0RF Rx Instructions: As directed (DME) right below knee prosthesis See Rx Instructions .Route .MEDSUPPLY Qty: 1 0RF Rx Instructions: As directed (DME) Cam Boot and Wheel Chair See Rx Instructions .Route .MEDSUPPLY Qty: 1 0RF Rx Instructions: As directed HOME (DME) wheel chair leg linux developer See Rx Instructions .Route .MEDSUPPLY Qty: 1 0RF Rx Instructions: As directed Fiasp FlexTouch U-100 Insulin 100 unit/mL (3 mL) insulin pen See Rx Instructions .ROUTE .COMPLEX Qty: 15 0RF Dose Instruction: INJECT THREE TIMES DAILY BEFORE MEALS. GLUCOSE: 141-180:4U; 181-220:6U; 221-260:8U; 261-300:10U; 301-350:12U; 351-400:14U; >400:16U Rx Instructions: INJECT THREE TIMES DAILY BEFORE MEALS. GLUCOSE: 141-180:4U; 181-220:6U; 221-260:8U; 261-300:10U; 301-350:12U; 351-400:14U; >400:16U (DME) Right below the knne prosthetic See Rx Instructions .Route .MEDSUPPLY Qty: 1 0RF Rx Instructions: As directed albuterol sulfate 90 mcg/actuation HFA aerosol inhaler 2 puff INHALATION QID PRN (Reason: Shortness Of Breath Or Wheezing) Xarelto 20 mg tablet 20 mg PO DAILY Tresiba FlexTouch U-100 100 unit/mL (3 mL) insulin pen 36 unit SUBCUT QAM Discharge Orders: Discharge ED (Routine); Ordered 10/24/23 Ordered By: Can Cramer Referrals: Sondra May MD [Primary Care Provider] - Discharge Diet: Usual diet, Low Salt and Low Fat Discharge Activity: Increase activity as tolerated Patient Instructions: Abdominal Pain (ED), Opioid Safety, Pain Management Activity Restrictions/Additional Instructions: As we discussed you had pain which was likely due to your gallbladder and the gallstones. You do not have evidence of obstruction or infection and therefore safe to go home. As we discussed if you develop fever, increasing pain, inability eat or drink or other concerning symptoms you should return to the emergency department for reevaluation. We have provided a prescription that you may use if you get occasional similar episodes of discomfort however if the pain persist for more than several hours or you develop the other symptoms that we discussed you should return for reevaluation. Coding Level of Care Code ED Supervisor Slate Splitting for Lolita Gallegos
[2023-10-24] MEDS: lactated ringers 1,000 ML 999 ML IV (12:04)
[2023-10-24 12:07] LABS: Add Urine Microscopic? YES; Bilirubin Urine Neg (Negative); Blood Urine 2+ (Negative); Glucose Urine UA 2+ (Normal); Ketones Urine Negative (Negative); Leukocyte Esterase Urine Negative (Negative); Nitrate Urine Negative (Negative); Protein Urine 2+ (Negative); Urine Appearance Clear (CLEAR); Urine Color Yellow (Yellow); Urobilinogen Urine Norm (Negative); pH Urine 7 (5-7)
[2023-10-24 12:19] LABS: Add Urine Culture? No; Mucus Urine TRACE /hpf; RBC Urine 0-4 /hpf (0-2)
[2023-10-24] MEDS: iohexol 350 mg/mL 500 mL Btl (per mL) IV (12:34)
--- NOTE | 2023-10-24 13:25 | US_ITS ---
WS: [id number] RIGHT UPPER QUADRANT ULTRASOUND HISTORY: CT abd suggested GB disease COMPARISON: 02/21/2019 Liver: 16.9 cm in length. Normal size liver and echogenicity. No bile duct dilatation or mass. Portal Vein: Normal hepatopetal flow with monophasic waveform. Gallbladder: Normally distended gallbladder. Several stones noted within the gallbladder. Largest sto ne in the dependent portion of the gallbladder measuring at least 3.5 cm with shadowing. No perichole cystic fluid. No Alvarez sign. CBD: 0.3 cm Pancreas: Completely obscured by bowel gas. Right kidney: 13.1 cm in length. Normal size and echogenicity. No hydronephrosis or mass. Aorta and IVC: Unremarkable abdominal aorta and IVC. No ascites. US/US gall bladder 62554 IMPRESSION: 1. Cholelithiasis without acute cholecystitis. Without evidence for acute chol ecystitis. 2. No bile duct dilatation.
[2023-10-24 13:37] VITALS: BP 159/97; PULSE 88; O2SAT 96
[2023-10-24 14:54] VITALS: BP 159/97; PULSE 88; O2SAT 96
== END 2023-10-24 15:08 | disposition home or self-care (01) ==
PROVIDERS: Emergency Provider Emergency Medicine; PCP Family Medicine
DX: K80.20 Calculus of gallbladder without cholecystitis without obstruction (principal); Z79.4 Long term (current) use of insulin; Z89.511 Acquired absence of right leg below knee; Z87.891 Personal history of nicotine dependence; I25.10 Atherosclerotic heart disease of native coronary artery without angina pectoris; I25.5 Ischemic cardiomyopathy; I10 Essential (primary) hypertension; E78.5 Hyperlipidemia, unspecified; E11.40 Type 2 diabetes mellitus with diabetic neuropathy, unspecified
CPT/HCPCS: 36415; 74177; 76705; 80053; 81001; 83690; 85025; 99285; J7120; Q9967

== ENCOUNTER → 2023-11-06 12:39 | Outpatient (BNVA) | payer MEDICARE, SELFPAY | PROVIDERS: PCP Family Medicine; Visit Provider Orthopaedic Surgery | DX: Z98.890 Other specified postprocedural states (principal) | CPT/HCPCS: 99213 ==

== ENCOUNTER 2023-11-29 07:38 | Outpatient (CLI) | payer MEDICARE, MEDICAID, SELFPAY ==
[2023-11-29 08:08] LABS: Basophils # 0.1 10^3/uL (0.0-0.1); Basophils % 1.1 %; Eosinophils # 0.2 10^3/uL (0.0-0.8); Hematocrit 43.9 % (37-53); Lymphocytes # 2.1 10^3/uL (0.8-4.8); Lymphocytes % 29.1 %; Mean Corpuscular Hemoglobin 28.5 pg (27-33); Mean Corpuscular Volume 86.2 fl (82-101); Mean Platelet Volume 10.1 fL (7.4-10.4); Monocytes # 0.5 10^3/uL (0.2-0.9); Monocytes % 7.4 %; Neutrophils # 4.18 10^3/uL (1.8-7.7); Neutrophils % 59.3 %; Nucleated Red Blood Cells % 0 %; Platelet Count 264 10^3/cmm (157-399); Red Blood Count 5.09 10^6/uL (3.85-5.65); Red Cell Distribution Width 14.3 % (12.1-15.1); White Blood Count 7.05 10^3/uL (3.29-11.43)
[2023-11-29 08:30] LABS: Creatinine Urine, Random 96 mg/dL (39-259)
[2023-11-29 08:40] LABS: Alanine Aminotransferase 16 U/L (0-41); Albumin Level 3.5 g/dL (3.5-5.2); Alkaline Phosphatase 74 U/L (40-130); Aspartate Amino Transferase 17 U/L (0-40); Blood Urea Nitrogen 19 mg/dL (8-23); Calcium 8.9 mg/dL (8.5-10.5); Carbon Dioxide 28 mmol/L (22-29); Chloride 104 mmol/L (98-107); Chol HDL Ratio 5.39 mg/dL (1.0-5.00); Cholesterol 248 mg/dL (0-200); Globulin 3.5 g/dL (1.3-4.6); Glomerular Filtration Rate 85.5 mL/min (90-130); Glucose 167 mg/dL (65-115); HDL Cholesterol 46 mg/dL (60-100); LDL Cholesterol Calculated 167 mg/dL (50-129); LDL HDL Ratio 3.63 RATIO (0.00-3.22); Osmolality Calculated 296 mOsm/kg (285-295); Prostate Specific Antigen Scr 0.34 ng/mL (0-4); Sodium 140 mmol/L (136-145); Testosterone Total 296.9 ng/dL (193-740); Total Bilirubin 0.3 mg/dL (0.15-1.2); Triglycerides 176 mg/dL (0-150)
[2023-11-29 08:44] LABS: Microalbum Creatinine Ratio Ur 1302 mg/dL (0-20); Microalbumin Random Urine 125 ug/dL (0-20)
[2023-11-29 08:44] LABS: Anion Gap 11.9 (5-19); Potassium 3.9 mmol/L (3.5-5.1)
[2023-11-29 09:29] LABS: Estmated Average Glucose 171; Hemoglobin A1C 7.6 % (4.0-6.0)
[2023-12-01 00:29] LABS: C-Peptide 5.06 ng/mL (0.80-3.85)
== END 2023-11-29 07:39 | disposition home or self-care (01) ==
PROVIDERS: PCP Family Medicine; Visit Provider Internal Medicine
DX: E11.65 Type 2 diabetes mellitus with hyperglycemia (principal); E78.2 Mixed hyperlipidemia; R79.89 Other specified abnormal findings of blood chemistry; Z12.5 Encounter for screening for malignant neoplasm of prostate
CPT/HCPCS: 36415; 80053; 80061; 82044; 83036; 84402; 84403; 84681; 85025; 86337; 86341; G0103

== ENCOUNTER → 2023-12-03 15:03 | Outpatient (BNVA) | payer MEDICARE, MEDICAID, SELFPAY | PROVIDERS: PCP Family Medicine; Referring Provider Family Medicine; Visit Provider Surgery | DX: K80.20 Calculus of gallbladder without cholecystitis without obstruction (principal) | CPT/HCPCS: 99204 ==

== ENCOUNTER → 2023-12-06 10:21 | Outpatient (BNVA) | payer MEDICARE, SELFPAY | PROVIDERS: PCP Family Medicine; Visit Provider Internal Medicine | DX: E11.65 Type 2 diabetes mellitus with hyperglycemia (principal); E78.2 Mixed hyperlipidemia; R79.89 Other specified abnormal findings of blood chemistry; Z79.4 Long term (current) use of insulin | CPT/HCPCS: 99214 ==

== ENCOUNTER 2023-12-11 08:41 | Day surgery (SDC) | payer MEDICARE, SELFPAY ==
[2023-12-11] VITALS (13 sets, daily range): BP systolic 133–156; BP diastolic 73–99; PULSE 83–98; RESP 15–18; TEMP 36.1–36.6; O2SAT 92–99; BMI 33.0
--- NOTE | 2023-12-11 09:05 | ANES.PREANE2 ---
Pre-Anesthetic Assessment Height/Weight: Height 1.85 m Operation Date: 12/11/23 10:35 Proposed Procedures p Laparoscopic Cholecystectomy 51007, K80.20(Not Applicable) - Pavel Weeks DO Familial anesthetic complications: None Was Beta Chio taken within 24 hours: N/A Was Clonidine taken within 24 hours: N/A Last intake: > 8hrs Social No alcohol and No tobacco Exam alert, oriented x 3, clear to auscultation bilaterally and regular rate & rhythm Airway Mallampati: Class IV Dentition: false CV/HEM Coronary Artery Disease, Congestive Heart Failure and Hypertension Factor V leiden w/ frequent DVTs on xarelto HOlter 2022 CONCLUSION: 1. The baseline rhythm was found to be normal sinus rhythm with an overall average heart rate of 97 beats per minute. Rare ventricular and supraventricular ectopics were noted 2. No significant pauses , tachy or bradycardias noted. 3. No symptoms noted. 4. No similar previous studies are available for comparison perfusion scan 2022 IMPRESSIONS 1. Myocardial perfusion imaging revealing moderate area of moderate to severely decreased aseptic involving the inferior, inferolateral knee, and lateral regions with some reversibility in the inferior and anterolateral regions, suggesting myocardial scarring in the distribution of the right coronary artery/circumflex artery with ischemia predominantly in the distribution of the circumflex artery and some involvement of the right coronary artery. 2. Slightly diminished left ventricular ejection fraction of 46%. 3. Segmental wall motion normalities as mentioned above. 3. Mildly dilated LV cavity with end-systolic volume of 81 ml. Compared to the study from 02/21/2019, there is some improvement in the LV ejection fraction with a slightly increased ischemic burden. Clinical correlation is recommended Echo 2023 CONCLUSIONS Diffuse hypokinesia of the left ventricular with ejection fraction of 42%. Mildly dilated LV cavity. Mildly increased left atrial size. Moderate mitral annular calcification. Thickened aortic valve. There is no pericardial effusion. There are no intracardiac masses. The echo contrast study was a suboptimal quality . compared to the study from 03/29/2023, there is slight drop in the LV ejection fraction from 45- 50% to 42 % Metabolic Diabetes Mellitus and Morbid Obesity Neuropsych Seizure and Transient Ischemic Attack Anesthetic Plan ASA status: 4 Anesthesia: General Risk of > 500 ml blood loss (7ml/kg in children): No Medications/Allergies Home Medications Medication Instructions Recorded Confirmed Last Taken Type lancets 33 gauge (BD Ultra Fine #100 ea 08/19/21 12/06/23 Unknown Rx Lancets) blood sugar diagnostic (Blood #200 ea 05/31/23 12/06/23 Unknown Rx Glucose Test strips) blood-glucose meter #1 ea 05/31/23 12/06/23 Unknown Rx lancets #200 ea 05/31/23 12/06/23 Unknown Rx blood sugar diagnostic (Accu-Chek #100 ea 06/05/23 12/06/23 Unknown Rx Guide test strips) blood-glucose meter (Accu-Chek #1 ea 06/05/23 12/06/23 Unknown Rx Guide Glucose Meter) Stump Roofer Assistant #1 ea 07/06/23 12/06/23 Unknown Rx Blood pressure machine #1 ea 08/09/23 12/06/23 Unknown Rx fast form ulnar gutter #1 ea 08/20/23 12/06/23 Unknown Rx right below knee prosthesis #1 ea 08/27/23 12/06/23 Unknown Rx Cam Boot and Wheel Chair #1 ea 08/29/23 12/06/23 Unknown Rx wheel chair leg landscape foreman #1 ea 08/30/23 12/06/23 Unknown Rx furosemide 40 mg tablet 40 mg PO DAILY #90 tabs 09/03/23 12/10/23 12/09/23 Rx Right below the knne prosthetic #1 ea 09/24/23 12/06/23 Unknown Rx albuterol sulfate 90 mcg/actuation 2 puff inhalation QID PRN 10/24/23 12/10/23 Unknown History aerosol inhaler Shortness Of Breath Or Wheezing rivaroxaban 20 mg tablet (Xarelto) 20 mg PO DAILY 10/24/23 12/10/23 12/08/23 History insulin degludec 100 unit/mL (3 36 unit (0.36 mL) SUBCUT DAILY 10/30/23 12/10/23 12/10/23 Rx mL) subcutaneous pen (Tresiba #32.4 mL FlexTouch U-100 insulin) acetaminophen 300 mg-codeine 15 mg 1 tab PO Q8H PRN pain #30 tabs 11/21/23 12/10/23 12/11/23 Rx tablet rizatriptan 5 mg tablet See Rx Instructions PO .COMPLEX 11/21/23 12/10/23 Unknown Rx #10 tabs insulin regular human 100 unit/mL See Rx Instructions SUBCUT TID #15 11/26/23 12/10/23 12/10/23 Rx (3 mL) subcutaneous pen (Novolin R mL FlexPen) evolocumab 140 mg/mL subcutaneous 140 mg SUBCUT .q2 weeks #2 mL 12/06/23 12/10/23 Unknown Rx pen injector (Repatha SureClick) Allergies Allergy/AdvReac Type Severity Reaction Status Date / Time No Known Allergies Allergy Verified 12/11/23 08:59 [facility] Anesthesia Medical History Factor 5 Leiden mutation, heterozygous Constipation History of DVT (deep vein thrombosis) 07/10/2019 DVT involving the popliteal veins bilaterally Closed hand fracture Right 4th metacarpal oblique, injury 04/03/2022 Bilateral leg edema Erectile dysfunction Low testosterone Anxiety and depression Diabetes type 2, uncontrolled Atherosclerotic heart disease of [place] coronary artery with other forms of angina pectoris Hypertension Hyperlipidemia Diabetic neuropathy Adenomatous colon polyp Ischemic cardiomyopathy Abnormal nuclear stress test History of claustrophobia Right foot drop 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 Surgical History Stented coronary artery H/O circumcision Family History Mother , at age 45 Lung cancer smoker Grandmother Diabetes Father , at age 23 Drowning Other Hypertension Denies family history of CAD (coronary artery disease) Social History Smoking and tobacco/nicotine status: never used tobacco/nicotine Quit status (tobacco/nicotine): has quit using Year quit tobacco: 2006 Alcohol intake: former Substance/Drug Use: former Household members: spouse and children Marital status: Number of children: 7 service: No Current occupational status: disabled 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
--- NOTE | 2023-12-11 09:05 | W.PM.OPSUD ---
Surgery/Procedure H&P Update DATE OF PROCEDURE: December 11, 2023 DATE H&P PERFORMED: 12/03/23 H&P UPDATE INFORMATION: I have reviewed H&P completed within last 30 days, I have examined patient prior to procedure and No changes to prior documentation PLANNED PROCEDURE: Operation Date: 12/11/23 10:35 Proposed Procedures p Laparoscopic Cholecystectomy 34125, K80.20(Not Applicable) - Pavel Weeks,
[2023-12-11] MEDS: sodium chloride 0.9% 1,000 ML 30 ML IV (09:14)
--- NOTE | 2023-12-11 09:15 | ECG_ITS ---
[facility] Test Date: 2023-12-11 Pat Name: Adrián Vinson Department: Room: Gender: Male Wiping Rag Washer: : 1960 Requested By: Tyesha Connell Order Number: [id number] Nadir MD: Thor Landin M.D. Measurements Intervals [place] Rate: 90 P: 45 NJ: 155 QRS: -1 QRSD: 104 T: 83 QT: 387 QTc: 476 Interpretive Statements SINUS RHYTHM POSSIBLE LEFT ATRIAL ENLARGEMENT [-0.1mV P-WAVE IN V1/V2] SEPTAL MYOCARDIAL INFARCTION , OF INDETERMINATE AGE [40+ ms Q WAVE IN V1/V2] Compared to ECG 06/17/2023 01:06:23 Myocardial infarct finding now present Sinus tachycardia no longer present Short [place] interval no longer present T-wave abnormality no longer present Electronically Signed On 12-11-2023 10:13:01 CDT by Thor Landin M.D. [email or web address]
[2023-12-11 09:23] LABS: Glucose Point of Care 123 mg/dL (70-110)
[2023-12-11] MEDS: ceFAZolin 2,000 mg SDV 2000 MG IVP (09:52)
[2023-12-11] MEDS: lidocaine-epi 2% PF 1:200,000 20 mL SDV XX (10:11)
--- NOTE | 2023-12-11 10:47 | P.OP_ITS ---
Operative Report Date of procedure: December 11, 2023 Surgeon: Pavel Weeks DO Brief History: This is a very pleasant 63-year-old gentleman who presented to my office with abdominal pain. He was diagnosed with symptomatic cholelithiasis. Laparoscopic cholecystectomy was indicated. The risks and benefits were explained and documented. Procedure: Preoperative diagnosis: Symptomatic cholelithiasis Postoperative diagnosis: Same Procedure performed: Laparoscopic cholecystectomy Surgeon: Dr. Pavel Weeks DO Estimated blood loss: 5 mL Specimens: Gallbladder to pathology Complications: None apparent Description of procedure: Patient was wheeled into the operative room and placed on the OR table in a supine position. Abdomen was inspected prepped and draped in usual sterile fashion. Time-out was performed and all present were in agreement. A 15 blade scalp was used to make a stab incision in the left upper quadrant and intra- abdominal insufflation was achieved using a Veress needle. After localizing the tissue incisions were made and a 5 millimeter trocar was placed into the umbilicus as well as 2 in the right upper quadrant. A 12 millimeter trocar was placed in the epigastrium. Gallbladder was grasped and elevated. The triangle of Calot was carefully dissected using blunt dissection and electrocautery until the triangle of [place]ot clearly identified. The cystic duct was clipped proximally and double clipped distally. The duct was then ligated proximally. The cystic artery was doubly clipped and ligated. The gallbladder was then removed from the liver bed using electrocautery. The gallbladder was removed from the abdomen using an Endo-Catch bag through the epigastric incision. The liver bed was inspected and no bleeding was seen. The abdomen was irrigated and suctioned. All ports removed. Skin was washed and dried. Incisions were closed with 4-0 Monocryl in a subcuticular interrupted fashion. Skin glue was applied. Patient tolerated the procedure well.
[2023-12-11] MEDS: fentaNYL 50 mcg/mL INJ 2mL IVP (11:15)
[2023-12-11] MEDS: ondansetron 2 mg/ML SDV 2 mL 4 MG IVP ×2 (11:26→11:30)
[2023-12-11] MEDS: metoclopramide 5 mg/mL SDV 2 mL 10 MG IVP (11:55)
[2023-12-11] MEDS: fentaNYL 50 mcg/mL INJ 2mL 100 MCG (11:59)
[2023-12-11] MEDS: HYDROcodone-acetaminophen 7.5-325 mg Tablet 1 TAB PO (12:20)
--- NOTE | 2023-12-11 13:00 | ANE.PACU2 ---
Inpatient post-anesthesia follow up: Airway intact: Yes Vital signs: Temperature 97.2 F Pulse Rate 97 Respiratory Rate 16 Blood Pressure 136/79 Pulse Oximetry 98 Oxygen Delivery Me thod Room Air Oxygen Flow Rate Fraction of Inspir ed Oxygen Hydration adequate: Yes Nausea and vomiting: No Pain level: 1 Mental status: Baseline
== END 2023-12-11 13:03 | disposition home or self-care (01) ==
PROVIDERS: PCP Family Medicine; Visit Provider Surgery
PROC: 0FT44ZZ Resection of Gallbladder, Percutaneous Endoscopic Approach (ICD-10-PCS; CPT 47562; principal; 2023-12-11 10:35)
DX: K80.10 Calculus of gallbladder with chronic cholecystitis without obstruction (principal); I25.110 Atherosclerotic heart disease of native coronary artery with unstable angina pectoris; I11.0 Hypertensive heart disease with heart failure; I50.9 Heart failure, unspecified; E11.9 Type 2 diabetes mellitus without complications; E66.01 Morbid (severe) obesity due to excess calories; Z68.33 Body mass index [BMI] 33.0-33.9, adult; Z86.73 Personal history of transient ischemic attack (TIA), and cerebral infarction without residual deficits; Z79.4 Long term (current) use of insulin; Z86.718 Personal history of other venous thrombosis and embolism
CPT/HCPCS: 47562; 36416; 82962; 88304; 93005; J0690; J1100; J1885; J2405; J2704; J2710; J2765; J3010; J3490; J7030

== ENCOUNTER → 2023-12-31 12:51 | Outpatient (BNVA) | payer MEDICARE, SELFPAY | PROVIDERS: PCP Family Medicine; Visit Provider Surgery | DX: K21.9 Gastro-esophageal reflux disease without esophagitis; K92.2 Gastrointestinal hemorrhage, unspecified; Z86.010 Personal history of colon polyps; L05.91 Pilonidal cyst without abscess | CPT/HCPCS: 99214 ==

== ENCOUNTER → 2024-01-01 14:30 | Outpatient (BNVA) | payer MEDICARE, SELFPAY | PROVIDERS: PCP Family Medicine; Visit Provider Podiatrist Foot & Ankle Surgery | DX: L97.522 Non-pressure chronic ulcer of other part of left foot with fat layer exposed (principal) | CPT/HCPCS: 87070; 87075; 87205 ==

== ENCOUNTER 2024-01-01 14:56 | Outpatient (CLI) | payer MEDICARE, SELFPAY | END 2024-01-01 14:57 | disposition home or self-care (01) | LOC: SPT 14:57 | PROVIDERS: PCP Family Medicine; Visit Provider Podiatrist Foot & Ankle Surgery | DX: Z46.89 Encounter for fitting and adjustment of other specified devices (principal); L97.522 Non-pressure chronic ulcer of other part of left foot with fat layer exposed | CPT/HCPCS: 97760; L4361 ==

== ENCOUNTER → 2024-01-08 07:31 | Outpatient (BNVA) | payer MEDICARE, SELFPAY | PROVIDERS: PCP Family Medicine; Visit Provider Podiatrist Foot & Ankle Surgery | DX: E11.40 Type 2 diabetes mellitus with diabetic neuropathy, unspecified (principal); E11.65 Type 2 diabetes mellitus with hyperglycemia; Z89.511 Acquired absence of right leg below knee; L97.522 Non-pressure chronic ulcer of other part of left foot with fat layer exposed; E11.621 Type 2 diabetes mellitus with foot ulcer; Z79.4 Long term (current) use of insulin | CPT/HCPCS: 99213 ==

== ENCOUNTER → 2024-01-29 14:41 | Outpatient (BNVA) | payer MEDICARE, SELFPAY | PROVIDERS: PCP Family Medicine; Visit Provider Podiatrist Foot & Ankle Surgery | DX: E11.40 Type 2 diabetes mellitus with diabetic neuropathy, unspecified (principal); E11.65 Type 2 diabetes mellitus with hyperglycemia; Z89.511 Acquired absence of right leg below knee; Z79.4 Long term (current) use of insulin | CPT/HCPCS: 99213 ==

== ENCOUNTER → 2024-02-07 14:41 | Outpatient (BNVA) | payer MEDICARE, SELFPAY | PROVIDERS: PCP Family Medicine; Visit Provider Internal Medicine | DX: I25.118 Atherosclerotic heart disease of native coronary artery with other forms of angina pectoris (principal); Z86.718 Personal history of other venous thrombosis and embolism; D68.51 Activated protein C resistance; I11.0 Hypertensive heart disease with heart failure; I50.22 Chronic systolic (congestive) heart failure; E78.2 Mixed hyperlipidemia | CPT/HCPCS: 99213 ==

== ENCOUNTER → 2024-02-12 12:27 | Outpatient (BNVA) | payer MEDICARE, SELFPAY | PROVIDERS: PCP Family Medicine; Visit Provider Family Medicine | DX: N17.9 Acute kidney failure, unspecified (principal); N50.82 Scrotal pain | CPT/HCPCS: 81000; 81003 ==

== ENCOUNTER 2024-02-20 09:39 | Day surgery (SDC) | payer MEDICARE, SELFPAY ==
[2024-02-20 09:52] VITALS: BP 154/84; PULSE 88; RESP 18; TEMP 36.1; O2SAT 100; BMI 33.0
[2024-02-20] MEDS: sodium chloride 0.9% 1,000 ML 30 ML IV (10:13)
[2024-02-20 10:19] LABS: Glucose Point of Care 128 mg/dL (70-110)
--- NOTE | 2024-02-20 11:31 | P.HP_ITS ---
Providers/Chief Complaint Primary Care Provider: Sondra May MD Chief Complaint: Z12.11 History of Present Illness Adrián Vinson is a 63 year old male Review of Systems General: Reports: 10 or more systems reviewed and unremarkable except in HPI and below Medications/Allergies Home Medications Medication Instructions Recorded Confirmed Last Taken Type lancets 33 gauge (BD Ultra Fine #100 ea 08/19/21 02/20/24 Unknown Rx Lancets) blood sugar diagnostic (Blood #200 ea 05/31/23 02/20/24 Unknown Rx Glucose Test strips) blood-glucose meter #1 ea 05/31/23 02/20/24 Unknown Rx lancets #200 ea 05/31/23 02/20/24 Unknown Rx blood sugar diagnostic (Accu-Chek #100 ea 06/05/23 02/20/24 Unknown Rx Guide test strips) blood-glucose meter (Accu-Chek #1 ea 06/05/23 02/20/24 Unknown Rx Guide Glucose Meter) Stump Research Laboratory Specialist #1 ea 07/06/23 02/20/24 Unknown Rx fast form ulnar gutter #1 ea 08/20/23 02/20/24 Unknown Rx right below knee prosthesis #1 ea 08/27/23 02/20/24 Unknown Rx wheel chair leg supervisor cutting and boning #1 ea 08/30/23 02/20/24 Unknown Rx furosemide 40 mg tablet 40 mg PO DAILY #90 tabs 09/03/23 02/20/24 02/19/24 Rx Right below the knne prosthetic #1 ea 09/24/23 02/20/24 Unknown Rx albuterol sulfate 90 mcg/actuation 2 puff inhalation QID PRN 10/24/23 02/20/24 Unknown History aerosol inhaler Shortness Of Breath Or Wheezing rivaroxaban 20 mg tablet (Xarelto) 20 mg PO DAILY 10/24/23 02/20/24 02/17/24 History insulin degludec 100 unit/mL (3 36 unit (0.36 mL) SUBCUT DAILY 10/30/23 02/20/24 02/18/24 Rx mL) subcutaneous pen (Tresiba #32.4 mL FlexTouch U-100 insulin) rizatriptan 5 mg tablet See Rx Instructions PO .COMPLEX 11/21/23 02/20/24 Unknown Rx #10 tabs insulin regular human 100 unit/mL See Rx Instructions SUBCUT TID #15 11/26/23 02/20/24 02/18/24 Rx (3 mL) subcutaneous pen (Novolin R mL FlexPen) docusate sodium 100 mg capsule 100 mg PO BID #14 caps 12/11/23 02/20/24 02/19/24 Rx (Colace) polyethylene glycol 3350 17 17 g PO DAILY #119 grams 12/11/23 02/20/24 Unknown Rx gram/dose oral powder (Miralax) ondansetron 4 mg disintegrating 4 mg PO Q8H #20 tabs 12/13/23 02/20/24 02/11/24 Rx tablet Cam Boot to left #1 ea 01/01/24 02/20/24 Unknown Rx mupirocin 2 % topical ointment 1 applic topical BID 2 weeks #22 01/29/24 02/20/24 02/20/24 Rx grams acetaminophen 300 mg-codeine 15 mg 1 tab PO Q8H PRN pain #30 tabs 02/14/24 02/20/24 Unknown Rx tablet Allergies Allergy/AdvReac Type Severity Reaction Status Date / Time No Known Allergies Allergy Verified 02/20/24 09:54 PFSH Acute PFSH: Medical History Factor 5 Leiden mutation, heterozygous Constipation History of DVT (deep vein thrombosis) 07/10/2019 DVT involving the popliteal veins bilaterally Closed hand fracture Right 4th metacarpal oblique, injury 04/03/2022 Bilateral leg edema Erectile dysfunction Low testosterone Anxiety and depression Diabetes type 2, uncontrolled Atherosclerotic heart disease of [place] coronary artery with other forms of angina pectoris Hypertension Hyperlipidemia Diabetic neuropathy Adenomatous colon polyp Ischemic cardiomyopathy Abnormal nuclear stress test History of claustrophobia Right foot drop 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 Surgical History Stented coronary artery H/O circumcision Family History Mother , at age 45 Lung cancer smoker Grandmother Diabetes Father , at age 23 Drowning Other Hypertension Denies family history of CAD (coronary artery disease) Social History Smoking and tobacco/nicotine status: never used tobacco/nicotine Quit status (tobacco/nicotine): has quit using Year quit tobacco: 2006 Alcohol intake: former Substance/Drug Use: former Household members: spouse and children Marital status: Number of children: 7 service: No Current occupational status: disabled 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 Abiola/Shinto: Shinto Special abiola needs: Yes (seth) Agree to transfusion: Yes Vitals/I&O/Wt Last Vital Signs Temp 97.0 F L 02/20/24 09:52 Pulse 88 02/20/24 09:52 Resp 18 02/20/24 09:52 BP 154/84 02/20/24 09:52 Pulse Ox 100 02/20/24 09:52 O2 Del Method Room Air 02/20/24 09:52 Weight last 48 hrs Weight 250 lb A&P Assessment and plan (1) GI bleed: (2) History of colon polyps: (3) GERD (gastroesophageal reflux disease): Plan EGD and colonoscopy Attestations Medical Necessity Statement*: Home Coding Level of Care Code Acute Code for g Fwd Diagnoses GI bleed K92.2 History of colon polyps Z86.010 GERD (gastroesophageal reflux disease) K21.9
--- NOTE | 2024-02-20 11:34 | ANES.PREANE2 ---
Pre-Anesthetic Assessment Height/Weight: Height 6 ft 1 in Weight 250 lb Temp Pulse Resp BP Pulse Ox O2 Del Method 97.0 F L 88 18 154/84 100 Room Air 02/20/24 09:52 02/20/24 09:52 02/20/24 09:52 02/20/24 09:52 02/20/24 09:52 02/20/24 09:52 Preop Diagnosis: Screening colonoscopy Operation Date: 02/20/24 11:00 Proposed Procedures p EGD - 99416, 25394 ,g0105, z12.11(Not Applicable) - Pavel Weeks DO s Colonoscopy(Not Applicable) - Pavel Weeks DO Was Beta Chio taken within 24 hours: N/A Was Clonidine taken within 24 hours: N/A Last intake: Intake Last Liquid Date 02/19/24 Last Liquid Time 21:00 Last Solid Date 02/18/24 Last Solid Time 17:30 Social No alcohol and No tobacco Exam alert, oriented x 3, clear to auscultation bilaterally and regular rate & rhythm Airway Submandibular: within normal limits Cervical ROM: within normal limits Mallampati: Class III Comments: Comments: Edentulous Anesthetic Plan ASA status: 3 Anesthesia: MAC Other: No prior issues with anesthesia in the past Completed bowel prep GERD Factor V Leiden mutation, on chronic Xarelto. Taken 2 days ago History of TIA Uncontrolled type 2 diabetes, on insulin. Blood sugar 128 CAD. Previous stent placed in 2019 Echo 05/2023 showing EF 42% with LV dilation EKG showing sinus rhythm with old anterior DE Plan for MAC anesthesia Medications/Allergies Home Medications Medication Instructions Recorded Confirmed Last Taken Type lancets 33 gauge (BD Ultra Fine #100 ea 08/19/21 02/20/24 Unknown Rx Lancets) blood sugar diagnostic (Blood #200 ea 05/31/23 02/20/24 Unknown Rx Glucose Test strips) blood-glucose meter #1 ea 05/31/23 02/20/24 Unknown Rx lancets #200 ea 05/31/23 02/20/24 Unknown Rx blood sugar diagnostic (Accu-Chek #100 ea 06/05/23 02/20/24 Unknown Rx Guide test strips) blood-glucose meter (Accu-Chek #1 ea 06/05/23 02/20/24 Unknown Rx Guide Glucose Meter) Stump Scarfing Machine Operator #1 ea 07/06/23 02/20/24 Unknown Rx fast form ulnar gutter #1 ea 08/20/23 02/20/24 Unknown Rx right below knee prosthesis #1 ea 08/27/23 02/20/24 Unknown Rx wheel chair leg environmental studies department chair #1 ea 08/30/23 02/20/24 Unknown Rx furosemide 40 mg tablet 40 mg PO DAILY #90 tabs 09/03/23 02/20/24 02/19/24 Rx Right below the knne prosthetic #1 ea 09/24/23 02/20/24 Unknown Rx albuterol sulfate 90 mcg/actuation 2 puff inhalation QID PRN 10/24/23 02/20/24 Unknown History aerosol inhaler Shortness Of Breath Or Wheezing rivaroxaban 20 mg tablet (Xarelto) 20 mg PO DAILY 10/24/23 02/20/24 02/17/24 History insulin degludec 100 unit/mL (3 36 unit (0.36 mL) SUBCUT DAILY 10/30/23 02/20/24 02/18/24 Rx mL) subcutaneous pen (Tresiba #32.4 mL FlexTouch U-100 insulin) rizatriptan 5 mg tablet See Rx Instructions PO .COMPLEX 11/21/23 02/20/24 Unknown Rx #10 tabs insulin regular human 100 unit/mL See Rx Instructions SUBCUT TID #15 11/26/23 02/20/24 02/18/24 Rx (3 mL) subcutaneous pen (Novolin R mL FlexPen) docusate sodium 100 mg capsule 100 mg PO BID #14 caps 12/11/23 02/20/24 02/19/24 Rx (Colace) polyethylene glycol 3350 17 17 g PO DAILY #119 grams 12/11/23 02/20/24 Unknown Rx gram/dose oral powder (Miralax) ondansetron 4 mg disintegrating 4 mg PO Q8H #20 tabs 12/13/23 02/20/24 02/11/24 Rx tablet Cam Boot to left #1 ea 01/01/24 02/20/24 Unknown Rx mupirocin 2 % topical ointment 1 applic topical BID 2 weeks #22 01/29/24 02/20/24 02/20/24 Rx grams acetaminophen 300 mg-codeine 15 mg 1 tab PO Q8H PRN pain #30 tabs 02/14/24 02/20/24 Unknown Rx tablet Allergies Allergy/AdvReac Type Severity Reaction Status Date / Time No Known Allergies Allergy Verified 02/20/24 09:54 Current Medications Generic Name Dose Route Start Last Admin Trade Name Donald PRN Reason Stop Dose Admin Sodium Chloride 1,000 mls @ 30 mls/hr 02/20/24 10:00 02/20/24 10:13 Sodium Chloride 0.9% IV 02/21/24 09:59 30 mls/hr .Q24H SILVINA Administration PFSH Anesthesia Medical History Factor 5 Leiden mutation, heterozygous Constipation History of DVT (deep vein thrombosis) 07/10/2019 DVT involving the popliteal veins bilaterally Closed hand fracture Right 4th metacarpal oblique, injury 04/03/2022 Bilateral leg edema Erectile dysfunction Low testosterone Anxiety and depression Diabetes type 2, uncontrolled Atherosclerotic heart disease of [place] coronary artery with other forms of angina pectoris Hypertension Hyperlipidemia Diabetic neuropathy Adenomatous colon polyp Ischemic cardiomyopathy Abnormal nuclear stress test History of claustrophobia Right foot drop 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 Surgical History Stented coronary artery H/O circumcision Family History Mother , at age 45 Lung cancer smoker Grandmother Diabetes Father , at age 23 Drowning Other Hypertension Denies family history of CAD (coronary artery disease) Social History Smoking and tobacco/nicotine status: never used tobacco/nicotine Quit status (tobacco/nicotine): has quit using Year quit tobacco: 2006 Alcohol intake: former Substance/Drug Use: former Household members: spouse and children Marital status: Number of children: 7 service: No Current occupational status: disabled 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
[2024-02-20 12:31] VITALS: BP 135/73; PULSE 79; RESP 18; TEMP 36.1; O2SAT 99
--- NOTE | 2024-02-20 12:35 | ANE.PACU2 ---
Inpatient post-anesthesia follow up: Airway intact: Yes Vital signs: Temperature 97.0 F Pulse Rate 88 Respiratory Rate 18 Blood Pressure 154/84 Pulse Oximetry 100 Oxygen Delivery Me thod Room Air Oxygen Flow Rate Fraction of Inspir ed Oxygen Hydration adequate: Yes Nausea and vomiting: No Pain level: 1 Mental status: Baseline
[2024-02-20 12:36] VITALS: BP 155/83; PULSE 79; RESP 18; O2SAT 98
[2024-02-20 12:46] VITALS: BP 162/95; PULSE 80; RESP 18; O2SAT 100
== END 2024-02-20 13:13 | disposition home or self-care (01) ==
PROVIDERS: PCP Family Medicine; Visit Provider Surgery
PROC: 0DJ08ZZ Inspection of Upper Intestinal Tract, Via Natural or Artificial Opening Endoscopic (ICD-10-PCS; CPT 43235; principal; 2024-02-20 11:00)
PROC: 0DJD8ZZ Inspection of Lower Intestinal Tract, Via Natural or Artificial Opening Endoscopic (ICD-10-PCS; CPT 45378; 2024-02-20 11:00)
DX: Z12.11 Encounter for screening for malignant neoplasm of colon (principal); D12.3 Benign neoplasm of transverse colon; K29.80 Duodenitis without bleeding; K63.5 Polyp of colon; Z86.718 Personal history of other venous thrombosis and embolism; E11.42 Type 2 diabetes mellitus with diabetic polyneuropathy; Z79.4 Long term (current) use of insulin; I10 Essential (primary) hypertension; E78.5 Hyperlipidemia, unspecified; Z95.5 Presence of coronary angioplasty implant and graft; Z86.0100 Personal history of colon polyps, unspecified; K21.9 Gastro-esophageal reflux disease without esophagitis; Z86.73 Personal history of transient ischemic attack (TIA), and cerebral infarction without residual deficits; I25.10 Atherosclerotic heart disease of native coronary artery without angina pectoris
CPT/HCPCS: 36416; 43239; 43251; 45385; 82962; 88305; J0360; J2704; J7030

== ENCOUNTER 2024-02-22 12:23 | Outpatient (CLI) | payer MEDICARE, SELFPAY ==
[2024-02-22 13:16] LABS: Creatinine Urine, Random 58 mg/dL (39-259)
[2024-02-22 13:21] LABS: Estmated Average Glucose 157; Hemoglobin A1C 7.1 % (4.0-6.0)
[2024-02-22 13:30] LABS: Alanine Aminotransferase 38 U/L (0-41); Albumin Level 3.7 g/dL (3.5-5.2); Alkaline Phosphatase 83 U/L (40-130); Blood Urea Nitrogen 17 mg/dL (8-23); Calcium 9.1 mg/dL (8.5-10.5); Carbon Dioxide 26 mmol/L (22-29); Chloride 101 mmol/L (98-107); Chol HDL Ratio 4.25 mg/dL (1.0-5.00); Cholesterol 217 mg/dL (0-200); Globulin 3.3 g/dL (1.3-4.6); Glomerular Filtration Rate 85.5 mL/min (90-130); Glucose 181 mg/dL (65-115); HDL Cholesterol 51 mg/dL (60-100); LDL Cholesterol Calculated 130 mg/dL (50-129); LDL HDL Ratio 2.55 RATIO (0.00-3.22); Osmolality Calculated 290 mOsm/kg (285-295); Sodium 137 mmol/L (136-145); Testosterone Total 289.9 ng/dL (193-740); Total Bilirubin 0.2 mg/dL (0.15-1.2); Triglycerides 180 mg/dL (0-150)
[2024-02-22 13:31] LABS: Aspartate Amino Transferase 47 U/L (0-40)
[2024-02-22 13:31] LABS: Microalbum Creatinine Ratio Ur 1655 mg/dL (0-20); Microalbumin Random Urine 96 ug/dL (0-20)
== END 2024-02-22 12:24 | disposition home or self-care (01) ==
LOC: LAB 12:23
PROVIDERS: PCP Family Medicine; Visit Provider Internal Medicine
DX: E11.65 Type 2 diabetes mellitus with hyperglycemia (principal); E78.2 Mixed hyperlipidemia; R79.89 Other specified abnormal findings of blood chemistry
CPT/HCPCS: 36415; 80053; 80061; 82044; 83036; 84403

== ENCOUNTER 2024-02-26 09:55 | Day surgery (SDC) | payer MEDICARE, SELFPAY ==
[2024-02-26] VITALS (13 sets, daily range): BP systolic 120–181; BP diastolic 67–98; PULSE 83–89; RESP 12–18; TEMP 36.1–36.2; O2SAT 94–100
[2024-02-26] MEDS: sodium chloride 0.9% 1,000 ML 30 ML IV (10:32)
[2024-02-26 10:36] LABS: Glucose Point of Care 184 mg/dL (70-110)
--- NOTE | 2024-02-26 10:44 | P.HP_ITS ---
Providers/Chief Complaint Primary Care Provider: Sondra May MD Chief Complaint: L02.91 History of Present Illness Adrián Vinson is a 63 year old male Review of Systems General: Reports: 10 or more systems reviewed and unremarkable except in HPI and below Medications/Allergies Home Medications Medication Instructions Recorded Confirmed Last Taken Type lancets 33 gauge (BD Ultra Fine #100 ea 08/19/21 02/20/24 Unknown Rx Lancets) blood sugar diagnostic (Blood #200 ea 05/31/23 02/20/24 Unknown Rx Glucose Test strips) blood-glucose meter #1 ea 05/31/23 02/20/24 Unknown Rx lancets #200 ea 05/31/23 02/20/24 Unknown Rx blood sugar diagnostic (Accu-Chek #100 ea 06/05/23 02/20/24 Unknown Rx Guide test strips) blood-glucose meter (Accu-Chek #1 ea 06/05/23 02/20/24 Unknown Rx Guide Glucose Meter) Stump Fur Puller #1 ea 07/06/23 02/20/24 Unknown Rx fast form ulnar gutter #1 ea 08/20/23 02/20/24 Unknown Rx right below knee prosthesis #1 ea 08/27/23 02/20/24 Unknown Rx wheel chair leg substance abuse clinician #1 ea 08/30/23 02/20/24 Unknown Rx furosemide 40 mg tablet 40 mg PO DAILY #90 tabs 09/03/23 02/25/24 02/25/24 Rx Right below the knne prosthetic #1 ea 09/24/23 02/20/24 Unknown Rx albuterol sulfate 90 mcg/actuation 2 puff inhalation QID PRN 10/24/23 02/25/24 Unknown History aerosol inhaler Shortness Of Breath Or Wheezing insulin degludec 100 unit/mL (3 36 unit (0.36 mL) SUBCUT DAILY 10/30/23 02/25/24 02/25/24 Rx mL) subcutaneous pen (Tresiba #32.4 mL FlexTouch U-100 insulin) rizatriptan 5 mg tablet See Rx Instructions PO .COMPLEX 11/21/23 02/25/24 Unknown Rx #10 tabs insulin regular human 100 unit/mL See Rx Instructions SUBCUT TID #15 11/26/23 02/25/24 02/24/24 Rx (3 mL) subcutaneous pen (Novolin R mL FlexPen) docusate sodium 100 mg capsule 100 mg PO BID #14 caps 12/11/23 02/25/24 02/23/24 Rx (Colace) polyethylene glycol 3350 17 17 g PO DAILY #119 grams 12/11/23 02/25/24 02/23/24 Rx gram/dose oral powder (Miralax) ondansetron 4 mg disintegrating 4 mg PO Q8H #20 tabs 12/13/23 02/25/24 02/11/24 Rx tablet Cam Boot to left #1 ea 01/01/24 02/20/24 Unknown Rx mupirocin 2 % topical ointment 1 applic topical BID 2 weeks #22 01/29/24 02/25/24 02/23/24 Rx grams acetaminophen 300 mg-codeine 15 mg 1 tab PO Q8H PRN pain #30 tabs 02/14/24 02/25/24 Unknown Rx tablet pantoprazole 40 mg tablet,delayed 40 mg PO BID 6 weeks #84 tabs 02/20/24 02/25/24 02/25/24 Rx release rivaroxaban 20 mg tablet (Xarelto) 20 mg PO DAILY #30 tabs 02/25/24 Unknown Rx Allergies Allergy/AdvReac Type Severity Reaction Status Date / Time No Known Allergies Allergy Verified 02/20/24 09:54 PFSH Acute PFSH: Medical History History of colon polyps Factor 5 Leiden mutation, heterozygous Constipation History of DVT (deep vein thrombosis) 07/10/2019 DVT involving the popliteal veins bilaterally Closed hand fracture Right 4th metacarpal oblique, injury 04/03/2022 Bilateral leg edema Erectile dysfunction Low testosterone Anxiety and depression Diabetes type 2, uncontrolled Atherosclerotic heart disease of [place] coronary artery with other forms of angina pectoris Hypertension Hyperlipidemia Diabetic neuropathy Adenomatous colon polyp Ischemic cardiomyopathy Abnormal nuclear stress test History of claustrophobia Right foot drop 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 Surgical History Stented coronary artery H/O circumcision Family History Mother , at age 45 Lung cancer smoker Grandmother Diabetes Father , at age 23 Drowning Other Hypertension Denies family history of CAD (coronary artery disease) Social History Smoking and tobacco/nicotine status: never used tobacco/nicotine Quit status (tobacco/nicotine): has quit using Year quit tobacco: 2006 Alcohol intake: former Substance/Drug Use: former Household members: spouse and children Marital status: Number of children: 7 service: No Current occupational status: disabled 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 Ears : Pinnae and external canal are normal. Hearing is normal. Eyes : PERRLA, Sclera and injection are normal. No conjunctival discharge. Nose : Mucous membranes are without erythema. Throat : buccal mucosa is normal, gums are without significant recession or hypertrophy. Lungs : Equal chest rise bilaterally, no use of accessory muscles, trachea is midline. Cor : Rate and rhythm are normal. Abdomen : Soft, ND, NT, no g/r/m Extremities : No edema, no cyanosis or clubbing, dorsalis pedis pulses are present bilaterally, non-tender to palpation of calves. Upper extremities are normal bilaterally. Back : non-tender to palpation, no CVA tenderness. Neuro : CN II - XII intact, Upper and lower extremities have equal and full strength A&P Assessment and plan (1) Pilonidal cyst: Plan Excision of pilonidal cyst with cleft lift procedure Attestations Medical Necessity Statement*: Home Coding Level of Care Code Acute Code for Chg Fwd Diagnoses Pilonidal cyst L05.91
--- NOTE | 2024-02-26 12:09 | P.ANESASSM_ITS ---
Pre-Anesthetic Assessment Height/Weight: Height 1.85 m Weight 113.398 kg Temp Pulse Resp BP Pulse Ox O2 Del Method 97.2 F L 83 18 181/94 100 Room Air 02/26/24 10:21 02/26/24 10:21 02/26/24 10:21 02/26/24 10:21 02/26/24 10:21 02/26/24 10:21 Operation Date: 02/26/24 11:45 Proposed Procedures p Excision of pilonidal cyst with cleft lift procedure 85968, 81675, L02.91(Not Applicable) - Pavel Weeks DO Last intake: Intake Last Liquid Date 02/25/24 Last Liquid Time 00:00 Last Solid Date 02/25/24 Last Solid Time 17:00 CV/HEM Coronary Artery Disease (stents), Congestive Heart Failure and Hypertension Factor V leiden HOlter 2022 CONCLUSION: 1. The baseline rhythm was found to be normal sinus rhythm with an overall average heart rate of 97 beats per minute. Rare ventricular and supraventricular ectopics were noted 2. No significant pauses , tachy or bradycardias noted. 3. No symptoms noted. 4. No similar previous studies are available for comparison perfusion scan 2022 IMPRESSIONS 1. Myocardial perfusion imaging revealing moderate area of moderate to severely decreased aseptic involving the inferior, inferolateral knee, and lateral regions with some reversibility in the inferior and anterolateral regions, suggesting myocardial scarring in the distribution of the right coronary artery/circumflex artery with ischemia predominantly in the distribution of the circumflex artery and some involvement of the right coronary artery. 2. Slightly diminished left ventricular ejection fraction of 46%. 3. Segmental wall motion normalities as mentioned above. 3. Mildly dilated LV cavity with end-systolic volume of 81 ml. Compared to the study from 02/21/2019, there is some improvement in the LV ejection fraction with a slightly increased ischemic burden. Clinical correlation is recommended Echo 2023 CONCLUSIONS Diffuse hypokinesia of the left ventricular with ejection fraction of 42%. Mildly dilated LV cavity. Mildly increased left atrial size. Moderate mitral annular calcification. Thickened aortic valve. There is no pericardial effusion. There are no intracardiac masses. The echo contrast study was a suboptimal quality . compared to the study from 03/29/2023, there is slight drop in the LV ejection fraction from 45- 50% to 42 % GI Gastroesophageal Reflux Disease Metabolic Diabetes Mellitus and Morbid Obesity Neuropsych Transient Ischemic Attack Anesthetic Plan ASA status: 4 Anesthesia: General Risk of > 500 ml blood loss (7ml/kg in children): No Medications/Allergies Home Medications Medication Instructions Recorded Confirmed Last Taken Type lancets 33 gauge (BD Ultra Fine #100 ea 08/19/21 02/20/24 Unknown Rx Lancets) blood sugar diagnostic (Blood #200 ea 05/31/23 02/20/24 Unknown Rx Glucose Test strips) blood-glucose meter #1 ea 05/31/23 02/20/24 Unknown Rx lancets #200 ea 05/31/23 02/20/24 Unknown Rx blood sugar diagnostic (Accu-Chek #100 ea 06/05/23 02/20/24 Unknown Rx Guide test strips) blood-glucose meter (Accu-Chek #1 ea 06/05/23 02/20/24 Unknown Rx Guide Glucose Meter) 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 #1 ea 07/06/23 02/20/24 Unknown Rx fast form ulnar gutter #1 ea 08/20/23 02/20/24 Unknown Rx right below knee prosthesis #1 ea 08/27/23 02/20/24 Unknown Rx wheel chair leg tape transferrer #1 ea 08/30/23 02/20/24 Unknown Rx furosemide 40 mg tablet 40 mg PO DAILY #90 tabs 09/03/23 02/25/24 02/25/24 Rx Right below the knne prosthetic #1 ea 09/24/23 02/20/24 Unknown Rx albuterol sulfate 90 mcg/actuation 2 puff inhalation QID PRN 10/24/23 02/25/24 Unknown History aerosol inhaler Shortness Of Breath Or Wheezing insulin degludec 100 unit/mL (3 36 unit (0.36 mL) SUBCUT DAILY 10/30/23 02/25/24 02/25/24 Rx mL) subcutaneous pen (Tresiba #32.4 mL FlexTouch U-100 insulin) rizatriptan 5 mg tablet See Rx Instructions PO .COMPLEX 11/21/23 02/25/24 Unknown Rx #10 tabs insulin regular human 100 unit/mL See Rx Instructions SUBCUT TID #15 11/26/23 02/25/24 02/24/24 Rx (3 mL) subcutaneous pen (Novolin R mL FlexPen) docusate sodium 100 mg capsule 100 mg PO BID #14 caps 12/11/23 02/25/2402/22/24 Rx (Colace) polyethylene glycol 3350 17 17 g PO DAILY #119 grams 12/11/23 02/25/24 02/23/24 Rx gram/dose oral powder (Miralax) ondansetron 4 mg disintegrating 4 mg PO Q8H #20 tabs 12/13/23 02/25/24 02/11/24 Rx tablet Cam Boot to left #1 ea 01/01/24 02/20/24 Unknown Rx mupirocin 2 % topical ointment 1 applic topical BID 2 weeks #22 01/29/24 02/25/24 02/23/24 Rx grams acetaminophen 300 mg-codeine 15 mg 1 tab PO Q8H PRN pain #30 tabs 02/14/24 02/25/24 Unknown Rx tablet pantoprazole 40 mg tablet,delayed 40 mg PO BID 6 weeks #84 tabs 02/20/24 02/25/24 02/25/24 Rx release rivaroxaban 20 mg tablet (Xarelto) 20 mg PO DAILY #30 tabs 02/25/24 Unknown Rx Allergies Allergy/AdvReac Type Severity Reaction Status Date / Time No Known Allergies Allergy Verified 02/20/24 09:54 Current Medications Generic Name Dose Route Start Last Admin Trade Name Freq PRN Reason Stop Dose Admin Sodium Chloride 1,000 mls @ 30 mls/hr 02/26/24 10:15 02/26/24 10:32 Sodium Chloride 0.9% IV 02/27/24 10:14 30 mls/hr .Q24H SILVINA Administration PFSH Anesthesia Medical History History of colon polyps Factor 5 Leiden mutation, heterozygous Constipation History of DVT (deep vein thrombosis) 07/10/2019 DVT involving the popliteal veins bilaterally Closed hand fracture Right 4th metacarpal oblique, injury 04/03/2022 Bilateral leg edema Erectile dysfunction Low testosterone Anxiety and depression Diabetes type 2, uncontrolled Atherosclerotic heart disease of [place] coronary artery with other forms of angina pectoris Hypertension Hyperlipidemia Diabetic neuropathy Adenomatous colon polyp Ischemic cardiomyopathy Abnormal nuclear stress test History of claustrophobia Right foot drop 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 Surgical History Stented coronary artery H/O circumcision Family History Mother , at age 45 Lung cancer smoker Grandmother Diabetes Father , at age 23 Drowning Other Hypertension Denies family history of CAD (coronary artery disease) Social History Smoking and tobacco/nicotine status: never used tobacco/nicotine Quit status (tobacco/nicotine): has quit using Year quit tobacco: 2006 Alcohol intake: former Substance/Drug Use: former Household members: spouse and children Marital status: Number of children: 7 service: No Current occupational status: disabled 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
[2024-02-26] MEDS: fentaNYL 50 mcg/mL INJ 2mL IVP ×2 (12:25→15:00)
[2024-02-26] MEDS: piperacillin-tazobactam 3.375 GM in sodium chloride 0.9% (plus) 50 ML IV (12:43)
--- NOTE | 2024-02-26 14:11 | PM.OP ---
Operative Report Date of procedure: February 26, 2024 Surgeon: Pavel Weeks DO Procedure: Pre-op diagnosis: Pilonidal cyst Post-op diagnosis: same Procedure done: Cleft lift procedure (50037) with excision of pilonidal cyst (29289) Implants: 15 Georgian Jimmy drain Specimens removed/disposition: Elliptical skin and subcutaneous excision with pilonidal cyst Surgeon: Pavel Weeks DO Anesthesia: General and Local Estimated blood loss (mL): 5 Complications: None apparent Brief History: This is a very pleasant 63-year-old gentleman who presented to my office with a pilonidal cyst and history of pilonidal abscess. He completed a course of antibiotics. He desired excision. Cleft lift procedure with excision of pilonidal cyst is indicated. The risks and benefits were explained and documented. Procedure: Patient was wheeled operative room and general endotracheal intubation was achieved on the [facility] by the department of anesthesia. The patient was then placed prone on the OR table. Preoperatively the bilateral buttocks were pressed together to identify the area where the skin touches. This area was marked. The buttocks were then taped spread apart. The inner federico cleft was inspected prepped and draped in usual sterile fashion. A timeout was performed. All present were in agreement. Pilonidal sinus was located more to the right of the inner federico cleft. An elliptical excision measuring 4 cm in width was performed over the pilonidal sinus from just left midline and into the right buttock. Electrocautery was then used to cut the fascia and dissect down through the subcutaneous tissue and around the pilonidal sinus, removing the sinus en bloc. There were a couple of sinus tracts both superiorly and to the left that were included in the specimen. A fasciocutaneous flap was then created on the left side with Bovie cautery in cautery mode, going back 4 cm. The thickness of the flap was just over 1 cm. Hemostasis was achieved electrocautery. Lauren was then placed down into the midline of the excision. The subcutaneous tissue was then approximated using 2-0 Vicryl in a simple interrupted fashion. A 15 Georg[place] Jimmy drain was then placed into the wound coming out of the left buttock. This was sutured in place with 3-0 silk. The dermis was then approximated with interrupted 3-0 Vicryl. Skin was closed with running 4-0 Monocryl. Dermabond was applied. A drain sponge was applied around the drain. Tissue came together off midline and without tension. Patient tolerated procedure well.
[2024-02-26] MEDS: HYDROcodone-acetaminophen 10-325 mg Tablet 1 TAB PO (15:41)
--- NOTE | 2024-02-26 16:00 | ANE.PACU2 ---
Inpatient post-anesthesia follow up: Airway intact: Yes Vital signs: Temperature 97.2 F Pulse Rate 86 Respiratory Rate 16 Blood Pressure 175/89 Pulse Oximetry 98 Oxygen Delivery Me thod Room Air Oxygen Flow Rate 8 Fraction of Inspir ed Oxygen Hydration adequate: Yes Nausea and vomiting: No Pain level: 1 Mental status: Baseline
== END 2024-02-26 16:00 | disposition home or self-care (01) ==
PROVIDERS: PCP Family Medicine; Visit Provider Surgery
PROC: (CPT 11772; principal; 2024-02-26 11:45)
DX: L05.91 Pilonidal cyst without abscess (principal); Z86.718 Personal history of other venous thrombosis and embolism; E78.5 Hyperlipidemia, unspecified; E11.42 Type 2 diabetes mellitus with diabetic polyneuropathy; I11.0 Hypertensive heart disease with heart failure; I50.9 Heart failure, unspecified; Z95.5 Presence of coronary angioplasty implant and graft; I25.10 Atherosclerotic heart disease of native coronary artery without angina pectoris; K21.9 Gastro-esophageal reflux disease without esophagitis; E66.01 Morbid (severe) obesity due to excess calories; Z68.33 Body mass index [BMI] 33.0-33.9, adult; Z86.73 Personal history of transient ischemic attack (TIA), and cerebral infarction without residual deficits; Z79.4 Long term (current) use of insulin
CPT/HCPCS: 11772; 36416; 82962; 88304; J1100; J1170; J2250; J2405; J2543; J2704; J3010; J3490; J7030

== ENCOUNTER → 2024-02-27 09:14 | Outpatient (BNVA) | payer MEDICARE, SELFPAY | PROVIDERS: PCP Family Medicine; Visit Provider Internal Medicine | DX: E11.65 Type 2 diabetes mellitus with hyperglycemia (principal); E78.2 Mixed hyperlipidemia; R79.89 Other specified abnormal findings of blood chemistry; Z95.5 Presence of coronary angioplasty implant and graft; Z79.4 Long term (current) use of insulin | CPT/HCPCS: 99214 ==

== ENCOUNTER 2024-03-08 18:05 | Emergency (ER) | payer MEDICARE, SELFPAY ==
[2024-03-08 18:38] VITALS: BP 145/91; PULSE 88; RESP 16; TEMP 36.8; O2SAT 99; BMI 33.0
== END 2024-03-08 21:13 | disposition left against medical advice (07) ==
PROVIDERS: Emergency Provider Family Medicine; PCP Family Medicine
DX: Z53.21 Procedure and treatment not carried out due to patient leaving prior to being seen by health care provider (principal)

== ENCOUNTER → 2024-03-10 08:59 | Outpatient (BNVA) | payer MEDICARE, SELFPAY | PROVIDERS: PCP Family Medicine; Visit Provider Surgery | DX: Z98.890 Other specified postprocedural states (principal) | CPT/HCPCS: 99024 ==

== ENCOUNTER → 2024-04-01 13:49 | Outpatient (BNVA) | payer MEDICARE, SELFPAY | PROVIDERS: PCP Family Medicine; Visit Provider Podiatrist Foot & Ankle Surgery | DX: E11.40 Type 2 diabetes mellitus with diabetic neuropathy, unspecified (principal); E11.65 Type 2 diabetes mellitus with hyperglycemia; Z89.511 Acquired absence of right leg below knee; E11.621 Type 2 diabetes mellitus with foot ulcer; L97.322 Non-pressure chronic ulcer of left ankle with fat layer exposed; Z79.4 Long term (current) use of insulin | CPT/HCPCS: 99213 ==

== ENCOUNTER → 2024-04-07 14:09 | Outpatient (BNVA) | payer MEDICARE, MEDICAID, SELFPAY | PROVIDERS: PCP Family Medicine; Visit Provider Thoracic Surgery (Cardiothoracic Vascular Surgery) | DX: E11.52 Type 2 diabetes mellitus with diabetic peripheral angiopathy with gangrene (principal); E11.622 Type 2 diabetes mellitus with other skin ulcer; L97.321 Non-pressure chronic ulcer of left ankle limited to breakdown of skin | CPT/HCPCS: 97597; 99203 ==

== ENCOUNTER → 2024-04-14 13:28 | Outpatient (BNVA) | payer MEDICARE, MEDICAID, SELFPAY | PROVIDERS: PCP Family Medicine; Visit Provider Thoracic Surgery (Cardiothoracic Vascular Surgery) | DX: E11.52 Type 2 diabetes mellitus with diabetic peripheral angiopathy with gangrene (principal); E11.622 Type 2 diabetes mellitus with other skin ulcer; L97.321 Non-pressure chronic ulcer of left ankle limited to breakdown of skin; L97.311 Non-pressure chronic ulcer of right ankle limited to breakdown of skin | CPT/HCPCS: 97597; A6212 ==

== ENCOUNTER → 2024-04-24 12:53 | Outpatient (BNVA) | payer MEDICARE, MEDICAID, SELFPAY | PROVIDERS: PCP Family Medicine; Visit Provider Thoracic Surgery (Cardiothoracic Vascular Surgery) | DX: E11.52 Type 2 diabetes mellitus with diabetic peripheral angiopathy with gangrene (principal); E11.621 Type 2 diabetes mellitus with foot ulcer; L97.322 Non-pressure chronic ulcer of left ankle with fat layer exposed; L97.521 Non-pressure chronic ulcer of other part of left foot limited to breakdown of skin | CPT/HCPCS: 11042; 97597; A6219 ==

== ENCOUNTER → 2024-05-15 13:00 | Outpatient (BNVA) | payer MEDICARE, MEDICAID, SELFPAY | PROVIDERS: PCP Family Medicine; Visit Provider Thoracic Surgery (Cardiothoracic Vascular Surgery) | DX: E11.52 Type 2 diabetes mellitus with diabetic peripheral angiopathy with gangrene (principal); E11.622 Type 2 diabetes mellitus with other skin ulcer; L97.322 Non-pressure chronic ulcer of left ankle with fat layer exposed; E11.621 Type 2 diabetes mellitus with foot ulcer; L97.521 Non-pressure chronic ulcer of other part of left foot limited to breakdown of skin | CPT/HCPCS: 11042; 97597; A6210; A6212 ==

== ENCOUNTER → 2024-05-23 10:37 | Outpatient (BNVA) | payer MEDICARE, MEDICAID, SELFPAY | PROVIDERS: PCP Family Medicine; Visit Provider Thoracic Surgery (Cardiothoracic Vascular Surgery) | DX: E11.52 Type 2 diabetes mellitus with diabetic peripheral angiopathy with gangrene (principal); E11.622 Type 2 diabetes mellitus with other skin ulcer; L97.322 Non-pressure chronic ulcer of left ankle with fat layer exposed; E11.621 Type 2 diabetes mellitus with foot ulcer; L97.521 Non-pressure chronic ulcer of other part of left foot limited to breakdown of skin | CPT/HCPCS: 11042; 97597; A6248 ==

== ENCOUNTER 2024-05-23 13:48 | Outpatient (CLI) | payer MEDICARE, MEDICAID, SELFPAY ==
[2024-05-23 14:39] LABS: Alanine Aminotransferase 22 U/L (0-41); Albumin Level 3.7 g/dL (3.5-5.2); Alkaline Phosphatase 94 U/L (40-130); Aspartate Amino Transferase 18 U/L (0-40); Blood Urea Nitrogen 18 mg/dL (8-23); Calcium 9.6 mg/dL (8.5-10.5); Carbon Dioxide 25 mmol/L (22-29); Chloride 103 mmol/L (98-107); Chol HDL Ratio 8.18 mg/dL (1.0-5.00); Cholesterol 311 mg/dL (0-200); Globulin 3.5 g/dL (1.3-4.6); Glomerular Filtration Rate 85.5 mL/min (90-130); Glucose 142 mg/dL (65-115); HDL Cholesterol 38 mg/dL (60-100); Osmolality Calculated 290 mOsm/kg (285-295); Sodium 138 mmol/L (136-145); Total Bilirubin 0.2 mg/dL (0.15-1.2); Total Protein 7.2 g/dL (6.6-8.7); Triglycerides 401 mg/dL (0-150)
[2024-05-23 14:42] LABS: Anion Gap 14.5 (5-19); Potassium 4.5 mmol/L (3.5-5.1)
[2024-05-23 14:44] LABS: Estmated Average Glucose 192; Hemoglobin A1C 8.3 % (4.0-6.0)
[2024-05-23 14:44] LABS: Creatinine Urine, Random 57 mg/dL (39-259)
[2024-05-23 15:00] LABS: Microalbum Creatinine Ratio Ur 2088 mg/dL (0-20); Microalbumin Random Urine 119 ug/dL (0-20)
[2024-05-23 18:57] LABS: LDL Cholesterol Direct 199 mg/dL (0-100)
== END 2024-05-23 13:49 | disposition home or self-care (01) ==
LOC: LAB 13:49
PROVIDERS: Internal Medicine; PCP Family Medicine; Visit Provider Family Medicine
DX: E11.65 Type 2 diabetes mellitus with hyperglycemia (principal); E78.2 Mixed hyperlipidemia
CPT/HCPCS: 36415; 80053; 80061; 82044; 83036; 83721

== ENCOUNTER → 2024-05-29 10:46 | Outpatient (BNVA) | payer MEDICARE, MEDICAID, SELFPAY | PROVIDERS: PCP Family Medicine; Visit Provider Internal Medicine | DX: E11.65 Type 2 diabetes mellitus with hyperglycemia (principal); E78.2 Mixed hyperlipidemia; R79.89 Other specified abnormal findings of blood chemistry | CPT/HCPCS: 99214 ==

== ENCOUNTER → 2024-06-05 12:58 | Outpatient (BNVA) | payer MEDICARE, MEDICAID, SELFPAY | PROVIDERS: PCP Family Medicine; Visit Provider Thoracic Surgery (Cardiothoracic Vascular Surgery) | DX: E11.52 Type 2 diabetes mellitus with diabetic peripheral angiopathy with gangrene (principal); E11.622 Type 2 diabetes mellitus with other skin ulcer; L97.321 Non-pressure chronic ulcer of left ankle limited to breakdown of skin; Z09 Encounter for follow-up examination after completed treatment for conditions other than malignant neoplasm | CPT/HCPCS: 11042; 97597 ==

== ENCOUNTER → 2024-06-12 11:03 | Outpatient (BNVA) | payer MEDICARE, MEDICAID, SELFPAY | PROVIDERS: PCP Family Medicine; Visit Provider Thoracic Surgery (Cardiothoracic Vascular Surgery) | DX: E11.52 Type 2 diabetes mellitus with diabetic peripheral angiopathy with gangrene (principal); E11.622 Type 2 diabetes mellitus with other skin ulcer; L97.321 Non-pressure chronic ulcer of left ankle limited to breakdown of skin | CPT/HCPCS: 97597 ==

== ENCOUNTER → 2024-06-26 11:02 | Outpatient (BNVA) | payer MEDICARE, MEDICAID, SELFPAY | PROVIDERS: PCP Family Medicine; Visit Provider Thoracic Surgery (Cardiothoracic Vascular Surgery) | DX: E11.52 Type 2 diabetes mellitus with diabetic peripheral angiopathy with gangrene (principal); E11.622 Type 2 diabetes mellitus with other skin ulcer; L97.321 Non-pressure chronic ulcer of left ankle limited to breakdown of skin; L97.421 Non-pressure chronic ulcer of left heel and midfoot limited to breakdown of skin | CPT/HCPCS: 97597; A6210; A6212 ==

== ENCOUNTER 2024-07-06 08:41 | Emergency (ER) | payer MEDICARE, MEDICAID, SELFPAY ==
[2024-07-06] VITALS (7 sets, daily range): BP systolic 144–166; BP diastolic 84–93; PULSE 90–96; RESP 16–18; TEMP 36.6; O2SAT 90–98
--- NOTE | 2024-07-06 08:53 | USR_ITS ---
PROCEDURE INFORMATION: Exam: US Duplex Left Lower Extremity Veins, Limited Exam date and time: 07/06/2024 9:28 AM Age: 63 years old Clinical indication: Swelling (edema) of limb; Lower extremity, left; Additional info: Swelling pain TECHNIQUE: Imaging protocol: Real-time duplex ultrasound of the left extremity with 2-D carmona scale, color Doppler flow and spectral waveform analysis including responses to compression and other maneuvers (when performed) with image documentation. Limited exam focused on the left lower extremity veins. COMPARISON: CT angio abd aorta runof [id number] 06/01/2023 2:12 PM FINDINGS: Left deep veins: There is a thrombus in the left proximal femoral vein with complete occlusion. The common femoral, proximal profunda femoral and popliteal veins are patent without thrombus. Normal Doppler waveforms. Normal compressibility and/or augmentation response. There is a thrombus in the left peroneal vein with complete occlusion. Superficial veins: Greater saphenous vein at the saphenofemoral junction is patent without thrombus. Soft tissues: Unremarkable. US/CV venous duplex [facility] [id number] IMPRESSION: DVT in the left proximal femoral vein and left peroneal vein with complete occlusion.
--- NOTE | 2024-07-06 08:53 | XRR_ITS ---
PROCEDURE INFORMATION: Exam: XR Left Tibia and Fibula Exam date and time: 07/06/2024 9:03 AM Age: 63 years old Clinical indication: Injury or trauma; Fall; Blunt trauma; Knee and lower leg; Left TECHNIQUE: Imaging protocol: Radiologic exam of the left tibia and fibula. Views: 2 views. COMPARISON: CT angio abd aorta runof [id number] 06/01/2023 2:12 PM FINDINGS: Bones/joints: There are mild degenerative changes of the knee joint, predominantly involving the medial joint compartment. There is moderate knee joint effusion. Mild degenerative disease of the ankle joint. Corticated bone fragment around the fibular head, from prior injury. Cortical irregularity at the lateral aspect of the tibial plateau suspicious for a nondisplaced fracture. Soft tissues: Quadriceps enthesophytes. XR/XR tibia fibula LT 2V [id number] IMPRESSION: Cortical irregularity at the lateral aspect of the tibial plateau with moderate knee joint effusion, suspicious for a nondisplaced fracture.
--- NOTE | 2024-07-06 08:57 | ED_ITS ---
HPI - Extremity Problem 2 General: Chief complaint: Extremity Injury, Lower Stated complaint: left leg pain s/p fall Time Seen by Provider: 07/06/24 08:44 History of Present Illness: 63-year-old male presents with left lowe r leg pain, swelling. Patient reports that he fell a couple days ago and hit his pretty right below his knee. Patient reports she has had a lot worsening pain since then. Patient's leg is swollen. He reports this is new however chart review shows that he has got some chronic edema in that left lower leg. Patient does have a right BKA due to peripheral artery disease along with factor V Leiden. Patient does have a chronic wound that is being treated by wound care on the left pretty. Patient has type 2 diabetes and poor wound healing due to his peripheral artery disease. Associated symptoms: Deny chest pain or fever(s) Related Data Home Medications ?Medication ?Instructions ?Recorded ?Confirmed mupirocin 2 % topical ointment 1 applic topical BID RI N Skin 07/06/24 07/06/24 Irritation ondansetron 4 mg disintegrating 4 mg PO Q8H PRN Nausea 07/06/24 07/06/24 tablet tramadol 50 mg tablet 100 mg PO Q6H PRN post op pa in 07/06/24 07/06/24 Previous Rx's ?Medication ?Instructions ?Recorded lancets 33 gauge (BD Ultra Fine #100 ea 08/19/21 Lancets) blood sugar diagnostic (Blood #200 ea 05/31/23 Glucose Test strips) blood-glucose meter #1 ea 05/31/23 lancets #200 ea 05/31/23 blood sugar diagnostic (Accu-Chek #100 ea 06/05/23 Guide test strips) blood-glucose meter (Accu-Chek #1 ea 06/05/23 Guide Glucose Meter) Stump Couture Alterations Dressmaker #1 ea 07/06/23 fast form ulnar gutter #1 ea 08/20/23 right below knee prosthesis #1 ea 08/27/23 wheel chair leg general practice #1 ea 08/30/23 Right below the knne prosthetic #1 ea 09/24/23 rizatriptan 5 mg tablet See Rx Instructions PO .COMP KEREN 11/21/23 #10 tabs Cam Boot to left #1 ea 01/01/24 pantoprazole 40 mg tablet,delayed 40 mg PO BID 6 weeks #84 tabs 02/20/24 release oxycodone-acetaminophen 7.5 mg-325 1 tab PO Q6H PRN pa in 7 days #28 03/10/24 mg tablet tabs furosemide 40 mg tablet 40 mg PO DAILY #90 tabs 05/21 albuterol sulfate 90 mcg/actuation 2 puff inhalation Q ID PRN 06/04/24 aerosol inhaler Shortness Of Breath Or Wheez ing #8.5 grams roho cushion #1 ea 06/04/24 blood-glucose sensor (Dexcom G7 #9 ea 06/18/24 Sensor device) insulin degludec 100 unit/mL (3 56 unit (0.56 mL) SUBC UT DAILY #60 06/19/24 mL) subcutaneous pen mL insulin regular human 100 unit/mL See Rx Instructions SUBCUT TID 90 06/19/24 (3 mL) subcutaneous pen (Novolin R days #30 mL FlexPen) apixaban 5 mg (74 tabs) tablets in See Rx Instructions PO .COMPLEX 07/06/24 a dose pack ([employer] DVT-PE Treat #74 ea 30D Start) cephalexin 500 mg capsule 500 mg PO BID 10 days #20 ca ps 07/06/24 Allergies Allergy/AdvReac Type Severity Reaction Status Date / Time No Known Allergies Allergy Verified 06/04/24 13:03 Review of Systems 2 Const: Denies: fever(s) or chills Card: Reports: edema and swelling of feet/ankles; Denies: chest pain or palpitations Resp: Denies: dyspnea or productive cough Musc: Reports: extremity pain (Left lower leg) and extremity swelling (Left lower leg) [facility] ED 2 PFSH: Medical History History of colon polyps Factor 5 Leiden mutation, heterozygous Constipation History of DVT (deep vein thrombosis) 07/10/2019 DVT involving the popliteal veins bilaterally Closed hand fracture Right 4th metacarpal oblique, injury 04/03/2022 Bilateral leg edema Erectile dysfunction Low testosterone Anxiety and depression Diabetes type 2, uncontrolled Atherosclerotic heart disease of [place] coronary artery with other forms of angina pectoris Hypertension Hyperlipidemia Diabetic neuropathy Adenomatous colon polyp Ischemic cardiomyopathy Abnormal nuclear stress test History of claustrophobia Right foot drop 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 Surgical History S/P pilonidal cyst excision Stented coronary artery H/O circumcision Family History Mother , at age 45 Lung cancer smoker Grandmother Diabetes Father , at age 23 Drowning Other Hypertension Denies family history of CAD (coronary artery disease) Social History Smoking and tobacco/nicotine status: never used tobacco/nicotine Quit status (tobacco/nicotine): has quit using Year quit tobacco: 2005 Alcohol intake: former Substance/Drug Use: former Household members: spouse and children Marital status: Number of children: 7 service: No Current occupational status: disabled 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 Abiola/Sabianist: Sabianist Special abiola needs: Yes (seth) Agree to transfusion: Yes Physical Exam 2 Const: COMMON NORMALS: patient oriented x3 and alert Resp: COMMON NORMALS: normal respiratory effort, No use of accessory muscles and clear to auscultation bilaterally AUSCULTATION: clear to auscultation bilaterally Cardio: COMMON NORMALS: regular rate RATE: regular rate GI: COMMON NORMALS: Soft to palpation and non-tender PALPATION: Yes Soft to palpation Extremity: LEFT LOWER EXTREMITY: Yes lower leg Left lower leg: Yes other (1-2+ edema, mild warmth and erythema, some chronic venous stasis changes.) Neuro: COMMON NORMALS: patient oriented x3 SENSORIUM/ORIENTATION: Yes alert Psych: COMMON NORMALS: mental status grossly normal and Normal thought process present THOUGHT PROCESS: Normal thought process present Skin: OTHER: Chronic venous stasis changes, there is a wound on his pretty that is being treated by wound care with blue foam and bandage Course 2 Vital Signs: Vital signs: Vital Signs Temperature 97.8 F 07/06/24 08:43 Pulse Rate 96 07/06/24 08:43 Respiratory Rate 18 07/06/24 09:14 Blood Pressure 166/93 07/06/24 08:43 Pulse Oximetry 98 07/06/24 08:43 Oxygen Delivery Me thod Room Air 07/06/24 08:43 MDM - Extremity (Nontraumatic) Medical Decision Making Patient's diagnostic studies were ordered and reviewed. Patient has an ultrasound that shows complete occlusion of both the femoral and peroneal veins. He is currently on Xarelto. I did call and discussed with Dr. Barraza, interventional cardiology who recommends that we stop the Xarelto and start him on Eliquis. That he can follow-up in 3 to 4 days for repeat evaluation to ensure there is not continued extension after starting on Eliquis. Patient has a mild white count and some warmth and erythema so I will empirically start him on Keflex to ensure that there is no additional infection with the warmth due to his diabetic history and wound healing issues. Patient should call the cardiology office in the morning to arrange for follow-up in 4 to 5 days. Patient was stable and discharged Lab Data 07/06/24 09:17 07/06/24 09:17 Radiology Impressions Tibia/Fibula X-Ray 07/06/24 08:53 IMPRESSION: Cortical irregularity at the lateral aspect of the tibial plateau with moderate knee joint effusion, suspicious for a nondisplaced fracture. Venous Duplex 07/06/24 08:53 IMPRESSION: DVT in the left proximal femoral vein and left peroneal vein with complete occlusion. Knee CT 07/06/24 09:28 IMPRESSION: 1. No acute fracture or dislocation. The previously seen cortical irregularity at the lateral tibial plateau, is related to degenerative changes. 2. Moderate knee joint effusion. Laboratory Results WBC 15.49 10^3/uL (3.29-11.43) H 07/06/24 09:17 RBC 4.74 10^6/uL (3.85-5.65) 07/06/24:17 Hgb 13.20 g/dL (11.27-16.99) 07/06/24:17 Hct 41.0 % (37-53) 07/06/24:17 MCV 86.5 fl (82-101) 07/06/24: MCH 27.8 pg (27-33) 07/06/24: MCHC 32.2 g/dL (30-55) 07/06/24:17 RDW 12.4 % (12.1-15.1) 07/06/24 09:17 Plt Count 421 10^3/cmm (157-399) H 07/06/24 09:17 MPV 9.1 fL (7.4-10.4) 07/06/24 09:17 Neut % (Auto) 78.1 % 07/06/24 09:17 Lymph % (Auto) 11.9 % 07/06/24 09:17 [place] % (Auto) 7.9 % 07/06/24 09:17 Eos % (Auto) 1.0 % 07/06/24 09:17 Baso % (Auto) 0.5 % 07/06/24 09:17 Neut # (Auto) 12.09 10^3/uL (1.8-7.7) H 07/06/24 09:17 Lymph # (Auto) 1.9 10^3/uL (0.8-4.8) 07/06/24 09:17 [place] # (Auto) 1.2 10^3/uL (0.2-0.9) H 07/06/24 09:17 Eos # (Auto) 0.2 10^3/uL (0.0-0.8) 07/06/24 09:17 Baso # (Auto) 0.1 10^3/uL (0.0-0.1) 07/06/24 09:17 Nucleated RBC % (auto) 0 % 07/06/24 09: Nucleated RBCs # 0.0 /100WBC 07/06/24 09:17 Sodium 132 mmol/L (136-145) L 07/06/24 09:17 Potassium 4.2 mmol/L (3.5-5.1) 07/06/24 09:17 Chloride 97 mmol/L (98-107) L 07/06/24 09:17 Carbon Dioxide 23 mmol/L (22-29) 07/06/24 09:17 Anion Gap 16.2 (5-19) 07/06/24 09:17 BUN 16 mg/dL (8-23) 07/06/24 09:17 Creatinine 1.1 mg/dL (0.7-1.2) 07/06/24 09:17 GFR Calculation 67.8 mL/min (90-130) L 07/06/24 09:17 Glucose 118 mg/dL (65-115) H 07/06/24 09:17 Calculated Osmolality 276 mOsm/kg (285-295) L 07/06/24 09:17 Calcium 8.8 mg/dL (8.5-10.5) 07/06/24 09:17 All radiology interpretation(s) finalized by discharge Discharge Plan Discharge Patient Disposition: Home Clinical Impression: DVT femoral (deep venous thrombosis) with thrombophlebitis, Wound of lower extremity Condition: Stable Prescriptions: [employer] [place] DVT-PE Treat 30D Start 5 mg (74 tabs) tablets,dose pack See Rx Instructions .ROUTE .COMPLEX Qty: 74 0RF Rx Instructions: orally per package directions cephalexin 500 mg capsule 500 mg PO BID 10 Days Qty: 20 0RF Discontinued Xarelto 20 mg tablet 20 mg PO DAILY Qty: 30 2RF No Action (DME) blood-glucose meter Misc See Rx Instructions .MEDSUPPLY Qty: 1 0RF Rx Instructions: Use as directed for checking blood sugar (DME) Blood Glucose Test Strip See Rx Instructions .MEDSUPPLY Qty: 200 12RF Rx Instructions: Use as directed with glucometer to check blood sugar (DME) lancets Misc See Rx Instructions .MEDSUPPLY Qty: 200 12RF Rx Instructions: Use as directed to prick skin for blood sugar checks albuterol sulfate 90 mcg/actuation HFA aerosol inhaler 2 puff INHALATION QID PRN (Reason: Shortness Of Breath Or Wheezing) Qty: 8.5 1RF (DME) roho cushion See Rx Instructions .Route .MEDSUPPLY Qty: 1 0RF Rx Instructions: As directed (DME) Stump Couture Alterations Dressmaker See Rx Instructions .Route .MEDSUPPLY Qty: 1 0RF Rx Instructions: As directed by [employer] [place] rizatriptan 5 mg tablet See Rx Instructions PO .COMPLEX Qty: 10 0RF Rx Instructions: Take 1 tablet at onset of headache; if no relief, may repeat 1 tablet after at least 2 hrs. NEEDED (DME) Cam Boot to left See Rx Instructions .Route .MEDSUPPLY Qty: 1 0RF Rx Instructions: As directed oxycodone-acetaminophen 7.5-325 mg tablet 1 tab PO Q6H PRN (Reason: pain) 7 Days Qty: 28 0RF (DME) lancets [BD Ultra Fine Lancets] 33 gauge misc See Rx Instructions .Route Qty: 100 0RF Rx Instructions: As directed, test blood suagr once a day. (DME) Accu-Chek Guide test strips Strip See Rx Instructions .Route Qty: 100 0RF Rx Instructions: As directed, check blood sugar, 4 times daily (DME) blood-glucose meter [Accu-Chek Guide Glucose Meter] Misc See Rx Instructions .Route Qty: 1 0RF Rx Instructions: As directed, test blood sugar once a day. (DME) fast form ulnar gutter See Rx Instructions .ROUTE .MEDSUPPLY Qty: 1 0RF Rx Instructions: As directed (DME) right below knee prosthesis See Rx Instructions .Route .MEDSUPPLY Qty: 1 0RF Rx Instructions: As directed (DME) wheel chair leg general practice See Rx Instructions .Route .MEDSUPPLY Qty: 1 0RF Rx Instructions: As directed (DME) Right below the knne prosthetic See Rx Instructions .Route .MEDSUPPLY Qty: 1 0RF Rx Instructions: As directed furosemide 40 mg tablet 40 mg PO DAILY Qty: 90 3RF (DME) Dexcom G7 Sensor Device See Rx Instructions .Route Qty: 9 1RF Rx Instructions: change sensor every 10 days insulin degludec 100 unit/mL (3 mL) insulin pen 56 unit SUBCUT DAILY Qty: 60 1RF Novolin R FlexPen 100 unit/mL (3 mL) insulin pen See Rx Instructions SUBCUT TID 90 Days Qty: 30 1RF Rx Instructions: TID BEFORE MEALS. GLUCOSE: 141-180:4U; 181-220:6U; 221-260:8U; 261-300:10U; 301-350:12U; 351-400:14U; >400:16U pantoprazole 40 mg tablet,delayed release (DR/EC) 40 mg PO BID 42 Days Qty: 84 2RF tramadol 50 mg tablet 100 mg PO Q6H PRN (Reason: post op pain) mupirocin 2 % ointment 1 applic topical BID PRN (Reason: Skin Irritation) ondansetron 4 mg tablet,disintegrating 4 mg PO Q8H PRN (Reason: Nausea) Discharge Orders: Discharge ED (Routine); Ordered 07/06/24 Ordered By: Ham Dowd Referrals: Sondra May MD [Primary Care Provider] - Discharge Diet: Usual diet Discharge Activity: Increase activity as tolerated Patient Instructions: Apixaban (By mouth) (Eliquis), Cellulitis (ED), Deep Vein Thrombosis (DC), Opioid Safety, Pain Management Activity Restrictions/Additional Instructions: Please start the Eliquis and Keflex today. You may stop the Xarelto. Please call the cardiology office in the morning and arrange for an appointment with the nurse practitioner towards the end of the week for recheck of your symptoms. Please let them know you are seen in the ER today and need to have a follow-up by the end of the week. Return to the ER over the next couple days if symptoms continue to worsen. Print Language: Japanese Coding Level of Care Code ED Blackjack Pit Boss for Lolita Gallegos
[2024-07-06] MEDS: morphine 4 mg/mL SDV 1 mL IVP ×2 (09:14→11:17)
[2024-07-06 09:20] LABS: Basophils # 0.1 10^3/uL (0.0-0.1); Basophils % 0.5 %; Eosinophils # 0.2 10^3/uL (0.0-0.8); Lymphocytes # 1.9 10^3/uL (0.8-4.8); Lymphocytes % 11.9 %; Mean Corpuscular HGB Conc 32.2 g/dL (30-55); Mean Corpuscular Hemoglobin 27.8 pg (27-33); Mean Corpuscular Volume 86.5 fl (82-101); Mean Platelet Volume 9.1 fL (7.4-10.4); Monocytes # 1.2 10^3/uL (0.2-0.9); Monocytes % 7.9 %; Neutrophils # 12.09 10^3/uL (1.8-7.7); Neutrophils % 78.1 %; Nucleated Red Blood Cells % 0 %; Platelet Count 421 10^3/cmm (157-399); Red Blood Count 4.74 10^6/uL (3.85-5.65); Red Cell Distribution Width 12.4 % (12.1-15.1); White Blood Count 15.49 10^3/uL (3.29-11.43)
--- NOTE | 2024-07-06 09:28 | CTR_ITS ---
PROCEDURE INFORMATION: Exam: CT Left Lower Extremity, Knee Exam date and time: 07/06/2024 9:54 AM Age: 63 years old Clinical indication: Pain; Knee; Left; Additional info: Questionable fracture TECHNIQUE: Imaging protocol: CT of the left lower extremity without contrast was performed. Exam focused on the knee. Radiation optimization: All CT scans at this facility use at least one of these dose optimization techniques: automated exposure control; mA and/or kV adjustment per patient size (includes targeted exams where dose is matched to clinical indication); or iterative reconstruction. COMPARISON: CT angio abd aorta runof [id number] 06/01/2023 2:12 PM RADIATION DOSE METRICS: Total DLP (mGy-cm): 423.99 FINDINGS: Bones/joints: Moderate knee joint effusion. Corticated bone fragment at the tip of the fibular head, from prior injury. The area previously seen irregularities at the lateral tibial plateau, represent degenerative changes with osteophytes. No acute fracture or dislocation. Traction cystic changes at the posterior aspect of the tibial spine. Soft tissues: Subcutaneous edema at the medial aspect of the distal thigh and around the knee and leg. Quadriceps enthesophytes. Vasculature: Calcified atheromas of the visualized arteries. CT/CT knee LT wo con* [id number] IMPRESSION: 1. No acute fracture or dislocation. The previously seen cortical irregularity at the lateral tibial plateau, is related to degenerative changes. 2. Moderate knee joint effusion.
[2024-07-06 09:36] LABS: Anion Gap 16.2 (5-19); Blood Urea Nitrogen 16 mg/dL (8-23); Calcium 8.8 mg/dL (8.5-10.5); Carbon Dioxide 23 mmol/L (22-29); Chloride 97 mmol/L (98-107); Glomerular Filtration Rate 67.8 mL/min (90-130); Glucose 118 mg/dL (65-115); Osmolality Calculated 276 mOsm/kg (285-295); Potassium 4.2 mmol/L (3.5-5.1); Sodium 132 mmol/L (136-145)
== END 2024-07-06 11:20 | disposition home or self-care (01) ==
PROVIDERS: Emergency Provider Student in an Organized Health Care Education/Training Program; PCP Family Medicine
DX: I82.412 Acute embolism and thrombosis of left femoral vein (principal); Z79.4 Long term (current) use of insulin; S81.802A Unspecified open wound, left lower leg, initial encounter; X58.XXXA Exposure to other specified factors, initial encounter
CPT/HCPCS: 36415; 73590; 73700; 80048; 85025; 93971; 96374; 96376; 99285; J2270

== ENCOUNTER 2024-07-16 14:04 | Outpatient (CLI) | payer MEDICARE, MEDICAID, SELFPAY ==
[2024-07-16 14:52] LABS: Basophils # 0.1 10^3/uL (0.0-0.1); Eosinophils # 0.3 10^3/uL (0.0-0.8); Eosinophils % 2.6 %; Hematocrit 36.9 % (37-53); Lymphocytes # 2.5 10^3/uL (0.8-4.8); Lymphocytes % 19.5 %; Mean Corpuscular HGB Conc 32.2 g/dL (30-55); Mean Corpuscular Hemoglobin 28.1 pg (27-33); Mean Platelet Volume 8.8 fL (7.4-10.4); Monocytes # 1.1 10^3/uL (0.2-0.9); Monocytes % 8.6 %; Neutrophils # 8.51 10^3/uL (1.8-7.7); Neutrophils % 67.7 %; Nucleated Red Blood Cells % 0 %; Platelet Count 609 10^3/cmm (157-399); Red Blood Count 4.24 10^6/uL (3.85-5.65); Red Cell Distribution Width 12.5 % (12.1-15.1); White Blood Count 12.56 10^3/uL (3.29-11.43)
[2024-07-16 15:14] LABS: Alanine Aminotransferase 24 U/L (0-41); Albumin Level 3.1 g/dL (3.5-5.2); Alkaline Phosphatase 126 U/L (40-130); Anion Gap 12.1 (5-19); Aspartate Amino Transferase 31 U/L (0-40); Blood Urea Nitrogen 19 mg/dL (8-23); Calcium 8.9 mg/dL (8.5-10.5); Carbon Dioxide 29 mmol/L (22-29); Chloride 102 mmol/L (98-107); Globulin 4.2 g/dL (1.3-4.6); Glomerular Filtration Rate 75.7 mL/min (90-130); Glucose 121 mg/dL (65-115); Osmolality Calculated 292 mOsm/kg (285-295); Potassium 4.1 mmol/L (3.5-5.1); Sodium 139 mmol/L (136-145); Total Bilirubin 0.2 mg/dL (0.15-1.2); Total Protein 7.3 g/dL (6.6-8.7)
== END 2024-07-16 14:05 | disposition home or self-care (01) ==
PROVIDERS: PCP Family Medicine; Visit Provider Family Medicine
DX: L03.90 Cellulitis, unspecified (principal); Z09 Encounter for follow-up examination after completed treatment for conditions other than malignant neoplasm; E11.52 Type 2 diabetes mellitus with diabetic peripheral angiopathy with gangrene; E11.621 Type 2 diabetes mellitus with foot ulcer; L97.421 Non-pressure chronic ulcer of left heel and midfoot limited to breakdown of skin; L97.521 Non-pressure chronic ulcer of other part of left foot limited to breakdown of skin; E11.622 Type 2 diabetes mellitus with other skin ulcer; L97.321 Non-pressure chronic ulcer of left ankle limited to breakdown of skin; L97.821 Non-pressure chronic ulcer of other part of left lower leg limited to breakdown of skin
CPT/HCPCS: 36415; 80053; 85025; 97597

== ENCOUNTER → 2024-07-23 10:46 | Outpatient (BNVA) | payer MEDICARE, MEDICAID, SELFPAY | PROVIDERS: PCP Family Medicine; Visit Provider Thoracic Surgery (Cardiothoracic Vascular Surgery) | DX: E11.52 Type 2 diabetes mellitus with diabetic peripheral angiopathy with gangrene (principal); E11.621 Type 2 diabetes mellitus with foot ulcer; L97.421 Non-pressure chronic ulcer of left heel and midfoot limited to breakdown of skin; L97.521 Non-pressure chronic ulcer of other part of left foot limited to breakdown of skin; E11.622 Type 2 diabetes mellitus with other skin ulcer; L97.321 Non-pressure chronic ulcer of left ankle limited to breakdown of skin; L97.822 Non-pressure chronic ulcer of other part of left lower leg with fat layer exposed | CPT/HCPCS: 97597; A6021 ==

== ENCOUNTER → 2024-07-30 10:32 | Outpatient (BNVA) | payer MEDICARE, MEDICAID, SELFPAY | PROVIDERS: PCP Family Medicine; Visit Provider Thoracic Surgery (Cardiothoracic Vascular Surgery) | DX: E11.52 Type 2 diabetes mellitus with diabetic peripheral angiopathy with gangrene (principal); E11.622 Type 2 diabetes mellitus with other skin ulcer; L97.321 Non-pressure chronic ulcer of left ankle limited to breakdown of skin; L97.821 Non-pressure chronic ulcer of other part of left lower leg limited to breakdown of skin; E11.621 Type 2 diabetes mellitus with foot ulcer; L97.521 Non-pressure chronic ulcer of other part of left foot limited to breakdown of skin; Z09 Encounter for follow-up examination after completed treatment for conditions other than malignant neoplasm | CPT/HCPCS: 97597; A6021 ==

== ENCOUNTER 2024-08-25 12:56 | Outpatient (CLI) | payer MEDICARE, SELFPAY ==
[2024-08-25 13:36] LABS: Alanine Aminotransferase 16 U/L (0-41); Albumin Level 3.5 g/dL (3.5-5.2); Alkaline Phosphatase 97 U/L (40-130); Aspartate Amino Transferase 24 U/L (0-40); Blood Urea Nitrogen 20 mg/dL (8-23); Calcium 9.2 mg/dL (8.5-10.5); Carbon Dioxide 25 mmol/L (22-29); Chloride 104 mmol/L (98-107); Cholesterol 224 mg/dL (0-200); Globulin 3.8 g/dL (1.3-4.6); Glomerular Filtration Rate 75.5 mL/min (90-130); Glucose 123 mg/dL (65-115); HDL Cholesterol 32 mg/dL (60-100); LDL Cholesterol Calculated 112 mg/dL (50-129); Osmolality Calculated 292 mOsm/kg (285-295); Sodium 139 mmol/L (136-145); Total Bilirubin 0.3 mg/dL (0.15-1.2); Total Protein 7.3 g/dL (6.6-8.7); Triglycerides 398 mg/dL (0-150)
[2024-08-25 13:42] LABS: Creatinine Urine, Random 103 mg/dL (39-259)
[2024-08-25 13:51] LABS: Estmated Average Glucose 154
[2024-08-25 13:54] LABS: Microalbum Creatinine Ratio Ur 1359 mg/dL (0-20); Microalbumin Random Urine 140 ug/dL (0-20)
== END 2024-08-25 12:57 | disposition home or self-care (01) ==
PROVIDERS: PCP Family Medicine; Visit Provider Internal Medicine
DX: E11.65 Type 2 diabetes mellitus with hyperglycemia (principal); E78.2 Mixed hyperlipidemia
CPT/HCPCS: 36415; 80053; 80061; 82044; 83036

== ENCOUNTER 2024-09-17 14:31 | Oncology outpatient (recurring) (ONCR) | payer MEDICARE, SELFPAY ==
[2024-09-17 16:28] LABS: Basophils # 0.1 10^3/uL (0.0-0.1); Basophils % 1.4 %; Eosinophils # 0.3 10^3/uL (0.0-0.8); Eosinophils % 3.1 %; Hematocrit 43.8 % (37-53); Lymphocytes # 3.1 10^3/uL (0.8-4.8); Lymphocytes % 36.7 %; Mean Corpuscular HGB Conc 32.6 g/dL (30-55); Mean Corpuscular Hemoglobin 27.8 pg (27-33); Mean Platelet Volume 10.3 fL (7.4-10.4); Monocytes # 0.8 10^3/uL (0.2-0.9); Monocytes % 9.1 %; Neutrophils # 4.11 10^3/uL (1.8-7.7); Neutrophils % 49.5 %; Nucleated Red Blood Cells % 0 %; Platelet Count 307 10^3/cmm (157-399); Red Blood Count 5.15 10^6/uL (3.85-5.65); Red Cell Distribution Width 14.4 % (12.1-15.1); White Blood Count 8.32 10^3/uL (3.29-11.43)
[2024-09-17 16:42] LABS: D Dimer 0.62 ug/mLFEU (0-0.59)
[2024-09-17 16:45] LABS: Alanine Aminotransferase 15 U/L (0-41); Albumin Level 3.7 g/dL (3.5-5.2); Alkaline Phosphatase 82 U/L (40-130); Blood Urea Nitrogen 23 mg/dL (8-23); C Reactive Protein 3.8 mg/L (0.0-4.9); Calcium 9.7 mg/dL (8.5-10.5); Carbon Dioxide 23 mmol/L (22-29); Chloride 102 mmol/L (98-107); Creatinine Clr Calc Pharmacy 102.8831; Globulin 3.7 g/dL (1.3-4.6); Glomerular Filtration Rate 75.5 mL/min (90-130); Glucose 169 mg/dL (65-115); Osmolality Calculated 294 mOsm/kg (285-295); Sodium 138 mmol/L (136-145); Total Bilirubin 0.2 mg/dL (0.15-1.2); Total Protein 7.4 g/dL (6.6-8.7)
[2024-09-17 16:49] LABS: Anion Gap 16.8 (5-19); Aspartate Amino Transferase 16 U/L (0-40); Lactate Dehydrogenase 227 U/L (135-225); Potassium 3.8 mmol/L (3.5-5.1)
[2024-09-18 10:14] LABS: PROTEIN, TOTAL 7.2 g/dL (6.1-8.1)
[2024-09-22 09:04] LABS: ABNORMAL PROTEIN BAND 1 0.4 g/dL (NONE DETECTED); ALBUMIN 3.8 g/dL (3.8-4.8); ALPHA 1 GLOBULIN 0.2 g/dL (0.2-0.3); ALPHA 2 GLOBULIN 0.8 g/dL (0.5-0.9); BETA 1 GLOBULIN 0.5 g/dL (0.4-0.6); BETA 2 GLOBULIN 0.5 g/dL (0.2-0.5); GAMMA GLOBULIN 1.5 g/dL (0.8-1.7)
== END 2024-09-17 23:59 | disposition home or self-care (01) ==
PROVIDERS: PCP Family Medicine; Visit Provider Internal Medicine
DX: I82.402 Acute embolism and thrombosis of unspecified deep veins of left lower extremity (principal); I25.118 Atherosclerotic heart disease of native coronary artery with other forms of angina pectoris; M51.06 Intervertebral disc disorders with myelopathy, lumbar region; E78.2 Mixed hyperlipidemia; D68.51 Activated protein C resistance; Z79.01 Long term (current) use of anticoagulants; E11.40 Type 2 diabetes mellitus with diabetic neuropathy, unspecified; Z79.4 Long term (current) use of insulin; Z89.511 Acquired absence of right leg below knee; Z87.891 Personal history of nicotine dependence
CPT/HCPCS: 36415; 80053; 83615; 84155; 84165; 85025; 85378; 86140; 86334; 99204

== ENCOUNTER 2024-10-09 14:01 | Oncology outpatient (recurring) (ONCR) | payer MEDICARE, SELFPAY ==
[2024-10-09 15:15] LABS: Basophils # 0.1 10^3/uL (0.0-0.1); Basophils % 1.3 %; Eosinophils # 0.2 10^3/uL (0.0-0.8); Eosinophils % 2.9 %; Hematocrit 44.9 % (37-53); Lymphocytes # 2.6 10^3/uL (0.8-4.8); Lymphocytes % 32.3 %; Mean Corpuscular HGB Conc 32.1 g/dL (30-55); Mean Corpuscular Hemoglobin 27.7 pg (27-33); Mean Corpuscular Volume 86.3 fl (82-101); Mean Platelet Volume 11.6 fL (7.4-10.4); Monocytes # 0.6 10^3/uL (0.2-0.9); Monocytes % 7.7 %; Neutrophils # 4.38 10^3/uL (1.8-7.7); Neutrophils % 55.5 %; Nucleated Red Blood Cells % 0 %; Platelet Count 275 10^3/cmm (157-399); Red Cell Distribution Width 14.6 % (12.1-15.1); White Blood Count 7.89 10^3/uL (3.29-11.43)
[2024-10-09 15:30] LABS: Lactate Dehydrogenase 268 U/L (135-225)
[2024-10-12 15:14] LABS: CARDIOLIPIN AB (IGA) <2.0 APL-U/mL; CARDIOLIPIN AB (IGG) <2.0 GPL-U/mL; CARDIOLIPIN AB (IGM) <2.0 MPL-U/mL
[2024-10-12 20:55] LABS: Antithrombin III Activity 68 % normal (80-135)
[2024-10-13 20:30] LABS: PROTEIN C, ACTIVITY 164 % normal (70-180)
[2024-10-14 06:01] LABS: Beta 2 Glycoprotein IGA 2.7 U/mL (<20.0); Beta 2 Glycoprotein IGG <2.0 U/mL (<20.0); Beta 2 Glycoprotein IGM <2.0 U/mL (<20.0)
[2024-10-14 12:39] LABS: Anti-Nuclear Antibody Screen NEGATIVE (NEGATIVE)
[2024-10-14 14:04] LABS: Erythropoietin 17.8 mIU/mL (2.6-18.5)
[2024-10-14 19:34] LABS: PTT-LA-Screen 34 sec (< OR = 40)
[2024-10-15 22:58] LABS: PROTHROMBIN (FACTOR II) 20210G NEGATIVE
[2024-10-20 15:29] LABS: CALR Exon 9 Mutation NOT DETECTED (NOT DETECTED); JAK2 Exon 12 Mutation NOT DETECTED (NOT DETECTED); JAK2 V617 Mutation NOT DETECTED (NOT DETECTED); MPL Exon 10 Mutation NOT DETECTED (NOT DETECTED); Specimen Source blood
== END 2024-10-18 23:59 | disposition home or self-care (01) ==
PROVIDERS: PCP Family Medicine; Visit Provider Internal Medicine
DX: D75.89 Other specified diseases of blood and blood-forming organs (principal)
CPT/HCPCS: 36415; 81219; 81270; 81279; 81339; 82668; 83615; 85025; 85210; 85300; 85303; 85613; 85730; 86038; 86146; 86147

== ENCOUNTER → 2024-10-10 09:11 | Outpatient (BNVA) | payer MEDICARE, MEDICAID, SELFPAY | PROVIDERS: PCP Family Medicine; Visit Provider Internal Medicine | DX: E11.65 Type 2 diabetes mellitus with hyperglycemia (principal); R79.89 Other specified abnormal findings of blood chemistry; E78.2 Mixed hyperlipidemia | CPT/HCPCS: 99214 ==

== ENCOUNTER 2024-11-18 16:02 | Inpatient (IN) | payer MEDICARE, SELFPAY ==
[2024-11-18] VITALS (7 sets, daily range): BP systolic 101–143; BP diastolic 69–110; PULSE 98–109; RESP 16–22; TEMP 36.8–37; O2SAT 91–94
--- OUTSIDE RECORDS SUMMARY | 2024-11-18 16:09 | XMS_ITS | Clinical Summary ---
Author Organization [facility] Address [address] [place] [address] Phone Care Team Providers Care Gardening Manager Name Role Phone Unavailable Primary Care Provider Unavailabl e Allergies No known active allergies Medications glyBURIDE (DIABETA) 5 mg tabletIndications :Diabetes mellitus type II, uncontrolled Take 1 Tab by mouth daily with breakfast. 30 Tab 0 06/03/2013 Active metFORMIN (GLUCOPHAGE) 500 mg tabletIndications :Diabetes mellitus type II, uncontrolled Take 1 Tab by mouth 2 times daily with meals. 60 Tab 1 06/03/2013 Active hydrochlorothiazi de 25 mg Oral tabletIndications :Hypertension Take 1 Tab by mouth daily. 30 Tab 1 06/03/2013 Active Active Problems Problem Noted Date Diagnosed Date Diabetes mellitus type II, uncontrolled 06/03/19 14 Hypertension 06/03/2013 Family History Medical History Relation Name Comments Unknown Father Diabetes Maternal Grandmother Heart Disease Maternal Grandmother Hypertension Maternal Grandmother Lung Cancer Mother Lung Cancer Paternal Grandfather Relation Name Status Comments Father Maternal Grandmother Mother Paternal Grandfather Social History Tobacco Use Types Packs/Day Years Used Date Smoking Tobacco: Former Cigarettes Q uit: 04/20/2006 Smokeless Tobacco: Never Alcohol Use Standard Drinks/Week Comments Yes 0 (1 standard drink = 0.6 oz pur e alcohol) a few times a month Sex and Gender Information Value Date Recorded Sex Assigned at Not on file Legal Sex Male 9:23 PM CDT Gender Identity Not on file Sexual Orientation Not on file Last Filed Vital Signs Vital Sign Reading Time Taken Comments Blood Pressure 178/94 06/03/2013 2:11 PM WATER VALVE MECHANIC Pulse 115 06/03/2013 2:11 PM WATER VALVE MECHANIC Temperature 36.9 C (98.4 F) 06/03/2013 2:11 PM WATER VALVE MECHANIC Respiratory Rate 22 06/03/2013 2:11 PM WATER VALVE MECHANIC Oxygen Saturation 97% 06/03/2013 2:11 PM WATER VALVE MECHANIC Inhaled Oxygen Concentration - - Weight 132.9 kg (293 lb) 06/03/2013 2:11 PM WATER VALVE MECHANIC Height 185.4 cm (6' 1 ) 06/03/2013 2:11 PM WATER VALVE MECHANIC Body Mass Index 38.66 06/03/2013 2:11 PM WATER VALVE MECHANIC Plan of Treatment Health Maintenance Due Date Last Done Comments DIABETES ANNUAL FOOT EXAM 08/01/1979 DIABETES ANNUAL RETINAL EXAM 08/01/1979 DIABETES MICROALBUMIN ANNUAL SCREEN 08/01/1979 DTAP/TDAP/TD VACCINES (1 - Tdap) 1980 COLORECTAL SCREENING 2006 Colorectal Cancer Screening 2006 FIT-DNA Q 3 years 2006 FIT/FOBT Q 1 year 2006 Flex Sig/CT Colonography Q 5 years 2006 ZOSTER VACCINE (1 of 2) 08/01/2011 LDL CHOLESTEROL ANNUAL 12/29/2015 12/28/2014 DIABETES HBA1C Q 6 MONTHS 07/18/20162015, 12/28/2014, 02/03/2013 INFLUENZA VACCINE (#1) 2024 RSV VACCINE (60+ or ) (1 - 1-dose 75+ series) 2036 Procedures Procedure Name Priority Date/Time Associated Diagnosis Comments HEMOGLOBIN A1C Routine 01/17/2016 9:06 PM CDT LIPID PANEL Routine 12/28/2014 8:00 PM CDT from Last 3 Months or Most Recently Relevant to Health Maintenance Results * (ABNORMAL) HEMOGLOBIN A1C (01/17/2016 9:06 PM CDT) HEMOGLOBIN A1C 10.7(H) 4.8 - 5.9 % 01/17/2016 10:49 PM CDT [facility] EST. AVG GLUCOSE, A1C 260 mg/dL 01/17/2016 10:49 PM CDT [facility] Blood Collection / Unknown 01/17/2016 9:06 PM CDT 01/17/2016 9:08 PM CDT us Harshad W Patrick DO CHEMISTRY ORDERABLES Final Resu lt Performing Organization Address City/[facility]/ZIP Co de Phone Number [facility] CLIA # [id number] [address] [address] * (ABNORMAL) LIPID PANEL (12/28/2014 8:00 PM CDT) CHOLESTEROL 255(H) <200 mg/dL 12/28/2014 10:24 PM CDT [facility] [employer] [facility] TRIGLYCERIDE 182(H) <150 mg/dL 12/28/2014 10:24 PM CDT [facility] [employer] [facility] HDL 48 40 - 59 mg/dL 12/28/2014 10:24 PM CDT [facility] [employer] [facility] LDL CALCULATED 171(H) <100 mg/dL 12/28/2014 10:24 PM CDT [facility] [employer] [facility] NON-HDL CHOLESTEROL 207(H) <130 mg/dL 12/28/2014 10:24 PM CDT [facility] [employer] [facility] Blood 12/28/2014 8:00 PM CDT 12/28/2014 8:42 PM CDT Narrative [facility] [employer] [facility] - 12/28/2014 10:24 PM CDT TOTAL CHOLESTEROL mg/dL Desirable <200 Borderline high 200-239 High >=240 TRIGLYCERIDES mg/dL Normal <150 Borderline high 150-199 High 200-499 Very high >=500 HDL CHOLESTEROL mg/dL Low <40 Normal 40-59 Desirable >=60 LDL CHOLESTEROL mg/dL Optimal <100 Low risk 100-129 Borderline high 130-159 High 160-189 Very high >=190 NON HDL CHOLESTEROL mg/dL Optimal <130 Near Optimal 130-159 Borderline High 160-189 High 190-219 Very high >=220 Based on AHA/NCEP Guidelines us Phuc MARISCAL CHEMISTRY ORDERABLES Final Re sult [facility] [employer] [facility] CLIA # [id number] [address] [id number] from Last 3 Months or Most Recently Relevant to Health Maintenance Insurance WORKERS COMP
--- OUTSIDE RECORDS SUMMARY | 2024-11-18 16:09 | XMS_ITS | Encounter Summary ---
Author Organization [facility] Address [address] [place] [address] Care Team Providers Care Pipe Liner Name Role Phone Unavailable Primary Care Provider Unavailabl e Encounter Details Date Type Department Care Team (Late st Contact Info) Description 01/04/2015 Lab Requisition [facility] [place] [address] [place] [id number] Harshad Patrick, DO NO ADDRESS ON FILE Sick Social History Tobacco Use Types Packs/Day Years [...] on file Sexual Orientation Not on file documented as of this encounter Plan of Treatment Not on file documented as of this encounter Procedures Procedure Name Priority Date/Time Associated Diagnosis Comments ALT Routine 01/04/2015 10:43 PM CDT Sick [ICD-9-CM] AST Routine 01/04/2015 10:43 PM CDT Sick [ICD-9-CM] TSH Routine 01/04/2015 10:43 PM CDT Sick [ICD-9-CM] ALKALINE PHOSPHATASE Routine 01/04/2015 10:43 PM CDT Sick [ICD-9-CM] documented in this encounter Results * TSH (01/04/2015 10:43 PM CDT) TSH 2.31 0.27 - 4.20 uIU/mL 01/04/2015 11:47 PM CDT [facility] Blood 01/04/2015 10:4 3 PM CDT 01/04/2015 10:43 PM CDT Harshad Patrick DO CHEMISTRY ORDERABLES Final Resu lt Performing Organization Address City/[facility]/ZIP Co de Phone Number [facility] CLIA # [id number] [address] [place] [address] * AST (01/04/2015 10:43 PM CDT) AST 28 10 - 50 U/L 01/04/2015 11:47 PM CDT [facility] Blood 01/04/2015 10:4 3 PM CDT 01/04/2015 10:43 PM CDT Harshad Patrick DO CHEMISTRY ORDERABLES Final Resu lt Performing Organization Address [facility] Co de Phone Number [facility] CLIA # [id number] [address] [place] [id number] * ALKALINE PHOSPHATASE (01/04/2015 10:43 PM CDT) ALKALINE PHOSPHATASE 67 40 - 129 U/L 01/04/2015 11:47 PM CDT [facility] Blood 01/04/2015 10:4 3 PM CDT 01/04/2015 10:43 PM CDT Harshad Patrick DO CHEMISTRY ORDERABLES Final Resu lt Performing Organization Address [facility]/ZIP Co de Phone Number [facility] CLIA # [id number] [address] [place] [phone] * (ABNORMAL) ALT (01/04/2015 10:43 PM CDT) ALT 55(H) 10 - 50 U/L 01/04/2015 11:47 PM CDT [facility] Blood 01/04/2015 10:4 3 PM CDT 01/04/2015 10:43 PM CDT us Harshad Patrick DO CHEMISTRY ORDERABLES Final Resu lt [facility] CLIA # [id number] [address] [place] [address] documented in this encounter Visit Diagnoses Diagnosis Sick Other unknown and unspecified cause of morbidity or mortality documented in this encounter
--- OUTSIDE RECORDS SUMMARY | 2024-11-18 16:09 | XMS_ITS | Encounter Summary ---
Author Organization [facility] Address [address] [place] [address] Care Team Providers Care Radio Board Operator Name Role Phone Unavailable Primary Care Provider Unavailabl e Encounter Details Date Type Department Care Team (Late st Contact Info) Description 01/17/2016 Lab Requisition [facility] Laboratory Services [place] [address] [place] [phone] Harshad Patrick, DO NO ADDRESS ON FILE Social History Tobacco Use Types Packs/Day Years [...] Procedure Name Priority Date/Time Associated Diagnosis Comments CBC WITH DIFFERENTIAL Routine 01/17/2016 9:06 PM CDT PROTIME-INR Routine 01/17/2016 9:06 PM CDT HEMOGLOBIN A1C Routine 01/17/2016 9:06 PM CDT COMPREHENSIVE METABOLIC PANEL Routine 01/17/2016 9:06 PM CDT documented in this encounter Results * (ABNORMAL) PROTIME-INR (01/17/2016 9:06 PM CDT) PROTIME 23.2(H) 11.8 - 14.6 Seconds 01/17/2016 10:34 PM CDT [facility] INR 2.0(H) 0.8 - 1.2 01/17/2016 10:34 PM CDT [facility] Blood Collection / Unknown 01/17/2016 9:06 PM CDT 01/17/2016 9:08 PM CDT us Harshad Patrick DO HEMATOLOGY ORDERABLES Final Res ult Performing Organization Address City/[facility]/ZIP Co de Phone Number [facility] CLIA # [id number] [address] [place] [phone] * (ABNORMAL) HEMOGLOBIN A1C (01/17/2016 9:06 PM CDT) HEMOGLOBIN A1C 10.7(H) 4.8 - 5.9 % 01/17/2016 10:49 PM CDT [facility] EST. AVG GLUCOSE, A1C 260 mg/dL 01/17/2016 10:49 PM CDT [facility] Blood Collection / Unknown 01/17/2016 9:06 PM CDT 01/17/2016 9:08 PM CDT us Harshad Patrick DO CHEMISTRY ORDERABLES Final Resu lt Performing Organization Address [facility]/ZIP Co de Phone Number [facility] CLIA # [id number] [address] [place] [address] [phone] * (ABNORMAL) COMPREHENSIVE METABOLIC PANEL (01/17/2016 9:06 PM CDT) SODIUM 137 136 - 145 mmol/L 01/17/2016 11:23 PM CDT [facility] POTASSIUM 3.8 3.5 - 5.1 mmol/L 01/17/2016 11:23 PM CDT [facility] CHLORIDE 96(L) 98 - 107 mmol/L 01/17/2016 11:23 PM CDT [facility] CO2 24 22 - 29 mmol/L 01/17/2016 11:23 PM CDT [facility] CALCIUM 10.4(H) 8.6 - 10.0 mg/dL 01/17/2016 11:23 PM [facility] BUN 17 6 - 20 mg/dL 01/17/2016 11:23 PM [facility] CREATININE 0.58(L) 0.67 - 1.17 mg/dL 01/17/2016 11:23 PM [facility] GLUCOSE 178(H) 74 - 106 mg/dL 01/17/2016 11:23 PM [facility] TOTAL PROTEIN 8.3 6.6 - 8.7 g/dL 01/17/2016 11:23 PM [facility] ALBUMIN 4.3 3.5 - 5.2 g/dL 01/17/2016 11:23 PM [facility] BILIRUBIN TOTAL 0.4 0.0 - 1.2 mg/dL 01/17/2016 11:23 PM [facility] ALKALINE PHOSPHATASE 86 40 - 129 U/L 01/17/2016 11:23 PM [facility] AST 18 10 - 50 U/L 01/17/2016 11:23 PM [facility] ALT 32 10 - 50 U/L 01/17/2016 11:23 PM [facility] GFR >60 >=60 mL/min/1.7 3 sq meter 01/17/2016 11:23 PM [facility] Comment: eGFR has not been validated for use in the elderly (> 70 years of age), women, patients with serious co-morbid conditions, or persons with extremes of body size or muscle mass and should also be interpreted with caution in patients with acute kidney failure, dialysis dependent patients, patients reporting exceptional dietary intake (e.g. vegetarian diet, high protein diets, creatine supplementation), and patients with severe liver disease. Based on National Kidney Disease Education Program If patient is , please refer to the GFR result. GFR, >60 >=60 mL/min/1.7 3 sq meter 01/17/2016 11:23 PM [facility] ANION GAP 17 12 - 20 mmol/L 01/17/2016 11:23 PM [facility] Blood Collection / Unknown 01/17/2016 9:06 PM CDT 01/17/2016 9:08 PM CDT us Harshad Patrick DO CHEMISTRY ORDERABLES Final Resu lt [facility] CLIA # [id number] [address] [place] [phone] * (ABNORMAL) CBC WITH DIFFERENTIAL (01/17/2016 9:06 PM CDT) WBC 7.6 4.2 - 9.1 K/uL 01/17/2016 10:17 PM [facility] RBC 5.96 4.63 - 6.08 M/uL 01/17/2016 10:17 PM [facility] HEMOGLOBIN 16.4 13.7 - 17.5 g/dL 01/17/2016 10:17 PM [facility] HEMATOCRIT 46.5 40.1 - 51.0 % 01/17/2016 10:17 PM [facility] MCV 78.0(L) 79.0 - 92.2 fL 01/17/2016 10:17 PM [facility] MCH 27.5 25.7 - 32.2 pg 01/17/2016 10:17 PM [facility] MCHC 35.3 32.3 - 36.5 g/dL 01/17/2016 10:17 PM [facility] RDW 12.8 11.0 - 14.5 % 01/17/2016 10:17 PM [facility] RDW-STDEV 36.0(L) 36.9 - 56.9 fL 01/17/2016 10:17 PM [facility] PLATELETS 412(H) 130 - 400 K/uL 01/17/2016 10:17 PM [facility] MPV 10.1 10.0 - 14.8 fL 01/17/2016 10:17 PM [facility] NEUTROPHILS 50 34 - 68 % 01/17/2016 10:17 PM [facility] LYMPHOCYTES 39 22 - 53 % 01/17/2016 10:17 PM [facility] MONOCYTES 8 5 - 12 % 01/17/2016 10:17 PM [facility] EOSINOPHILS 3 1 - 7 % 01/17/2016 10:17 PM [facility] BASOPHILS 1 0 - 1 % 01/17/2016 10:17 PM [facility] NEUTROPHIL ABSOLUTE 3.82 1.78 - 5.38 K/uL 01/17/2016 10:17 PM [facility] LYMPHOCYTE ABSOLUTE 2.93 1.20 - 3.40 K/uL 01/17/2016 10:17 PM [facility] MONOCYTE ABSOLUTE 0.62 0.30 - 0.82 K/uL 01/17/2016 10:17 PM [facility] EOSINOPHIL ABSOLUTE 0.19 0.04 - 0.54 K/uL 01/17/2016 10:17 PM [facility] BASOPHILS ABSOLUTE 0.06 0.01 - 0.08 K/uL 01/17/2016 10:17 PM [facility] IMMATURE GRANULOCYTES 0 % 01/17/2016 10:17 PM [facility] IMMATURE GRANULOCYTES ABSOLUTE 0.00 K/uL 01/17/2016 10:17 PM [facility] Blood Collection / Unknown 01/17/2016 9:06 PM CDT 01/17/2016 9:08 PM CDT us Harshad Patrick DO HEMATOLOGY ORDERABLES Final Res ult [facility] CLIA # [id number] [address] [place] [phone] documented in this encounter Visit Diagnoses Not on filedocumented in this encounter
--- OUTSIDE RECORDS SUMMARY | 2024-11-18 16:09 | XMS_ITS | Encounter Summary ---
Author Organization [facility] Address [address] [place] [address] Care Team Providers Care Food Trades Assistants Name Role Phone Unavailable Primary Care Provider Unavailabl e Encounter Details Date Type Department Care Team (Late st Contact Info) Description 12/28/2014 Lab Requisition [facility] Laboratory Services [place] [address] [place] [phone] Phuc Dinh PA NO ADDRESS ON FILE Social History Tobacco [...] Priority Date/Time Associated Diagnosis Comments ALT Routine 12/28/2014 8:00 PM CDT HEMOGLOBIN A1C Routine 12/28/2014 8:00 PM CDT LIPID PANEL Routine 12/28/2014 8:00 PM CDT BASIC METABOLIC PANEL Routine 12/28/2014 8:00 PM CDT documented in this encounter Results * (ABNORMAL) LIPID PANEL (12/28/2014 8:00 PM CDT) CHOLESTEROL 255(H) <200 mg/dL 12/28/2014 10:24 PM CDT [facility] TRIGLYCERIDE 182(H) <150 mg/dL 12/28/2014 10:24 PM CDT [facility] HDL 48 40 - 59 mg/dL 12/28/2014 10:24 PM CDT [facility] LDL CALCULATED 171(H) <100 mg/dL 12/28/2014 10:24 PM CDT [facility] NON-HDL CHOLESTEROL 207(H) <130 mg/dL 12/28/2014 10:24 PM CDT [facility] Blood 12/28/2014 8:00 PM CDT 12/28/2014 8:42 PM CDT Narrative [facility] - 12/28/2014 10:24 PM CDT TOTAL CHOLESTEROL [...] Very high >=220 Based on AHA/NCEP Guidelines Phuc MARISCAL CHEMISTRY ORDERABLES Final Re sult Performing Organization Address City/State[facility] Co de Phone Number [facility] CLIA # [id number] [address] [place] [address] [phone] * (ABNORMAL) HEMOGLOBIN A1C (12/28/2014 8:00 PM CDT) HEMOGLOBIN A1C 11.0(H) 4.8 - 5.9 % 12/28/2014 10:25 PM CDT [facility] EST. AVG GLUCOSE, A1C 269 mg/dL 12/28/2014 10:25 PM CDT [facility] Blood 12/28/2014 8:00 PM CDT 12/28/2014 8:42 PM CDT Phuc MARISCAL CHEMISTRY ORDERABLES Final Re sult [facility] CLIA # [id number] [address] [place] [address]86 * (ABNORMAL) BASIC METABOLIC PANEL (12/28/2014 8:00 PM CDT) SODIUM 133(L) 136 - 145 mmol/L 12/28/2014 10:24 PM CDT [facility] POTASSIUM 4.0 3.5 - 5.1 mmol/L 12/28/2014 10:24 PM CDT [facility] CHLORIDE 98 98 - 107 mmol/L 12/28/2014 10:24 PM CDT [facility] CO2 22 22 - 29 mmol/L 12/28/2014 10:24 PM CDT [facility] CALCIUM 9.6 8.6 - 10.0 mg/dL 12/28/2014 10:24 PM CDT [facility] BUN 13 6 - 20 mg/dL 12/28/2014 10:24 PM CDT [facility] CREATININE 0.65(L) 0.67 - 1.17 mg/dL 12/28/2014 10:24 PM CDT [facility] GLUCOSE 337(H) 74 - 106 mg/dL 12/28/2014 10:24 PM T [facility] GFR >60 >=60 mL/min/1.7 3 sq meter 12/28/2014 10:24 PM T [facility] [employer] [facility] Comment: eGFR has not been validated for [...] GFR, >60 >=60 mL/min/1.7 3 sq meter 12/28/2014 10:24 PM CDT [facility] [employer] SERVICES - [place] GAP 13 12 - 20 mmol/L 12/28/2014 10:24 PM CDT [facility] Blood 12/28/2014 8:00 PM CDT 12/28/2014 8:42 PM CDT Phuc MARISCAL CHEMISTRY ORDERABLES Final Re sult Performing Organization Address City/[facility]/ZIP Co de Phone Number [facility] [employer] [facility] CLIA # [id number] [address] [place] [phone] * (ABNORMAL) ALT (12/28/2014 8:00 PM CDT) ALT 69(H) 10 - 50 U/L 12/28/2014 10:24 PM CDT [facility] [employer] [facility] Blood 12/28/2014 8:00 PM CDT 12/28/2014 8:42 PM CDT Phuc MARISCAL CHEMISTRY ORDERABLES Final Re sult [facility] [employer] [facility] CLIA # [id number] [address] [place] [address] [phone] documented in this encounter Visit Diagnoses Not on filedocumented in this encounter
--- OUTSIDE RECORDS SUMMARY | 2024-11-18 16:09 | XMS_ITS | Patient Health Record ---
Author Organization [email or web address] Address [address] [place], [place] [address] Care Team Providers Care Education Technician Name Role Phone Willy RAMON, Isrrael Unavailable [phone] Gloria Nelson DO Unavailable Unavailable Allergies Allergen (clinical drug ingredient) Drug/Non Drug Allergy documented on EMR Reaction Allergy Type Onset Date Status Not verifiable (uncoded) Unknown Allergy Active Reason For Referral No Information Social History Tobacco Use: Social History Observation Description Date Details (start date - stop date) Former Smoker NA - NA Tobacco use: Question Answer Notes : former smoker How long has it been since you last smoked? > 10 years Plan Of Treatment No Information Insurance Providers Payer Name Payer Address Payer Phone Subscriber Number Group Number Insured Name Patient Relationship to Insured Coverage Start Date Coverage End Date [employer] Medicare Part B Claims Department [address] [address] [place] [address] [id number] Adrián Vinson Self - patient is the insured Medical (General) History Medical History History ICD Code See scanned documentation Hospitalization History Reason Date(Month/Year) Blood clot right arm, 2004 Blood clot left leg, 2010 Blood clot right leg, 2016
--- OUTSIDE RECORDS SUMMARY | 2024-11-18 16:09 | XMS_ITS | Encounter Summary ---
Author Organization [facility] Address [address] [place] [address] Care Team Providers Care Sustainability Executive Director Name Role Phone Unavailable Primary Care Provider Unavailabl e Encounter Details Date Type Department Care Team (Late st Contact Info) Description 02/03/2013 Ancillary Orders [facility] [address] [place] [phone] Sick Social History Tobacco Use Types Packs/Day Years Used Date Smoking Tobacco: Never Assessed Sex and Gender Information Value Date Recorded Sex Assigned at Not on file Legal Sex Male 9:23 PM CDT Gender Identity Not on file Sexual Orientation Not on file documented as of this encounter Plan of Treatment Not on file documented as of this encounter Procedures Procedure Name Priority Date/Time Associated Diagnosis Comments SEDIMENTATION RATE Routine 02/03/2013 8: 23 PM CDT Sick [ICD-9-CM] HEMOGLOBIN A1C Routine 02/03/2013 8:23 PM CDT Sick [ICD-9-CM] documented in this encounter Results * SEDIMENTATION RATE (02/03/2013 8:23 PM CDT) ESR (SEDIMENTATION RATE) 8 0 - 20 mm/Hr 02/03/2013 9:53 PM CDT [facility] Blood specimen (specimen) Venipuncture - Lab Collect / Unknown 02/03/2013 8:23 PM CDT 02/03/2013 9:24 PM CDT us Harshad Patrick DO HEMATOLOGY ORDERABLES Final Res ult [facility] CLIA # [id number] [address] [place] [phone] * (ABNORMAL) HEMOGLOBIN A1C (02/03/2013 8:23 PM CDT) HEMOGLOBIN A1C 9.1(H) 4.5 - 6.2 % 02/03/2013 11:01 PM CDT [facility] EST. AVG GLUCOSE, A1C 214 mg/dL 02/03/2013 11:01 PM CDT [facility] Blood specimen (specimen) Venipuncture - Lab Collect / Unknown 02/03/2013 8:23 PM CDT 02/03/2013 9:24 PM CDT Harshad Patrick DO CHEMISTRY ORDERABLES Final Resu lt [facility] CLIA # [id number] [address] [place] [phone] documented in this encounter Visit Diagnoses Diagnosis Sick Other unknown and unspecified cause of morbidity or mortality documented in this encounter
--- NOTE | 2024-11-18 16:11 | XRR_ITS ---
PROCEDURE INFORMATION: Exam: XR Chest Exam date and time: 11/18/2024 4:15 PM Age: 64 years old Clinical indication: Shortness of breath; Additional info: Short of breath TECHNIQUE: Imaging protocol: Radiologic exam of the chest. Views: 1 view. COMPARISON: CR XR chest 2V* [id number] 09/10/2023 9:38 AM FINDINGS: Lungs: Bibasilar atelectasis and/or infiltrates greater at the right lung base. No lobar consolidation. Pleural spaces: No sizable pleural effusion or pneumothorax. Heart/Mediastinum: Unremarkable. No cardiomegaly. Bones/joints: Unremarkable. XR/XR chest 1V portable [id number] IMPRESSION: As above.
--- NOTE | 2024-11-18 16:12 | ECG_ITS ---
[facility] Test Date: 2024-11-18 Pat Name: Adrián Vinson Department: Room: Gender: Male [employer]: : 1960 Requested By: Priscila Carrasco Order Number: [id number] Schmitz MD: Thor Lanidn M.D. Measurements Intervals [place] Rate: 103 P: 50 AR: 164 QRS: 27 QRSD: 94 T: 189 QT: 350 QTc: 459 Interpretive Statements SINUS TACHYCARDIA LEFT ATRIAL ENLARGEMENT [-0.15mV P-WAVE IN V1/V2] ST DEVIATION AND MODERATE T-WAVE ABNORMALITY, CONSIDER LATERAL ISCHEMIA [-0.1+ mV T-WAVE IN I/aVL/V5/V6] ST DEVIATION AND MODERATE T-WAVE ABNORMALITY, CONSIDER INFERIOR ISCHEMIA [-0.1+ mV T-WAVE IN II/aVF] Compared to ECG 12/11/2023 09:22:56 T-wave abnormality now present Possible ischemia now present Sinus rhythm no longer present Myocardial infarct finding no longer present Electronically Signed On 11-20-2024 08:59:49 CDT by Thor Landin M.D. [id number]
--- NOTE | 2024-11-18 16:13 | ED_ITS ---
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 Shortness of breath started last p.m., like it is hard to take a deep breath. His abdomen is having increased edema, and he is having difficulty in taking food yesterday, had minimal to eat, and water. States his salt intake is low and he follows a low-salt diet. Denies change in his weight of 265. His chest pressure is in the central area of his sternum that feels like a rock is on my chest and is having difficulty taking deep breath. EMS noted 88% oxygen saturation on arrival. He is not on home O2. He states compliance to his medications. Patient has received his aspirin 324 mg. EKG 12/11/2023 shows Q waves lead III flattened inverted T waves lateral and lead II, aVL. Current EKG is without change. Associated symptoms: Reports chest pain; Deny abdominal pain, fever(s), lightheadedness, nausea, palpitations or vomiting Related Data Home Medications ?Medication ?Instructions ?Recorded ?Confirmed mupirocin 2 % topical ointment 1 applic topical BID AK N Skin 07/06/24 09/26/24 Irritation Previous Rx's ?Medication ?Instructions ?Recorded lancets 33 gauge (BD Ultra Fine #100 ea 08/19/21 Lancets) blood sugar diagnostic (Blood #200 ea 05/31/23 Glucose Test strips) blood-glucose meter #1 ea 05/31/23 lancets #200 ea 05/31/23 blood sugar diagnostic (Accu-Chek #100 ea 06/05/23 Guide test strips) blood-glucose meter (Accu-Chek #1 ea 06/05/23 Guide Glucose Meter) Stump [employer] Supply #1 ea 07/06/23 fast form ulnar gutter #1 ea 08/20/23 right below knee prosthesis #1 ea 08/27/23 wheel chair leg assistant front desk manager #1 ea 08/30/23 Right below the knne prosthetic #1 ea 09/24/23 rizatriptan 5 mg tablet See Rx Instructions PO .COMP KEREN 11/21/23 #10 tabs Cam Boot to left #1 ea 01/01/24 furosemide 40 mg tablet 40 mg PO DAILY #90 tabs 05/21 roho cushion #1 ea 06/04/24 blood-glucose sensor (Dexcom G7 #9 ea 06/18/24 Sensor device) insulin degludec 100 unit/mL (3 56 unit (0.56 mL) SUBC UT DAILY #60 06/19/24 mL) subcutaneous pen mL oxycodone-acetaminophen 5 mg-325 1 tab PO Q8H PRN pain 3 days #10 07/16/24 mg tablet tabs insulin regular human 100 unit/mL See Rx Instructions SUBCUT TID 90 08/11/24 injection solution (Humulin R days #30 mL Regular U-100 Insulin) apixaban 5 mg tablet (Eliquis) See Rx Instructions .Ro caroline 10/06/24 .COMPLEX #60 tabs albuterol sulfate 90 mcg/actuation See Rx Instructions .Route 10/08/24 aerosol inhaler .COMPLEX #8.5 grams Allergies Allergy/AdvReac Type Severity Reaction Status Date / Time No Known Allergies Allergy Verified 10/09/24 12:19 Review of Systems 2 General: Reports: 10 or more systems reviewed and unremarkable except in HPI and below Const: Denies: fever(s) or chills Eyes: Denies: change in vision or blurry vision ENMT: Reports: nasal discharge and nasal congestion; Denies: throat pain Card: Reports: chest pain and edema; Denies: palpitations or lightheadedness Resp: Reports: dyspnea, productive cough (yellow he thinks), pain on inspiration and change in phlegm color; Denies: wheezing GI: Denies: abdominal pain, nausea or vomiting : Denies: flank pain or difficulty urinating Musc: Denies: neck pain or back pain Neuro: Denies: headache(s) or numbness in extremities Psych: Denies: anxiety or depression PFS ED 2 PFSH: Medical History History of colon polyps Factor 5 Leiden mutation, heterozygous Constipation History of DVT (deep vein thrombosis) 07/10/2019 DVT involving the popliteal veins bilaterally Closed hand fracture Right 4th metacarpal oblique, injury 04/03/2022 Bilateral leg edema Erectile dysfunction Low testosterone Anxiety and depression Diabetes type 2, uncontrolled Atherosclerotic heart disease of [place] coronary artery with other forms of angina pectoris Hypertension Hyperlipidemia Diabetic neuropathy Adenomatous colon polyp Ischemic cardiomyopathy Abnormal nuclear stress test History of claustrophobia Right foot drop 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 Surgical History S/P pilonidal cyst excision Stented coronary artery H/O circumcision Family History Mother , at age 45 Lung cancer smoker Grandmother Diabetes Father , at age 23 Drowning Other Hypertension Denies family history of CAD (coronary artery disease) Social History Smoking and tobacco/nicotine status: never used tobacco/nicotine Quit status (tobacco/nicotine): has quit using Year quit tobacco: 2005 Alcohol intake: former Substance/Drug Use: former Household members: spouse and children Marital status: Number of children: 7 service: No Current occupational status: disabled 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 Abiola/Confucianist: Mu-Ism Special abiola needs: Yes (chelly) Agree to transfusion: Yes Physical Exam 2 Const: COMMON NORMALS: patient oriented x3 GENERAL APPEARANCE: cooperative and in distress (dyspnea) NUTRITIONAL APPEARANCE: obese O RIENTATION/CONSCIOUSNESS: Yes awake HENMT: COMMON NORMALS: normocephalic and atraumatic HEAD & SCALP: n ormocephalic and atraumatic Neck/C-Spine: COMMON NORMALS: full ROM and no lymphadenopathy Lymph: LYMPHATIC: no lymphadenopathy noted Chest: COMMONS NORMALS: normal inspection of the chest and normal palpation of entire chest wall Resp: COMMON NORMALS: No use of accessory muscles EFFORT & INSPECTION: No able to speak in complete sentences, Yes tachypneic, Yes labored (mild), No grunting, No stridor, No Actively coughing and No uses accessory muscles A USCULTATION: crackles (distal bases) Laterality: bilateral and posterior Cardio: COMMON NORMALS: regular rate, regular rhythm and Peripheral pulses 2+ throughout JUGULAR VENOUS DISTENTION: JVD (mild) RATE: regular rate R HYTHM: regular rhythm HEART SOUNDS: Murmur heart sound present (mid to late systolic) systolic PERIPHERAL PULSES: Peripheral pulses 2+ throughout GI: COMMON NORMALS: Normal to inspection, nondistended, normoactive bowel sounds present and Soft to palpation INSPECTION: No Fluid wave present P ALPATION: Yes Soft to palpation and Yes Other GI palpation findings present (HJR) PERCUSSION: no fluid wave : COMMON NORMALS: Yes no CVA tenderness BLADDER/KIDNEY EXAM: Yes no CVA tenderness Back/Pelvis: COMMON NORMALS: no CVA tenderness Extremity: COMMON NORMALS: normal to inspection, full ROM and capillary refill normal Neuro: COMMON NORMALS: patient oriented x3 Psych: COMMON NORMALS: mental status grossly normal and Normal thought process present THOUGHT PROCESS: Normal thought process present Skin: COMMON NORMALS: no rashes or lesions noted and no wounds GENERAL SKIN EXAM: no rashes or lesions noted Course 2 Reevaluation(s): Reevaluation #1: Chest pain resolved after nitroglycerin Consultations: Consultation #1: Discussed with Dr. Serrano that recommends heparin without load, Lasix 60 mg IV twice daily, and potassium chloride [address] Serrano plans on left heart cath tomorrow. Will place c/s Consultation #2: Discussed with hospitalist that recommends admission, blood cultures, antibiotic coverage given CBC with WBC of 19.5. Creatinine up from previous at 1.4, previously 1. COVID is still pending. Vital Signs: Vital signs: Vital Signs Temperature 98.5 F 11/19/24 00:00 Pulse Rate 98 11/19/24 00:00 Respiratory Rate 27 H 11/19/24 00:00 Blood Pressure 137/87 11/19/24 00:00 Pulse Oximetry 91 11/19/24 00:00 Oxygen Delivery Me thod Nasal Cannula 11/19/24 00:00 Oxygen Flow Rate 2 11/18/24 16:05 MDM - SOB/Dyspnea Medical Decision Making Patient is 64-year-old male with previous history of CHF, last EF of 42%, factor V mutation, previously on Xarelto, DVT on 07/06/2024 changing to Eliquis, last Eliquis ingestion at 9 AM that presents with chest pain, and shortness of breath. He has factors of heart failure, and NSTEMI. No EKG change. Lab Data 11/18/24 16:30 11/18/24 16:30 Labs/Radiology: Radiology Impressions Chest X-Ray 11/18/24 16:11 IMPRESSION: As above. Laboratory Results WBC 19.55 10^3/uL (3.29-11.43) H 11/18/24 16:30 RBC 5.46 10^6/uL (3.85-5.65) 11/18/24 16:30 Hgb 15.50 g/dL (11.27-16.99) 11/18/24 16:30 Hct 48.6 % (37-53) 11/18/24 16:30 MCV 89.0 fl (82-101) 11/18/24 16:30 MCH 28.4 pg (27-33) 11/18/24 16:30 MCHC 31.9 g/dL (30-55) 11/18/24 16:30 RDW 14.3 % (12.1-15.1) 11/18/24 16:30 Plt Count 284 10^3/cmm (157-399) 11/18/24 16:30 MPV 11.4 fL (7.4-10.4) H 11/18/24 16:30 Neut % (Auto) 82.4 % 11/18/24 16:30 Lymph % (Auto) 8.3 % 11/18/24 16:30 Kay % (Auto) 8.3 % 11/18/24 16:30 Eos % (Auto) 0.0 % 11/18/24 16:30 Baso % (Auto) 0.3 % 11/18/24 16:30 Neut # (Auto) 16.13 10^3/uL (1.8-7.7) H 11/18/24 16:30 Lymph # (Auto) 1.6 10^3/uL (0.8-4.8) 11/18/24 16:30 Kay # (Auto) 1.6 10^3/uL (0.2-0.9) H 11/18/24 16:30 Eos # (Auto) 0.0 10^3/uL (0.0-0.8) 11/18/24 16:30 Baso # (Auto) 0.1 10^3/uL (0.0-0.1) 11/18/24 16:30 Nucleated RBC % (auto) 0 % 11/18/24 16:30 Nucleated RBCs # 0.0 /100WBC 11/18/24 16:30 Sodium 133 mmol/L (136-145) L 11/18/24 16:30 Potassium 5.2 mmol/L (3.5-5.1) H 11/18/24 16:30 Chloride 98 mmol/L (98-107) 11/18/24 16:30 Carbon Dioxide 17 mmol/L (22-29) L 11/18/24 16:30 Anion Gap 23.2 (5-19) H 11/18/24 16:30 BUN 42 mg/dL (8-23) H 11/18/24 16:30 Creatinine 1.4 mg/dL (0.7-1.2) H 11/18/24 16:30 GFR Calculation 51.2 mL/min (90-130) L 11/18/24 16:30 Glucose 246 mg/dL (65-115) H 11/18/24 16:30 Calculated Osmolality 295 mOsm/kg (285-295) 11/18/24 16:30 Calcium 9.4 mg/dL (8.5-10.5) 11/18/24 16:30 Total Bilirubin 0.9 mg/dL (0.15-1.2) 11/18/24 16:30 AST 62 U/L (0-40) H 11/18/24 16:30 ALT 30 U/L (0-41) 11/18/24 16:30 Alkaline Phosphatase 79 U/L (40-130) 11/18/24 16:30 Troponin T Baseline 739 ng/L (0-15) H* 11/18/24 16:30 NT-Pro-B Natriuret Pep 81844 pg/mL (0-125) H 11/18/24 16:30 Total Protein 7.4 g/dL (6.6-8.7) 11/18/24 16:30 Albumin 3.9 g/dL (3.5-5.2) 11/18/24 16:30 Globulin 3.5 g/dL (1.3-4.6) 11/18/24 16:30 Procalcitonin 0.30 ng/mL (0-0.5) 11/18/24 16:30 Influenza A (PCR) Negative (Negative) 11/18/24 16:17 Influenza Type B (PCR) Negative (Negative) 11/18/24 16:17 RSV (PCR) Negative (Negative) 11/18/24 16:17 SARS-CoV-2 (PCR) Negative (Negative) 11/18/24 16:17 All radiology interpretation(s) finalized by discharge ED provider radiology interpretation(s): Bilateral atelectasis with possible infiltrate on the right EKG Data EKG 1: Interpretation: Sinus rhythm, normal axis, lateral, lead II flat T waves without ST segment elevation, Q waves in lead III Discharge Plan Discharge Patient Disposition: Admitted As Inpatient Admit Provider: Ap Chew Clinical Impression: Acute non-ST elevation myocardial infarction (NSTEMI), Acute hypoxic respiratory failure, Acute systolic (congestive) heart failure, Pneumonia, Leukocytosis, Creatinine elevation, Factor 5 Leiden mutation, heterozygous Condition: Stable Discharge Diet: Low Salt Coding Level of Care Code ED Clinical Data Research for Lolita Gallegos
[2024-11-18 16:48] LABS: Hematocrit 48.6 % (37-53); Hemoglobin 15.50 g/dL (11.27-16.99); Mean Corpuscular HGB Conc 31.9 g/dL (30-55); Mean Corpuscular Hemoglobin 28.4 pg (27-33); Mean Corpuscular Volume 89.0 fl (82-101); Nucleated Red Blood Cells % 0 %; Platelet Count 284 10^3/cmm (157-399); Red Blood Count 5.46 10^6/uL (3.85-5.65); White Blood Count 19.55 10^3/uL (3.29-11.43)
[2024-11-18] MEDS: FUROsemide 10 mg/mL SDV 10mL 80 MG IVP (16:56)
[2024-11-18 17:02] LABS: Troponin(5th) Baseline 739 ng/L (0-15)
[2024-11-18 17:13] LABS: Alanine Aminotransferase 30 U/L (0-41); Albumin Level 3.9 g/dL (3.5-5.2); Alkaline Phosphatase 79 U/L (40-130); Blood Urea Nitrogen 42 mg/dL (8-23); Calcium 9.4 mg/dL (8.5-10.5); Carbon Dioxide 17 mmol/L (22-29); Chloride 98 mmol/L (98-107); Creatinine Clr Calc Pharmacy 73.3492; Globulin 3.5 g/dL (1.3-4.6); Glucose 246 mg/dL (65-115); NT Pro B Type Natriuretic Pept 12445 pg/mL (0-125); Osmolality Calculated 295 mOsm/kg (285-295); Sodium 133 mmol/L (136-145); Total Protein 7.4 g/dL (6.6-8.7)
[2024-11-18 17:15] LABS: Anion Gap 23.2 (5-19); Aspartate Amino Transferase 62 U/L (0-40); Potassium 5.2 mmol/L (3.5-5.1)
[2024-11-18 17:32] LABS: Respiratory Syncytial Virus Ce NEGATIVE (Negative); SARS-CoV-2 PCR NEGATIVE (Negative)
[2024-11-18] MEDS: heparin drip 25,000 UNIT/500 ML PREMIX 34 UNIT IV (17:49)
[2024-11-18] MEDS: cefTRIAXone 2,000 mg SDV 2000 MG IVP (17:50)
--- NOTE | 2024-11-18 18:11 | ECG_ITS ---
Cursogram Test Date: 2024-11-18 Pat Name: Adrián Vinson Department: Room: 103 Gender: Male Bilingual Customer Service: : 1960 Requested By: Priscila Carrasco Order Number: [id number] Nadir MD: Thor Landin M.D. Measurements Intervals [place] Rate: 108 P: 59 OH: 160 QRS: 30 QRSD: 88 T: -60 QT: 348 QTc: 467 Interpretive Statements SINUS TACHYCARDIA LEFT ATRIAL ENLARGEMENT [-0.15mV P-WAVE IN V1/V2] SEPTAL MYOCARDIAL INFARCTION , PROBABLY OLD [40+ ms Q WAVE IN V1/V2] MODERATE T-WAVE ABNORMALITY, CONSIDER INFERIOR ISCHEMIA [-0.1+ mV T-WAVE IN II/aVF] Compared to ECG 11/18/2024 16:12:46 Myocardial infarct finding now present T-wave abnormality still present Possible ischemia still present Electronically Signed On 11-20-2024 09:31:29 CDT by Thor Landin M.D. [email or web address]
[2024-11-18 18:15] LABS: Procalcitonin 0.30 ng/mL (0-0.5)
--- NOTE | 2024-11-18 18:25 | PC.NURSE ---
Solange Schroeder started the heparin drip for Swetha BLANCHARD but accidentally charted it under Swetha Blanchard.
--- NOTE | 2024-11-18 18:35 | P.HP_ITS ---
Providers/Chief Complaint 2 Admitting Physician: Ap Chew Primary Care Provider: Sondra May MD Chief Complaint: SOB History of Present Illness Adrián Vinson is a 64 year old male gentleman with a history of ischemic cardiomyopathy (EF reportedly 42%), prior coronary artery stents, type 2 diabetes complicated by recurrent foot infections and right below-knee amputation, chronic DVT with factor V Leiden on apixaban, hypertension, hyperlipidemia, and lumbar degenerative disc disease who presented to the ED last evening for new-onset shortness of breath, central chest pressure, and decreased appetite. EMS recorded an oxygen saturation of 88% en-route, and 2 L O2 was started. In the ED he endorsed some cough with scant sputum but no fever or chills. Review of systems notable for intermittent dysphagia with water, chronic constipation, and episodic acid reflux; denies vomiting or hematuria. He reports back discomfort but no prior kidney stones. ED work-up revealed troponin 739 ng/L (elevated), WBC 19.55 K/?L, BNP 12 445 pg/mL, creatinine 1.4 mg/dL (ELSY), anion gap 23, bicarbonate 17 mEq/L, K 5.2 mEq/L, Na 133 mEq/L. EKG showed sinus tachycardia 102 bpm with no acute ST changes. Chest X-ray showed bibasilar infiltrates, more pronounced at the right base, without consolidation or large effusion. Flu/RSV/COVID swabs negative. He received aspirin from EMS, then heparin infusion, IV furosemide 80 mg then 60 mg BID, ceftriaxone, doxycycline, nitroglycerin, and oral potassium in the ED. Real Estate Asset Manager consulted; possible angiogram tomorrow was discussed. He remains on 2 L O2 and reports mild residual chest pressure. Review of Systems 2 Const: Denies: fever(s), chills, body aches or malaise ENMT: Denies: throat pain Card: Reports: other (Central chest pressure. Also cannot catch a deep breath); Denies: edema, pre-syncope or dyspnea on exertion Resp: Reports: dyspnea and productive cough; Denies: change in phlegm color or hemoptysis GI: Denies: abdominal pain, nausea, vomiting, diarrhea, constipation, hematochezia or melena : Denies: flank pain, difficulty urinating, urinary frequency or hematuria Musc: Denies: back pain, joint swelling or joint redness Skin/Breast: Denies: rash or new lesions Neuro: Denies: headache(s) or confusion Medications/Allergies Home Medications ?Medication ?Instructions ?Recorded ?Confirmed ?Last Taken ?Type lancets 33 gauge (BD Ultra Fine #100 ea 08/19/2109/26 Unknown Rx Lancets) blood sugar diagnostic (Blood #200 ea 05/31/23 5 Unknown Rx Glucose Test strips) blood-glucose meter #1 ea 05/31/23 09/26/24 Unkn own Rx lancets #200 ea 05/31/23 09/26/24 Un known Rx blood sugar diagnostic (Accu-Chek #100 ea 06/05/2302/12 Unknown Rx Guide test strips) blood-glucose meter (Accu-Chek #1 ea 06/05/23 09/26/24 Unknown Rx Guide Glucose Meter) Stump [employer] Sales Associate #1 ea 07/06/23 09/26/24 Unkn own Rx fast form ulnar gutter #1 ea 08/20/23 09/26/24 Unkn own Rx right below knee prosthesis #1 ea 08/27/23 09/26/24 Un known Rx wheel chair leg seam feller #1 ea 08/30/23 09/26/24 Unkn own Rx Right below the knne prosthetic #1 ea 09/24/23 5 Unknown Rx rizatriptan 5 mg tablet See Rx Instructions PO .COMP KEREN 11/21/23 09/26/24 Unknown Rx #10 tabs Cam Boot to left #1 ea 01/01/24 09/26/24 Unkn own Rx furosemide 40 mg tablet 40 mg PO DAILY #90 tabs 05/2109/26/24 07/06/24 Rx roho cushion #1 ea 06/04/24 09/26/24 Unkn own Rx blood-glucose sensor (Dexcom G7 #9 ea 06/18/24 5 Unknown Rx Sensor device) insulin degludec 100 unit/mL (3 56 unit (0.56 mL) SUBC UT DAILY #60 06/19/24 09/26/24 07/06/24 Rx mL) subcutaneous pen mL mupirocin 2 % topical ointment 1 applic topical BID OH N Skin 07/06/24 09/26/24 Unknown History Irritation oxycodone-acetaminophen 5 mg-325 1 tab PO Q8H PRN pain 3 days #10 07/16/24 09/26/24 Unknown Rx mg tablet tabs insulin regular human 100 unit/mL See Rx Instructions SUBCUT TID 90 08/11/24 09/26/24 Unknown Rx injection solution (Humulin R days #30 mL Regular U-100 Insulin) apixaban 5 mg tablet (Eliquis) See Rx Instructions .Ro caroline 10/06/24 10/09/24 Unknown Rx .COMPLEX #60 tabs albuterol sulfate 90 mcg/actuation See Rx Instructions .Route 10/08/24 10/09/24 Unknown Rx aerosol inhaler .COMPLEX #8.5 grams Allergies Allergy/AdvReac Type Severity Reaction Status Date / Time No Known Allergies Allergy Verified 10/09/24 12:19 PFSH Acute 2 PFSH: Medical History History of colon polyps Factor 5 Leiden mutation, heterozygous Constipation History of DVT (deep vein thrombosis) 07/10/2019 DVT involving the popliteal veins bilaterally Closed hand fracture Right 4th metacarpal oblique, injury 04/03/2022 Bilateral leg edema Erectile dysfunction Low testosterone Anxiety and depression Diabetes type 2, uncontrolled Atherosclerotic heart disease of [place] coronary artery with other forms of angina pectoris Hypertension Hyperlipidemia Diabetic neuropathy Adenomatous colon polyp Ischemic cardiomyopathy Abnormal nuclear stress test History of claustrophobia Right foot drop 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 Surgical History S/P pilonidal cyst excision Stented coronary artery H/O circumcision Family History Mother , at age 45 Lung cancer smoker Grandmother Diabetes Father , at age 23 Drowning Other Hypertension Denies family history of CAD (coronary artery disease) Social History Smoking and tobacco/nicotine status: never used tobacco/nicotine Quit status (tobacco/nicotine): has quit using Year quit tobacco: 2005 Alcohol intake: former Substance/Drug Use: former Household members: spouse and children Marital status: Number of children: 7 service: No Current occupational status: disabled 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 Abiola/Alevism: Episcopalian Special abiola needs: Yes (seth) Agree to transfusion: Yes Vitals/I&O/Wt Last Vital Signs Temp 98.2 F 11/18/24 16:05 Pulse 102 H 11/18/24 18:19 Resp 18 11/18/24 18:19 BP 143/110 11/18/24 18:19 Pulse Ox 92 11/18/24 18:19 O2 Del Method Nasal Cannula 11/18/24 16:05 O2 Flow Rate 2 11/18/24 16:05 Weight last 48 hrs Weight 120.202 kg Physical Exam 2 Narrative: Nasal cannula oxygen Const: COMMON NORMALS: patient oriented x3 and alert GENERAL APPEARANCE: c ooperative ORIENTATION/CONSCIOUSNESS: Yes awake HENMT: COMMON NORMALS: oropharynx normal Neck/C-Spine: COMMON NORMALS: no JVD Resp: COMMON NORMALS: normal respiratory effort and clear to auscultation bilaterally AUSCULTATION: clear to auscultation bilaterally Cardio: COMMON NORMALS: no JVD, regular rhythm, S1 normal heart sound present, S2 normal heart sound present and No murmurs present (Cardio) RHYTHM: regular rhythm HEART SOUNDS: S1 normal heart sound present and S2 normal heart sound present GI: COMMON NORMALS: Normal to inspection, nondistended, normoactive bowel sounds present, Soft to palpation and non-tender PALPATION: Yes Soft to palpation Extremity: COMMON NORMALS: no joint enlargement and no pedal edema N ARRATIVE EXTREMITY EXAM: Right BKA Neuro: COMMON NORMALS: patient oriented x3 and moves all extremities S ENSORIUM/ORIENTATION: Yes alert Skin: COMMON NORMALS: no rashes or lesions noted GENERAL SKIN EXAM: no rashes or lesions noted Data 11/18/24 16:30 11/18/24 16:30 Micro: Microbiology 11/18/24 18:22 Blood Culture - Preliminary Blood SPECIMEN COLLECTED 11/18/24 18:17 Blood Culture - Preliminary Blood SPECIMEN COLLECTED A&P Assessment and plan (1) NSTEMI (non-ST elevated myocardial infarction): NSTEMI : Chest pressure with troponin 739 and CAD history; EKG non-specific. Cardiology consulted for invasive evaluation; patient previously told limited PCI options but discussion ongoing. Reviewed vitals, CBC, CMP, troponin, EKG on my interpretation some ST depression in 1 as well as T wave inversion in 2 3 and aVF, pending official read. Reviewed chest x-ray. Reviewed ED provider note, discussed with ED provider. - Continue heparin anticoagulation as initiated in ED. Monitor for risk of bleeding. Monitor PTT. Repeat blood counts. - Maintain aspirin therapy, second antiplatelet per cardiology - Tentative plan for coronary angiogram tomorrow per cardiology - Monitor serial troponins and EKGs. Obtain echocardiogram. - Continue oxygen supplementation and monitor symptoms - Monitor on telemetry with risk of arrhythmia - Further assessment for VTE once possible (2) Hypoxia: Acute decompensated systolic heart failure : Dyspnea, elevated pro-BNP 12 445, bibasilar infiltrates, and good response to IV furosemide suggest volume overload component. - Continue IV furosemide 60 mg BID - Daily weights and strict intake/output - Echocardiogram ordered to assess current cardiac function - Titrate oxygen to keep SpO2 > 92% - Evaluate need for adjustment of chronic heart-failure medications after stabilization Possible community-acquired pneumonia. History of VTE, currently difficult to exclude VTE. On anticoagulation as above. Will need further imaging to exclude VTE/failure of Eliquis once either renal function allows for CTA or V/Q possible. (3) Pneumonia: Possible community-acquired pneumonia versus possible aspiration pneumonia: Cough, bibasilar infiltrates on CXR, leukocytosis 19.55; viral panel negative. Occasional choking up with water. Chronic tonsillar enlargement since childhood. - Continue ceftriaxone and azithromycin - Monitor WBC, temperature, and respiratory status - Consider sputum culture if productive cough increases - Chest physiotherapy and incentive spirometry Plan Acute kidney injury : Creatinine 1.4 with elevated anion gap; concern for contrast nephropathy risk. - Hold nephrotoxic agents; avoid contrast imaging for now - Renal ultrasound to evaluate for obstruction per discussion - Monitor BMP daily, including potassium and bicarbonate - Ensure adequate hydration while balancing heart-failure status - Obtain urine studies -Mild hyperkalemia, recheck chemistry. Low potassium diet. Dysphagia/aspiration risk : Intermittent coughing with water intake and recent antibiotic-induced emesis; chronic enlarged tonsils. - Modified barium swallow evaluation - Educate patient on aspiration precautions - Adjust oral medications to easy-swallow formulations if needed Constipation : Reports chronic intermittent constipation, no recent bowel movement issues today. - Monitor bowel movements during hospitalization - MiraLAX twice daily DM2: Continue long-acting insulin. Insulin/scale. Consider carbohydrate diet. Monitor POC glucose. PDMP PDMP Reviewed: Not Reviewed Attestations 2 Medical Necessity Statement*: Admission over 2 midnights anticipated for assessment of management of NSTEMI, pneumonia, new hypoxia, acute systolic congestive heart failure, ELSY, possible VTE in a gentleman with comorbidities including diabetes. and High MDM includes amount and/or complexity of data reviewed/ordered [ previous or external records, resulted lab(s)/test(s), ordered lab(s)/test(s) and other healthcare professional discussion] and described risk of complication, morbidity or mortality of management as documented Diagnoses NSTEMI (non-ST elevated myocardial infarction) I21.4 Hypoxia R09.02 Pneumonia J18.9 Laterality: right Lung location: lower lobe of lung Pneumonia type: due to unspecified organism
[2024-11-18 19:07] LABS: Troponin 5 2HR 765.2 ng/L (0-15); Troponin 5 2HR Delta 26.2 ABS# (0-10)
[2024-11-18] MEDS: FUROsemide 10 mg/mL SDV 10mL 60 MG IVP (20:07)
--- NOTE | 2024-11-18 20:12 | US_ITS ---
WS: [id number] RENAL ULTRASOUND URINARY BLADDER ULTRASOUND HISTORY: ELSY COMPARISON: None available. TECHNIQUE: 2-D and color Doppler imaging of the kidney submitted. Right kidney: 13.3 cm x 5.9 cm x 5.9 cm. Normal echogenicity with no hydronephrosis or mass. Left kidney: 13.2 cm x 6.4 cm x 5.0 cm. Normal echogenicity with no hydronephrosis or mass. Aorta: Normal. Urinary Bladder: Normal distention. Bilateral ureteral jets are identified. Prevoid volume: 288 mL. Postvoid volume: 98 mL. US/US renal BI with PV bladder IMPRESSION: Normal renal ultrasound. No hydronephrosis. Small to moderate postvoid volume residual.
[2024-11-18 20:36] LABS: Troponin 5 6HR 759.2 ng/L (0-15); Troponin 5 6HR Delta 20.2 ng/L (0-12)
--- NOTE | 2024-11-18 22:11 | ECG_ITS ---
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 Measurements Intervals [place] Rate: 107 P: 57 KS: 160 QRS: 55 QRSD: 95 T: -43 QT: 359 QTc: 480 Interpretive Statements SINUS TACHYCARDIA POSSIBLE LEFT ATRIAL ENLARGEMENT [-0.1mV P-WAVE IN V1/V2] ST DEVIATION AND MODERATE T-WAVE ABNORMALITY, CONSIDER LATERAL ISCHEMIA [-0.1+ mV T-WAVE IN I/aVL/V5/V6] ST DEVIATION AND MODERATE T-WAVE ABNORMALITY, CONSIDER INFERIOR ISCHEMIA [-0.1+ mV T-WAVE IN II/aVF] Compared to ECG 11/18/2024 18:39:59 Myocardial infarct finding no longer present T-wave abnormality still present Possible ischemia still present Electronically Signed On 11-20-2024 09:31:26 CDT by Thor Landin M.D. [id number]
[2024-11-19] VITALS (9 sets, daily range): BP systolic 109–137; BP diastolic 78–87; PULSE 96–112; RESP 10–34; TEMP 36.5–36.9; O2SAT 91–98
[2024-11-19 00:41] LABS: Partial Thromboplastin Time 81.0 SECONDS (23.9-36.7)
[2024-11-19] MEDS: alum-mag-hydroxide-sime 30 mL UDC PO (05:06)
[2024-11-19 07:27] LABS: Hematocrit 47.3 % (37-53); Hemoglobin 14.90 g/dL (11.27-16.99); Mean Corpuscular HGB Conc 31.5 g/dL (30-55); Mean Corpuscular Hemoglobin 28.8 pg (27-33); Mean Corpuscular Volume 91.3 fl (82-101); Nucleated Red Blood Cells % 0 %; Platelet Count 239 10^3/cmm (157-399); Red Blood Count 5.18 10^6/uL (3.85-5.65); White Blood Count 18.96 10^3/uL (3.29-11.43)
[2024-11-19 07:36] LABS: Partial Thromboplastin Time 74.5 SECONDS (23.9-36.7)
[2024-11-19] MEDS: AZITHROMYCIN ADD-Vantage 500 MG in 0.9% NaCl ADD-Vantage 250 ML 250 MG IV (07:41)
[2024-11-19] MEDS: FUROsemide 10 mg/mL SDV 10mL 60 MG IVP (07:43)
[2024-11-19 07:44] LABS: Alanine Aminotransferase 29 U/L (0-41); Albumin Level 3.4 g/dL (3.5-5.2); Alkaline Phosphatase 77 U/L (40-130); Blood Urea Nitrogen 51 mg/dL (8-23); Calcium 9.1 mg/dL (8.5-10.5); Carbon Dioxide 16 mmol/L (22-29); Chloride 101 mmol/L (98-107); Creatinine Clr Calc Pharmacy 68.3945; Globulin 4.3 g/dL (1.3-4.6); Glucose 207 mg/dL (65-115); Osmolality Calculated 300 mOsm/kg (285-295); Sodium 135 mmol/L (136-145); Total Protein 7.7 g/dL (6.6-8.7)
[2024-11-19 07:50] LABS: Anion Gap 22.9 (5-19); Aspartate Amino Transferase 52 U/L (0-40); Potassium 4.9 mmol/L (3.5-5.1)
--- NOTE | 2024-11-19 08:54 | PM.PN ---
Subjective Subjective: He had his modified barium swallow today. There was no aspiration or penetration of contrast into the laryngeal vestibule. The barium tablet was not impeding his transition through the esophagus into the stomach. Cardiology deferred cardiac cath today until renal function is improved. Echocardiogram done and showed LVEF of 30 to 35%. He is feeling well today. He denies any chest pain or dyspnea. Vitals/I&O/Wt Last Vital Signs Temp 97.9 F 11/19/24 07:29 Pulse 96 11/19/24 07:29 Resp 34 H 11/19/24 07:29 BP 124/82 11/19/24 07:29 Pulse Ox 96 11/19/24 07:29 O2 Del Method Room Air 11/19/24 04:00 O2 Flow Rate 2 11/18/24 16:05 11/18/24 11/19/24 11/19/24 22:59 06:59 14:59 Intake Total 170 / 170 286.3 / 456.3 Output Total 200 / 200 0 / 200 Balance -30 / -30 286.3 / 256.3 Weight last 48 hrs Weight 119.975 kg Weight 119.884 kg Weight 120.202 kg Physical Exam Narrative: GEN: Alert, no acute distress HEENT: Normocephalic, atraumatic, PERRLA, EOMI Neck: Supple, no JVD Cardio: S1, S2, regular rate and rhythm, no murmur Cardio: Clear to auscultation bilaterally, no respiratory distress Abdomen: Soft, nontender, nondistended, normal active bowel sounds Extremity: Status post right BKA, Neuro: Alert and oriented x 3, no focal deficits HEENT: No lesion noted Data 11/19/24 06:36 11/19/24 06:36 Micro: Microbiology 11/18/24 18:22 Blood Culture - Preliminary Blood SPECIMEN COLLECTED 11/18/24 18:17 Blood Culture - Preliminary Blood SPECIMEN COLLECTED A&P Assessment and plan (1) NSTEMI (non-ST elevated myocardial infarction): NSTEMI : Chest pressure with troponin 739 on admission and CAD history EKG T wave inversion in inferior leads ? Cardiology consulted and deferred cardiac cath until creatinine improves ? Continue heparin drip ? Continue aspirin 81 mg daily ? Telemetry monitoring (2) Congestive heart failure: Acute decompensated HFrEF: Dyspnea, elevated pro-BNP 39788 on admission, appear euvolemic now LVEF 30 to 35% down from 42% - holding lasix given his elevated creatinine - Daily weights and strict intake/output - Echocardiogram ordered to assess current cardiac function - Titrate oxygen to keep SpO2 > 92% - Evaluate need for adjustment of chronic heart-failure medications after stabilization (3) Hypoxia: Secondary to pnemonia, decompensated CHF and NSTEMI on admission History of VTE and was on apixaban, he has other reasons for hypoxia Saturating well on room air at this time Monitor O2 sats, goal SpO2 greater than 92% (4) Pneumonia: Community-acquired pneumonia versus possible aspiration pneumonia: Cough, bibasilar infiltrates on CXR, leukocytosis 19.55, elevated procalcitonin Viral panel negative. - Continue ceftriaxone and azithromycin - Chest physiotherapy and incentive spirometry (5) Trouble swallowing: Occasional choking up with water. Chronic tonsillar enlargement since childhood. ? MBS: Premature spillage to the vallecula with pur?ed texture, difficulty with mastication and A-P propulsion of regular consistency throughout the oral cavity, mild residue after swallows completed with regular consistency, no evidence of penetration or aspiration ? [employer]: regular consistency diet as tolerated, may benefit from softer consistencies if he displays difficulty with intake, alternate liquids with solids, utilize double swallows to clear oral and pharyngeal residue (6) ELSY (acute kidney injury): Acute kidney injury: Creatinine 1.5 today, 1.4 yesterday Normal renal US - holding diuretics - cardiac cath deferred due to concern for contrast nephropathy risk. - Avoid nephrotoxic agents - Monitor BMP daily, including potassium and bicarbonate (7) Hyperkalemia: Present on admission but resolved today Monitor (8) Constipation: Constipation : Reports chronic intermittent constipation, no recent bowel movement issues today. - Monitor bowel movements during hospitalization - MiraLAX twice daily (9) Type 2 diabetes mellitus: A1c 7.0 % on 08/25/24 DM2: Continue long-acting insulin. Insulin/scale. Consider carbohydrate diet. Monitor POC glucose. (10) Factor 5 Leiden mutation, heterozygous: (11) History of DVT (deep vein thrombosis): He was on apixaban Plan GI ppx: protonix VTE ppx: on heparin gtt PDMP PDMP Reviewed: Not Reviewed Attestations Medical Necessity Statement*: Patient requires continued hospitalization for telemetry monitoring, cardiac cath, monitoring renal function, and IV antibiotics Time Spent in Patient Care: 45 Coding Level of Care Code 21858 Diagnoses NSTEMI (non-ST elevated myocardial infarction) I21.4 Acute on chronic systolic congestive heart failure I50.23 Heart failure type: systolic Heart failure chronicity: acute on chronic Hypoxia R09.02 Pneumonia J18.9 Laterality: right Lung location: lower lobe of lung Pneumonia type: due to unspecified organism Trouble swallowing R13.10 ELSY (acute kidney injury) N17.9 Hyperkalemia E87.5 Constipation K59.00 Type 2 diabetes mellitus E11.9 Factor 5 Leiden mutation, heterozygous D68.51 History of DVT (deep vein thrombosis) Z86.718
[2024-11-19] MEDS: ondansetron 2 mg/ML SDV 2 mL 4 MG IVP ×2 (09:02→18:19)
[2024-11-19] MEDS: heparin drip 25,000 UNIT/500 ML PREMIX 32 UNIT IV (09:03)
--- NOTE | 2024-11-19 09:10 | PC.NURSE ---
patient became very nauseaous after taking azithromycin and said he will no longer be taking that medication.
[2024-11-19 09:34] LABS: Procalcitonin 0.44 ng/mL (0-0.5)
[2024-11-19 10:06] LABS: Lactate (Lactic Acid level) 2.6 mmol/L (0.5-2.2)
[2024-11-19 10:19] LABS: ABG PCO2 29.0 mmHg (35-45); ABG PH Result 7.41 (7.35-7.45); Arterial Blood Gas Hematocrit 45.9 % (42-52); Blood Gas Allen Test Pos; Blood Gas Operator Identificat BROMA; Blood Gas Sample Site Radial, right; Blood Gas Sample Type Arterial; HCO3 ABG 18.3 mmol/L (22-26); PO2 ABG 55.6 mmHg (80.0-100.0); PO2 FiO2 Ratio Arterial Blood 264
[2024-11-19 13:00] LABS: Partial Thromboplastin Time 67.8 SECONDS (23.9-36.7)
--- NOTE | 2024-11-19 13:09 | FL_ITS ---
FL barium swallow modifd [id number] REASON FOR EXAM: Oropharyngeal dysphagia FLUOROSCOPY TIME: 4min [phone] # OF SPOT FILMS: None TECHNIQUE: Examination was supervised by the speech therapy department. Patient was examined in the sitting lateral applied position. The swallowing of varying consistencies of barium was monitored. Fluoroscopically and video recorded. FINDINGS: No aspiration or penetration of contrast into the laryngeal vestibule. The barium tablet does not impeded in its transition through the esophagus and into the stomach. IMPRESSION: The speech therapy department will render a detailed report of the swallowing. No aspiration. Normal transition of the barium tablet. MTDD
--- NOTE | 2024-11-19 15:23 | P.CONIM_ITS ---
<Statement entered by Andrew Serrano MD - 11/19/24 19:26> Patient was evaluated and cared for in conjunction with an advanced practice practitioner. I personally examined the patient and reviewed the chart and all pertinent data including imaging, telemetry, and laboratory results. I discussed the patient in detail with the advanced practice practitioner. Please see their note for complete H&P testing result and agreed upon plan of care for the patient. 64-year-old male past medical history significant for severe peripheral arterial disease, coronary artery disease, hypertension hyperlipidemia chronic kidney disease presented with shortness of breath with possible lung infiltrates CHF exacerbation. He was diuresed and felt better but creatinine increased. He was ruled in for non-ST elevation ID. We have been asked to assist in his care GENERAL: Patient is alert, awake and oriented x3. HEART: Regular S1 and S2. No murmur, rub or gallop. LUNGS: Clear to auscultate bilaterally. CENTRAL NERVOUS SYSTEM: Grossly nonfocal. EXTREMITIES: Lower extremities with right below the knee amputation Assessment and plan Non-ST ovation ID Acute on chronic kidney disease Acute exacerbation of heart failure Lung infiltrates Coronary artery disease Patient appeared to be euvolemic most likely shortness of breath could be from respiratory tract infection/infiltrates Hold IV diuresis Continue aspirin statin beta-samantha and heparin Once renal function and pulmonary infection improves will proceed with left heart cath Providers/Reason For Consult 2 Consulting Physician/Specialty*: Dr. Serrano Reason for Consult*: NSTEMI, chest pain Requesting Physician: Dr. Chew Attending Physician: Afsaneh Godoy MD Primary Care Provider: Sondra May MD History of Present Illness History of Present Illness Adrián Vinson is a 64 year old male with a history of ischemic cardiomyopathy, DVT, PE, factor V mutation, chronically anticoagulated, TIA, right BKA, chronic systolic heart failure with EF of 42% on June 13 that presented to the emergency room with chest pain and shortness of breath. Previous LHC in 2019 showed severe two vessel cad requiring stent to the LAD an dOM. Total occlusion of the mid RCA was seen with grade 2 [id number] collaterals. Patient reported substernal chest pressure at the center of the chest as well as difficulty taking deep breaths. O2 sat was 88% on arrival. EKG showed sinus tachycardia with T wave abnormality in the inferior lateral leads. White blood cell is elevated at 19.55. Creatinine elevated at 1.5. It is normal at baseline. Troponin at baseline was 739?765.2?759.2. proBNP above baseline and elevated at 12,445. In the ER he was given Lasix 80 mg IV push 1 time. He also got lasix 60 mg IV this morning. Currently he is on 60 mg IV push twice daily. He appears euvolemic at this time. Chest x-ray showed possible infiltrates greater in the right lung. Renal US showed no hydronephrosis. Echo was done that showed EF of 30-35%. IVC is dilated. Previously, EF was 42% on 06/18/23. Review of Systems 2 Narrative: Consitutional: denies fever, chills, body aches, or changes in appetite, denies abnormal weight loss/weight gain Eyes: Denies changes in vision Card: Denies chest pain at this time but reports recent episode of substernal chest pain, denies palpitations, irregular heart rhythm, reports edema, denies syncope, reports shortness of breath on exertion relieved with rest, orthopnea, leg pain with exertion Resp: Reports sob on exertion relieved with rest GI: Denies N&V Musc: Denies extremity pain, denies limited range of motion or recent injury Skin: Denies rash, lesions, or wounds, denies changes to skin color Neuro: Denies nubmness in extremities, h/a, s/s of stroke Medications/Allergies Home Medications ?Medication ?Instructions ?Recorded ?Confirmed ?Last Taken ?Type lancets 33 gauge (BD Ultra Fine #100 ea 08/19/2111/19 Unknown Rx Lancets) blood sugar diagnostic (Blood #200 ea 05/31/23 5 Unknown Rx Glucose Test strips) blood-glucose meter #1 ea 05/31/23 11/19/24 Unkn own Rx lancets #200 ea 05/31/23 11/19/24 Un known Rx blood sugar diagnostic (Accu-Chek #100 ea 06/05/2307/15 Unknown Rx Guide test strips) blood-glucose meter (Accu-Chek #1 ea 06/05/23 11/19/24 Unknown Rx Guide Glucose Meter) Stump Optimization Analyst #1 ea 07/06/23 11/19/24 Unkn own Rx fast form ulnar gutter #1 ea 08/20/23 11/19/24 Unkn own Rx right below knee prosthesis #1 ea 08/27/23 11/19/24 Un known Rx wheel chair leg outside machinist supervisor #1 ea 08/30/23 11/19/24 Unkn own Rx Right below the knne prosthetic #1 ea 09/24/23 5 Unknown Rx rizatriptan 5 mg tablet See Rx Instructions PO .COMP KEREN 11/21/23 11/19/24 Unknown Rx #10 tabs Cam Boot to left #1 ea 01/01/24 11/19/24 Unkn own Rx furosemide 40 mg tablet 40 mg PO DAILY #90 tabs 05/2111/19/24 11/18/24 Rx roho cushion #1 ea 06/04/24 11/19/24 Unkn own Rx blood-glucose sensor (Dexcom G7 #9 ea 06/18/24 5 Unknown Rx Sensor device) insulin degludec 100 unit/mL (3 56 unit (0.56 mL) SUBC UT DAILY #60 06/19/24 11/19/24 11/18/24 Rx mL) subcutaneous pen mL insulin regular human 100 unit/mL See Rx Instructions SUBCUT TID 90 08/11/24 11/19/24 11/18/24 Rx injection solution (Humulin R days #30 mL Regular U-100 Insulin) albuterol sulfate 90 mcg/actuation 2 puff inhalation Q ID PRN 11/19/24 11/19/24 11/18/24 History aerosol inhaler Shortness Of Breath Or Wheez ing apixaban 5 mg tablet (Eliquis) 5 mg PO BID 11/19/2411/18/24 History Allergies Allergy/AdvReac Type Severity Reaction Status Date / Time No Known Allergies Allergy Verified 10/09/24 12:19 Current Medications Generic Name Dose Route Start Last Admin Trade Name Freq PRN Reason Stop Dose Admin Acetaminophen 650 mg 11/18/24 19:58 11/19/24 07:44 Acetaminophen 325 Mg Tablet PO 650 mg Q6H PRN Administration Mild/Mod Pain Or Temp >/= 101 Al Hydrox/Mg Hydrox/Simethicone 30 ml 11/19/24 04:55 11/19/24 05:06 Xsmk-Qpj-Nfbswvhkz-Fam 30 Ml Udc PO 30 ml ONCE PRN Administration INDIGESTION Aspirin 81 mg 11/19/24 09:00 11/19/24 07:45 Aspirin 81 Mg Ec Tablet PO Not Given DAILY SILVINA Ceftriaxone Sodium 2,000 mg 11/18/24 17:30 11/18/24 17:50 Ceftriaxone 2,000 Mg Sdv IVP 2,000 mg Q24H SILVINA Administration Protocol Furosemide 60 mg 11/18/24 21:00 11/19/24 07:43 Furosemide 10 Mg/Ml Sdv 10ml IVP 60 mg BID SILVINA Administration Heparin Sodium/Sodium Chloride 25,000 unit in 500 mls @ 0 mls/hr 11/18/24 17:30 11/19/24 09:03 Heparin Drip IV 13.31 unit/kg/hr CONT SILVINA 32 mls/hr Protocol Administration Per Protocol Azithromycin 500 mg/ Sodium 250 mls @ 250 mls/hr 11/19/24 09:00 11/19/24 09:11 Chloride IV Infused DAILY [facility] Infusion Protocol Insulin Glargine 56 unit 11/19/24 09:00 11/19/24 09:23 Insulin Glargine 100 Units/1 Ml SUBCUT Not Given DAILY SILVINA Insulin Human Lispro 0 unit 11/18/24 21:00 11/19/24 14:39 Insulin Lispro 100 Unit/1 Ml SUBCUT Not Given WM&BEDTIME [facility] Protocol Ondansetron HCl 4 mg 11/18/24 19:58 11/19/24 09:02 Ondansetron 2 Mg/Ml Sdv 2 Ml IVP 4 mg Q8H PRN Administration vomiting, or N/V if npo Pantoprazole Sodium 40 mg 11/19/24 09:00 11/19/24 07:[address] 40 Mg Tablet PO 40 mg DAILY SILVINA Administration Polyethylene Glycol 17 gm 11/18/24 20:20 11/19/24 07:46 Polyethylene Glycol 3350 Pkt 17 Gm PO Not Given BID SILVINA PFSH Acute 2 PFSH: Medical History History of colon polyps Factor 5 Leiden mutation, heterozygous Constipation History of DVT (deep vein thrombosis) 07/10/2019 DVT involving the popliteal veins bilaterally Closed hand fracture Right 4th metacarpal oblique, injury 04/03/2022 Bilateral leg edema Erectile dysfunction Low testosterone Anxiety and depression Diabetes type 2, uncontrolled Atherosclerotic heart disease of [place] coronary artery with other forms of angina pectoris Hypertension Hyperlipidemia Diabetic neuropathy Adenomatous colon polyp Ischemic cardiomyopathy Abnormal nuclear stress test History of claustrophobia Right foot drop 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 Surgical History S/P pilonidal cyst excision Stented coronary artery H/O circumcision Family History Mother , at age 45 Lung cancer smoker Grandmother Diabetes Father , at age 23 Drowning Other Hypertension Denies family history of CAD (coronary artery disease) Social History Smoking and tobacco/nicotine status: never used tobacco/nicotine Quit status (tobacco/nicotine): has quit using Year quit tobacco: 2005 Alcohol intake: former Substance/Drug Use: former Household members: spouse and children Marital status: Number of children: 7 service: No Current occupational status: disabled 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 Abiola/Jainism: Rastafarian Special abiola needs: Yes (seth) Agree to transfusion: Yes Vitals/I&O/Wt Last Vital Signs Temp 97.8 F 11/19/24 11:33 Pulse 105 H 11/19/24 11:33 Resp 33 H 11/19/24 11:33 BP 119/82 11/19/24 11:33 Pulse Ox 96 11/19/24 11:33 O2 Del Method Room Air 11/19/24 09:55 O2 Flow Rate 2 11/18/24 16:05 11/19/24 11/19/24 11/19/24 06:59 14:59 22:59 Intake Total 286.3 / 456.3 513.7 / 513.7 Output Total 0 / 200 280 / 280 Balance 286.3 / 256.3 233.7 / 233.7 Weight last 48 hrs Weight 264 lb 8 oz Weight 264 lb 4.8 oz Weight 265 lb Physical Exam 2 Narrative: General: No apparent distress, healthy appearing, well nourished HENMT: normoceophalic Respiratory: Normal respiratory effort, clear throughout right but left lower lobe decreased, no use of accessory muscles Cardio: No JVD, regular rate, regular rhythm, S1 S2 normal, no murmurs, peripheral pulses 2+ radial palpated bilaterally GI: Normal to inspection, nondistended Extremities: Right BKA, no cyanosis or edema Neuro: Alert and oriented x4, no focal motor deficits Psych: Affect normal, mental status grossly normal Skin: No rashes or lesions noted, no wounds Data 11/19/24 06:36 11/19/24 06:36 Micro: Microbiology 11/18/24 18:22 Blood Culture - Preliminary Blood SPECIMEN COLLECTED 11/18/24 18:17 Blood Culture - Preliminary Blood SPECIMEN COLLECTED A&P Assessment and plan (1) NSTEMI (non-ST elevated myocardial infarction): (2) Hypoxia: (3) Pneumonia: Plan Patient has typical chest pain history with risk factors for progressive CAD as well as recently declined EF to 30-35%. Troponins are elevated indicating NSTEMI. He is currently comfortable without complaint. Agree with heparin drip. Continue aspirin 81 mg daily. Due to ELSY, would recommend holding diuretics right now, as patient appears well compensated and creat has risen to 1.5. Patient is being treated with abx therapy for pneumonia. At this time, patient requires left heart cath with possible PCI for further investigation of chest pain and high suspicion for progressive underlying CAD. In the setting of ELSY, we will hold lasix for now. Once patient's renal status is back to baseline, will recommend coronary angiogram at that time. Thank you, Dr. Chew, for allowing us to care for this very pleasant 64 year old gentleman. PDMP PDMP Reviewed: Not Reviewed Coding Level of Care Code Acute Code for [facility] Diagnoses NSTEMI (non-ST elevated myocardial infarction) I21.4 Hypoxia R09.02 Pneumonia J18.9 Laterality: right Lung location: lower lobe of lung Pneumonia type: due to unspecified organism
--- NOTE | 2024-11-19 16:39 | ECG_ITS ---
[employer] Test Date: 2024-11-19 Pat Name: Adrián Vinson Department: Room: 112 Gender: Male Solutions Operator: : 1960 Requested By: Andrew Serrano Order Number: [id number] Nadir MD: Thor Landin M.D. Measurements Intervals [place] Rate: 101 P: 56 KS: 157 QRS: 49 QRSD: 88 T: -77 QT: 355 QTc: 461 Interpretive Statements SINUS TACHYCARDIA POSSIBLE LEFT ATRIAL ENLARGEMENT [-0.1mV P-WAVE IN V1/V2] ST DEVIATION AND MODERATE T-WAVE ABNORMALITY, CONSIDER LATERAL ISCHEMIA [-0.1+ mV T-WAVE IN I/aVL/V5/V6] ST DEVIATION AND MODERATE T-WAVE ABNORMALITY, CONSIDER INFERIOR ISCHEMIA [-0.1+ mV T-WAVE IN II/aVF] Compared to ECG 11/18/2024 21:26:49 No significant changes Electronically Signed On 11-20-2024 09:30:07 CDT by Thor Landin M.D. [email or web address]
--- NOTE | 2024-11-19 16:53 | PC.NURSE ---
ROLL UP HELPER reported to nurse that patient was clammy and looked carmona. Nurse went and checked on patient and he was dozing off to sleep but did feel clammy. EKG performed and in chart. Dr Godoy notified.
[2024-11-19] MEDS: cefTRIAXone 2,000 mg SDV 2000 MG IVP (18:19)
[2024-11-19 18:49] LABS: Partial Thromboplastin Time 71.5 SECONDS (23.9-36.7)
--- NOTE | 2024-11-19 20:06 | USCV_ITS ---
Adrián Vinson Age: 64 Gender: M : 1960 Exam Date: 11/19/2024 00:22 Ordering Phys: Ap Chew MD Technologist: YOSHI Exam Location: [facility] [place] Indication: NSTEMI, History of ischemic CM, CAD s/p PCI, DM2, s/p RT BKA, chronic DVTs, hypoxia. BP: 132 / 69 HR: 96 Rhythm: Sinus Technical Quality: Adequate MEASUREMENTS (Male / Female) Normal Values 2D ECHO LV Diastolic Diameter PLAX 5.1 cm 4.2 - 5.9 / 3.9 - 5.3 cm IVS Diastolic Thickness 1.7 cm 0.6 - 1.0 / 0.6 - 0.9 cm IVS Systolic Thickness 2.1 cm LVPW Diastolic Thickness 1.7 cm 0.6 - 1.0 / 0.6 - 0.9 cm LVPW Systolic Thickness 2.0 cm LVOT Diameter 2.1 cm LV Ejection Fraction 2D Teich 26.2 % LV Ejection Fraction MOD 4C 32.0 % LV Ejection Fraction MOD 2C 39.2 % LV Ejection Fraction 2C AL 38.8 % LA Diameter 4.4 cm Aorta at Sinotubular Diameter 3.3 cm IVC Diameter 2.5 cm M-MODE LA Ao Ratio MM 1.2 AV Cusp Separation MM 1.1 cm DOPPLER AV Peak Velocity 137.3 cm/s LVOT Peak Velocity 49.0 cm/s AV Area Cont Eq vti 1.2 cm squared AV Area Cont Eq pk 1.2 cm squared MV Peak Velocity 110.0 cm/s MV Area PHT 6.9 cm squared Mitral E to A Ratio 1.4 TV Peak E Velocity 60.0 cm/s PV Peak Velocity 49.0 cm/s FINDINGS Left Ventricle Left ventricle is normal in size. LV systolic function is moderate to severely reduced with EF of 30-35%. Severe global hypokinesis. Right Ventricle Normal in size and function Right Atrium Normal in size Left Atrium Dilated Mitral Valve Structurally normal mitral valve. Mild mitral regurgitation Aortic Valve Aortic valve is thickened. No significant stenosis or regurgitation. Tricuspid Valve Insufficient TR jet to calculate RVSP Pulmonic Valve Not well visualized Pericardium Normal Aorta Normal IVC Appears to be dilated CONCLUSIONS LV systolic function is moderate to severely reduced with EF of 30-35% Left atrial dilation Mild mitral regurgitation IVC appears to be dilated Compared to prior echocardiogram from 2023, LV systolic function appears lower. Thor Landin MD (Electronically Signed) Final Date: 19 November 2024 09:06 S
[2024-11-20] VITALS (15 sets, daily range): BP systolic 103–126; BP diastolic 65–81; PULSE 90–109; RESP 10–26; TEMP 36.4–36.7; O2SAT 89–97
[2024-11-20 00:39] LABS: Hematocrit 44.3 % (37-53); Hemoglobin 14.20 g/dL (11.27-16.99); Mean Corpuscular HGB Conc 32.1 g/dL (30-55); Mean Corpuscular Hemoglobin 28.2 pg (27-33); Mean Corpuscular Volume 88.1 fl (82-101); Nucleated Red Blood Cells % 0 %; Platelet Count 258 10^3/cmm (157-399); Red Blood Count 5.03 10^6/uL (3.85-5.65); White Blood Count 16.25 10^3/uL (3.29-11.43)
[2024-11-20 00:53] LABS: Partial Thromboplastin Time 65.8 SECONDS (23.9-36.7)
[2024-11-20 01:02] LABS: Albumin Level 3.5 g/dL (3.5-5.2); Anion Gap 22.0 (5-19); Blood Urea Nitrogen 61 mg/dL (8-23); Calcium 9.1 mg/dL (8.5-10.5); Carbon Dioxide 20 mmol/L (22-29); Chloride 98 mmol/L (98-107); Creatinine Clr Calc Pharmacy 53.9957; Glucose 226 mg/dL (65-115); Magnesium 2.3 mg/dL (1.7-2.3); Potassium 5.0 mmol/L (3.5-5.1); Sodium 135 mmol/L (136-145)
[2024-11-20] MEDS: heparin drip 25,000 UNIT/500 ML PREMIX 32 UNIT IV ×2 (01:22→17:09)
[2024-11-20] MEDS: ondansetron 2 mg/ML SDV 2 mL 4 MG IVP ×2 (01:23→09:08)
--- NOTE | 2024-11-20 01:48 | PC.NURSE ---
1999- Notifed that patient is c/o nausea. Patient did receive zofran around 1800, unable to give at this time. Received orders for Compazine 10 mg IVP Q6hrs PRN and Zofran 4mg IVP Q4hrs PRN. 0141- Patient still complaing of nausea despite compazine and zofran administration. Notified Dr. Quintero patient is c/o nausea and heatburn. Received orders for GI cocktail once.
[2024-11-20] MEDS: lidocaine 2% viscous 15 ML, aluminum-mag hydrox-simethicon 30 ML, sucralfate oral liq 1 GM PO (02:04)
--- NOTE | 2024-11-20 06:53 | PC.NURSE ---
Patient complaining of pain in lower back and right BKA. Patient offered tylenol but refused. Per patient he takes percocet at home. Percocet not found in home med list. Requested pain medications from Dr. Quintero, received orders for morphine 2 mg IVP Q3hrs PRN for pain.
[2024-11-20] MEDS: morphine 4 mg/mL SDV 1 mL 2 MG IVP ×2 (07:22→11:35)
[2024-11-20 07:28] LABS: Partial Thromboplastin Time 66.6 SECONDS (23.9-36.7)
[2024-11-20] MEDS: AZITHROMYCIN ADD-Vantage 500 MG in 0.9% NaCl ADD-Vantage 250 ML 250 MG IV (09:07)
[2024-11-20] MEDS: oxyCODONE-APAP 5-325 mg Tablet 1 TAB PO ×2 (09:08→21:43)
[2024-11-20] MEDS: polyethylene glycol 3350 Pkt 17 gm PO (09:09)
[2024-11-20] MEDS: insulin glargine 100 units/1 mL 56 UNIT SUBCUT (09:09)
[2024-11-20 09:23] LABS: Lactate (Lactic Acid level) 2.3 mmol/L (0.5-2.2)
--- NOTE | 2024-11-20 10:00 | P.PN_ITS ---
<Statement entered by Andrew Serrano MD - 11/20/24 13:01> Patient was evaluated and cared for in conjunction with an advanced practice practitioner. I personally examined the patient and reviewed the chart and all pertinent data including imaging, telemetry, and laboratory results. I discussed the patient in detail with the advanced practice practitioner. Please see their note for complete H&P testing result and agreed upon plan of care for the patient. Patient is more short of breath not able to lay flat on the bed. He is sitting by the bedside and short of breath he appeared to be volume overloaded and bloated GENERAL: Patient is alert, awake and oriented x3. HEART: Regular S1 and S2. No murmur, rub or gallop. LUNGS: Decreased breath bilaterally. CENTRAL NERVOUS SYSTEM: Grossly nonfocal. EXTREMITIES: Lower extremities with 1+ edema/right below the knee amputation Assessment and plan [id number]-MV-ansklmehz M Lung infiltrate Acute decompensated systolic heart failure on chronic Volume overload status Low normal blood pressure Acute on chronic kidney disease Will try to diurese him we will start patient on IV Lasix 40 mg 3 times daily and metolazone 2.5 mg twice daily Add midodrine 10 mg 3 times daily to make room for the blood pressure Once euvolemic will consider left heart cath currently in the absence of ongoing chest pain persistent ischemia arrhythmia there is no indication for 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 Blood pressure is soft. Vitals/I&O/Wt Last Vital Signs Temp 97.6 F 11/20/24 07:39 Pulse 101 H 11/20/24 07:39 Resp 24 H 11/20/24 09:08 BP 103/75 11/20/24 07:39 Pulse Ox 96 11/20/24 07:39 O2 Del Method Room Air 11/20/24 07:35 O2 Flow Rate 2 11/18/24 16:05 11/19/24 11/20/24 11/20/24 22:59 06:59 14:59 Intake Total 480 / 1753.7 760 / 1753.7 220.267 / 220.267 Output Total 0 / 405 125 / 405 Balance 480 / 1348.7 635 / 1348.7 220.267 / 220.267 Weight last 48 hrs Weight 270 lb 8 oz Weight 264 lb 8 oz Weight 264 lb 4.8 oz Weight 265 lb Physical Exam 2 Const: COMMON NORMALS: no acute distress and patient oriented x3 GENERAL APPEARANCE: cooperative and comfortable ORIENTATION/CONSCIOUSNESS: Yes awake, Yes oriented to person, Yes oriented to place and Yes oriented to time Chest: COMMONS NORMALS: normal inspection of the chest and normal palpation of entire chest wall CHEST: Yes Symmetrical chest wall rise Resp: COMMON NORMALS: normal respiratory effort, No retractions and No use of accessory muscles EFFORT & INSPECTION: Yes symmetric chest movement A USCULTATION: crackles Laterality: bilateral and posterior Cardio: COMMON NORMALS: regular rate, regular rhythm, S1 normal heart sound present, S2 normal heart sound present, No gallops present (Cardio), No clicks present (Cardio), No murmurs present (Cardio) and No rub (Cardio) RATE: r egular rate RHYTHM: regular rhythm HEART SOUNDS: S1 normal heart sound present and S2 normal heart sound present PERIPHERAL PULSES: radial pulses present GI: INSPECTION: Yes abdominal distension PALPATION: Yes Firmness to palpation present (GI) Extremity: GENERAL: Yes edema (R BKA, L- 1-2+ pitting edema) Neuro: COMMON NORMALS: patient oriented x3 and moves all extremities S ENSORIUM/ORIENTATION: Yes oriented to person, Yes oriented to place and Yes oriented to time Data 11/20/24 00:29 11/20/24 00:29 Micro: Microbiology 11/18/24 18:22 Blood Culture - Preliminary Blood NEGATIVE TO DATE 11/18/24 18:17 Blood Culture - Preliminary Blood NEGATIVE TO DATE A&P Assessment and plan (1) Congestive heart failure: (2) Acute non-ST elevation myocardial infarction (NSTEMI): (3) Factor 5 Leiden mutation, heterozygous: (4) History of DVT (deep vein thrombosis): (5) Hypertension: (6) Hyperlipidemia: (7) Diabetes type 2, uncontrolled: (8) ELSY (acute kidney injury): Plan He has persistent shortness of breath, orthopnea and appears volume overloaded. Per Dr Serrano, will diurese with Lasix 40mg TID and metolazone 2.5mg BID, add midodrine 10mg TID. PDMP PDMP Reviewed: Not Reviewed Attestations 2 Medical Necessity Statement*: Ischemic workup due to acute on chronic systolic CHF exacerbation Coding Level of Care Code Acute Code for Chg Fwd Diagnoses Acute on chronic systolic congestive heart failure I50.23 Heart failure type: systolic Heart failure chronicity: acute on chronic Acute non-ST elevation myocardial infarction (NSTEMI) I21.4 Factor 5 Leiden mutation, heterozygous D68.51 History of DVT (deep vein thrombosis) Z86.718 Essential hypertension I10 Hypertension type: essential hypertension Mixed hyperlipidemia E78.2 Hyperlipidemia type: mixed hyperlipidemia Uncontrolled type 2 diabetes mellitus with hyperglycemia E11.65 Glycemic state: with hyperglycemia ELSY (acute kidney injury) N17.9
[2024-11-20] MEDS: FUROsemide 10 mg/mL SDV 4mL 40 MG IVP ×3 (10:47→21:44)
--- NOTE | 2024-11-20 11:02 | PM.PN ---
Subjective Subjective: He reported back and leg pain today. He takes Percocet at home. He also had nausea and heartburn. He got antiemetics for that. Also had trouble sleeping. He thought that his stomach was more distended today. He reports orthopnea. Currently saturating well on room air Vitals/I&O/Wt Last Vital Signs Temp 97.6 F 11/20/24 07:39 Pulse 101 H 11/20/24 07:39 Resp 24 H 11/20/24 09:08 BP 103/75 11/20/24 07:39 Pulse Ox 96 11/20/24 07:39 O2 Del Method Room Air 11/20/24 07:35 O2 Flow Rate 2 11/18/24 16:05 11/19/24 11/20/24 11/20/24 22:59 06:59 14:59 Intake Total 480 / 993.7 760 / 1753.7 580.267 / 580.267 Output Total 0 / 280 125 / 405 Balance 480 / 713.7 635 / 1348.7 580.267 / 580.267 Weight last 48 hrs Weight 122.697 kg Weight 119.975 kg Weight 119.884 kg Weight 120.202 kg Physical Exam Narrative: GEN: Alert, no acute distress HEENT: Normocephalic, atraumatic, PERRLA, EOMI Neck: Supple, no JVD Cardio: S1, S2, regular rate and rhythm, no murmur Cardio: Clear to auscultation bilaterally, no respiratory distress Abdomen: Soft, nontender, nondistended, normal active bowel sounds Extremity: Status post right BKA, Neuro: Alert and oriented x 3, no focal deficits HEENT: No lesion noted Data 11/20/24 00:29 11/20/24 00:29 Micro: Microbiology 11/18/24 18:22 Blood Culture - Preliminary Blood NEGATIVE TO DATE 11/18/24 18:17 Blood Culture - Preliminary Blood NEGATIVE TO DATE A&P Assessment and plan (1) ELSY (acute kidney injury): Acute kidney injury: Creatinine continues to increase, 1.9 today. Bicarb and anion gap elevated. IV diuresis stopped yesterday Normal renal US ?Follow-up UA and urine lites ? Started sodium bicarb drip (will go up to 1000 mL) - holding diuretics ? Will consult nephrology if creatinine continues to worsen - cardiac cath deferred due to concern for contrast nephropathy risk. - Avoid nephrotoxic agents - Monitor BMP daily, including potassium and bicarbonate (2) NSTEMI (non-ST elevated myocardial infarction): NSTEMI : Chest pressure with troponin 739 on admission and CAD history EKG T wave inversion in inferior leads ? Cardiology consulted and deferred cardiac cath until creatinine improves ? Continue heparin drip ? Continue aspirin 81 mg daily ? Telemetry monitoring (3) Congestive heart failure: Acute decompensated HFrEF: Dyspnea, elevated pro-BNP 12674 on admission, appear euvolemic now LVEF 30 to 35% down from 42% - holding lasix given his elevated creatinine - Daily weights and strict intake/output - Echocardiogram ordered to assess current cardiac function - Titrate oxygen to keep SpO2 > 92% - Evaluate need for adjustment of chronic heart-failure medications after stabilization ? Cardiology following (4) Hypoxia: Resolved Secondary to pnemonia, decompensated CHF and NSTEMI on admission History of VTE and was on apixaban, he has other reasons for hypoxia Saturating well on room air at this time Monitor O2 sats, goal SpO2 greater than 92% (5) Pneumonia: Community-acquired pneumonia versus possible aspiration pneumonia: Cough, bibasilar infiltrates on CXR, leukocytosis Viral panel negative. - Continue ceftriaxone and azithromycin - Chest physiotherapy and incentive spirometry (6) Trouble swallowing: Occasional choking up with water. Chronic tonsillar enlargement since childhood. ? MBS: No penetration or aspiration, swallow initiation timely, pharyngeal residue inconsistently but able to clear with double swallows, require Teasha swallows to clear barium tablet from the mid esophagus ? 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 Insulin/scale. Carbohydrate consistent diet. Monitor POC glucose. (10) Factor 5 Leiden mutation, heterozygous: (11) History of DVT (deep vein thrombosis): He was on apixaban Plan GI ppx: protonix VTE ppx: on heparin gtt PDMP PDMP Reviewed: Not Reviewed Attestations Medical Necessity Statement*: Patient continues to require hospitalization for IV fluids, monitor renal function, cardiac cath. May need nephrology consult. Cardiology is following. Time Spent in Patient Care: Total time spent on patient care equals 50 minutes. Coding Level of Care Code 72053 Diagnoses ELSY (acute kidney injury) N17.9 NSTEMI (non-ST elevated myocardial infarction) I21.4 Acute on chronic systolic congestive heart failure I50.23 Heart failure type: systolic Heart failure chronicity: acute on chronic Hypoxia R09.02 Pneumonia J18.9 Laterality: right Lung location: lower lobe of lung Pneumonia type: due to unspecified organism Trouble swallowing R13.10 Hyperkalemia E87.5 Constipation K59.00 Type 2 diabetes mellitus E11.9 Factor 5 Leiden mutation, heterozygous D68.51 History of DVT (deep vein thrombosis) Z86.323
[2024-11-20 11:42] LABS: Glucose Urine UA Negative (Normal); Nitrate Urine Negative (Negative); Specific Gravity, Urine 1.025 (1.005-1.030)
[2024-11-20 11:55] LABS: Potassium, Radom Urine 74 mmol/L; Urine Random Chloride 31 mmol/L
[2024-11-20 11:56] LABS: Urine Random Sodium 10 mmol/L
[2024-11-20 12:04] LABS: UA Slide Review UA Slide Review Perf
[2024-11-20 15:23] LABS: Partial Thromboplastin Time 60.0 SECONDS (23.9-36.7)
--- NOTE | 2024-11-20 15:45 | XR_ITS ---
WS: [id number] XR chest 1V portable 19503 REASON FOR EXAM: increased shortness of breath FINDINGS: The reticular interstitial lung opacities, groundglass density, and parabronchial cuffing, in the right lower lung, appears somewhat more severe compared to 11/18/2024. There is increased blunting of the right costophrenic angle suggesting increasing right pleural effusion. There is increased opacity in the left lower hemithorax with obscuration of the left hemidiaphragm and increased blunting of the left costophrenic angle. These findings may be due to increasing left pleural effusion and atelectasis in the left lower lung. Significant cardiomegaly is again noted. XR/XR chest 1V portable 70299 IMPRESSION: Progression of lung abnormalities as above.
--- NOTE | 2024-11-20 15:45 | PC.NURSE ---
Informed Dr Serrano and Dr Godoy regarding decreased output and full feeling with increased SOB. Received order to bladder scan and obtain chest xray.
[2024-11-20] MEDS: cefTRIAXone 2,000 mg SDV 2000 MG IVP (17:10)
--- NOTE | 2024-11-20 17:20 | ECG_ITS ---
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[id number] Requested By: Afsaneh Godoy Order Number: [id number] Reading MD: Measurements Intervals [place] Rate: 92 P: 42 FL: 169 QRS: 27 QRSD: 91 T: 206 QT: 365 QTc: 452 Interpretive Statements SINUS RHYTHM LEFT ATRIAL ENLARGEMENT [-0.15mV P-WAVE IN V1/V2] SEPTAL MYOCARDIAL INFARCTION , PROBABLY OLD [40+ ms Q WAVE IN V1/V2] ST DEVIATION AND MODERATE T-WAVE ABNORMALITY, CONSIDER LATERAL ISCHEMIA [-0.1+ mV T-WAVE IN I/aVL/V5/V6] ST DEVIATION AND MODERATE T-WAVE ABNORMALITY, CONSIDER INFERIOR ISCHEMIA [-0.1+ mV T-WAVE IN II/aVF] Compared to ECG 11/19/2024 16:39:34 Myocardial infarct finding now present Sinus tachycardia no longer present T-wave abnormality still present Possible ischemia still present [email or web address]
[2024-11-20 17:35] LABS: ABG PCO2 34.1 mmHg (35-45); ABG PH Result 7.39 (7.35-7.45); Arterial Blood Gas Hematocrit 42.9 % (42-52); Blood Gas Allen Test Pos; Blood Gas LPM 2.0 %; Blood Gas Operator Identificat WALCI; Blood Gas Sample Site Radial, right; Blood Gas Sample Type Arterial; HCO3 ABG 20.7 mmol/L (22-26); PO2 ABG 62.9 mmHg (80.0-100.0)
[2024-11-20 18:53] LABS: Anion Gap 22.5 (5-19); Blood Urea Nitrogen 70 mg/dL (8-23); Calcium 8.9 mg/dL (8.5-10.5); Carbon Dioxide 18 mmol/L (22-29); Chloride 97 mmol/L (98-107); Creatinine Clr Calc Pharmacy 57.6423; Glucose 119 mg/dL (65-115); Osmolality Calculated 298 mOsm/kg (285-295); Potassium 4.5 mmol/L (3.5-5.1); Sodium 133 mmol/L (136-145)
--- NOTE | 2024-11-20 21:32 | PM.CONSULT ---
Providers/Reason For Consult Consulting Physician/Specialty*: Maxi Ariza MD/tele nephrology Reason for Consult*: Acute kidney injury, hyponatremia, anion gap metabolic acidosis Requesting Physician: Dr. Mary Godoy Attending Physician: Afsaneh Godoy MD Primary Care Provider: Sondra May MD History of Present Illness History of Present Illness Adrián Vinson is a 64 year old male history of heart failure reduced EF of approximately 40%, CAD, type 2 diabetes for over 20 years with right below-knee amputation, diabetic neuropathy, history of chronic DVT, factor V Leiden abnormality on Eliquis, hypertension, hyperlipidemia, lumbar degenerative disc disease. Patient presented with severe shortness of breath he also had GERD. Patient was found have an elevated creatinine on admission 1.4 mg/dL he was started on furosemide and antibiotics including ceftriaxone and doxycycline. In the hospital his repeat echo showed an EF of 30 to 35%. He was seen by cardiology and diagnosed with a non-ST elevation [place] his furosemide was held on November 19, unfortunately his creatinine continued to rise he was seen by cardiology on November 19, 2024. 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 Today the patient was restarted on furosemide with metolazone midodrine added for hypotension Review of Systems General: Reports: 10 or more systems reviewed and unremarkable except in HPI and below Narrative: Weak orthopnea dyspnea shortness of breath leg edema, poor appetite, uncomfortable, difficulty urinating, nausea no vomiting no diarrhea. Denies taking NSAIDs. No hearing or seeing changes. Just short of breath weak and lethargic difficulty urinating. Medications/Allergies Home Medications ?Medication ?Instructions ?Recorded ?Confirmed ?Last Taken ?Type lancets 33 gauge (BD Ultra Fine #100 ea 08/19/21 11/19/24 Unknown Rx Lancets) blood sugar diagnostic (Blood #200 ea 05/31/23 11/19/24 Unknown Rx Glucose Test strips) blood-glucose meter #1 ea 05/31/23 11/19/24 Unknown Rx lancets #200 ea 05/31/23 11/19/24 Unknown Rx blood sugar diagnostic (Accu-Chek #100 ea 06/05/23 11/19/24 Unknown Rx Guide test strips) blood-glucose meter (Accu-Chek #1 ea 06/05/23 11/19/24 Unknown Rx Guide Glucose Meter) St[employer] Program Manager #1 ea 07/06/23 11/19/24 Unknown Rx fast form ulnar gutter #1 ea 08/20/23 11/19/24 Unknown Rx right below knee prosthesis #1 ea 08/27/23 11/19/24 Unknown Rx wheel chair leg nursing agency manager #1 ea 08/30/23 11/19/24 Unknown Rx Right below the knne prosthetic #1 ea 09/24/23 11/19/24 Unknown Rx rizatriptan 5 mg tablet See Rx Instructions PO .COMPLEX 11/21/23 11/19/24 Unknown Rx #10 tabs Cam Boot to left #1 ea 01/01/24 11/19/24 Unknown Rx furosemide 40 mg tablet 40 mg PO DAILY #90 tabs 05/30/24 11/19/24 11/18/24 Rx roho cushion #1 ea 06/04/24 11/19/24 Unknown Rx blood-glucose sensor (Dexcom G7 #9 ea 06/18/24 11/19/24 Unknown Rx Sensor device) insulin degludec 100 unit/mL (3 56 unit (0.56 mL) SUBCUT DAILY #60 06/19/24 11/19/24 11/18/24 Rx mL) subcutaneous pen mL insulin regular human 100 unit/mL See Rx Instructions SUBCUT TID 90 08/11/24 11/19/24 11/18/24 Rx injection solution (Humulin R days #30 mL Regular U-100 Insulin) albuterol sulfate 90 mcg/actuation 2 puff inhalation QID PRN 11/19/24 11/19/24 11/18/24 History aerosol inhaler Shortness Of Breath Or Wheezing apixaban 5 mg tablet (Eliquis) 5 mg PO BID 11/19/24 11/19/24 11/18/24 History Allergies Allergy/AdvReac Type Severity Reaction Status Date / Time No Known Allergies Allergy Verified 10/09/24 12:19 Current Medications Generic Name Dose Route Start Last Admin Trade Name Freq PRN Reason Stop Dose Admin Acetaminophen 650 mg 11/18/24 19:58 11/19/24 07:44 Acetaminophen 325 Mg Tablet PO 650 mg Q6H PRN Administration Mild/Mod Pain Or Temp >/= 101 Al Hydrox/Mg Hydrox/Simethicone 30 ml 07/02/25 04:55 11/19/24 05:06 Qeau-Tlf-Tseyhfsdw-Fam 30 Ml Udc PO 30 ml ONCE PRN Administration INDIGESTION Albuterol/Ipratropium 3 ml 11/18/24 20:18 11/20/24 17:56 Ipratropium-Albuterol 3 Ml Neb INHALATION 3 ml Q4H PRN Administration SHORTNESS OF BREATH Aspirin 81 mg 11/19/24 09:00 11/20/24 09:08 Aspirin 81 Mg Ec Tablet PO 81 mg DAILY SILVINA Administration Ceftriaxone Sodium 2,000 mg 11/18/24 17:30 11/20/24 17:10 Ceftriaxone 2,000 Mg Sdv IVP 2,000 mg Q24H SILVINA Administration Protocol Furosemide 40 mg 11/20/24 10:30 11/20/24 14:18 Furosemide 10 Mg/Ml Sdv 4ml IVP 40 mg TID SILIVNA Administration Heparin Sodium/Sodium Chloride 25,000 unit in 500 mls @ 0 mls/hr 11/18/24 17:30 11/20/24 17:09 Heparin Drip IV 13.31 unit/kg/hr CONT SILVINA 32 mls/hr Protocol Administration Per Protocol Azithromycin 500 mg/ Sodium 250 mls @ 250 mls/hr 11/19/24 09:00 11/20/24 10:17 Chloride IV Infused DAILY SILVINA Infusion Protocol Insulin Glargine 56 unit 11/19/24 09:00 11/20/24 09:09 Insulin Glargine 100 Units/1 Ml SUBCUT 56 unit DAILY SILVINA Administration Insulin Human Lispro 0 unit 11/18/24 21:00 11/20/24 16:51 Insulin Lispro 100 Unit/1 Ml SUBCUT Not Given WM&BEDTIME SILVINA Protocol Metolazone 2.5 mg 11/20/24 10:13 11/20/24 17:10 Metolazone 5 Mg Tablet PO 2.5 mg BID SILVINA Administration Midodrine 10 mg 11/20/24 15:00 11/20/24 14:17 Midodrine 5 Mg Tablet PO 10 mg TID SILVINA Administration Morphine Sulfate 2 mg 11/20/24 06:55 11/20/24 11:35 Morphine 4 Mg/Ml Sdv 1 Ml IVP 2 mg Q3H PRN Administration SEVERE PAIN Ondansetron HCl 4 mg 11/20/24 00:59 11/20/24 09:08 Ondansetron 2 Mg/Ml Sdv 2 Ml IVP 4 mg Q4H PRN Administration NAUSEA AND VOMITING Oxycodone/Acetaminophen 1 tab 11/20/24 08:16 11/20/24 09:08 Oxycodone-Apap 5-325 Mg Tablet PO 1 tab Q6H PRN Administration MODERATE PAIN Pantoprazole Sodium 40 mg 11/19/24 09:00 11/20/24 09:[address] 40 Mg Tablet PO 40 mg DAILY SILVINA Administration Polyethylene Glycol 17 gm 11/18/24 20:20 11/20/24 17:08 Polyethylene Glycol 3350 Pkt 17 Gm PO Not Given BID SILVINA Prochlorperazine Edisylate 10 mg 11/19/24 21:32 11/20/24 05:03 Prochlorperazine 10 Mg/2 Ml Inj IVP 10 mg Q6H PRN Administration NAUSEA PFSH Acute PFSH: Medical History (Updated 11/20/24 @ 21:40 by Maxi Ariza MD) ELSY (acute kidney injury) Constipation History of colon polyps Factor 5 Leiden mutation, heterozygous History of DVT (deep vein thrombosis) 07/10/2019 DVT involving the popliteal veins bilaterally Closed hand fracture Right 4th metacarpal oblique, injury 04/03/2022 Bilateral leg edema Erectile dysfunction Low testosterone Anxiety and depression Diabetes type 2, uncontrolled Atherosclerotic heart disease of [place] coronary artery with other forms of angina pectoris Hypertension Hyperlipidemia Diabetic neuropathy Adenomatous colon polyp Ischemic cardiomyopathy Abnormal nuclear stress test History of claustrophobia Right foot drop 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 Surgical History S/P pilonidal cyst excision Stented coronary artery H/O circumcision Family History Mother , at age 45 Lung cancer smoker Grandmother Diabetes Father , at age 23 Drowning Other Hypertension Denies family history of CAD (coronary artery disease) Social History Smoking and tobacco/nicotine status: never used tobacco/nicotine Quit status (tobacco/nicotine): has quit using Year quit tobacco: 2005 Alcohol intake: former Substance/Drug Use: former Household members: spouse and children Marital status: Number of children: 7 service: No Current occupational status: disabled 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 Abiola/Christian: Hinduism Special abiola needs: Yes (seth) Agree to transfusion: Yes Vitals/I&O/Wt Last Vital Signs Temp 97.8 F 11/20/24 20:00 Pulse 103 H 11/20/24 20:00 Resp 14 11/20/24 20:00 BP 123/80 11/20/24 20:00 Pulse Ox 93 11/20/24 20:00 O2 Del Method Nasal Cannula 11/20/24 20:00 O2 Flow Rate 2 11/18/24 16:05 FiO2 30 11/20/24 19:57 11/20/24 11/20/24 11/20/24 06:59 14:59 22:59 Intake Total 760 / 1753.7 1090.267 / 1090.267 279.733 / 1370.000 Output Total 125 / 405 250 / 250 Balance 635 / 1348.7 840.267 / 840.267 279.733 / 1120.000 Weight last 48 hrs Weight 122.697 kg Weight 119.975 kg Physical Exam Narrative: Obese man lying in bed, with the bed elevated at a 45 degree angle. He is mildly uncomfortable. Vital signs noted. HEENT normocephalic atraumatic. Neck supple. Lungs dull bases with crackles. Heart positive S1-S2 regular rhythm. Abdomen is soft positive bowel sounds. Extremities have edema. He has a right BKA. Neuro awake alert oriented x 3 Data 11/20/24 00:29 11/20/24 18:03 Micro: Microbiology 11/18/24 18:22 Blood Culture - Preliminary Blood NEGATIVE TO DATE 11/18/24 18:17 Blood Culture - Preliminary Blood NEGATIVE TO DATE A&P Assessment and plan (1) ELSY (acute kidney injury): 64 year old male history of heart failure reduced EF of approximately 40%, CAD, type 2 diabetes for over 20 years with right below-knee amputation, diabetic neuropathy, history of chronic DVT, factor V Leiden abnormality on Eliquis, hypertension, hyperlipidemia, lumbar degenerative disc disease. -Diabetes was poorly controlled has improved significantly under the care of Dr. Ron. 1. Acute kidney injury: Reviewing his blood work and the fact that he has a low urine electrolytes makes me concerned for prerenal state given his shortness of breath and new decreased EF I am concerned that the patient has cardiorenal syndrome. Will monitor with diuresis. The patient has underlying proteinuria likely from his diabetes however he also has the positive serum immunofixation in August 2024. Will repeat serum protein electrophoresis immunofixation and free light chains. Will diurese the patient and monitor closely. Please note that in August 2024 the patient has serum immunofixation with an IgG kappa monoclonal band Patient's baseline creatinine is 1 mg/dL in the end of August 2024. Patient presents with creatinine 1.4 mg/dL that is since increased to 1.9 mg/dL and is stable. -Renal ultrasound from November 18, 2024 shows right kidney 13.3 cm left 13.2 cm no hydronephrosis with small to moderate postvoid residual of 98 mL. Urinalysis from today dark yellow pH of 5 specific every 1025 urine protein 3+, no red cells no leukocytes blood negative. Of note the patient has hyaline casts and fine granular casts. Patient's urine sodium was 10 with a urine potassium of 74 and urine chloride of 31 Patient's RIK is negative anticardiolipin is negative, beta 2 glycoprotein negative the patient does not have APLA syndrome 2. Hyponatremia: Patient presents with sodium of 133 and improved to 135 but down to 133. Recommend fluid restriction and furosemide. 3. Increased anion gap metabolic acidosis. The patient had a anion gap of 18 on admission and is pretty much stayed at that level. 4. Heart failure reduced EF-repeat echo shows EF of 30 to 35% with a dilated IVC Patient's BNP was elevated at 12,000 445 on admission. Will repeat in a.m. Currently the patient is at increased risk of contrast-induced ELSY if he needs a contrast study. 5. ABG reviewed patient has a metabolic acidosis with good respiratory compensation. And a normal pH The patient was seen and examined with the aid of a nurse using audiovisual equipment. The patient consented to telehealth. Plan Heart failure reduced EF, acute kidney injury, hyponatremia, increased anion gap metabolic acidosis PDMP PDMP Reviewed: Not Reviewed Consult Attestations Medical Necessity Statement: Acute kidney injury, heart failure exacerbation, non-ST elevation [place], electrolyte abnormalities Time Spent in Patient Care: Greater than 35 minutes (>than 50% of time spent in counselling and/or direct pt care on unit). Coding Level of Care Code Acute Code for Chg Fwd Diagnoses ELSY (acute kidney injury) N17.9
[2024-11-20 22:59] LABS: Partial Thromboplastin Time 62.4 SECONDS (23.9-36.7)
[2024-11-20] MEDS: FUROsemide 10 mg/mL SDV 4mL 80 MG IVP (23:43)
[2024-11-21] VITALS (11 sets, daily range): BP systolic 118–132; BP diastolic 73–96; PULSE 95–105; RESP 15–26; TEMP 36.3–36.6; O2SAT 88–95
[2024-11-21] MEDS: morphine 4 mg/mL SDV 1 mL 2 MG IVP (01:09)
[2024-11-21 01:11] LABS: Glucose Urine UA Negative (Normal); Nitrate Urine Negative (Negative); Specific Gravity, Urine 1.011 (1.005-1.030)
[2024-11-21 01:18] LABS: UA Slide Review UA Slide Review Perf
[2024-11-21 01:22] LABS: Potassium, Radom Urine 32 mmol/L; Urine Random Chloride 86 mmol/L; Urine Random Sodium 69 mmol/L
[2024-11-21 01:28] LABS: Creatinine Urine, Random 48 mg/dL (39-259)
[2024-11-21 01:46] LABS: Microalbum Creatinine Ratio Ur 750 mg/dL (0-20)
[2024-11-21 04:32] LABS: Hematocrit 40.3 % (37-53); Hemoglobin 12.50 g/dL (11.27-16.99); Mean Corpuscular HGB Conc 31.0 g/dL (30-55); Mean Corpuscular Hemoglobin 28.4 pg (27-33); Mean Corpuscular Volume 91.6 fl (82-101); Nucleated Red Blood Cells % 0 %; Platelet Count 300 10^3/cmm (157-399); Red Blood Count 4.40 10^6/uL (3.85-5.65); White Blood Count 12.51 10^3/uL (3.29-11.43)
[2024-11-21 04:41] LABS: Partial Thromboplastin Time 59.0 SECONDS (23.9-36.7)
[2024-11-21 05:09] LABS: Alanine Aminotransferase 27 U/L (0-41); Albumin Level 3.6 g/dL (3.5-5.2); Alkaline Phosphatase 76 U/L (40-130); Anion Gap 25.5 (5-19); Aspartate Amino Transferase 29 U/L (0-40); Blood Urea Nitrogen 63 mg/dL (8-23); Calcium 8.9 mg/dL (8.5-10.5); Carbon Dioxide 15 mmol/L (22-29); Chloride 98 mmol/L (98-107); Creatinine Clr Calc Pharmacy 51.8781; Estmated Average Glucose 160; Globulin 3.3 g/dL (1.3-4.6); Glucose 117 mg/dL (65-115); Hemoglobin A1C 7.2 % (4.0-6.0); Osmolality Calculated 297 mOsm/kg (285-295); Potassium 4.5 mmol/L (3.5-5.1); Sodium 134 mmol/L (136-145); Total Protein 6.9 g/dL (6.6-8.7)
[2024-11-21 05:11] LABS: Magnesium 2.5 mg/dL (1.7-2.3); NT Pro B Type Natriuretic Pept 12385 pg/mL (0-125); Thyroid Stimulating Hormone 2.74 uIU/mL (0.27-4.20); Uric Acid 10.1 mg/dL (3.4-7.0)
[2024-11-21] MEDS: oxyCODONE-APAP 5-325 mg Tablet 1 TAB PO ×2 (05:42→18:39)
--- NOTE | 2024-11-21 06:48 | PC.NURSE ---
Patient complaining of heartburn. Notified Dr. macedo and Received orders for maalox 30 mls PRN Q4hrs.
[2024-11-21] MEDS: alum-mag-hydroxide-sime 30 mL UDC PO (07:03)
--- NOTE | 2024-11-21 07:59 | P.PN_ITS ---
Subjective 2 Subjective: He is doing much better today. He was able to sleep with CPAP last night. He still has peripheral edema but his breathing is better. He has been able to pee. Nurse overnight said that he had delay initiating his urine flow. Nephrology was consulted yesterday and was agreeable with continuing IV lasix. Vitals/I&O/Wt Last Vital Signs Temp 97.8 F 11/20/24 20:00 Pulse 95 11/21/24 07:51 Resp 20 H 11/21/24 07:51 BP 125/89 11/21/24 04:18 Pulse Ox 90 11/21/24 07:51 O2 Del Method Room Air 11/21/24 07:51 O2 Flow Rate 2 11/20/24 23:51 FiO2 30 11/20/24 19:57 11/20/24 11/21/24 11/21/24 22:59 06:59 14:59 Intake Total 519.733 / 1610.000 393.067 / 2003.067 Output Total 200 / 450 1650 / 2100 Balance 319.733 / 1160.000 -1256.933 / -96.933 Weight last 48 hrs Weight 123.967 kg Weight 122.697 kg Physical Exam 2 Narrative: GEN: Alert, no acute distress HEENT: Normocephalic, atraumatic, PERRLA, EOMI Neck: Supple, no JVD Cardio: S1, S2, regular rate and rhythm, no murmur Cardio: no respiratory distress, bibasilar crackles Abdomen: Soft, nontender, nondistended, normal active bowel sounds Extremity: Status post right BKA, 2+ pitting edema left leg Neuro: Alert and oriented x 3, no focal deficits Data 11/21/24 04:00 11/21/24 04:00 A&P Assessment and plan (1) ELSY (acute kidney injury): Acute kidney injury: Baseline creatinine 1.0- 1.1, creatinine 1.4 on admission and up to 2.0 today Also has AG metabolic acidosis, compensated likely cardiorenal syndrome per nephrology Normal renal US on 11/18 Has proteinuria and positive serum immunofixation with IgG kappa monoclonal band in 08/2024 - f/u serum protein electrophoresis immunofixation and free light chains ? continue IV diuresis for now - monitor creatinine - nephrology input is appreciated (2) NSTEMI (non-ST elevated myocardial infarction): NSTEMI : Chest pressure with troponin 739 on admission and CAD history EKG T wave inversion in inferior leads ? Cardiology following; at increased risk for contrast induced nephropathy at this time ? Continue heparin drip ? Continue aspirin 81 mg daily ? Telemetry monitoring (3) Congestive heart failure: Acute decompensated HFrEF: Dyspnea, elevated pro-BNP 16527 on admission, appear euvolemic now LVEF 30 to 35% down from 42% - lasix and metolazone dose decreased by nephrology - Daily weights and strict intake/output - monitor renal function ? Cardiology following (4) Hypoxia: Resolved Secondary to pnemonia, decompensated CHF and NSTEMI on admission History of VTE and was on apixaban, he has other reasons for hypoxia Saturating well on room air at this time Monitor O2 sats, goal SpO2 greater than 92% (5) Pneumonia: Community-acquired pneumonia versus possible aspiration pneumonia: Cough, bibasilar infiltrates on CXR, leukocytosis Viral panel negative. - Continue ceftriaxone and azithromycin - Chest physiotherapy and incentive spirometry (6) Trouble swallowing: Occasional choking up with water. Chronic tonsillar enlargement since childhood. ? MBS: No penetration or aspiration, swallow initiation timely, pharyngeal residue inconsistently but able to clear with double swallows, required chaser swallows to clear barium tablet from the mid esophagus ? 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 Insulin/scale. Carbohydrate consistent diet. Monitor POC glucose. (10) Factor 5 Leiden mutation, heterozygous: (11) History of DVT (deep vein thrombosis): He was on apixaban (12) Metabolic acidosis: High anion gap metabolic acidosis AG increasing but pH normal Lactic acid normal (13) Hyponatremia: Sodium 134 on admission, increased to 135 but now back to 134 lasix and metolazone dose decreased by nephrology Plan GI ppx: protonix VTE ppx: on heparin gtt PDMP PDMP Reviewed: Not Reviewed Attestations 2 Medical Necessity Statement*: Patient continues to require hospitalization for IV diurectics, monitoring of renal function, and future cardiac cath. Time Spent in Patient Care: Total time spent on patient care equals 50 minutes. Coding Level of Care Code 26442 Diagnoses ELSY (acute kidney injury) N17.9 NSTEMI (non-ST elevated myocardial infarction) I21.4 Acute on chronic systolic congestive heart failure I50.23 Heart failure chronicity: acute on chronic Heart failure type: systolic Hypoxia R09.02 Pneumonia J18.9 Laterality: right Lung location: lower lobe of lung Pneumonia type: due to unspecified organism Trouble swallowing R13.10 Hyperkalemia E87.5 Constipation K59.00 Type 2 diabetes mellitus E11.9 Factor 5 Leiden mutation, heterozygous D68.51 History of DVT (deep vein thrombosis) Z86.718 Metabolic acidosis E87.20 Hyponatremia E87.1
--- NOTE | 2024-11-21 08:14 | PM.PN ---
Subjective Subjective: feels better after diuretics. still SOB, less edema. no n/v/f/c/dial/d Medications: Reviewed: Yes Medication Review Details: Current Medications Acetaminophen (Acetaminophen 325 Mg Tablet) 650 mg PO Q6H PRN PRN Reason: Mild/Mod Pain Or Temp >/= 101 Last Admin: 11/19/24 07:44 Dose: 650 mg Al Hydrox/Mg Hydrox/Simethicone (Eryk-Agq-Xjvbqrxso-Fam 30 Ml Udc) 30 ml PO Q4H PRN PRN Reason: INDIGESTION Last Admin: 11/21/24 07:03 Dose: 30 ml Albuterol/Ipratropium (Ipratropium-Albuterol 3 Ml Neb) 3 ml INHALATION Q4H PRN PRN Reason: SHORTNESS OF BREATH Last Admin: 11/20/24 17:56 Dose: 3 ml Aspirin (Aspirin 81 Mg Ec Tablet) 81 mg PO DAILY [facility] Last Admin: 11/20/24 09:08 Dose: 81 mg Ceftriaxone Sodium (Ceftriaxone 2,000 Mg Sdv) 2,000 mg IVP Q24H [facility]; Protocol Last Admin: 11/20/24 17:10 Dose: 2,000 mg Furosemide (Furosemide 10 Mg/Ml Sdv 4ml) 80 mg IVP TID SIL[facility]INA Last Admin: 11/20/24 23:43 Dose: 80 mg Glucagon (Glucagon 1 Mg/Ml Kit 1 Ml) 1 mg IM ONCE PRN; Protocol PRN Reason: Adult Acute Hypoglycemia Nursing Prot. Heparin Sodium (Porcine) (Heparin 5,000 Unit/Ml Inj 1 Ml) 0 unit IVP PRN PRN; Protocol PRN Reason: Heparin Weight Based Protocol -Subsequent Bolus Heparin Sodium/Sodium Chloride (Heparin Drip) 25,000 unit in 500 mls @ 0 mls/hr IV CONT [facility]; Protocol Last Titration: 11/21/24 05:26 Dose: 13.31 unit/kg/hr, 32 mls/hr Azithromycin 500 mg/ Sodium (Chloride) 250 mls @ 250 mls/hr IV DAILY [facility]; Protocol Last Infusion: 11/20/24 10:17 Dose: Infused Dextrose (D5w) 500 mls @ 0 mls/hr IV ONCE PRN; Protocol PRN Reason: Adult Acute Hypoglycemia Prot Dextrose (D10w) 125 mls @ 750 mls/hr IV PRN PRN; Protocol PRN Reason: Adult Acute Hypoglycemia Nursing Protocol Dextrose (D10w) 250 mls @ 1,000 mls/hr IV PRN PRN; Protocol PRN Reason: Adult Acute Hypoglycemia Nursing Protocol Insulin Glargine (Insulin Glargine 100 Units/1 Ml) 56 unit SUBCUT DAILY [facility] Last Admin: 11/20/24 09:09 Dose: 56 unit Insulin Human Lispro (Insulin Lispro 100 Unit/1 Ml) 0 unit SUBCUT WM&BEDTIME [facility]; Protocol Last Admin: 11/21/24 06:57 Dose: Not Given Metolazone (Metolazone 5 Mg Tablet) 2.5 mg PO BID [facility] Last Admin: 11/20/24 17:10 Dose: 2.5 mg Midodrine (Midodrine 5 Mg Tablet) 10 mg PO TID [facility] Last Admin: 11/20/24 21:43 Dose: 10 mg Morphine Sulfate (Morphine 4 Mg/Ml Sdv 1 Ml) 2 mg IVP Q3H PRN PRN Reason: SEVERE PAIN Last Admin: 11/21/24 01:09 Dose: 2 mg Nitroglycerin (Nitroglycerin 0.4 Mg Sublingual Tablet) 0.4 mg SUBLINGUAL Q5M PRN PRN Reason: CHEST PAIN Ondansetron HCl (Ondansetron 2 Mg/Ml Sdv 2 Ml) 4 mg IVP Q4H PRN PRN Reason: NAUSEA AND VOMITING Last Admin: 11/20/24 09:08 Dose: 4 mg Oxycodone/Acetaminophen (Oxycodone-Apap 5-325 Mg Tablet) 1 tab PO Q6H PRN PRN Reason: MODERATE PAIN Last Admin: 11/21/24 05:42 Dose: 1 tab Pantoprazole Sodium (Pantoprazole Dr 40 Mg Tablet) 40 mg PO DAILY [facility] Last Admin: 11/20/24 09:08 Dose: 40 mg Polyethylene Glycol (Polyethylene Glycol 3350 Pkt 17 Gm) 17 gm PO BID [facility] Last Admin: 11/20/24 17:08 Dose: Not Given Prochlorperazine Edisylate (Prochlorperazine 10 Mg/2 Ml Inj) 10 mg IVP Q6H PRN PRN Reason: NAUSEA Last Admin: 11/20/24 05:03 Dose: 10 mg Trazodone HCl (Trazodone 50 Mg Tablet) 50 mg PO BEDTIME PRN PRN Reason: INSOMNIA Last Admin: 11/20/24 21:44 Dose: 50 mg Vitals/I&O/Wt Last Vital Signs Temp 97.4 F L 11/21/24 08:00 Pulse 96 11/21/24 08:00 Resp 15 11/21/24 08:00 BP 128/90 11/21/24 08:00 Pulse Ox 90 11/21/24 07:51 O2 Del Method Room Air 11/21/24 07:51 O2 Flow Rate 2 11/20/24 23:51 FiO2 30 11/20/24 19:57 11/20/24 11/21/24 11/21/24 22:59 06:59 14:59 Intake Total 519.733 / 1610.000 393.067 / 2003.067 Output Total 200 / 450 1650 / 2100 Balance 319.733 / 1160.000 -1256.933 / -96.933 Weight last 48 hrs Weight 123.967 kg Weight 122.697 kg Physical Exam Narrative: Obese man lying in bed, with the bed elevated at a 45 degree angle. NARD. Vital signs noted. HEENT normocephalic atraumatic. Neck supple. Lungs -dec crackles. improved air movement b/l Heart positive S1-S2 regular rhythm. Abdomen is soft positive bowel sounds. Extremities have edema. He has a right BKA. Neuro awake alert oriented x 3 Data 11/21/24 04:00 11/21/24 04:00 A&P Assessment and plan (1) ELSY (acute kidney injury): 64 year old male history of heart failure reduced EF of approximately 40%, CAD, type 2 diabetes for over 20 years with right below-knee amputation, diabetic neuropathy, history of chronic DVT, factor V Leiden abnormality on Eliquis, hypertension, hyperlipidemia, lumbar degenerative disc disease. -Diabetes was poorly controlled has improved significantly under the care of Dr. Ron. 1. Acute kidney injury: Reviewing his blood work and the fact that he has a low urine electrolytes makes me concerned for prerenal state given his shortness of breath and new decreased EF I am concerned that the patient has cardiorenal syndrome. Will monitor with diuresis. The patient has underlying proteinuria likely from his diabetes however he also has the positive serum immunofixation in August 2024. Will repeat serum protein electrophoresis immunofixation and free light chains. Will diurese the patient and monitor closely. Please note that in August 2024 the patient has serum immunofixation with an IgG kappa monoclonal band Patient's baseline creatinine is 1 mg/dL in the end of August 2024. Patient presents with creatinine 1.4 mg/dL that is since increased to 1.9 mg/dL and is stable. -Renal ultrasound from November 18, 2024 shows right kidney 13.3 cm left 13.2 cm no hydronephrosis with small to moderate postvoid residual of 98 mL. Urinalysis from 11/20/24 dark yellow pH of 5 specific every 1025 urine protein 3+, no red cells no leukocytes blood negative. Of note the patient has hyaline casts and fine granular casts. Patient's urine sodium was 10 with a urine potassium of 74 and urine chloride of 31 Patient's RIK is negative anticardiolipin is negative, beta 2 glycoprotein negative the patient does not have APLA syndrome 2. Hyponatremia: Patient presents with sodium of 133 and improved to 135 but down to 134. Recommend fluid restriction and diuresis given hyponatremia and ELSY- i will decrease lasix and metolazone and monitor. if he clinically worsens then increase diuretics 3. Increased anion gap metabolic acidosis. The patient had a anion gap of 21- it is rising- repeat abg and lactate level. check salicylate level 4. Heart failure reduced EF-repeat echo shows EF of 30 to 35% with a dilated IVC Patient's BNP was elevated at 12,000 445 on admission. Will repeat in a.m. Currently the patient is at increased risk of contrast-induced ELSY if he needs a contrast study. 5. dec midodrine dose will monitor closely The patient was seen and examined with the aid of a nurse using audiovisual equipment. The patient consented to telehealth. Plan Heart failure reduced EF, acute kidney injury, hyponatremia, increased anion gap metabolic acidosis -see above PDMP PDMP Reviewed: Not Reviewed Attestations Medical Necessity Statement*: Heart failure reduced EF, acute kidney injury, hyponatremia, increased anion gap metabolic acidosis Time Spent in Patient Care: 16 - 35 minutes (>than 50% of time spent in counselling and/or direct pt care on unit). Coding Level of Care Code Acute Code for [facility] Diagnoses ELSY (acute kidney injury) N17.9
--- NOTE | 2024-11-21 08:22 | PC.SOCIAL ---
IMM Update Pg. 2 of IMM Updated and copy provided at bedside.
[2024-11-21 09:05] LABS: ABG PCO2 36.6 mmHg (35-45); ABG PH Result 7.38 (7.35-7.45); Alveolar-Arterial Oxygen Gradi 6.2 mmHg (5-10); Arterial Blood Gas Hematocrit 44.3 % (42-52); Blood Gas Allen Test Pos; Blood Gas Operator Identificat AMH; Blood Gas Sample Site Radial, right; Blood Gas Sample Type Arterial; Carboxyhemoglobin 0.5 %THgb (0.4-20.1); Glucose Level-ABG 151.0 mg/dL (70-115); HCO3 ABG 21.4 mmol/L (22-26); Ionized Calcium Level - ABG 1.2 mmol/L (1.1-1.4); Methemoglobin 0.8 % (0.4-1.5); Oxygen Saturation ABG 87.5; PO2 ABG 56.6 mmHg (80.0-100.0); PO2 FiO2 Ratio Arterial Blood 269; Potassium Level - ABG 4.1 mmol/L (3.5-5.0); Sodium Level - ABG 135.0 mmol/L (131-143)
[2024-11-21 09:13] LABS: Salicylate < 0.3 mg/dL (3-10)
[2024-11-21] MEDS: polyethylene glycol 3350 Pkt 17 gm PO ×2 (09:13→17:26)
[2024-11-21] MEDS: AZITHROMYCIN ADD-Vantage 500 MG in 0.9% NaCl ADD-Vantage 250 ML 250 MG IV (09:14)
[2024-11-21] MEDS: heparin drip 25,000 UNIT/500 ML PREMIX 32 UNIT IV (09:17)
[2024-11-21 09:34] LABS: Lactate (Lactic Acid level) 1.6 mmol/L (0.5-2.2)
[2024-11-21] MEDS: ondansetron 2 mg/ML SDV 2 mL 4 MG IVP ×2 (11:26→17:27)
[2024-11-21 16:55] LABS: Partial Thromboplastin Time 91.9 SECONDS (23.9-36.7)
[2024-11-21] MEDS: FUROsemide 10 mg/mL SDV 4mL 80 MG IVP (17:26)
[2024-11-21] MEDS: cefTRIAXone 2,000 mg SDV 2000 MG IVP (17:27)
--- NOTE | 2024-11-21 17:27 | PM.PN ---
Subjective Subjective: Patient states he is feeling much better today Medications: Reviewed: Yes Medication Review Details: Current Medications Acetaminophen (Acetaminophen 325 Mg Tablet) 650 mg PO Q6H PRN PRN Reason: Mild/Mod Pain Or Temp >/= 101 Last Admin: 11/19/24 07:44 Dose: 650 mg Al Hydrox/Mg Hydrox/Simethicone (Wxne-Smn-Yaunhrgdq-Fam 30 Ml Udc) 30 ml PO Q4H PRN PRN Reason: INDIGESTION Last Admin: 11/21/24 07:03 Dose: 30 ml Albuterol/Ipratropium (Ipratropium-Albuterol 3 Ml Neb) 3 ml INHALATION Q4H PRN PRN Reason: SHORTNESS OF BREATH Last Admin: 11/20/24 17:56 Dose: 3 ml Aspirin (Aspirin 81 Mg Ec Tablet) 81 mg PO DAILY [facility] Last Admin: 11/20/24 09:08 Dose: 81 mg Ceftriaxone Sodium (Ceftriaxone 2,000 Mg Sdv) 2,000 mg IVP Q24H [facility]; Protocol Last Admin: 11/20/24 17:10 Dose: 2,000 mg Furosemide (Furosemide 10 Mg/Ml Sdv 4ml) 80 mg IVP TID [facility] Last Admin: 11/20/24 23:43 Dose: 80 mg Glucagon (Glucagon 1 Mg/Ml Kit 1 Ml) 1 mg IM ONCE PRN; Protocol PRN Reason: Adult Acute Hypoglycemia Nursing Prot. Heparin Sodium (Porcine) (Heparin 5,000 Unit/Ml Inj 1 Ml) 0 unit IVP PRN PRN; Protocol PRN Reason: Heparin Weight Based Protocol -Subsequent Bolus Heparin Sodium/Sodium Chloride (Heparin Drip) 25,000 unit in 500 mls @ 0 mls/hr IV CONT [facility]; Protocol Last Titration: 11/21/24 05:26 Dose: 13.31 unit/kg/hr, 32 mls/hr Azithromycin 500 mg/ Sodium (Chloride) 250 mls @ 250 mls/hr IV DAILY [facility]; Protocol Last Infusion: 11/20/24 10:17 Dose: Infused Dextrose (D5w) 500 mls @ 0 mls/hr IV ONCE PRN; Protocol PRN Reason: Adult Acute Hypoglycemia Prot Dextrose (D10w) 125 mls @ 750 mls/hr IV PRN PRN; Protocol PRN Reason: Adult Acute Hypoglycemia Nursing Protocol Dextrose (D10w) 250 mls @ 1,000 mls/hr IV PRN PRN; Protocol PRN Reason: Adult Acute Hypoglycemia Nursing Protocol Insulin Glargine (Insulin Glargine 100 Units/1 Ml) 56 unit SUBCUT DAILY [facility] Last Admin: 11/20/24 09:09 Dose: 56 unit Insulin Human Lispro (Insulin Lispro 100 Unit/1 Ml) 0 unit SUBCUT WM&BEDTIME [facility]; Protocol Last Admin: 11/21/24 06:57 Dose: Not Given Metolazone (Metolazone 5 Mg Tablet) 2.5 mg PO BID [facility] Last Admin: 11/20/24 17:10 Dose: 2.5 mg Midodrine (Midodrine 5 Mg Tablet) 10 mg PO TID [facility] Last Admin: 11/20/24 21:43 Dose: 10 mg Morphine Sulfate (Morphine 4 Mg/Ml Sdv 1 Ml) 2 mg IVP Q3H PRN PRN Reason: SEVERE PAIN Last Admin: 11/21/24 01:09 Dose: 2 mg Nitroglycerin (Nitroglycerin 0.4 Mg Sublingual Tablet) 0.4 mg SUBLINGUAL Q5M PRN PRN Reason: CHEST PAIN Ondansetron HCl (Ondansetron 2 Mg/Ml Sdv 2 Ml) 4 mg IVP Q4H PRN PRN Reason: NAUSEA AND VOMITING Last Admin: 11/20/24 09:08 Dose: 4 mg Oxycodone/Acetaminophen (Oxycodone-Apap 5-325 Mg Tablet) 1 tab PO Q6H PRN PRN Reason: MODERATE PAIN Last Admin: 11/21/24 05:42 Dose: 1 tab Pantoprazole Sodium (Pantoprazole Dr 40 Mg Tablet) 40 mg PO DAILY [facility] Last Admin: 11/20/24 09:08 Dose: 40 mg Polyethylene Glycol (Polyethylene Glycol 3350 Pkt 17 Gm) 17 gm PO BID [facility] Last Admin: 11/20/24 17:08 Dose: Not Given Prochlorperazine Edisylate (Prochlorperazine 10 Mg/2 Ml Inj) 10 mg IVP Q6H PRN PRN Reason: NAUSEA Last Admin: 11/20/24 05:03 Dose: 10 mg Trazodone HCl (Trazodone 50 Mg Tablet) 50 mg PO BEDTIME PRN PRN Reason: INSOMNIA Last Admin: 11/20/24 21:44 Dose: 50 mg Vitals/I&O/Wt Last Vital Signs Temp 97.9 F 11/21/24 16:00 Pulse 99 11/21/24 16:00 Resp 21 H 11/21/24 16:00 BP 132/96 11/21/24 16:00 Pulse Ox 90 11/21/24 07:51 O2 Del Method Room Air 11/21/24 07:51 O2 Flow Rate 2 11/20/24 23:51 FiO2 30 11/20/24 19:57 11/21/24 11/21/24 11/21/24 06:59 14:59 22:59 Intake Total 393.067 / 2003.067 536.933 / 536.933 Output Total 1650 / 2100 625 / 625 Balance -1256.933 / -96.933 -88.067 / -88.067 Weight last 48 hrs Weight 273 lb 4.8 oz Weight 270 lb 8 oz Physical Exam Const: OTHER: GENERAL: Patient is alert, awake and oriented x3. HEART: Regular S1 and S2. No murmur, rub or gallop. LUNGS: Clear to auscultate bilaterally. CENTRAL NERVOUS SYSTEM: Grossly nonfocal. EXTREMITIES: Lower extremities trace edema with right BKA. Data 11/21/24 04:00 11/21/24 04:00 A&P Assessment and plan (1) Congestive heart failure: (2) Acute non-ST elevation myocardial infarction (NSTEMI): (3) Factor 5 Leiden mutation, heterozygous: (4) History of DVT (deep vein thrombosis): (5) Hypertension: (6) Hyperlipidemia: (7) Diabetes type 2, uncontrolled: (8) ELSY (acute kidney injury): Plan Continue IV diuretics Lasix and metolazone Continue to optimize medication including hydralazine Once euvolemic and moving there after resolution of lung infiltrates/pneumonia we will proceed with a left heart cath which going to happen early next week around Sunday as 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 not available due to technical problem PDMP PDMP Reviewed: Not Reviewed Attestations Medical Necessity Statement*: As per medicine Coding Level of Care Code Acute Code for [facility] Diagnoses Acute on chronic systolic congestive heart failure I50.23 Heart failure type: systolic Heart failure chronicity: acute on chronic Acute non-ST elevation myocardial infarction (NSTEMI) I21.4 Factor 5 Leiden mutation, heterozygous D68.51 History of DVT (deep vein thrombosis) Z86.718 Essential hypertension I10 Hypertension type: essential hypertension Mixed hyperlipidemia E78.2 Hyperlipidemia type: mixed hyperlipidemia Uncontrolled type 2 diabetes mellitus with hyperglycemia E11.65 Glycemic state: with hyperglycemia ELSY (acute kidney injury) N17.9
[2024-11-21] MEDS: levofloxacin-dextrose 5 % 500 MG/100 ML PREMIX 100 MG IV (20:38)
[2024-11-22] VITALS (8 sets, daily range): BP systolic 110–128; BP diastolic 69–89; PULSE 75–103; RESP 15–18; TEMP 36.4–36.8; O2SAT 90–97
[2024-11-22 01:13] LABS: Hematocrit 39.9 % (37-53); Hemoglobin 13.10 g/dL (11.27-16.99); Mean Corpuscular HGB Conc 32.8 g/dL (30-55); Mean Corpuscular Hemoglobin 29.0 pg (27-33); Mean Corpuscular Volume 88.3 fl (82-101); Nucleated Red Blood Cells % 0 %; Platelet Count 268 10^3/cmm (157-399); Red Blood Count 4.52 10^6/uL (3.85-5.65); White Blood Count 10.19 10^3/uL (3.29-11.43)
[2024-11-22 01:24] LABS: Partial Thromboplastin Time 55.6 SECONDS (23.9-36.7)
[2024-11-22 01:30] LABS: Alanine Aminotransferase 27 U/L (0-41); Albumin Level 3.3 g/dL (3.5-5.2); Alkaline Phosphatase 79 U/L (40-130); Anion Gap 18.3 (5-19); Aspartate Amino Transferase 23 U/L (0-40); Blood Urea Nitrogen 72 mg/dL (8-23); Calcium 9.1 mg/dL (8.5-10.5); Carbon Dioxide 23 mmol/L (22-29); Chloride 97 mmol/L (98-107); Creatinine Clr Calc Pharmacy 54.8945; Globulin 4.0 g/dL (1.3-4.6); Glucose 122 mg/dL (65-115); Osmolality Calculated 300 mOsm/kg (285-295); Potassium 4.3 mmol/L (3.5-5.1); Sodium 134 mmol/L (136-145); Total Protein 7.3 g/dL (6.6-8.7)
[2024-11-22 01:44] LABS: Magnesium 2.7 mg/dL (1.7-2.3); NT Pro B Type Natriuretic Pept 13291 pg/mL (0-125)
[2024-11-22] MEDS: heparin drip 25,000 UNIT/500 ML PREMIX 27 UNIT IV (02:56)
[2024-11-22 07:21] LABS: Partial Thromboplastin Time 58.1 SECONDS (23.9-36.7)
--- NOTE | 2024-11-22 07:41 | P.PN_ITS ---
Subjective 2 Subjective: He had been having severe nausea with ceftriaxone and was switched to levaquin yesterday. His nausea has resolved. He had several bowel movements last night. He still needs help when urinating but is doing better. Started on tamsulosin yesterday. His dyspnea is improving. Medications: Reviewed: Yes Vitals/I&O/Wt Last Vital Signs Temp 97.7 F 11/22/24 07:32 Pulse 90 11/22/24 07:32 Resp 15 11/22/24 07:32 BP 128/85 11/22/24 07:32 Pulse Ox 96 11/22/24 07:32 O2 Del Method Room Air 11/22/24 07:32 O2 Flow Rate 2 11/20/24 23:51 FiO2 30 11/20/24 19:57 11/21/24 11/22/24 11/22/24 22:59 06:59 14:59 Intake Total 662.667 / 1199.600 907.333 / 2106.933 119.7 / 119.7 Balance 662.667 / 574.600 907.333 / 1481.933 119.7 / 119.7 Weight last 48 hrs Weight 123.972 kg Weight 123.967 kg Physical Exam 2 Narrative: GEN: Alert, no acute distress HEENT: Normocephalic, atraumatic, PERRLA, EOMI Neck: Supple, no JVD Cardio: S1, S2, regular rate and rhythm, no murmur Cardio: no respiratory distress, bibasilar crackles Abdomen: Soft, nontender, nondistended, normal active bowel sounds Extremity: Status post right BKA, 1+ pitting edema left leg Neuro: Alert and oriented x 3, no focal deficits Data 11/22/24 00:50 11/22/24 00:50 A&P Assessment and plan (1) ELSY (acute kidney injury): Acute kidney injury: Baseline creatinine 1.0- 1.1,up to 2.0 this admission, 1.9 today Also has AG metabolic acidosis resolved today likely cardiorenal syndrome per nephrology Normal renal US on 11/18 Has proteinuria and positive serum immunofixation with IgG kappa monoclonal band in 08/2024 - f/u serum protein electrophoresis immunofixation and free light chains ? continue IV diuresis for now - monitor creatinine - nephrology input is appreciated (2) NSTEMI (non-ST elevated myocardial infarction): NSTEMI : Chest pressure with troponin 739 on admission and CAD history EKG T wave inversion in inferior leads ? Cardiology following; anticipate cardiac cath on Sunday provided renal function does not worsen ? switched to therapeutic lovenox ? Continue aspirin 81 mg daily ? Telemetry monitoring (3) Congestive heart failure: Acute decompensated HFrEF: Dyspnea, elevated pro-BNP 33775 on admission, appear euvolemic now LVEF 30 to 35% down from 42% - continue lasix and metolazone dose - Daily weights and strict intake/output - monitor renal function ? Cardiology following (4) Hypoxia: Resolved Secondary to pnemonia, decompensated CHF and NSTEMI on admission History of VTE and was on apixaban, he has other reasons for hypoxia Saturating well on room air at this time Monitor O2 sats, goal SpO2 greater than 92% (5) Pneumonia: Community-acquired pneumonia versus possible aspiration pneumonia: Cough, bibasilar infiltrates on CXR, leukocytosis Viral panel negative. - Continue levaquin - Chest physiotherapy and incentive spirometry (6) Trouble swallowing: Occasional choking up with water. Chronic tonsillar enlargement since childhood. ? MBS: No penetration or aspiration, swallow initiation timely, pharyngeal residue inconsistently but able to clear with double swallows, required chaser swallows to clear barium tablet from the mid esophagus ? 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 Insulin/scale. Carbohydrate consistent diet. Monitor POC glucose. (10) Factor 5 Leiden mutation, heterozygous: (11) History of DVT (deep vein thrombosis): He was on apixaban (12) Metabolic acidosis: High anion gap metabolic acidosis resolved (13) Hyponatremia: Sodium stable; monitor Plan GI ppx: protonix VTE ppx: on heparin gtt PDMP PDMP Reviewed: Not Reviewed Attestations 2 Medical Necessity Statement*: Continued hospitalization for IV diuresis, IV antibiotics, telemetry monitoring. Cardiac cath hopefully on Sunday Coding Level of Care Code 00102 Diagnoses ELSY (acute kidney injury) N17.9 NSTEMI (non-ST elevated myocardial infarction) I21.4 Acute on chronic systolic congestive heart failure I50.23 Heart failure chronicity: acute on chronic Heart failure type: systolic Hypoxia R09.02 Pneumonia J18.9 Laterality: right Lung location: lower lobe of lung Pneumonia type: due to unspecified organism Trouble swallowing R13.10 Hyperkalemia E87.5 Constipation K59.00 Type 2 diabetes mellitus E11.9 Factor 5 Leiden mutation, heterozygous D68.51 History of DVT (deep vein thrombosis) Z86.718 Metabolic acidosis E87.20 Hyponatremia E87.1
[2024-11-22] MEDS: FUROsemide 10 mg/mL SDV 4mL 80 MG IVP ×2 (08:11→17:14)
--- NOTE | 2024-11-22 08:37 | PC.NURSE ---
This RN present with student during medication passes. Student performed appropriately using all rights and identifiers.
--- NOTE | 2024-11-22 13:53 | PC.NURSE ---
Patient up to shower with assistance from spouse.
--- NOTE | 2024-11-22 15:57 | PM.PN ---
Subjective Subjective: Patient continues to feel better Medications: Reviewed: Yes Medication Review Details: Current Medications Acetaminophen (Acetaminophen 325 Mg Tablet) 650 mg PO Q6H PRN PRN Reason: Mild/Mod Pain Or Temp >/= 101 Last Admin: 11/19/24 07:44 Dose: 650 mg Al Hydrox/Mg Hydrox/Simethicone (Yqxe-Qou-Dbftqnhpe-Fam 30 Ml Udc) 30 ml PO Q4H PRN PRN Reason: INDIGESTION Last Admin: 11/21/24 07:03 Dose: 30 ml Albuterol/Ipratropium (Ipratropium-Albuterol 3 Ml Neb) 3 ml INHALATION Q4H PRN PRN Reason: SHORTNESS OF BREATH Last Admin: 11/20/24 17:56 Dose: 3 ml Aspirin (Aspirin 81 Mg Ec Tablet) 81 mg PO DAILY SIL[facility]INA Last Admin: 11/20/24 09:08 Dose: 81 mg Ceftriaxone Sodium (Ceftriaxone 2,000 Mg Sdv) 2,000 mg IVP Q24H SIL[facility]; Protocol Last Admin: 11/20/24 17:10 Dose: 2,000 mg Furosemide (Furosemide 10 Mg/Ml Sdv 4ml) 80 mg IVP TID SILVINA Last Admin: 11/20/24 23:43 Dose: 80 mg Glucagon (Glucagon 1 Mg/Ml Kit 1 Ml) 1 mg IM ONCE PRN; Protocol PRN Reason: Adult Acute Hypoglycemia Nursing Prot. Heparin Sodium (Porcine) (Heparin 5,000 Unit/Ml Inj 1 Ml) 0 unit IVP PRN PRN; Protocol PRN Reason: Heparin Weight Based Protocol -Subsequent Bolus Heparin Sodium/Sodium Chloride (Heparin Drip) 25,000 unit in 500 mls @ 0 mls/hr IV CONT SILVINA; Protocol Last Titration: 11/21/24 05:26 Dose: 13.31 unit/kg/hr, 32 mls/hr Azithromycin 500 mg/ Sodium (Chloride) 250 mls @ 250 mls/hr IV DAILY SILVINA; Protocol Last Infusion: 11/20/24 10:17 Dose: Infused Dextrose (D5w) 500 mls @ 0 mls/hr IV ONCE PRN; Protocol PRN Reason: Adult Acute Hypoglycemia Prot Dextrose (D10w) 125 mls @ 750 mls/hr IV PRN PRN; Protocol PRN Reason: Adult Acute Hypoglycemia Nursing Protocol Dextrose (D10w) 250 mls @ 1,000 mls/hr IV PRN PRN; Protocol PRN Reason: Adult Acute Hypoglycemia Nursing Protocol Insulin Glargine (Insulin Glargine 100 Units/1 Ml) 56 unit SUBCUT DAILY [facility] Last Admin: 11/20/24 09:09 Dose: 56 unit Insulin Human Lispro (Insulin Lispro 100 Unit/1 Ml) 0 unit SUBCUT WM&BEDTIME [facility]; Protocol Last Admin: 11/21/24 06:57 Dose: Not Given Metolazone (Metolazone 5 Mg Tablet) 2.5 mg PO BID [facility] Last Admin: 11/20/24 17:10 Dose: 2.5 mg Midodrine (Midodrine 5 Mg Tablet) 10 mg PO TID [facility] Last Admin: 11/20/24 21:43 Dose: 10 mg Morphine Sulfate (Morphine 4 Mg/Ml Sdv 1 Ml) 2 mg IVP Q3H PRN PRN Reason: SEVERE PAIN Last Admin: 11/21/24 01:09 Dose: 2 mg Nitroglycerin (Nitroglycerin 0.4 Mg Sublingual Tablet) 0.4 mg SUBLINGUAL Q5M PRN PRN Reason: CHEST PAIN Ondansetron HCl (Ondansetron 2 Mg/Ml Sdv 2 Ml) 4 mg IVP Q4H PRN PRN Reason: NAUSEA AND VOMITING Last Admin: 11/20/24 09:08 Dose: 4 mg Oxycodone/Acetaminophen (Oxycodone-Apap 5-325 Mg Tablet) 1 tab PO Q6H PRN PRN Reason: MODERATE PAIN Last Admin: 11/21/24 05:42 Dose: 1 tab Pantoprazole Sodium (Pantoprazole Dr 40 Mg Tablet) 40 mg PO DAILY [facility] Last Admin: 11/20/24 09:08 Dose: 40 mg Polyethylene Glycol (Polyethylene Glycol 3350 Pkt 17 Gm) 17 gm PO BID [facility] Last Admin: 11/20/24 17:08 Dose: Not Given Prochlorperazine Edisylate (Prochlorperazine 10 Mg/2 Ml Inj) 10 mg IVP Q6H PRN PRN Reason: NAUSEA Last Admin: 11/20/24 05:03 Dose: 10 mg Trazodone HCl (Trazodone 50 Mg Tablet) 50 mg PO BEDTIME PRN PRN Reason: INSOMNIA Last Admin: 11/20/24 21:44 Dose: 50 mg Vitals/I&O/Wt Last Vital Signs Temp 98.2 F 11/22/24 15:35 Pulse 96 11/22/24 15:35 Resp 15 11/22/24 15:35 BP 110/69 11/22/24 15:35 Pulse Ox 97 11/22/24 15:35 O2 Del Method Room Air 11/22/24 09:45 O2 Flow Rate 2 11/20/24 23:51 FiO2 30 11/20/24 19:57 11/22/24 11/22/24 11/22/24 06:59 14:59 22:59 Intake Total 907.333 / 2106.933 596.7 / 596.7 Output Total 1450 / 1450 Balance 907.333 / 1481.933 -853.3 / -853.3 Weight last 48 hrs Weight 273 lb 5 oz Weight 273 lb 4.8 oz Physical Exam Const: OTHER: GENERAL: Patient is alert, awake and oriented x3. HEART: Regular S1 and S2. No murmur, rub or gallop. LUNGS: Clear to auscultate bilaterally. CENTRAL NERVOUS SYSTEM: Grossly nonfocal. EXTREMITIES: Lower extremities trace edema with right BKA. Data 11/22/24 00:50 11/22/24 00:50 A&P Assessment and plan (1) Congestive heart failure: (2) Acute non-ST elevation myocardial infarction (NSTEMI): (3) Factor 5 Leiden mutation, heterozygous: (4) History of DVT (deep vein thrombosis): (5) Hypertension: (6) Hyperlipidemia: (7) Diabetes type 2, uncontrolled: (8) ELSY (acute kidney injury): Plan Continue IV diuretics Lasix and metolazone Continue to optimize medication including hydralazine Once euvolemic and moving there after resolution of lung infiltrates/pneumonia we will proceed with a left heart cath which going to happen early next week around Sunday as [employer] is not available due to technical problem On today's visit dated 11/22/2024 patient continued to do well we will continue plan as above PDMP PDMP Reviewed: Not Reviewed Attestations Medical Necessity Statement*: Require continuation of hospitalization for above defined care. Coding Level of Care Code Acute Code for Chg Fwd Diagnoses Acute on chronic systolic congestive heart failure I50.23 Heart failure type: systolic Heart failure chronicity: acute on chronic Acute non-ST elevation myocardial infarction (NSTEMI) I21.4 Factor 5 Leiden mutation, heterozygous D68.51 History of DVT (deep vein thrombosis) Z86.718 Essential hypertension I10 Hypertension type: essential hypertension Mixed hyperlipidemia E78.2 Hyperlipidemia type: mixed hyperlipidemia Uncontrolled type 2 diabetes mellitus with hyperglycemia E11.65 Glycemic state: with hyperglycemia ELSY (acute kidney injury) N17.9
--- NOTE | 2024-11-22 16:47 | P.PN_ITS ---
Subjective 2 Subjective: no new c/o Medications: Reviewed: Yes Vitals/I&O/Wt Last Vital Signs Temp 98.2 F 11/22/24 15:35 Pulse 96 11/22/24 15:35 Resp 15 11/22/24 15:35 BP 110/69 11/22/24 15:35 Pulse Ox 97 11/22/24 15:35 O2 Del Method Room Air 11/22/24 09:45 O2 Flow Rate 2 11/20/24 23:51 FiO2 30 11/20/24 19:57 11/22/24 11/22/24 11/22/24 06:59 14:59 22:59 Intake Total 907.333 / 2106.933 596.7 / 596.7 Output Total 1450 / 1450 Balance 907.333 / 1481.933 -853.3 / -853.3 Weight last 48 hrs Weight 123.972 kg Weight 123.967 kg Physical Exam 2 Narrative: Obese man lying in bed, with the bed . NARD. Vital signs noted. HEENT normocephalic atraumatic. Neck supple. Lungs -dec crackles. improved air movement b/l Heart positive S1-S2 regular rhythm. Abdomen is soft positive bowel sounds. Extremities have edema. He has a right BKA. Neuro awake alert oriented x 3 Data 11/22/24 00:50 11/22/24 00:50 A&P Assessment and plan (1) ELSY (acute kidney injury): 64 year old male history of heart failure reduced EF of approximately 40%, CAD, type 2 diabetes for over 20 years with right below-knee amputation, diabetic neuropathy, history of chronic DVT, factor V Leiden abnormality on Eliquis, hypertension, hyperlipidemia, lumbar degenerative disc disease. -Diabetes was poorly controlled has improved significantly under the care of Dr. Ron. 1. Acute kidney injury on CKD 3: possible cardiorenal etiology - on diuretics and renal fxn stable - Per cards - C once pt euvolemic and renal fxn better - pt has risk of contrast nephropathy - will discuss risks and benefits with pt The patient has underlying proteinuria likely from his diabetes however he also has the positive serum immunofixation in August 2024. Will repeat serum protein electrophoresis immunofixation and free light chains. Will diurese the patient and monitor closely. Please note that in August 2024 the patient has serum immunofixation with an IgG kappa monoclonal band Patient's baseline creatinine is 1 mg/dL in the end of August 2024. Patient presents with creatinine 1.4 mg/dL that is since increased to 1.9 mg/dL and is stable. -Renal ultrasound from November 18, 2024 shows right kidney 13.3 cm left 13.2 cm no hydronephrosis with small to moderate postvoid residual of 98 mL. Urinalysis from 11/20/24 dark yellow pH of 5 specific every 1025 urine protein 3+, no red cells no leukocytes blood negative. Of note the patient has hyaline casts and fine granular casts. Patient's urine sodium was 10 with a urine potassium of 74 and urine chloride of 31 Patient's RIK is negative anticardiolipin is negative, beta 2 glycoprotein negative the patient does not have APLA syndrome 2. Hyponatremia: Patient presents with sodium of 133 Recommend fluid restriction and diuresis 3. Increased anion gap metabolic acidosis, improved 4. Heart failure reduced EF-repeat echo shows EF of 30 to 35% with a dilated IVC Patient's BNP was elevated at 12,000 445 on admission.. on diuretics will monitor closely The patient was seen and examined with the aid of a nurse using audiovisual equipment. The patient consented to telehealth. Plan Heart failure reduced EF, acute kidney injury, hyponatremia, increased anion gap metabolic acidosis -see above PDMP PDMP Reviewed: Not Reviewed Attestations 2 Medical Necessity Statement*: per medicne team Coding Level of Care Code Acute Code for Chg Fwd Diagnoses ELSY (acute kidney injury) N17.9
[2024-11-22] MEDS: levofloxacin-dextrose 5 % 500 MG/100 ML PREMIX 100 MG IV (21:18)
[2024-11-22] MEDS: oxyCODONE-APAP 5-325 mg Tablet 1 TAB PO (23:58)
[2024-11-23] VITALS (12 sets, daily range): BP systolic 114–140; BP diastolic 66–90; PULSE 89–102; RESP 16–20; TEMP 36.4–36.7; O2SAT 92–98
[2024-11-23] MEDS: morphine 4 mg/mL SDV 1 mL 2 MG IVP (01:49)
[2024-11-23 05:05] LABS: PROTEIN, TOTAL 7.2 g/dL (6.1-8.1)
[2024-11-23] MEDS: FUROsemide 10 mg/mL SDV 4mL 80 MG IVP ×2 (08:38→16:41)
[2024-11-23] MEDS: insulin glargine 100 units/1 mL 56 UNIT SUBCUT (08:38)
[2024-11-23] MEDS: ondansetron 2 mg/ML SDV 2 mL 4 MG IVP (09:06)
--- NOTE | 2024-11-23 11:15 | P.PN_ITS ---
Subjective 2 Subjective: no new complaints Medications: Reviewed: Yes Vitals/I&O/Wt Last Vital Signs Temp 98.0 F 11/23/24 08:00 Pulse 101 H 11/23/24 09:48 Resp 20 H 11/23/24 09:48 BP 139/89 11/23/24 08:00 Pulse Ox 97 11/23/24 09:48 O2 Del Method Room Air 11/23/24 09:48 O2 Flow Rate 2 11/20/24 23:51 FiO2 30 11/20/24 19:57 11/22/24 11/23/24 11/23/24 22:59 06:59 14:59 Intake Total 340 / 936.7 240 / 240 Output Total 1150 / 2600 400 / 3000 400 / 400 Balance -810 / -1663.3 -400 / -2063.3 -160 / -160 Weight last 48 hrs Weight 121.653 kg Weight 123.972 kg Physical Exam 2 Narrative: Obese man lying in bed, with the bed . NARD. Vital signs noted. HEENT normocephalic atraumatic. Neck supple. Lungs -dec crackles. improved air movement b/l Heart positive S1-S2 regular rhythm. Abdomen is soft positive bowel sounds. Extremities have edema. He has a right BKA. Neuro awake alert oriented x 3 Data 11/22/24 00:50 11/22/24 00:50 A&P Assessment and plan (1) ELSY (acute kidney injury): 64 year old male history of heart failure reduced EF of approximately 40%, CAD, type 2 diabetes for over 20 years with right below-knee amputation, diabetic neuropathy, history of chronic DVT, factor V Leiden abnormality on Eliquis, hypertension, hyperlipidemia, lumbar degenerative disc disease. -Diabetes was poorly controlled has improved significantly under the care of Dr. Ron. 1. Acute kidney injury on CKD 3: possible cardiorenal etiology - on diuretics and renal fxn stable , BMP pending today - Per cards - [facility] once pt euvolemic and renal fxn better - pt has risk of contrast nephropathy - will discuss risks and benefits with pt The patient has underlying proteinuria likely from his diabetes however he also has the positive serum immunofixation in August 2024. Will repeat serum protein electrophoresis immunofixation and free light chains. Will diurese the patient and monitor closely. Please note that in August 2024 the patient has serum immunofixation with an IgG kappa monoclonal band Patient's baseline creatinine is 1 mg/dL in the end of August 2024. Patient presents with creatinine 1.4 mg/dL that is since increased to 1.9 mg/dL and is stable. -Renal ultrasound from November 18, 2024 shows right kidney 13.3 cm left 13.2 cm no hydronephrosis with small to moderate postvoid residual of 98 mL. Urinalysis from 11/20/24 dark yellow pH of 5 specific every 1025 urine protein 3+, no red cells no leukocytes blood negative. Of note the patient has hyaline casts and fine granular casts. Patient's urine sodium was 10 with a urine potassium of 74 and urine chloride of 31 Patient's RIK is negative anticardiolipin is negative, beta 2 glycoprotein negative the patient does not have APLA syndrome 2. Hyponatremia: Patient presents with sodium of 133 Recommend fluid restriction and diuresis 3. Increased anion gap metabolic acidosis, improved 4. Heart failure reduced EF-repeat echo shows EF of 30 to 35% with a dilated IVC Patient's BNP was elevated at 12,000 445 on admission.. on diuretics will monitor closely The patient was seen and examined with the aid of a nurse using audiovisual equipment. The patient consented to telehealth. Plan Heart failure reduced EF, acute kidney injury, hyponatremia, increased anion gap metabolic acidosis -see above PDMP PDMP Reviewed: Not Reviewed Attestations 2 Medical Necessity Statement*: per juan antonio Coding Level of Care Code Acute Code for Chg Fwd Diagnoses ELSY (acute kidney injury) N17.9
--- NOTE | 2024-11-23 12:31 | P.PN_ITS ---
Subjective 2 Subjective: He has been having excellent urine output. He did not want his blood drawn until noon. He was switched to Lovenox yesterday. He still has anxiety but it is managed by Xanax. He has been using his own albuterol inhaler. Counseled to request neb treatments as needed Medications: Reviewed: Yes Vitals/I&O/Wt Last Vital Signs Temp 97.6 F 11/23/24 12:00 Pulse 90 11/23/24 12:00 Resp 20 H 11/23/24 12:00 BP 140/90 11/23/24 12:00 Pulse Ox 96 11/23/24 12:00 O2 Del Method Room Air 11/23/24 12:00 O2 Flow Rate 2 11/20/24 23:51 FiO2 30 11/20/24 19:57 11/22/24 11/23/24 11/23/24 22:59 06:59 14:59 Intake Total 340 / 936.7 240 / 240 Output Total 1150 / 2600 400 / 3000 400 / 400 Balance -810 / -1663.3 -400 / -2063.3 -160 / -160 Weight last 48 hrs Weight 121.653 kg Weight 123.972 kg Physical Exam 2 Narrative: GEN: Alert, no acute distress HEENT: Normocephalic, atraumatic, PERRLA, EOMI Neck: Supple, no JVD Cardio: S1, S2, regular rate and rhythm, no murmur Cardio: no respiratory distress, bibasilar crackles Abdomen: Soft, nontender, nondistended, normal active bowel sounds Extremity: Status post right BKA, 1+ pitting edema left leg Neuro: Alert and oriented x 3, no focal deficits Data 11/22/24 00:50 11/22/24 00:50 A&P Assessment and plan (1) ELSY (acute kidney injury): Acute kidney injury: Baseline creatinine 1.0- 1.1,up to 2.0 this admission, Creatinine has been stable, requested labs at noon, pending likely cardiorenal syndrome per nephrology Normal renal US on 11/18 Has proteinuria and positive serum immunofixation with IgG kappa monoclonal band in 08/2024 - f/u serum protein electrophoresis immunofixation and free light chains ? continue IV diuresis for now - monitor creatinine - nephrology input is appreciated (2) NSTEMI (non-ST elevated myocardial infarction): NSTEMI : Chest pressure with troponin 739 on admission and CAD history EKG T wave inversion in inferior leads ? Cardiology following; anticipate cardiac cath on Sunday provided renal function stable and euvolemic ? therapeutic lovenox (changed from heparin drip at patient's request) ? Continue aspirin 81 mg daily ? Telemetry monitoring (3) Congestive heart failure: Acute on chronic HFrEF: Dyspnea, elevated pro-BNP 86177 on admission, appear euvolemic now LVEF 30 to 35% down from 42% - continue lasix and metolazone - Daily weights and strict intake/output - monitor renal function ? Cardiology following (4) Hypoxia: Resolved Secondary to pnemonia, decompensated CHF and NSTEMI on admission History of VTE and was on apixaban, he has other reasons for hypoxia Saturating well on room air at this time Monitor O2 sats, goal SpO2 greater than 92% (5) Pneumonia: Community-acquired pneumonia versus possible aspiration pneumonia: Cough, bibasilar infiltrates on CXR, leukocytosis Viral panel negative. - Continue levaquin - duoneb as needed - Chest physiotherapy and incentive spirometry (6) Trouble swallowing: Occasional choking up with water. Chronic tonsillar enlargement since childhood. ? MBS: No penetration or aspiration, swallow initiation timely, pharyngeal residue inconsistently but able to clear with double swallows, required chaser swallows to clear barium tablet from the mid esophagus ? [employer]: regular consistency diet as tolerated, small sips and slow drinking rate with liquids (7) Hyperkalemia: Resolved Monitor (8) Constipation: Constipation : Reports chronic intermittent constipation - MiraLAX colace prn (9) Type 2 diabetes mellitus: A1c 7.0 % on 08/25/24 DM2: Continue long-acting insulin. Insulin/scale. Carbohydrate consistent diet. Monitor POC glucose. (10) Factor 5 Leiden mutation, heterozygous: (11) History of DVT (deep vein thrombosis): He was on apixaban (12) Metabolic acidosis: High anion gap metabolic acidosis resolved (13) Hyponatremia: Mild but stable; monitor Plan GI ppx: protonix VTE ppx: on heparin gtt PDMP PDMP Reviewed: Not Reviewed Attestations 2 Medical Necessity Statement*: Continued hospitalization for IV diuresis, IV antibiotics, telemetry monitoring. Cardiac cath hopefully on Nicolasa Coding Level of Care Code 76003 Diagnoses ELSY (acute kidney injury) N17.9 NSTEMI (non-ST elevated myocardial infarction) I21.4 Acute on chronic systolic congestive heart failure I50.23 Heart failure type: systolic Heart failure chronicity: acute on chronic Hypoxia R09.02 Pneumonia J18.9 Laterality: right Lung location: lower lobe of lung Pneumonia type: due to unspecified organism Trouble swallowing R13.10 Hyperkalemia E87.5 Constipation K59.00 Type 2 diabetes mellitus E11.9 Factor 5 Leiden mutation, heterozygous D68.51 History of DVT (deep vein thrombosis) Z86.718 Metabolic acidosis E87.20 Hyponatremia E87.1
[2024-11-23 12:40] LABS: Hematocrit 41.3 % (37-53); Hemoglobin 13.40 g/dL (11.27-16.99); Mean Corpuscular HGB Conc 32.4 g/dL (30-55); Mean Corpuscular Hemoglobin 28.5 pg (27-33); Mean Corpuscular Volume 87.7 fl (82-101); Nucleated Red Blood Cells % 0 %; Platelet Count 347 10^3/cmm (157-399); Red Blood Count 4.71 10^6/uL (3.85-5.65); White Blood Count 8.42 10^3/uL (3.29-11.43)
[2024-11-23 12:59] LABS: Alanine Aminotransferase 23 U/L (0-41); Albumin Level 3.4 g/dL (3.5-5.2); Alkaline Phosphatase 86 U/L (40-130); Anion Gap 21.6 (5-19); Aspartate Amino Transferase 17 U/L (0-40); Blood Urea Nitrogen 59 mg/dL (8-23); Calcium 9.5 mg/dL (8.5-10.5); Carbon Dioxide 23 mmol/L (22-29); Chloride 92 mmol/L (98-107); Globulin 4.2 g/dL (1.3-4.6); Glucose 196 mg/dL (65-115); Osmolality Calculated 298 mOsm/kg (285-295); Potassium 3.6 mmol/L (3.5-5.1); Sodium 133 mmol/L (136-145); Total Protein 7.6 g/dL (6.6-8.7)
[2024-11-23 13:01] LABS: Creatinine Clr Calc Pharmacy 57.3942
--- NOTE | 2024-11-23 15:07 | PM.PN ---
Subjective Subjective: Denies any complaint feeling much better now Medications: Reviewed: Yes Medication Review Details: Current Medications Acetaminophen (Acetaminophen 325 Mg Tablet) 650 mg PO Q6H PRN PRN Reason: Mild/Mod Pain Or Temp >/= 101 Last Admin: 11/19/24 07:44 Dose: 650 mg Al Hydrox/Mg Hydrox/Simethicone (Glvi-Nxb-Kivpownve-Fam 30 Ml Udc) 30 ml PO Q4H PRN PRN Reason: INDIGESTION Last Admin: 11/21/24 07:03 Dose: 30 ml Albuterol/Ipratropium (Ipratropium-Albuterol 3 Ml Neb) 3 ml INHALATION Q4H PRN PRN Reason: SHORTNESS OF BREATH Last Admin: 11/20/24 17:56 Dose: 3 ml Aspirin (Aspirin 81 Mg Ec Tablet) 81 mg PO DAILY [facility]IL[facility] Last Admin: 11/20/24 09:08 Dose: 81 mg Ceftriaxone Sodium (Ceftriaxone 2,000 Mg Sdv) 2,000 mg IVP Q24H [facility]IL[facility]; Protocol Last Admin: 11/20/24 17:10 Dose: 2,000 mg Furosemide (Furosemide 10 Mg/Ml Sdv 4ml) 80 mg IVP TID [facility]IL[facility] Last Admin: 11/20/24 23:43 Dose: 80 mg Glucagon (Glucagon 1 Mg/Ml Kit 1 Ml) 1 mg IM ONCE PRN; Protocol PRN Reason: Adult Acute Hypoglycemia Nursing Prot. Heparin Sodium (Porcine) (Heparin 5,000 Unit/Ml Inj 1 Ml) 0 unit IVP PRN PRN; Protocol PRN Reason: Heparin Weight Based Protocol -Subsequent Bolus Heparin Sodium/Sodium Chloride (Heparin Drip) 25,000 unit in 500 mls @ 0 mls/hr IV CONT [facility]IL[facility]INA; Protocol Last Titration: 11/21/24 05:26 Dose: 13.31 unit/kg/hr, 32 mls/hr Azithromycin 500 mg/ Sodium (Chloride) 250 mls @ 250 mls/hr IV DAILY [facility]; Protocol Last Infusion: 11/20/24 10:17 Dose: Infused Dextrose (D5w) 500 mls @ 0 mls/hr IV ONCE PRN; Protocol PRN Reason: Adult Acute Hypoglycemia Prot Dextrose (D10w) 125 mls @ 750 mls/hr IV PRN PRN; Protocol PRN Reason: Adult Acute Hypoglycemia Nursing Protocol Dextrose (D10w) 250 mls @ 1,000 mls/hr IV PRN PRN; Protocol PRN Reason: Adult Acute Hypoglycemia Nursing Protocol Insulin Glargine (Insulin Glargine 100 Units/1 Ml) 56 unit SUBCUT DAILY [facility] Last Admin: 11/20/24 09:09 Dose: 56 unit Insulin Human Lispro (Insulin Lispro 100 Unit/1 Ml) 0 unit SUBCUT WM&BEDTIME [facility]; Protocol Last Admin: 11/21/24 06:57 Dose: Not Given Metolazone (Metolazone 5 Mg Tablet) 2.5 mg PO BID [facility] Last Admin: 11/20/24 17:10 Dose: 2.5 mg Midodrine (Midodrine 5 Mg Tablet) 10 mg PO TID [facility] Last Admin: 11/20/24 21:43 Dose: 10 mg Morphine Sulfate (Morphine 4 Mg/Ml Sdv 1 Ml) 2 mg IVP Q3H PRN PRN Reason: SEVERE PAIN Last Admin: 11/21/24 01:09 Dose: 2 mg Nitroglycerin (Nitroglycerin 0.4 Mg Sublingual Tablet) 0.4 mg SUBLINGUAL Q5M PRN PRN Reason: CHEST PAIN Ondansetron HCl (Ondansetron 2 Mg/Ml Sdv 2 Ml) 4 mg IVP Q4H PRN PRN Reason: NAUSEA AND VOMITING Last Admin: 11/20/24 09:08 Dose: 4 mg Oxycodone/Acetaminophen (Oxycodone-Apap 5-325 Mg Tablet) 1 tab PO Q6H PRN PRN Reason: MODERATE PAIN Last Admin: 11/21/24 05:42 Dose: 1 tab Pantoprazole Sodium (Pantoprazole Dr 40 Mg Tablet) 40 mg PO DAILY [facility] Last Admin: 11/20/24 09:08 Dose: 40 mg Polyethylene Glycol (Polyethylene Glycol 3350 Pkt 17 Gm) 17 gm PO BID [facility] Last Admin: 11/20/24 17:08 Dose: Not Given Prochlorperazine Edisylate (Prochlorperazine 10 Mg/2 Ml Inj) 10 mg IVP Q6H PRN PRN Reason: NAUSEA Last Admin: 11/20/24 05:03 Dose: 10 mg Trazodone HCl (Trazodone 50 Mg Tablet) 50 mg PO BEDTIME PRN PRN Reason: INSOMNIA Last Admin: 11/20/24 21:44 Dose: 50 mg Vitals/I&O/Wt Last Vital Signs Temp 97.6 F 11/23/24 12:00 Pulse 102 H 11/23/24 13:56 Resp 18 11/23/24 13:54 BP 140/90 11/23/24 12:00 Pulse Ox 94 11/23/24 13:54 O2 Del Method Room Air 11/23/24 13:54 O2 Flow Rate 2 11/20/24 23:51 FiO2 30 11/20/24 19:57 11/23/24 11/23/24 11/23/24 06:59 14:59 22:59 Intake Total 480 / 480 Output Total 400 / 3000 1500 / 1500 Balance -400 / -2063.3 -1020 / -1020 Weight last 48 hrs Weight 268 lb 3.2 oz Weight 273 lb 5 oz Physical Exam Const: OTHER: GENERAL: Patient is alert, awake and oriented x3. HEART: Regular S1 and S2. No murmur, rub or gallop. LUNGS: Clear to auscultate bilaterally. CENTRAL NERVOUS SYSTEM: Grossly nonfocal. EXTREMITIES: Lower extremities trace edema with right BKA. Data 11/23/24 12:26 11/23/24 12:26 A&P Assessment and plan (1) Congestive heart failure: (2) Acute non-ST elevation myocardial infarction (NSTEMI): (3) Factor 5 Leiden mutation, heterozygous: (4) History of DVT (deep vein thrombosis): (5) Hypertension: (6) Hyperlipidemia: (7) Diabetes type 2, uncontrolled: (8) ELSY (acute kidney injury): Plan Continue IV diuretics Lasix and metolazone Continue to optimize medication including hydralazine Once euvolemic and moving there after resolution of lung infiltrates/pneumonia we will proceed with a left heart cath which going to happen early next week around Sunday as [employer] is not available due to technical problem On today's visit dated 11/22/2024 patient continued to do well we will continue plan as above On today's visit dated 11/23/2024 patient continues to do fine from a cardiac perspective. Continue antibiotics continue diuresis creatinine is improving. Once back to baseline we will proceed with left heart cath most likely on Sunday. Patient is scheduled for Sunday. PDMP PDMP Reviewed: Not Reviewed Attestations Medical Necessity Statement*: Patient require continuation of hospitalization for above defined care Coding Level of Care Code Acute Code for Chg Fwd Diagnoses Acute on chronic systolic congestive heart failure I50.23 Heart failure type: systolic Heart failure chronicity: acute on chronic Acute non-ST elevation myocardial infarction (NSTEMI) I21.4 Factor 5 Leiden mutation, heterozygous D68.51 History of DVT (deep vein thrombosis) Z86.718 Essential hypertension I10 Hypertension type: essential hypertension Mixed hyperlipidemia E78.2 Hyperlipidemia type: mixed hyperlipidemia Uncontrolled type 2 diabetes mellitus with hyperglycemia E11.65 Glycemic state: with hyperglycemia ELSY (acute kidney injury) N17.9
[2024-11-23] MEDS: levofloxacin-dextrose 5 % 500 MG/100 ML PREMIX 100 MG IV (21:47)
[2024-11-24] VITALS (10 sets, daily range): BP systolic 115–130; BP diastolic 65–87; PULSE 94–101; RESP 16–24; TEMP 36.6–36.7; O2SAT 93–96
[2024-11-24] MEDS: morphine 4 mg/mL SDV 1 mL 2 MG IVP ×4 (00:45→21:01)
[2024-11-24 04:08] LABS: Alanine Aminotransferase 21 U/L (0-41); Albumin Level 3.6 g/dL (3.5-5.2); Alkaline Phosphatase 87 U/L (40-130); Anion Gap 20.7 (5-19); Aspartate Amino Transferase 19 U/L (0-40); Blood Urea Nitrogen 68 mg/dL (8-23); Calcium 9.3 mg/dL (8.5-10.5); Carbon Dioxide 25 mmol/L (22-29); Chloride 96 mmol/L (98-107); Creatinine Clr Calc Pharmacy 51.4317; Globulin 4.0 g/dL (1.3-4.6); Glucose 129 mg/dL (65-115); Magnesium 2.5 mg/dL (1.7-2.3); Osmolality Calculated 307 mOsm/kg (285-295); Potassium 3.7 mmol/L (3.5-5.1); Sodium 138 mmol/L (136-145); Total Protein 7.6 g/dL (6.6-8.7)
[2024-11-24] MEDS: FUROsemide 10 mg/mL SDV 4mL 80 MG IVP (09:04)
[2024-11-24] MEDS: insulin glargine 100 units/1 mL 56 UNIT SUBCUT (09:07)
--- NOTE | 2024-11-24 09:46 | PC.SOCIAL ---
IMM Update pg 2 of IMM Updated and reviewed w/ patient. Copy provided and copy dated, initialed and placed in chart.
--- NOTE | 2024-11-24 10:07 | P.PN_ITS ---
<Statement entered by Andrew Serrano MD - 11/25/24 21:21> Patient was evaluated and cared for in conjunction with an advanced practice practitioner. I personally examined the patient and reviewed the chart and all pertinent data including imaging, telemetry, and laboratory results. I discussed the patient in detail with the advanced practice practitioner. Please see their note for complete H&P testing result and agreed upon plan of care for the patient. Subjective 2 Subjective: Lower extremity edema significantly improved, abdominal distention resolved, no significant shortness of breath. He is 2 L negative for the last 24 hours. Anxious to have coronary angiography completed. Creatinine 2.0, has been 1.8-2.0 since 11/20/2024, previously creatinine 1.0. Risk of contrast-induced nephropathy has been discussed with him by cardiology and nephrology. Vitals/I&O/Wt Last Vital Signs Temp 97.9 F 11/24/24 08:00 Pulse 101 H 11/24/24 09:20 Resp 18 11/24/24 09:10 BP 126/78 11/24/24 08:00 Pulse Ox 96 11/24/24 09:10 O2 Del Method Room Air 11/24/24 09:10 O2 Flow Rate 2 11/20/24 23:51 FiO2 30 11/20/24 19:57 11/23/24 11/24/24 11/24/24 22:59 06:59 14:59 Intake Total 240 / 1060 340 / 1060 Output Total 1375 / 2875 Balance -1135 / -1815 340 / -1815 Weight last 48 hrs Weight 265 lb 14.4 oz Weight 268 lb 3.2 oz Physical Exam 2 Const: COMMON NORMALS: no acute distress and patient oriented x3 GENERAL APPEARANCE: cooperative and comfortable ORIENTATION/CONSCIOUSNESS: Yes awake, Yes oriented to person, Yes oriented to place and Yes oriented to time Chest: COMMONS NORMALS: normal inspection of the chest and normal palpation of entire chest wall CHEST: Yes Symmetrical chest wall rise Resp: COMMON NORMALS: normal respiratory effort, No retractions, No use of accessory muscles and clear to auscultation bilaterally EFFORT & INSPECTION: Yes symmetric chest movement AUSCULTATION: clear to auscultation bilaterally Cardio: COMMON NORMALS: regular rate, regular rhythm, S1 normal heart sound present, S2 normal heart sound present, No gallops present (Cardio), No clicks present (Cardio), No murmurs present (Cardio) and No rub (Cardio) RATE: r egular rate RHYTHM: regular rhythm HEART SOUNDS: S1 normal heart sound present and S2 normal heart sound present PERIPHERAL PULSES: radial pulses present Extremity: COMMON NORMALS: no pedal edema NARRATIVE EXTREMITY EXAM: R BKA Neuro: COMMON NORMALS: patient oriented x3 and moves all extremities S ENSORIUM/ORIENTATION: Yes oriented to person, Yes oriented to place and Yes oriented to time Data 11/23/24 12:26 11/24/24 02:30 Micro: Microbiology 11/18/24 18:22 Blood Culture - Final Blood NO GROWTH AFTER 5 DAYS 11/18/24 18:17 Blood Culture - Final Blood NO GROWTH AFTER 5 DAYS A&P Assessment and plan (1) Acute systolic (congestive) heart failure: (2) NSTEMI (non-ST elevated myocardial infarction): (3) Factor 5 Leiden mutation, heterozygous: (4) History of DVT (deep vein thrombosis): (5) Hypertension: (6) Hyperlipidemia: (7) Diabetes type 2, uncontrolled: (8) ELSY (acute kidney injury): Plan Plan is to perform coronary angiogram when creatinine improved, due to NSTEMI and decrease in LV function from last year. Need to discuss with nephrology reducing diuretics, to improve renal function as he is euvolemic. Continue midodrine 5 mg 3 times a day. He is receiving Lovenox PDMP PDMP Reviewed: Not Reviewed Attestations 2 Medical Necessity Statement*: Ischemic workup, cath planned Coding Level of Care Code Acute Code for [facility] Diagnoses Acute systolic (congestive) heart failure I50.21 NSTEMI (non-ST elevated myocardial infarction) I21.4 Factor 5 Leiden mutation, heterozygous D68.51 History of DVT (deep vein thrombosis) Z86.718 Essential hypertension I10 Hypertension type: essential hypertension Mixed hyperlipidemia E78.2 Hyperlipidemia type: mixed hyperlipidemia Uncontrolled type 2 diabetes mellitus with hyperglycemia E11.65 Glycemic state: with hyperglycemia ELSY (acute kidney injury) N17.9
--- NOTE | 2024-11-24 12:02 | P.PN_ITS ---
Subjective 2 Subjective: no new c/o Medications: Reviewed: Yes Vitals/I&O/Wt Last Vital Signs Temp 97.9 F 11/24/24 08:00 Pulse 101 H 11/24/24 09:20 Resp 18 11/24/24 09:10 BP 126/78 11/24/24 08:00 Pulse Ox 96 11/24/24 09:10 O2 Del Method Room Air 11/24/24 09:10 O2 Flow Rate 2 11/20/24 23:51 FiO2 30 11/20/24 19:57 11/23/24 11/24/24 11/24/24 22:59 06:59 14:59 Intake Total 240 / 720 340 / 1060 360 / 360 Output Total 1375 / 2875 1000 / 1000 Balance -1135 / -2155 340 / -1815 -640 / -640 Weight last 48 hrs Weight 120.61 kg Weight 121.653 kg Physical Exam 2 Narrative: Obese man lying in bed, with the bed . NARD. Vital signs noted. HEENT normocephalic atraumatic. Neck supple. Lungs -dec crackles. improved air movement b/l Heart positive S1-S2 regular rhythm. Abdomen is soft positive bowel sounds. Extremities have edema. He has a right BKA. Neuro awake alert oriented x 3 Data 11/23/24 12:26 11/24/24 02:30 Micro: Microbiology 11/18/24 18:22 Blood Culture - Final Blood NO GROWTH AFTER 5 DAYS 11/18/24 18:17 Blood Culture - Final Blood NO GROWTH AFTER 5 DAYS A&P Assessment and plan (1) ELSY (acute kidney injury): 64 year old male history of heart failure reduced EF of approximately 40%, CAD, type 2 diabetes for over 20 years with right below-knee amputation, diabetic neuropathy, history of chronic DVT, factor V Leiden abnormality on Eliquis, hypertension, hyperlipidemia, lumbar degenerative disc disease. -Diabetes was poorly controlled has improved significantly under the care of Dr. Ron. 1. Acute kidney injury on CKD 3: possible cardiorenal etiology - Cr slightly worse today - Per cards - C on sunday , consider holding diuretics and gentle IVFs pre and post cath - pt has risk of contrast nephropathy - will discuss risks and benefits with pt The patient has underlying proteinuria likely from his diabetes however he also has the positive serum immunofixation in August 2024. Will repeat serum protein electrophoresis immunofixation and free light chains. Will diurese the patient and monitor closely. Please note that in August 2024 the patient has serum immunofixation with an IgG kappa monoclonal band Patient's baseline creatinine is 1 mg/dL in the end of August 2024. Patient presents with creatinine 1.4 mg/dL that is since increased to 1.9 mg/dL and is stable. -Renal ultrasound from November 18, 2024 shows right kidney 13.3 cm left 13.2 cm no hydronephrosis with small to moderate postvoid residual of 98 mL. Urinalysis from 11/20/24 dark yellow pH of 5 specific every 1025 urine protein 3+, no red cells no leukocytes blood negative. Of note the patient has hyaline casts and fine granular casts. Patient's urine sodium was 10 with a urine potassium of 74 and urine chloride of 31 Patient's RIK is negative anticardiolipin is negative, beta 2 glycoprotein negative the patient does not have APLA syndrome 2. Hyponatremia: Patient presents with sodium of 133 Recommend fluid restriction and diuresis 3. Increased anion gap metabolic acidosis, improved 4. Heart failure reduced EF-repeat echo shows EF of 30 to 35% with a dilated IVC Patient's BNP was elevated at 12,000 445 on admission.. on diuretics will monitor closely The patient was seen and examined with the aid of a nurse using audiovisual equipment. The patient consented to telehealth. Plan Heart failure reduced EF, acute kidney injury, hyponatremia, increased anion gap metabolic acidosis -see above PDMP PDMP Reviewed: Not Reviewed Attestations 2 Medical Necessity Statement*: per juan antonio Coding Level of Care Code Acute Code for [facility] Fwd Diagnoses ELSY (acute kidney injury) N17.9
[2024-11-24 12:03] LABS: KAPPA LIGHT CHAIN, FREE, SERUM 87.2 mg/L (3.3-19.4); KAPPA/LAMBDA LIGHT CHAINS FREE 2.68 (0.26-1.65); LAMBDA LIGHT CHAIN, FREE, SERU 32.5 mg/L (5.7-26.3)
[2024-11-24 13:34] LABS: ALPHA 1 GLOBULIN 0.4 g/dL (0.2-0.3); ALPHA 2 GLOBULIN 1.0 g/dL (0.5-0.9); BETA 1 GLOBULIN 0.5 g/dL (0.4-0.6); BETA 2 GLOBULIN 0.6 g/dL (0.2-0.5)
--- NOTE | 2024-11-24 15:45 | PC.NURSE ---
orders to hold lasix
--- NOTE | 2024-11-24 19:57 | PM.PN ---
Subjective Subjective: 64-year-old male scheduled for angiogram in the morning. He states he had admission and diuresis by Amy Tang about a year ago with marked improvement but this time he was readmitted with shortness of breath thinking that he had pneumonia but was diagnosed with heart failure and had some chest pain. Echocardiogram showed LVEF of 42% in May 2023 with mildly dilated LV cavity. Echo 11/19/2024 shows moderately to severely reduced EF of 30 to 35% with IVC dilation and left atrial dilation. Patient states his breathing has improved with diuresis. Still has some discomfort in the left leg and swelling. His right leg was lost below the knee due to diabetes and other ailments at the time We discussed compression hose and ski socks and he states that he enjoyed skiing for about 20 years from ages [age] Medications: Reviewed: Yes Medication Review Details: Current Medications Acetaminophen (Acetaminophen 325 Mg Tablet) 650 mg PO Q6H PRN PRN Reason: Mild/Mod Pain Or Temp >/= 101 Last Admin: 11/19/24 07:44 Dose: 650 mg Al Hydrox/Mg Hydrox/Simethicone (Vjwd-Chs-Lwykxtqsi-Fam 30 Ml Udc) 30 ml PO Q4H PRN PRN Reason: INDIGESTION Last Admin: 11/21/24 07:03 Dose: 30 ml Albuterol/Ipratropium (Ipratropium-Albuterol 3 Ml Neb) 3 ml INHALATION Q4H PRN PRN Reason: SHORTNESS OF BREATH Last Admin: 11/20/24 17:56 Dose: 3 ml Aspirin (Aspirin 81 Mg Ec Tablet) 81 mg PO DAILY SILVINA Last Admin: 11/20/24 09:08 Dose: 81 mg Ceftriaxone Sodium (Ceftriaxone 2,000 Mg Sdv) 2,000 mg IVP Q24H SILVINA; Protocol Last Admin: 11/20/24 17:10 Dose: 2,000 mg Furosemide (Furosemide 10 Mg/Ml Sdv 4ml) 80 mg IVP TID SILVINA Last Admin: 11/20/24 23:43 Dose: 80 mg Glucagon (Glucagon 1 Mg/Ml Kit 1 Ml) 1 mg IM ONCE PRN; Protocol PRN Reason: Adult Acute Hypoglycemia Nursing Prot. Heparin Sodium (Porcine) (Heparin 5,000 Unit/Ml Inj 1 Ml) 0 unit IVP PRN PRN; Protocol PRN Reason: Heparin Weight Based Protocol -Subsequent Bolus Heparin Sodium/Sodium Chloride (Heparin Drip) 25,000 unit in 500 mls @ 0 mls/hr IV CONT SILVINA; Protocol Last Titration: 11/21/24 05:26 Dose: 13.31 unit/kg/hr, 32 mls/hr Azithromycin 500 mg/ Sodium (Chloride) 250 mls @ 250 mls/hr IV DAILY [facility]; Protocol Last Infusion: 11/20/24 10:17 Dose: Infused Dextrose (D5w) 500 mls @ 0 mls/hr IV ONCE PRN; Protocol PRN Reason: Adult Acute Hypoglycemia Prot Dextrose (D10w) 125 mls @ 750 mls/hr IV PRN PRN; Protocol PRN Reason: Adult Acute Hypoglycemia Nursing Protocol Dextrose (D10w) 250 mls @ 1,000 mls/hr IV PRN PRN; Protocol PRN Reason: Adult Acute Hypoglycemia Nursing Protocol Insulin Glargine (Insulin Glargine 100 Units/1 Ml) 56 unit SUBCUT DAILY [facility] Last Admin: 11/20/24 09:09 Dose: 56 unit Insulin Human Lispro (Insulin Lispro 100 Unit/1 Ml) 0 unit SUBCUT WM&BEDTIME [facility]; Protocol Last Admin: 11/21/24 06:57 Dose: Not Given Metolazone (Metolazone 5 Mg Tablet) 2.5 mg PO BID [facility] Last Admin: 11/20/24 17:10 Dose: 2.5 mg Midodrine (Midodrine 5 Mg Tablet) 10 mg PO TID [facility] Last Admin: 11/20/24 21:43 Dose: 10 mg Morphine Sulfate (Morphine 4 Mg/Ml Sdv 1 Ml) 2 mg IVP Q3H PRN PRN Reason: SEVERE PAIN Last Admin: 11/21/24 01:09 Dose: 2 mg Nitroglycerin (Nitroglycerin 0.4 Mg Sublingual Tablet) 0.4 mg SUBLINGUAL Q5M PRN PRN Reason: CHEST PAIN Ondansetron HCl (Ondansetron 2 Mg/Ml Sdv 2 Ml) 4 mg IVP Q4H PRN PRN Reason: NAUSEA AND VOMITING Last Admin: 11/20/24 09:08 Dose: 4 mg Oxycodone/Acetaminophen (Oxycodone-Apap 5-325 Mg Tablet) 1 tab PO Q6H PRN PRN Reason: MODERATE PAIN Last Admin: 11/21/24 05:42 Dose: 1 tab Pantoprazole Sodium (Pantoprazole Dr 40 Mg Tablet) 40 mg PO DAILY [facility] Last Admin: 11/20/24 09:08 Dose: 40 mg Polyethylene Glycol (Polyethylene Glycol 3350 Pkt 17 Gm) 17 gm PO BID [facility] Last Admin: 11/20/24 17:08 Dose: Not Given Prochlorperazine Edisylate (Prochlorperazine 10 Mg/2 Ml Inj) 10 mg IVP Q6H PRN PRN Reason: NAUSEA Last Admin: 11/20/24 05:03 Dose: 10 mg Trazodone HCl (Trazodone 50 Mg Tablet) 50 mg PO BEDTIME PRN PRN Reason: INSOMNIA Last Admin: 11/20/24 21:44 Dose: 50 mg Vitals/I&O/Wt Last Vital Signs Temp 97.9 F 11/24/24 16:00 Pulse 96 11/24/24 16:00 Resp 16 11/24/24 16:00 BP 130/83 11/24/24 16:00 Pulse Ox 95 11/24/24 16:00 O2 Del Method Room Air 11/24/24 13:14 O2 Flow Rate 2 11/20/24 23:51 FiO2 30 11/20/24 19:57 11/24/24 11/24/24 11/24/24 06:59 14:59 22:59 Intake Total 340 / 1060 600 / 600 480 / 1080 Output Total 1000 / 1000 Balance 340 / -1815 -400 / -400 480 / 80 Weight last 48 hrs Weight 120.61 kg Weight 121.653 kg Physical Exam Narrative: General well-developed well-nourished obese male in no acute cardiopulmonary distress CV regular rate and rhythm Lungs diminished in the bases upper lung gonsalves without wheezing Left calf trace to 1+ edema with compression hose in place Data 11/23/24 12:26 11/24/24 02:30 Micro: Microbiology 11/18/24 18:22 Blood Culture - Final Blood NO GROWTH AFTER 5 DAYS 11/18/24 18:17 Blood Culture - Final Blood NO GROWTH AFTER 5 DAYS A&P Assessment and plan (1) ELSY (acute kidney injury): Acute kidney injury: Baseline creatinine 1.0- 1.1,up to 2.0 this admission, Creatinine has been stable, requested labs at noon, pending likely cardiorenal syndrome per nephrology Normal renal US on 7/1 Has proteinuria and positive serum immunofixation with IgG kappa monoclonal band in 08/2024 - f/u serum protein electrophoresis immunofixation and free light chains ? continue IV diuresis for now - monitor creatinine - nephrology input is appreciated. Diuretics held tonight for angiogram. I encouraged patient to use his CPAP tonight though (2) NSTEMI (non-ST elevated myocardial infarction): NSTEMI : Chest pressure with troponin 739 on admission and CAD history EKG T wave inversion in inferior leads ? Cardiology following; anticipate cardiac cath on Sunday provided renal function stable and euvolemic ? therapeutic lovenox (changed from heparin drip at patient's request) ? Continue aspirin 81 mg daily ? Telemetry monitoring (3) Congestive heart failure: Acute on chronic HFrEF: Dyspnea, elevated pro-BNP 59784 on admission, appear euvolemic now LVEF 30 to 35% down from 42% - continue lasix and metolazone - Daily weights and strict intake/output - monitor renal function ? Cardiology following Angiogram planned in the morning (4) Pneumonia: Community-acquired pneumonia versus possible aspiration pneumonia: Cough, bibasilar infiltrates on CXR, leukocytosis Viral panel negative. - Continue levaquin I think his course finishes today - duoneb as needed - Chest physiotherapy and incentive spirometry (5) Trouble swallowing: Occasional choking up with water. Chronic tonsillar enlargement since childhood. ? MBS: No penetration or aspiration, swallow initiation timely, pharyngeal residue inconsistently but able to clear with double swallows, required chaser swallows to clear barium tablet from the mid esophagus ? [employer]: regular consistency diet as tolerated, small sips and slow drinking rate with liquids (6) Constipation: Constipation : Reports chronic intermittent constipation - MiraLAX colace prn (7) Type 2 diabetes mellitus: A1c 7.0 % on 08/25/24 DM2: Continue long-acting insulin. Insulin/scale. Carbohydrate consistent diet. Monitor POC glucose. (8) Factor 5 Leiden mutation, heterozygous: (9) History of DVT (deep vein thrombosis): He was on apixaban (10) Metabolic acidosis: High anion gap metabolic acidosis resolved (11) Hyponatremia: Mild but stable; monitor Plan GI ppx: protonix VTE ppx: on heparin gtt PDMP PDMP Reviewed: Not Reviewed Attestations Medical Necessity Statement*: Patient will remain in the hospital for angiogram anticipate 2 require greater than 2 further midnights in hospital Coding Level of Care Code Acute Code for Chg Fwd Diagnoses ELSY (acute kidney injury) N17.9 NSTEMI (non-ST elevated myocardial infarction) I21.4 Acute on chronic systolic congestive heart failure I50.23 Heart failure chronicity: acute on chronic Heart failure type: systolic Pneumonia J18.9 Laterality: right Lung location: lower lobe of lung Pneumonia type: due to unspecified organism Trouble swallowing R13.10 Constipation K59.00 Type 2 diabetes mellitus E11.9 Factor 5 Leiden mutation, heterozygous D68.51 History of DVT (deep vein thrombosis) Z86.718 Metabolic acidosis E87.20 Hyponatremia E87.1 Time Spent (min) 35
[2024-11-24] MEDS: levofloxacin-dextrose 5 % 500 MG/100 ML PREMIX 100 MG IV (20:51)
[2024-11-25] VITALS (14 sets, daily range): BP systolic 128–142; BP diastolic 71–93; PULSE 71–96; RESP 16–22; TEMP 36.4–37; O2SAT 92–98
[2024-11-25 02:44] LABS: Hematocrit 40.7 % (37-53); Hemoglobin 13.20 g/dL (11.27-16.99); Mean Corpuscular HGB Conc 32.4 g/dL (30-55); Mean Corpuscular Hemoglobin 28.6 pg (27-33); Mean Corpuscular Volume 88.1 fl (82-101); Nucleated Red Blood Cells % 0 %; Platelet Count 357 10^3/cmm (157-399); Red Blood Count 4.62 10^6/uL (3.85-5.65); White Blood Count 11.73 10^3/uL (3.29-11.43)
[2024-11-25 03:10] LABS: Alanine Aminotransferase 30 U/L (0-41); Albumin Level 3.3 g/dL (3.5-5.2); Alkaline Phosphatase 86 U/L (40-130); Anion Gap 19.9 (5-19); Aspartate Amino Transferase 41 U/L (0-40); Blood Urea Nitrogen 66 mg/dL (8-23); Calcium 9.2 mg/dL (8.5-10.5); Carbon Dioxide 27 mmol/L (22-29); Chloride 93 mmol/L (98-107); Creatinine Clr Calc Pharmacy 57.1464; Globulin 4.0 g/dL (1.3-4.6); Glucose 146 mg/dL (65-115); Magnesium 2.4 mg/dL (1.7-2.3); Osmolality Calculated 304 mOsm/kg (285-295); Potassium 3.9 mmol/L (3.5-5.1); Sodium 136 mmol/L (136-145); Total Protein 7.3 g/dL (6.6-8.7)
[2024-11-25] MEDS: oxyCODONE-APAP 5-325 mg Tablet 1 TAB PO (08:13)
[2024-11-25] MEDS: insulin glargine 100 units/1 mL 56 UNIT SUBCUT (08:15)
[2024-11-25] MEDS: morphine 4 mg/mL SDV 1 mL 2 MG IVP ×3 (09:22→21:05)
--- NOTE | 2024-11-25 10:01 | P.PN_ITS ---
<Statement entered by Andrew Serrano MD - 11/25/24 20:55> Patient was evaluated and cared for in conjunction with an advanced practice practitioner. I personally examined the patient and reviewed the chart and all pertinent data including imaging, telemetry, and laboratory results. I discussed the patient in detail with the advanced practice practitioner. Please see their note for complete H&P testing result and agreed upon plan of care for the patient. Patient feeling better creatinine is steadily improving GENERAL: Patient is alert, awake and oriented x3. HEART: Regular S1 and S2. No murmur, rub or gallop. LUNGS: Clear to auscultate bilaterally. CENTRAL NERVOUS SYSTEM: Grossly nonfocal. EXTREMITIES: Lower extremities with out edema bilaterally. Assessment and plan Non-ST elevation [place] Ischemic cardiomyopathy Congestive heart failure Pneumonia Acute on chronic kidney disease Continue holding diuretics, continue current management. Once creatinine improves to near 1.1-1.2 which is the baseline we will proceed with a left heart cath Subjective 2 Subjective: He had some shortness of breath overnight, requiring BiPAP. His weight is unchanged, fluid balance +840 for the last 24 hours, cumulative for this admission -48 mL. No shortness of breath while sitting up, no lower extremity edema. Will continue to hold diuretics, creatinine decreased to 1.8. As long as he is not becoming volume overloaded, will hold diuretics and shoot for creatinine range of 1.2-1.3 to allow heart cath. Vitals/I&O/Wt Last Vital Signs Temp 97.9 F 11/25/24 07:38 Pulse 78 11/25/24 09:29 Resp 18 11/25/24 09:29 BP 128/93 11/25/24 07:38 Pulse Ox 96 11/25/24 09:29 O2 Del Method Nasal Cannula 11/25/24 09:29 O2 Flow Rate 4 11/25/24 09:29 FiO2 30 11/20/24 19:57 11/24/24 11/25/24 11/25/24 22:59 06:59 14:59 Intake Total 1060 / 2140 480 / 2140 Output Total 300 / 1300 350 / 350 Balance 1060 / 840 180 / 840 -350 / -350 Weight last 48 hrs Weight 265 lb Weight 265 lb 14.4 oz Physical Exam 2 Const: COMMON NORMALS: no acute distress and patient oriented x3 GENERAL APPEARANCE: cooperative and comfortable ORIENTATION/CONSCIOUSNESS: Yes awake, Yes oriented to person, Yes oriented to place and Yes oriented to time Chest: COMMONS NORMALS: normal inspection of the chest and normal palpation of entire chest wall CHEST: Yes Symmetrical chest wall rise Resp: COMMON NORMALS: normal respiratory effort, No retractions, No use of accessory muscles and clear to auscultation bilaterally EFFORT & INSPECTION: Yes symmetric chest movement AUSCULTATION: clear to auscultation bilaterally Cardio: COMMON NORMALS: regular rate, regular rhythm, S1 normal heart sound present, S2 normal heart sound present, No gallops present (Cardio), No clicks present (Cardio), No murmurs present (Cardio) and No rub (Cardio) RATE: r egular rate RHYTHM: regular rhythm HEART SOUNDS: S1 normal heart sound present and S2 normal heart sound present PERIPHERAL PULSES: radial pulses present Extremity: COMMON NORMALS: no pedal edema NARRATIVE EXTREMITY EXAM: right BKA Neuro: COMMON NORMALS: patient oriented x3 and moves all extremities S ENSORIUM/ORIENTATION: Yes oriented to person, Yes oriented to place and Yes oriented to time Data 11/25/24 02:21 11/25/24 02:21 A&P Assessment and plan 1. Acute systolic (congestive) heart failure: 2. NSTEMI (non-ST elevated myocardial infarction): 3. Factor 5 Leiden mutation, heterozygous: 4. History of DVT (deep vein thrombosis): 5. Hypertension: 6. Hyperlipidemia: 7. Diabetes type 2, uncontrolled: 8. ELSY (acute kidney injury): Plan: Will continue to hold diuretics, watch for volume overload, goal creatinine 1.2-1.3 before proceeding with left heart cath. PDMP PDMP Reviewed: Not Reviewed Attestations 2 Medical Necessity Statement*: Ischemic workup Coding Level of Care Code Acute Code for [facility] Fwd Diagnoses Acute systolic (congestive) heart failure I50.21 NSTEMI (non-ST elevated myocardial infarction) I21.4 Factor 5 Leiden mutation, heterozygous D68.51 History of DVT (deep vein thrombosis) Z86.718 Hypertension I10 Hyperlipidemia E78.5 Diabetes type 2, uncontrolled ELSY (acute kidney injury) N17.9
--- NOTE | 2024-11-25 14:44 | PC.NURSE ---
Provider is updated about Adrián Vinson he is telling me that his lips feel a little more numb today. He said that his lips have felt numb for the last few days but a little more today. He is having no other symptoms. No new orders given.
--- NOTE | 2024-11-25 17:58 | PM.PN ---
Subjective Subjective: Patient is on CPAP at home and I encouraged him to continue with BiPAP here especially when his diuretics are held to help keep him from retaining fluid. Cardiology team is shooting for creatinine near normal before proceeding with angiogram. Patient tells me that he has 10 children total and family is very important to him. He has taught his children that the most important thing in life is love. Patient is fearful that his health is not going to get better. 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 He did spend about 5 years working for [employer] in [place] and was 6 foot 190 pounds in relatively healthier. He states now he tries to eat healthy but is fearful that it is too late Counseled the patient that his kidney function may not improve all the way to normal but still anticipate that he will be able to have angiogram and if he has a stent placed he should feel much better Medications: Reviewed: Yes Medication Review Details: Current Medications Acetaminophen (Acetaminophen 325 Mg Tablet) 650 mg PO Q6H PRN PRN Reason: Mild/Mod Pain Or Temp >/= 101 Last Admin: 11/19/24 07:44 Dose: 650 mg Al Hydrox/Mg Hydrox/Simethicone (Xeiy-Bhh-Hgojpcagb-Fam 30 Ml Udc) 30 ml PO Q4H PRN PRN Reason: INDIGESTION Last Admin: 11/21/24 07:03 Dose: 30 ml Albuterol/Ipratropium (Ipratropium-Albuterol 3 Ml Neb) 3 ml INHALATION Q4H PRN PRN Reason: SHORTNESS OF BREATH Last Admin: 11/20/24 17:56 Dose: 3 ml Aspirin (Aspirin 81 Mg Ec Tablet) 81 mg PO DAILY SILVINA Last Admin: 11/20/24 09:08 Dose: 81 mg Ceftriaxone Sodium (Ceftriaxone 2,000 Mg Sdv) 2,000 mg IVP Q24H SILVINA; Protocol Last Admin: 11/20/24 17:10 Dose: 2,000 mg Furosemide (Furosemide 10 Mg/Ml Sdv 4ml) 80 mg IVP TID SILVINA Last Admin: 11/20/24 23:43 Dose: 80 mg Glucagon (Glucagon 1 Mg/Ml Kit 1 Ml) 1 mg IM ONCE PRN; Protocol PRN Reason: Adult Acute Hypoglycemia Nursing Prot. Heparin Sodium (Porcine) (Heparin 5,000 Unit/Ml Inj 1 Ml) 0 unit IVP PRN PRN; Protocol PRN Reason: Heparin Weight Based Protocol -Subsequent Bolus Heparin Sodium/Sodium Chloride (Heparin Drip) 25,000 unit in 500 mls @ 0 mls/hr IV CONT [facility]; Protocol Last Titration: 11/21/24 05:26 Dose: 13.31 unit/kg/hr, 32 mls/hr Azithromycin 500 mg/ Sodium (Chloride) 250 mls @ 250 mls/hr IV DAILY [facility]; Protocol Last Infusion: 11/20/24 10:17 Dose: Infused Dextrose (D5w) 500 mls @ 0 mls/hr IV ONCE PRN; Protocol PRN Reason: Adult Acute Hypoglycemia Prot Dextrose (D10w) 125 mls @ 750 mls/hr IV PRN PRN; Protocol PRN Reason: Adult Acute Hypoglycemia Nursing Protocol Dextrose (D10w) 250 mls @ 1,000 mls/hr IV PRN PRN; Protocol PRN Reason: Adult Acute Hypoglycemia Nursing Protocol Insulin Glargine (Insulin Glargine 100 Units/1 Ml) 56 unit SUBCUT DAILY [facility] Last Admin: 11/20/24 09:09 Dose: 56 unit Insulin Human Lispro (Insulin Lispro 100 Unit/1 Ml) 0 unit SUBCUT WM&BEDTIME [facility]; Protocol Last Admin: 11/21/24 06:57 Dose: Not Given Metolazone (Metolazone 5 Mg Tablet) 2.5 mg PO BID [facility] Last Admin: 11/20/24 17:10 Dose: 2.5 mg Midodrine (Midodrine 5 Mg Tablet) 10 mg PO TID [facility] Last Admin: 11/20/24 21:43 Dose: 10 mg Morphine Sulfate (Morphine 4 Mg/Ml Sdv 1 Ml) 2 mg IVP Q3H PRN PRN Reason: SEVERE PAIN Last Admin: 11/21/24 01:09 Dose: 2 mg Nitroglycerin (Nitroglycerin 0.4 Mg Sublingual Tablet) 0.4 mg SUBLINGUAL Q5M PRN PRN Reason: CHEST PAIN Ondansetron HCl (Ondansetron 2 Mg/Ml Sdv 2 Ml) 4 mg IVP Q4H PRN PRN Reason: NAUSEA AND VOMITING Last Admin: 11/20/24 09:08 Dose: 4 mg Oxycodone/Acetaminophen (Oxycodone-Apap 5-325 Mg Tablet) 1 tab PO Q6H PRN PRN Reason: MODERATE PAIN Last Admin: 11/21/24 05:42 Dose: 1 tab Pantoprazole Sodium (Pantoprazole Dr 40 Mg Tablet) 40 mg PO DAILY [facility] Last Admin: 11/20/24 09:08 Dose: 40 mg Polyethylene Glycol (Polyethylene Glycol 3350 Pkt 17 Gm) 17 gm PO BID [facility] Last Admin: 11/20/24 17:08 Dose: Not Given Prochlorperazine Edisylate (Prochlorperazine 10 Mg/2 Ml Inj) 10 mg IVP Q6H PRN PRN Reason: NAUSEA Last Admin: 11/20/24 05:03 Dose: 10 mg Trazodone HCl (Trazodone 50 Mg Tablet) 50 mg PO BEDTIME PRN PRN Reason: INSOMNIA Last Admin: 11/20/24 21:44 Dose: 50 mg Vitals/I&O/Wt Last Vital Signs Temp 98.0 F 11/25/24 15:41 Pulse 96 11/25/24 15:41 Resp 20 H 11/25/24 15:41 BP 128/89 11/25/24 15:41 Pulse Ox 96 11/25/24 15:41 O2 Del Method Nasal Cannula 11/25/24 15:41 O2 Flow Rate 4 11/25/24 09:29 FiO2 30 11/20/24 19:57 11/25/24 11/25/24 11/25/24 06:59 14:59 22:59 Intake Total 480 / 2140 360 / 360 Output Total 300 / 1300 350 / 350 Balance 180 / 840 10 / 10 Weight last 48 hrs Weight 120.202 kg Weight 120.61 kg Physical Exam Narrative: General well-developed well-nourished obese male in no acute cardiopulmonary distress CV regular rate and rhythm Lungs diminished in the bases upper lung gonsalves without wheezing Left calf trace to 1+ edema with compression hose in place Data 11/25/24 02:21 11/25/24 02:21 A&P Assessment and plan 1. ELSY (acute kidney injury): Acute kidney injury: Baseline creatinine 1.0- 1.1,up to 2.0 this admission, and now currently 1.8 Creatinine has been stable, requested labs at noon, pending likely cardiorenal syndrome per nephrology Normal renal US on 7/1 Has proteinuria and positive serum immunofixation with IgG kappa monoclonal band in 08/2024 - f/u serum protein electrophoresis immunofixation and free light chains ? continue IV diuresis for now - monitor creatinine - nephrology input is appreciated. Diuretics held tonight for angiogram. I encouraged patient to use his CPAP tonight though 2. NSTEMI (non-ST elevated myocardial infarction): NSTEMI : Chest pressure with troponin 739 on admission and CAD history EKG T wave inversion in inferior leads ? Cardiology following; anticipate cardiac cath on Sunday provided renal function stable and euvolemic ? therapeutic lovenox (changed from heparin drip at patient's request) ? Continue aspirin 81 mg daily ? Telemetry monitoring Selective coronary angiogram pending 3. Acute on chronic systolic congestive heart failure: Acute on chronic HFrEF: Dyspnea, elevated pro-BNP 33210 on admission, appear euvolemic now LVEF 30 to 35% down from 42% - continue lasix and metolazone - Daily weights and strict intake/output - monitor renal function ? Cardiology following Angiogram planned in the morning and patient is stable 4. Pneumonia: Community-acquired pneumonia versus possible aspiration pneumonia: Cough, bibasilar infiltrates on CXR, leukocytosis Viral panel negative. - Continue levaquin I think his course finishes today - duoneb as needed - Chest physiotherapy and incentive spirometry Resolved 5. Trouble swallowing: Occasional choking up with water. Chronic tonsillar enlargement since childhood. ? MBS: No penetration or aspiration, swallow initiation timely, pharyngeal residue inconsistently but able to clear with double swallows, required chaser swallows to clear barium tablet from the mid esophagus ? 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 Constipation: Constipation : Reports chronic intermittent constipation - MiraLAX colace prn 7. Type 2 diabetes mellitus: A1c 7.0 % on 08/25/24 DM2: Continue long-acting insulin. Insulin/scale. Carbohydrate consistent diet. Monitor POC glucose. 8. Factor 5 Leiden mutation, heterozygous: 9. History of DVT (deep vein thrombosis): He was on apixaban. Currently on Lovenox pending angiogram 10. Hyponatremia: Resolved Plan: GI ppx: protonix VTE ppx: on heparin gtt PDMP PDMP Reviewed: Not Reviewed Attestations Medical Necessity Statement*: Patient remained in the hospital for additional 1-2 midnights for angiogram and resolution of his acute kidney injury Coding Level of Care Code 60604 Diagnoses ELSY (acute kidney injury) N17.9 NSTEMI (non-ST elevated myocardial infarction) I21.4 Acute on chronic systolic congestive heart failure I50.23 Heart failure type: systolic Heart failure chronicity: acute on chronic Pneumonia J18.9 Laterality: right Lung location: lower lobe of lung Pneumonia type: due to unspecified organism Trouble swallowing R13.10 Constipation K59.00 Type 2 diabetes mellitus E11.9 Factor 5 Leiden mutation, heterozygous D68.51 History of DVT (deep vein thrombosis) Z86.718 Hyponatremia E87.1 Time Spent (min) 25
--- NOTE | 2024-11-25 20:55 | P.PN_ITS ---
Subjective 2 Subjective: no new c/o Medications: Reviewed: Yes Vitals/I&O/Wt Last Vital Signs Temp 98.0 F 11/25/24 15:41 Pulse 96 11/25/24 15:41 Resp 20 H 11/25/24 15:41 BP 128/89 11/25/24 15:41 Pulse Ox 96 11/25/24 15:41 O2 Del Method Nasal Cannula 11/25/24 15:41 O2 Flow Rate 4 11/25/24 09:29 FiO2 30 11/20/24 19:57 11/25/24 11/25/24 11/25/24 06:59 14:59 22:59 Intake Total 480 / 2140 360 / 360 360 / 720 Output Total 300 / 1300 350 / 350 450 / 800 Balance 180 / 840 -90 / -80 Weight last 48 hrs Weight 120.202 kg Weight 120.61 kg Physical Exam 2 Narrative: Obese man lying in bed, with the bed . NARD. Vital signs noted. HEENT normocephalic atraumatic. Neck supple. Lungs -dec crackles. improved air movement b/l Heart positive S1-S2 regular rhythm. Abdomen is soft positive bowel sounds. Extremities have edema. He has a right BKA. Neuro awake alert oriented x 3 Data 11/25/24 02:21 11/25/24 02:21 A&P Assessment and plan 1. ELSY (acute kidney injury): 64 year old male history of heart failure reduced EF of approximately 40%, CAD, type 2 diabetes for over 20 years with right below-knee amputation, diabetic neuropathy, history of chronic DVT, factor V Leiden abnormality on Eliquis, hypertension, hyperlipidemia, lumbar degenerative disc disease. -Diabetes was poorly controlled has improved significantly under the care of Dr. Ron. 1. Acute kidney injury on CKD 3: possible cardiorenal etiology - Cr stable - Per cards - awaiting LHC , consider holding diuretics and gentle IVFs pre and post cath The patient has underlying proteinuria likely from his diabetes however he also has the positive serum immunofixation in August 2024. Will repeat serum protein electrophoresis immunofixation and free light chains. Will diurese the patient and monitor closely. Please note that in August 2024 the patient has serum immunofixation with an IgG kappa monoclonal band Patient's baseline creatinine is 1 mg/dL in the end of August 2024. Patient presents with creatinine 1.4 mg/dL that is since increased to 1.9 mg/dL and is stable. -Renal ultrasound from November 18, 2024 shows right kidney 13.3 cm left 13.2 cm no hydronephrosis with small to moderate postvoid residual of 98 mL. Urinalysis from 11/20/24 dark yellow pH of 5 specific every 1025 urine protein 3+, no red cells no leukocytes blood negative. Of note the patient has hyaline casts and fine granular casts. Patient's urine sodium was 10 with a urine potassium of 74 and urine chloride of 31 Patient's RIK is negative anticardiolipin is negative, beta 2 glycoprotein negative the patient does not have APLA syndrome 2. Hyponatremia: Patient presents with sodium of 133 Recommend fluid restriction and diuresis 3. Increased anion gap metabolic acidosis, improved 4. Heart failure reduced EF-repeat echo shows EF of 30 to 35% with a dilated IVC Patient's BNP was elevated at 12,000 445 on admission.. on diuretics will monitor closely The patient was seen and examined with the aid of a nurse using audiovisual equipment. The patient consented to telehealth. Plan: Heart failure reduced EF, acute kidney injury, hyponatremia, increased anion gap metabolic acidosis -see above PDMP PDMP Reviewed: Not Reviewed Attestations 2 Medical Necessity Statement*: per juan antonio Coding Level of Care Code Acute Code for [facility] Diagnoses ELSY (acute kidney injury) N17.9
[2024-11-26] VITALS (9 sets, daily range): BP systolic 111–139; BP diastolic 65–97; PULSE 73–99; RESP 18–20; TEMP 36.7–36.8; O2SAT 92–97
[2024-11-26 05:54] LABS: Blood Urea Nitrogen 62 mg/dL (8-23); Calcium 9.2 mg/dL (8.5-10.5); Carbon Dioxide 27 mmol/L (22-29); Chloride 94 mmol/L (98-107); Creatinine Clr Calc Pharmacy 64.1806; Glucose 116 mg/dL (65-115); Osmolality Calculated 299 mOsm/kg (285-295); Sodium 135 mmol/L (136-145)
[2024-11-26 05:58] LABS: Anion Gap 17.8 (5-19); Potassium 3.8 mmol/L (3.5-5.1)
[2024-11-26] MEDS: insulin glargine 100 units/1 mL 56 UNIT SUBCUT (08:20)
--- NOTE | 2024-11-26 10:47 | P.PN_ITS ---
Subjective 2 Subjective: no new c/o Medications: Reviewed: Yes Vitals/I&O/Wt Last Vital Signs Temp 98.2 F 11/26/24 07:57 Pulse 76 11/26/24 07:57 Resp 20 H 11/26/24 07:57 BP 111/78 11/26/24 07:57 Pulse Ox 92 11/26/24 07:57 O2 Del Method Nasal Cannula 11/26/24 07:57 O2 Flow Rate 4 11/26/24 07:50 FiO2 30 11/20/24 19:57 11/25/24 11/26/24 11/26/24 22:59 06:59 14:59 Intake Total 360 / 720 Output Total 800 / 1150 450 / 1600 350 / 350 Balance -440 / -430 -450 / -880 -350 / -350 Weight last 48 hrs Weight 122.668 kg Weight 120.202 kg Physical Exam 2 Narrative: Obese man lying in bed, with the bed . NARD. Vital signs noted. HEENT normocephalic atraumatic. Neck supple. Lungs -dec crackles. improved air movement b/l Heart positive S1-S2 regular rhythm. Abdomen is soft positive bowel sounds. Extremities have edema. He has a right BKA. Neuro awake alert oriented x 3 Data 11/25/24 02:21 11/26/24 05:08 A&P Assessment and plan 1. ELSY (acute kidney injury): 64 year old male history of heart failure reduced EF of approximately 40%, CAD, type 2 diabetes for over 20 years with right below-knee amputation, diabetic neuropathy, history of chronic DVT, factor V Leiden abnormality on Eliquis, hypertension, hyperlipidemia, lumbar degenerative disc disease. -Diabetes was poorly controlled has improved significantly under the care of Dr. Ron. 1. Acute kidney injury on CKD 3: possible cardiorenal etiology - Cr stable - Per cards - awaiting LHC , holding diuretics and plan for gentle IVFs pre and post cath The patient has underlying proteinuria likely from his diabetes however he also has the positive serum immunofixation in August 2024. Will repeat serum protein electrophoresis immunofixation and free light chains. Will diurese the patient and monitor closely. Please note that in August 2024 the patient has serum immunofixation with an IgG kappa monoclonal band Patient's baseline creatinine is 1 mg/dL in the end of August 2024. Patient presents with creatinine 1.4 mg/dL that is since increased to 1.9 mg/dL and is stable. -Renal ultrasound from November 18, 2024 shows right kidney 13.3 cm left 13.2 cm no hydronephrosis with small to moderate postvoid residual of 98 mL. Urinalysis from 11/20/24 dark yellow pH of 5 specific every 1025 urine protein 3+, no red cells no leukocytes blood negative. Of note the patient has hyaline casts and fine granular casts. Patient's urine sodium was 10 with a urine potassium of 74 and urine chloride of 31 Patient's RIK is negative anticardiolipin is negative, beta 2 glycoprotein negative the patient does not have APLA syndrome 2. Hyponatremia: Patient presents with sodium of 133 Recommend fluid restriction 3. Increased anion gap metabolic acidosis, improved 4. Heart failure reduced EF-repeat echo shows EF of 30 to 35% with a dilated IVC The patient was seen and examined with the aid of a nurse using audiovisual equipment. The patient consented to telehealth. Plan: Heart failure reduced EF, acute kidney injury, hyponatremia, increased anion gap metabolic acidosis -see above PDMP PDMP Reviewed: Not Reviewed Attestations 2 Medical Necessity Statement*: per medicine Coding Level of Care Code Acute Code for [facility] Diagnoses ELSY (acute kidney injury) N17.9
--- NOTE | 2024-11-26 11:01 | P.PN_ITS ---
<Statement entered by Thor Landin M.D - 11/30/24 13:34> Patient was cared for in conjunction with an advanced practice practitioner.? I reviewed the chart and all pertinent data including imaging, telemetry, and laboratory results.? I discussed the patient in detail with the advanced practice practitioner.? Please see their note for complete progress note, testing results and agreed upon plan of care for the patient. Subjective 2 Subjective: Reexamined patient this afternoon. He had an episode of sharp short-lived chest pain on the right side this afternoon. Some mild left leg edema present, slight crackles in the bases. Trending creatinine, hopeful for coronary angiogram tomorrow. Vitals/I&O/Wt Last Vital Signs Temp 98.2 F 11/26/24 07:57 Pulse 76 11/26/24 07:57 Resp 20 H 11/26/24 07:57 BP 111/78 11/26/24 07:57 Pulse Ox 92 11/26/24 07:57 O2 Del Method Nasal Cannula 11/26/24 07:57 O2 Flow Rate 4 11/26/24 07:50 FiO2 30 11/20/24 19:57 11/25/24 11/26/24 11/26/24 22:59 06:59 14:59 Intake Total 360 / 720 Output Total 800 / 1600 450 / 1600 350 / 350 Balance -440 / -880 -450 / -880 -350 / -350 Weight last 48 hrs Weight 270 lb 7 oz Weight 265 lb Physical Exam 2 Const: COMMON NORMALS: no acute distress and patient oriented x3 GENERAL APPEARANCE: cooperative and comfortable ORIENTATION/CONSCIOUSNESS: Yes awake, Yes oriented to person, Yes oriented to place and Yes oriented to time Chest: COMMONS NORMALS: normal inspection of the chest and normal palpation of entire chest wall CHEST: Yes Symmetrical chest wall rise Resp: COMMON NORMALS: normal respiratory effort, No retractions, No use of accessory muscles and clear to auscultation bilaterally EFFORT & INSPECTION: Yes symmetric chest movement AUSCULTATION: clear to auscultation bilaterally and crackles (bases) Laterality: bilateral and posterior Cardio: COMMON NORMALS: regular rate, regular rhythm, S1 normal heart sound present, S2 normal heart sound present, No gallops present (Cardio), No clicks present (Cardio), No murmurs present (Cardio) and No rub (Cardio) RATE: r egular rate RHYTHM: regular rhythm HEART SOUNDS: S1 normal heart sound present and S2 normal heart sound present PERIPHERAL PULSES: radial pulses present Extremity: GENERAL: Yes edema (1+ pitting edema left leg) Neuro: COMMON NORMALS: patient oriented x3 and moves all extremities S ENSORIUM/ORIENTATION: Yes oriented to person, Yes oriented to place and Yes oriented to time Data 11/25/24 02:21 11/26/24 05:08 A&P Assessment and plan 1. Acute systolic (congestive) heart failure: 2. Acute non-ST elevation myocardial infarction (NSTEMI): 3. Factor 5 Leiden mutation, heterozygous: 4. History of DVT (deep vein thrombosis): 5. Hypertension: 6. Hyperlipidemia: 7. Diabetes type 2, uncontrolled: 8. ELSY (acute kidney injury): Plan: Held diuretics again today, possible coronary angiogram tomorrow if creatinine is closer to goal. N.p.o. after midnight tonight. PDMP PDMP Reviewed: Not Reviewed Attestations 2 Medical Necessity Statement*: Ischemic workup Coding Level of Care Code [facility] Diagnoses Acute systolic (congestive) heart failure I50.21 Acute non-ST elevation myocardial infarction (NSTEMI) I21.4 Factor 5 Leiden mutation, heterozygous D68.51 History of DVT (deep vein thrombosis) Z86.718 Hypertension I10 Hyperlipidemia E78.5 Diabetes type 2, uncontrolled ELSY (acute kidney injury) N17.9
--- NOTE | 2024-11-26 12:25 | PC.SOCIAL ---
IMM Update pg 2 of IMM Updated and reviewed w/ patient. Copy provided and copy dated, initialed and placed in chart.
--- NOTE | 2024-11-26 15:59 | P.PN_ITS ---
Subjective 2 Subjective: 64-year-old male with [address] pain at the time of his presentation with history of coronary artery disease and ischemic cardiomyopathy. He had NSTEMI with acute kidney injury from heart failure with baseline creatinine 1 chula to 1.4 and then up to 2 with diuresis which was then held and down to 1.6. 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 is comfortable to proceed with selective coronary angiogram and probable PTCA with stent Vitals/I&O/Wt Last Vital Signs Temp 98.3 F 11/26/24 15:58 Pulse 89 11/26/24 15:58 Resp 20 H 11/26/24 15:58 BP 137/93 11/26/24 15:58 Pulse Ox 93 11/26/24 15:58 O2 Del Method Nasal Cannula 11/26/24 07:57 O2 Flow Rate 4 11/26/24 07:50 FiO2 30 11/20/24 19:57 11/26/24 11/26/24 11/26/24 06:59 14:59 22:59 Intake Total 480 / 480 Output Total 450 / 1600 350 / 350 450 / 800 Balance -450 / -880 130 / 130 -450 / -320 Weight last 48 hrs Weight 122.668 kg Weight 120.202 kg Physical Exam 2 Narrative: General well-developed overweight male in no acute cardiopulmonary stress CV regular rate and rhythm Lungs good air movement in the upper lung gonsalves diminished in the bases Data 11/25/24 02:21 11/26/24 05:08 A&P Assessment and plan 1. ELSY (acute kidney injury): Acute kidney injury: Baseline creatinine 1.0- 1.1,up to 2.0 this admission, and now currently 1.6 Creatinine has been stable, requested labs at noon, pending likely cardiorenal syndrome per nephrology Normal renal US on 11/18 Has proteinuria and positive serum immunofixation with IgG kappa monoclonal band in 08/2024 - f/u serum protein electrophoresis immunofixation and free light chains ? continue IV diuresis for now - monitor creatinine - nephrology input is appreciated. Diuretics held tonight for angiogram. I encouraged patient to use his CPAP tonight though 2. NSTEMI (non-ST elevated myocardial infarction): NSTEMI : Chest pressure with troponin 739 on admission and CAD history EKG T wave inversion in inferior leads ? Cardiology following; anticipate cardiac cath on Sunday provided renal function stable and euvolemic ? therapeutic lovenox (changed from heparin drip at patient's request) ? Continue aspirin 81 mg daily ? Telemetry monitoring Selective coronary angiogram pending 3. Acute on chronic systolic congestive heart failure: Acute on chronic HFrEF: Dyspnea, elevated pro-BNP 98242 on admission, appear euvolemic now LVEF 30 to 35% down from 42% - continue lasix and metolazone - Daily weights and strict intake/output - monitor renal function ? Cardiology following Angiogram planned in the morning and patient is stable 4. Trouble swallowing: Occasional choking up with water. Chronic tonsillar enlargement since childhood. ? MBS: No penetration or aspiration, swallow initiation timely, pharyngeal residue inconsistently but able to clear with double swallows, required chaser swallows to clear barium tablet from the mid esophagus ? 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 Constipation: Constipation : Reports chronic intermittent constipation - MiraLAX colace prn 6. Type 2 diabetes mellitus: A1c 7.0 % on 08/25/24 DM2: Continue long-acting insulin. Insulin/scale. Carbohydrate consistent diet. Monitor POC glucose. 7. Factor 5 Leiden mutation, heterozygous: 8. History of DVT (deep vein thrombosis): He was on apixaban. Currently on Lovenox pending angiogram Plan: GI ppx: protonix VTE ppx: on heparin gtt PDMP PDMP Reviewed: Not Reviewed Attestations 2 Medical Necessity Statement*: Patient remains in the hospital for monitoring of renal function in preparation for selective coronary angiogram this hospitalization Coding Level of Care Code 13248 Diagnoses ELSY (acute kidney injury) N17.9 NSTEMI (non-ST elevated myocardial infarction) I21.4 Acute on chronic systolic congestive heart failure I50.23 Heart failure type: systolic Heart failure chronicity: acute on chronic Trouble swallowing R13.10 Constipation K59.00 Type 2 diabetes mellitus E11.9 Factor 5 Leiden mutation, heterozygous D68.51 History of DVT (deep vein thrombosis) Z86.718 Time Spent (min) 15
[2024-11-27 00:14] VITALS: BP 126/97; PULSE 101; RESP 18; TEMP 36.6; O2SAT 96
[2024-11-27 05:08] VITALS: BP 123/85; PULSE 98; RESP 20; O2SAT 95
[2024-11-27 06:31] LABS: Anion Gap 17.9 (5-19); Blood Urea Nitrogen 72 mg/dL (8-23); Calcium 9.5 mg/dL (8.5-10.5); Carbon Dioxide 25 mmol/L (22-29); Chloride 94 mmol/L (98-107); Creatinine Clr Calc Pharmacy 57.6355; Glucose 112 mg/dL (65-115); Osmolality Calculated 298 mOsm/kg (285-295); Potassium 3.9 mmol/L (3.5-5.1); Sodium 133 mmol/L (136-145)
[2024-11-27 07:08] VITALS: BP 141/86; PULSE 93; RESP 14; TEMP 36.4; O2SAT 91
--- NOTE | 2024-11-27 07:22 | PC.NURSE ---
Provider is updated that Adrián Vinson is complaining of pain like 8/10, in his neck and legs. Both his morphine and oxycodone have been discontinued. I need something for pain for him please. Provider ordered to resume his oxycodone.
[2024-11-27 07:48] VITALS: PULSE 100; RESP 16; O2SAT 95
[2024-11-27 07:53] VITALS: RESP 19; O2SAT 94
[2024-11-27] MEDS: insulin glargine 100 units/1 mL 56 UNIT SUBCUT (07:53)
[2024-11-27] MEDS: oxyCODONE-APAP 5-325 mg Tablet 1 TAB PO (07:53)
--- NOTE | 2024-11-27 10:19 | PC.NURSE ---
Patient called nurses station asking to have his IV's removed. Nursing sent the student into room to remove his 2 IV's. Student did comment that his family was in the room and he was getting ready to leave. Nursing got his discharge orders within 10 minutes of this and went down to the room to let patient know and he and his family had already left the unit.
--- NOTE | 2024-11-27 10:25 | PC.NURSE ---
Addendum entered by Jimena Taylor RN 11/27/24 10:30: Patient left prior to getting and signing paperwork. Original Note: Nursing tried calling patient and his to ask him to come back and go over his discharge package and they did not answer their phones. Nursing will print out his discharge and mail to the patient.
--- NOTE | 2024-11-27 10:38 | PM.DCS ---
Discharge Providers Date of Admission: 11/18/24 17:49 Date of Discharge: November 27, 2024 Attending Provider at Admission: Ap Chew Attending Provider at Discharge: Lit Horvath MD Consults: Nephrology Dr. Maxi Ariza MD Cardiology Dr. Andrew Serrano MD Primary Care Provider: Sondra May MD Diagnoses at Discharge Discharge Diagnosis 1. Acute systolic (congestive) heart failure: Details from hospital stay: Initially diuresed but some worsening azotemia so diuretics held. I have adjusted his dose for discharge but the patient left prior to being seen again and given directions. 2. Acute non-ST elevation myocardial infarction (NSTEMI): Details from hospital stay: Troponin reached 765 with NSTEMI. Intended angiogram was held due to creatinine 1.8. His baseline is 1. He will follow-up outpatient with Amy Tang to determine best time to proceed with angiogram. 3. Factor 5 Leiden mutation, heterozygous: Details from hospital stay: Resume apixaban 4. History of DVT (deep vein thrombosis): Details from hospital stay: Resume apixaban 5. Essential hypertension: Details from hospital stay: Medications adjusted for discharge but patient left before being counseled for discharge 6. Mixed hyperlipidemia: 7. Uncontrolled type 2 diabetes mellitus with hyperglycemia: Details from hospital stay: Resume home insulin regimen 8. ELSY (acute kidney injury): Details from hospital stay: Creatinine up to 1.8 currently suspect this will improve with some time. Discharge diuretics include metolazone 2.5 mg daily furosemide 40 mg oral twice a day and potassium chloride 20 mill colons daily follow-up BMP in 1 week Reason for Visit Reason for Visit: SOB Brief History: Adrián Vinson is a 64 year old male gentleman with a history of ischemic cardiomyopathy (EF reportedly 42%), prior coronary artery stents, type 2 diabetes complicated by recurrent foot infections and right below-knee amputation, chronic DVT with factor V Leiden on apixaban, hypertension, hyperlipidemia, and lumbar degenerative disc disease who presented to the ED last evening for new-onset shortness of breath, central chest pressure, and decreased appetite. EMS recorded an oxygen saturation of 88% en-route, and 2 L O2 was started. In the ED he endorsed some cough with scant sputum but no fever or chills. Review of systems notable for intermittent dysphagia with water, chronic constipation, and episodic acid reflux; denies vomiting or hematuria. He reports back discomfort but no prior kidney stones. ED work-up revealed troponin 739 ng/L (elevated), WBC 19.55 K/?L, BNP 12 445 pg/mL, creatinine 1.4 mg/dL (ELSY), anion gap 23, bicarbonate 17 mEq/L, K 5.2 mEq/L, Na 133 mEq/L. EKG showed sinus tachycardia 102 bpm with no acute ST changes. Chest X-ray showed bibasilar infiltrates, more pronounced at the right base, without consolidation or large effusion. Flu/RSV/COVID swabs negative. He received aspirin from EMS, then heparin infusion, IV furosemide 80 mg then 60 mg BID, ceftriaxone, doxycycline, nitroglycerin, and oral potassium in the ED. High Value Associate consulted; possible angiogram tomorrow was discussed. He remains on 2 L O2 and reports mild residual chest pressure. Hospital Course Hospital Course Patient had chest pain 6/10 for 30 minutes at the time of admission which did not recur. His troponin peaked at 765. He was diuresed and placed on BiPAP and did well. Unfortunately his creatinine chula with diuresis and he was monitored with intent for selective coronary angiogram. Unfortunately his creatinine did not reliably return to baseline and so his coronary angiogram could not be performed in will need to be done outpatient. I spoke with Amy Tang who clarified with Dr. Landin plan for patient to follow-up next week outpatient with lab Physical Exam Narrative: Patient left prior to my exam Discharge Data Studies Completed and Pending Completed Studies During Hospitalization Category Date Time Status CXRP [XR chest 1V portable [id number]] Routine Exams 11/20/24 15:45 Completed FL barium swallow modifd [id number] Routine Exams 11/19/24 20:10 Completed XR chest 1V portable [id number] Stat Exams 11/18/24 16:11 Completed CV. echo complete* [id number] Routine Ultrasound 11/19/24 20:06 Completed US kidney bilateral with bladder [US renal BI with PV Ultrasound 11/18/24 20:12 Completed bladder] Routine Radiology Impressions Renal Ultrasound 11/18/24 20:12 IMPRESSION: Normal renal ultrasound. No hydronephrosis. Small to moderate postvoid volume residual. Chest X-Ray 11/20/24 15:45 IMPRESSION: Progression of lung abnormalities as above. Laboratory Results WBC 11.73 10^3/uL (3.29-11.43) H 11/25/24 02:21 RBC 4.62 10^6/uL (3.85-5.65) 11/25/24 02:21 Hgb 13.20 g/dL (11.27-16.99) 11/25/24 02:21 Hct 40.7 % (37-53) 11/25/24 02:21 MCV 88.1 fl (82-101) 11/25/24 02:21 MCH 28.6 pg (27-33) 11/25/24 02:21 MCHC 32.4 g/dL (30-55) 11/25/24 02:21 RDW 13.8 % (12.1-15.1) 11/25/24 02:21 Plt Count 357 10^3/cmm (157-399) 11/25/24 02:21 MPV 11.0 fL (7.4-10.4) H 11/25/24 02:21 Neut % (Auto) 66.8 % 11/25/24 02:21 Lymph % (Auto) 16.7 % 11/25/24 02:21 [place] % (Auto) 13.0 % 11/25/24 02:21 Eos % (Auto) 2.2 % 11/25/24 02:21 Baso % (Auto) 0.6 % 11/25/24 02:21 Neut # (Auto) 7.84 10^3/uL (1.8-7.7) H 11/25/24 02:21 Lymph # (Auto) 2.0 10^3/uL (0.8-4.8) 11/25/24 02:21 [place] # (Auto) 1.5 10^3/uL (0.2-0.9) H 11/25/24 02:21 Eos # (Auto) 0.3 10^3/uL (0.0-0.8) 11/25/24 02:21 Baso # (Auto) 0.1 10^3/uL (0.0-0.1) 11/25/24 02:21 Nucleated RBC % (auto) 0 % 11/25/24 02:21 Nucleated RBCs # 0.0 /100WBC 11/25/24 02:21 APTT 58.1 SECONDS (23.9-36.7) H 11/22/24 06:55 Specimen Type Arterial 11/21/24 08:54 Sample Site Radial, right 11/21/24 08:54 ABG pH 7.38 (7.35-7.45) 11/21/24 08:54 ABG pCO2 36.6 mmHg (35-45) 11/21/24 08:54 ABG pO2 56.6 mmHg (80.0-100.0) L 11/21/24 08:54 ABG PO2/FiO2 Ratio 269 11/21/24 08:54 ABG HCO3 21.4 mmol/L (22-26) L 11/21/24 08:54 ABG O2 Saturation 87.5 11/21/24 08:54 ABG Base Excess -3.2 mmol/L (-2.0-2.0) L 11/21/24 08:54 Azael Test Pos 11/21/24 08:54 A-a O2 Gradient 6.2 mmHg (5-10) 11/21/24 08:54 Hematocrit 44.3 % (42-52) 11/21/24 08:54 Hgb O2 Saturation 86.4 % (95-100) L 11/21/24 08:54 Carboxyhemoglobin 0.5 %THgb (0.4-20.1) 11/21/24 08:54 Methemoglobin 0.8 % (0.4-1.5) 11/21/24 08:54 Total Hemoglobin 14.4 g/dL (14-18) 11/21/24 08:54 Sodium 135.0 mmol/L (131-143) 11/21/24 08:54 Potassium 4.1 mmol/L (3.5-5.0) 11/21/24 08:54 Glucose 151.0 mg/dL (70-115) H 11/21/24 08:54 Ionized Calcium 1.2 mmol/L (1.1-1.4) 11/21/24 08:54 O2 Delivery Device Room air 11/21/24 08:54 O2 Liters/Min 2.0 % 11/20/24 13:24 FiO2 21.0 % 11/21/24 08:54 Game And Fish Protector ID Amh 11/21/24 08:54 Sodium 133 mmol/L (136-145) L 11/27/24 06:04 Potassium 3.9 mmol/L (3.5-5.1) 11/27/24 06:04 Chloride 94 mmol/L (98-107) L 11/27/24 06:04 Carbon Dioxide 25 mmol/L (22-29) 11/27/24 06:04 Anion Gap 17.9 (5-19) 11/27/24 06:04 BUN 72 mg/dL (8-23) H 11/27/24 06:04 Creatinine 1.8 mg/dL (0.7-1.2) H 11/27/24 06:04 GFR Calculation 38.3 mL/min (90-130) L 11/27/24 06:04 Glucose 112 mg/dL (65-115) 11/27/24 06:04 POC Glucose 120 mg/dL (70-110) H 11/27/24 07:21 Estimat Average Glucose 160 11/21/24 04:00 Hemoglobin A1c 7.2 % (4.0-6.0) H 11/21/24 04:00 Calculated Osmolality 298 mOsm/kg (285-295) H 11/27/24 06:04 Lactate 1.6 mmol/L (0.5-2.2) 11/21/24 08:20 Uric Acid 10.1 mg/dL (3.4-7.0) H 11/21/24 04:00 Calcium 9.5 mg/dL (8.5-10.5) 11/27/24 06:04 Phosphorus 4.0 mg/dL (2.5-4.5) 11/25/24 02:21 Magnesium 2.4 mg/dL (1.7-2.3) H 11/25/24 02:21 Total Bilirubin 0.4 mg/dL (0.15-1.2) 11/25/24 02:21 AST 41 U/L (0-40) H 11/25/24 02:21 ALT 30 U/L (0-41) 11/25/24 02:21 Alkaline Phosphatase 86 U/L (40-130) 11/25/24 02:21 Troponin T Baseline 739 ng/L (0-15) H* 11/18/24 16:30 Troponin T 120 Minute 765.2 ng/L (0-15) H 11/18/24 18:17 Delta Troponin T 26.2 ABS# (0-10) H* 11/18/24 18:17 Troponin T Hi Sens 6Hr 759.2 ng/L (0-15) H 11/18/24 20:00 Troponin T Hi Sens 6Hr Delta 20.2 ng/L (0-12) H* 11/18/24 20:00 NT-Pro-B Natriuret Pep 79697 pg/mL (0-125) H 11/22/24 00:50 Total Protein 7.3 g/dL (6.6-8.7) 11/25/24 02:21 Albumin 3.3 g/dL (3.5-5.2) L 11/25/24 02:21 Globulin 4.0 g/dL (1.3-4.6) 11/25/24 02:21 Omvsr-4-Brioffhfe 0.4 g/dL (0.2-0.3) H 11/21/24 08:20 Unmff-4-Zdqgiqlmn 1.0 g/dL (0.5-0.9) H 11/21/24 08:20 Gjla-2-Nhvzwami 0.5 g/dL (0.4-0.6) 11/21/24 08:20 Iveu-8-Qzbtnmoh 0.6 g/dL (0.2-0.5) H 11/21/24 08:20 Gamma Globulins 1.3 g/dL (0.8-1.7) 11/21/24 08:20 Abnorm Protein Band 1 0.4 g/dL (NONE DETECTED) H 11/21/24 08:20 25-OH Vitamin D Total 12 ng/mL (30-100) L 11/21/24 04:00 Procalcitonin 0.44 ng/mL (0-0.5) 11/19/24 06:36 TSH 2.74 uIU/mL (0.27-4.20) 11/21/24 04:00 Random Cortisol 19.44 ug/dL (2.47-19.5) 11/21/24 04:00 Urine Color Yellow (Yellow) 11/21/24 01:00 Urine Appearance Clear (CLEAR) 11/21/24 01:00 Urine pH 5.0 (5-7) 11/21/24 01:00 Ur Specific [place] 1.011 (1.005-1.030) 11/21/24 01:00 Urine Protein 1+ (Negative) A 11/21/24 01:00 Urine Glucose (UA) Negative (Normal) 11/21/24 01:00 Urine Ketones Negative (Negative) 11/21/24 01:00 Urine Blood Negative (Negative) 11/21/24 01:00 Urine Nitrate Negative (Negative) 11/21/24 01:00 Urine Bilirubin Negative (Negative) 11/21/24 01:00 Urine Urobilinogen 0.2 mg/dL (Negative) 11/21/24 01:00 Ur Leukocyte Esterase Negative (Negative) 11/21/24 01:00 Urine RBC 0-2 /hpf (0-2) 11/21/24 01:00 Urine WBC 0-5 /hpf (0-5) 11/21/24 01:00 Ur Squamous Epith Cells 0-5 /hpf (0-5) 11/21/24 01:00 Amorphous Sediment Not Reportable 11/21/24 01:00 Urine Bacteria None seen /hpf (NONE) 11/21/24 01:00 Hyaline Casts 17.37 /lpf 11/21/24 01:00 Fine Granular Casts 0-4 /lpf H 11/20/24 11:25 Ur Random Microalbumin 36 ug/dL (0-20) H 11/21/24 01:00 Ur Random Sodium 69 mmol/L 11/21/24 01:00 Ur Random Potassium 32 mmol/L 11/21/24 01:00 Ur Random Chloride 86 mmol/L 11/21/24 01:00 Ur Random Urea Nitrogn 611 mg/dL 11/19/24 15:37 Urine Creatinine 48 mg/dL (39-259) 11/21/24 01:00 Urine Creatinine 48 mg/dL (39-259) 11/21/24 01:00 Microalb/Creat Ratio 750 mg/dL (0-20) H 11/21/24 01:00 U Abnormal Prot Band 2 Not Reportable 11/21/24 08:20 U Abnormal Prot Band 3 Not Reportable 11/21/24 08:20 Salicylates < 0.3 mg/dL (3-10) L 11/21/24 04:00 Pro Electrophoresis Int See note 11/21/24 08:20 Serum Immunofixation see note A 11/21/24 04:00 Free [place] Light Chains 87.2 mg/L (3.3-19.4) H 11/21/24 04:00 Free [place] Light Chain 32.5 mg/L (5.7-26.3) H 11/21/24 04:00 Free [place]/Lambda Ratio 2.68 (0.26-1.65) H 11/21/24 04:00 Hepatitis C Antibody Non-reactive (Nonreactive) 11/20/24 22:17 Influenza A (PCR) Negative (Negative) 11/18/24 16:17 Influenza Type B (PCR) Negative (Negative) 11/18/24 16:17 RSV (PCR) Negative (Negative) 11/18/24 16:17 SARS-CoV-2 (PCR) Negative (Negative) 11/18/24 16:17 Vitals Last Vital Signs Temp 97.6 F 11/27/24 07:08 Pulse 100 11/27/24 07:48 Resp 19 H 11/27/24 07:53 BP 141/86 11/27/24 07:08 Pulse Ox 94 11/27/24 07:53 O2 Del Method Nasal Cannula 11/27/24 07:48 O2 Flow Rate 2 11/27/24 07:48 FiO2 30 11/20/24 19:57 Discharge Plan Discharge Patient Disposition: Home Condition: Stable Prescriptions: New acetaminophen 325 mg Tablet 650 mg PO Q6H PRN (Reason: Mild/Mod Pain Or Temp >/= 101) Qty: 30 0RF trazodone 50 mg Tablet 50 mg PO BEDTIME PRN (Reason: Insomnia) Qty: 30 0RF polyethylene glycol 3350 17 gram Powder In Packet 17 g PO BID PRN (Reason: Constipation) Qty: 30 0RF midodrine 5 mg Tablet 5 mg PO TID Qty: 90 0RF metolazone 5 mg Tablet 2.5 mg PO DAILY Qty: 30 0RF aspirin 81 mg Tablet,Delayed Release (Dr/Ec) 81 mg PO DAILY Qty: 30 0RF tamsulosin 0.4 mg Capsule 0.4 mg PO DAILY Qty: 30 0RF pantoprazole 40 mg Tablet,Delayed Release (Dr/Ec) 40 mg PO DAILY Qty: 30 0RF nitroglycerin 0.4 mg Tablet, Sublingual 0.4 mg sublingual Q5M PRN (Reason: Chest Pain) Qty: 20 0RF docusate sodium 100 mg Capsule 100 mg PO DAILY PRN (Reason: Constipation) Qty: 60 0RF potassium chloride [K-Tab] 20 mEq tablet extended release 20 meq PO DAILY Qty: 30 0RF Continued (DME) blood-glucose meter Misc See Rx Instructions .MEDSUPPLY Qty: 1 0RF Rx Instructions: Use as directed for checking blood sugar (DME) Blood Glucose Test Strip See Rx Instructions .MEDSUPPLY Qty: 200 12RF Rx Instructions: Use as directed with glucometer to check blood sugar (DME) lancets Misc See Rx Instructions .MEDSUPPLY Qty: 200 12RF Rx Instructions: Use as directed to prick skin for blood sugar checks (DME) roho cushion See Rx Instructions .Route .MEDSUPPLY Qty: 1 0RF Rx Instructions: As directed (DME) Stump Wafer Batter Mixer See Rx Instructions .Route .MEDSUPPLY Qty: 1 0RF Rx Instructions: As directed by Leonardo rizatriptan 5 mg tablet See Rx Instructions PO .COMPLEX Qty: 10 0RF Rx Instructions: Take 1 tablet at onset of headache; if no relief, may repeat 1 tablet after at least 2 hrs. NEEDED (DME) Cam Boot to left See Rx Instructions .Route .MEDSUPPLY Qty: 1 0RF Rx Instructions: As directed (DME) lancets [BD Ultra Fine Lancets] 33 gauge mis See Rx Instructions .Route Qty: 100 0RF Rx Instructions: As directed, test blood suagr once a day. (DME) Accu-Chek Guide test strips Strip See Rx Instructions .Route Qty: 100 0RF Rx Instructions: As directed, check blood sugar, 4 times daily (DME) blood-glucose meter [Accu-Chek Guide Glucose Meter] Mis See Rx Instructions .Route Qty: 1 0RF Rx Instructions: As directed, test blood sugar once a day. (DME) fast form ulnar gutter See Rx Instructions .ROUTE .MEDSUPPLY Qty: 1 0RF Rx Instructions: As directed (DME) wheel chair leg steel handler See Rx Instructions .Route .MEDSUPPLY Qty: 1 0RF Rx Instructions: As directed (DME) Right below the knne prosthetic See Rx Instructions .Route .MEDSUPPLY Qty: 1 0RF Rx Instructions: As directed (DME) GradeFund G7 Sensor Device See Rx Instructions .Route Qty: 9 1RF Rx Instructions: change sensor every 10 days Humulin R Regular U-100 Insuln 100 unit/mL solution See Rx Instructions SUBCUT TID 90 Days Qty: 30 0RF Rx Instructions: Inject 3 times daily before meals per sliding scale. Glucose: 141-180:4U; 181-220:6U; 221-260:8U; 261-300:10U; 301-350:12U; 351-400:14U; >400: 16U subcutaneously three times daily; insulin degludec [Tresiba FlexTouch U-100] 100 unit/mL (3 mL) insulin pen See Rx Instructions .ROUTE .COMPLEX Qty: 60 1RF Dose Instruction: inject 56 units (0.56ml) SUBCUTANEOUSLY EVERY DAY Rx Instructions: inject 64 units (0.64ml) SUBCUTANEOUSLY EVERY DAY albuterol sulfate 90 mcg/actuation HFA aerosol inhaler 2 puff inhalation QID PRN (Reason: Shortness Of Breath Or Wheezing) Eliquis 5 mg tablet 5 mg PO BID Changed furosemide 40 mg tablet 40 mg PO BID Qty: 90 3RF Discontinued (DME) right below knee prosthesis See Rx Instructions .Route .MEDSUPPLY Qty: 1 0RF Rx Instructions: As directed Slab Grinder OK for DC: Nephrology Discharge Order = DC NOW: Discharge Order (Routine); Ordered 11/27/24 Ordered By: Lit Horvath Other Ambulatory Orders: Basic Metabolic Panel (Routine) Timeframe: 5 Days Facility: [facility] - Location: Lab - Main Lab Ordered By: Lit Horvath Referrals: Sondra May MD [Primary Care Provider, Family Practice] - 12/02/24 11:20 am Amy Tang FNP [Nurse Practitioner, Cardiology] - 1 week Referral Note: We have notified your physician's clinic of the need for a follow-up appointment to be scheduled. If you have not heard from them within the next 2 business days, please call them directly. Discharge Diet: Cardiac, Diabetic and Low Salt Discharge Activity: Limit activity as instructed Patient Instructions: Nitroglycerin (By mouth), Metolazone (By mouth), Acetaminophen (By mouth), Trazodone (By mouth) (Desyrel, Desyrel Dividose, Oleptro, Trazamine), Aspirin (By mouth), Midodrine (By mouth), Tamsulosin (By mouth) (Flomax), Pantoprazole (By mouth) (Protonix), Heart Failure (DC), Opioid Safety, Pneumonia Stoplight, Patient Portal & Rhina Instructions Activity Restrictions/Additional Instructions: Take medications as prescribed. Get your labs done in 5 days. Follow-up with Amy Tang next week Weigh yourself daily starting on arrival home today and if losing more than 4 pounds water weight notify your doctor for medication adjustment Please return if you have chest pain not relieved by 2 nitroglycerin at home No heavy exertion Discharge Attestations Time Spent in Discharge Care*: greater than 30 min Quality Metrics Clinical Quality Measures [ Acute Myocardial Infaction { Clinical Trial Participant: No; Contraindication to aspirin: None; Aspirin prescribed; Contraindication to statin: Other (Patient left before I could clarify statin treatment with him); Contraindication to PCI: Medical contraindication (Creatinine 1.8); Contraindication to Fibrinolytics: Drug treatment not indicated}] Coding Level of Care Code 43144 Diagnoses Acute systolic (congestive) heart failure I50.21 Acute non-ST elevation myocardial infarction (NSTEMI) I21.4 Factor 5 Leiden mutation, heterozygous D68.51 History of DVT (deep vein thrombosis) Z86.718 Essential hypertension I10 Hypertension type: essential hypertension Mixed hyperlipidemia E78.2 Hyperlipidemia type: mixed hyperlipidemia Uncontrolled type 2 diabetes mellitus with hyperglycemia E11.65 Glycemic state: with hyperglycemia ELSY (acute kidney injury) N17.9 Time Spent (min) 40
--- NOTE | 2024-11-27 14:24 | P.PN_ITS ---
Subjective 2 Subjective: no new complaints Medications: Reviewed: Yes Vitals/I&O/Wt Last Vital Signs Temp 97.6 F 11/27/24 07:08 Pulse 100 11/27/24 07:48 Resp 19 H 11/27/24 07:53 BP 141/86 11/27/24 07:08 Pulse Ox 94 11/27/24 07:53 O2 Del Method Nasal Cannula 11/27/24 07:48 O2 Flow Rate 2 11/27/24 07:48 FiO2 30 11/20/24 19:57 11/26/24 11/27/24 11/27/24 22:59 06:59 14:59 Output Total 700 / 1050 Balance -700 / -570 Weight last 48 hrs Weight 122.47 kg Weight 122.668 kg Physical Exam 2 Narrative: Obese man lying in bed, with the bed . NARD. Vital signs noted. HEENT normocephalic atraumatic. Neck supple. Lungs -dec crackles. improved air movement b/l Heart positive S1-S2 regular rhythm. Abdomen is soft positive bowel sounds. Extremities have edema. He has a right BKA. Neuro awake alert oriented x 3 Data 11/25/24 02:21 11/27/24 06:04 A&P Assessment and plan 1. ELSY (acute kidney injury): 64 year old male history of heart failure reduced EF of approximately 40%, CAD, type 2 diabetes for over 20 years with right below-knee amputation, diabetic neuropathy, history of chronic DVT, factor V Leiden abnormality on Eliquis, hypertension, hyperlipidemia, lumbar degenerative disc disease. -Diabetes was poorly controlled has improved significantly under the care of Dr. Ron. 1. Acute kidney injury on CKD 3: possible cardiorenal etiology - Cr stable - Per cards [facility] as out pt The patient has underlying proteinuria likely from his diabetes however he also has the positive serum immunofixation in August 2024. Will repeat serum protein electrophoresis immunofixation and free light chains. Will diurese the patient and monitor closely. Please note that in August 2024 the patient has serum immunofixation with an IgG kappa monoclonal band Patient's baseline creatinine is 1 mg/dL in the end of August 2024. Patient presents with creatinine 1.4 mg/dL that is since increased to 1.9 mg/dL and is stable. -Renal ultrasound from November 18, 2024 shows right kidney 13.3 cm left 13.2 cm no hydronephrosis with small to moderate postvoid residual of 98 mL. Urinalysis from 11/20/24 dark yellow pH of 5 specific every 1025 urine protein 3+, no red cells no leukocytes blood negative. Of note the patient has hyaline casts and fine granular casts. Patient's urine sodium was 10 with a urine potassium of 74 and urine chloride of 31 Patient's RIK is negative anticardiolipin is negative, beta 2 glycoprotein negative the patient does not have APLA syndrome 2. Hyponatremia: Patient presents with sodium of 133 Recommend fluid restriction 3. Increased anion gap metabolic acidosis, improved 4. Heart failure reduced EF-repeat echo shows EF of 30 to 35% with a dilated IVC The patient was seen and examined with the aid of a nurse using audiovisual equipment. The patient consented to telehealth. Plan: Heart failure reduced EF, acute kidney injury, hyponatremia, increased anion gap metabolic acidosis -see above PDMP PDMP Reviewed: Not Reviewed Attestations 2 Medical Necessity Statement*: per juan antonio Coding Level of Care Code Acute Code for Chg Fwd Diagnoses ELSY (acute kidney injury) N17.9
== END 2024-11-27 10:39 | disposition home or self-care (01) | DRG 280 ==
LOC: ER 17:48 → CSU 17:49
PROVIDERS: Internal Medicine Cardiovascular Disease; Internal Medicine Nephrology; Student in an Organized Health Care Education/Training Program; Admitting Provider Internal Medicine; Emergency Provider Physician Assistant; PCP Family Medicine; Visit Provider Internal Medicine
DX: I13.0 Hypertensive heart and chronic kidney disease with heart failure and stage 1 through stage 4 chronic kidney disease, or unspecified chronic kidney disease (principal); I50.23 Acute on chronic systolic (congestive) heart failure; I21.4 Non-ST elevation (NSTEMI) myocardial infarction; J18.9 Pneumonia, unspecified organism; D68.51 Activated protein C resistance; N17.9 Acute kidney failure, unspecified; N18.9 Chronic kidney disease, unspecified; E11.22 Type 2 diabetes mellitus with diabetic chronic kidney disease; E78.2 Mixed hyperlipidemia; E11.65 Type 2 diabetes mellitus with hyperglycemia; E11.40 Type 2 diabetes mellitus with diabetic neuropathy, unspecified; E11.51 Type 2 diabetes mellitus with diabetic peripheral angiopathy without gangrene; I25.5 Ischemic cardiomyopathy; I25.10 Atherosclerotic heart disease of native coronary artery without angina pectoris; M51.369 Other intervertebral disc degeneration, lumbar region without mention of lumbar back pain or lower extremity pain; N52.9 Male erectile dysfunction, unspecified; K59.00 Constipation, unspecified; R13.10 Dysphagia, unspecified; E87.5 Hyperkalemia; R09.02 Hypoxemia; F40.240 Claustrophobia; F32.A Depression, unspecified; F41.9 Anxiety disorder, unspecified; Z79.4 Long term (current) use of insulin; Z79.01 Long term (current) use of anticoagulants; Z86.718 Personal history of other venous thrombosis and embolism; Z86.73 Personal history of transient ischemic attack (TIA), and cerebral infarction without residual deficits; Z95.5 Presence of coronary angioplasty implant and graft; Z89.511 Acquired absence of right leg below knee
CPT/HCPCS: 36415; 36416; 36600; 51798; 71045; 74230; 76770; 76857; 80048; 80051; 80053; 80069; 80307; 81001; 82044; 82306; 82330; 82436; 82533; 82570; 82803; 82805; 82962; 83036; 83605; 83735; 83880; 83883; 84100; 84133; 84145; 84155; 84165; 84300; 84443; 84484; 84540; 84550; 85025; 85730; 86334; 86803; 87040; 87637; 92611; 93005; 93010; 93306; 94640; 94660; 96365; 96366; 96372; 96375; 96376; 99285; J0456; J0696; J0780; J1644; J1650; J1815; J1938; J1956; J2270; J2405; J7050; J7070; J9999; Q3014

== ENCOUNTER → 2024-12-02 12:02 | Outpatient (BNVA) | payer MEDICARE, SELFPAY | PROVIDERS: PCP Family Medicine; Visit Provider Family Medicine | DX: N17.9 Acute kidney failure, unspecified (principal) | CPT/HCPCS: 80048 ==

== ENCOUNTER 2024-12-07 15:07 | Emergency (ER) | payer MEDICARE, SELFPAY ==
--- NOTE | 2024-12-07 15:09 | ECG_ITS ---
[facility] Test Date: 2024-12-07 Pat Name: Adrián Vinson Department: Room: Gender: Male It Instructor: : 1960 Requested By: Shelby Trevizo Order Number: [id number] Nadir MD: Cruz Bedolla M.D. Measurements Intervals [place] Rate: 71 P: 40 VT: 174 QRS: 37 QRSD: 81 T: 85 QT: 385 QTc: 420 Interpretive Statements SINUS RHYTHM LEFT ATRIAL ENLARGEMENT [-0.15mV P-WAVE IN V1/V2] SEPTAL MYOCARDIAL INFARCTION , OF INDETERMINATE AGE [40+ ms Q WAVE IN V1/V2] Compared to ECG 11/20/2024 17:33:25 T-wave abnormality no longer present Possible ischemia no longer present Myocardial infarct finding still present Electronically Signed On 12-07-2024 18:33:27 CDT by Cruz Bedolla M.D. [email or web address]
--- OUTSIDE RECORDS SUMMARY | 2024-12-07 15:12 | XMS_ITS | Encounter Summary ---
Author Organization [facility] Address [address] [place] [address] Care Team Providers Care Salesperson Books Name Role Phone Unavailable Primary Care Provider Unavailabl e Encounter Details Date Type Department Care Team (Late st Contact Info) Description 02/03/2013 Ancillary Orders [facility] [address] [place] [id number] Sick Social History Tobacco Use Types Packs/Day [...] - 20 mm/Hr 02/03/2013 9:53 PM CDT [facility] Blood specimen (specimen) Venipuncture - Lab Collect / Unknown 02/03/2013 8:23 PM CDT 02/03/2013 9:24 PM CDT us Harshad Patrick DO HEMATOLOGY ORDERABLES Final Res ult [facility] [employer] [facility] CLIA # [id number] [address] [place] [id number] * (ABNORMAL) HEMOGLOBIN A1C (02/03/2013 8:23 PM CDT) HEMOGLOBIN A1C 9.1(H) 4.5 - 6.2 % 02/03/2013 11:01 PM CDT [facility] EST. AVG GLUCOSE, A1C 214 mg/dL 02/03/2013 11:01 PM CDT [facility] Blood specimen (specimen) Venipuncture - Lab Collect / Unknown 02/03/2013 8:23 PM CDT 02/03/2013 9:24 PM CDT Harshad Patrick DO CHEMISTRY ORDERABLES Final Resu lt [facility] CLIA # [id number] [address] [place] [id number] documented in this encounter Visit Diagnoses Diagnosis Sick Other unknown and unspecified cause of morbidity or mortality documented in this encounter
--- OUTSIDE RECORDS SUMMARY | 2024-12-07 15:12 | XMS_ITS | Encounter Summary ---
Author Organization [facility] Address [address] [place] [address] Care Team Providers Care Health Coordinator Name Role Phone Unavailable Primary Care Provider Unavailabl e Encounter Details Date Type Department Care Team (Late st Contact Info) Description 01/17/2016 Lab Requisition [facility] Laboratory Services [place] [address] [place] [phone] Harshad Patrick, DO NO ADDRESS ON FILE [...] - 14.6 Seconds 01/17/2016 10:34 PM CDT [facility] INR 2.0(H) 0.8 - 1.2 01/17/2016 10:34 PM CDT [facility] Blood Collection / Unknown 01/17/2016 9:06 PM CDT 01/17/2016 9:08 PM CDT us Harshad Patrick DO HEMATOLOGY ORDERABLES Final Res ult Performing Organization Address City/[facility]/ZIP Co de Phone Number [facility] CLIA # [id number] [address] [place] [phone] * (ABNORMAL) HEMOGLOBIN A1C (01/17/2016 9:06 PM CDT) HEMOGLOBIN A1C 10.7(H) 4.8 - 5.9 % 01/17/2016 10:49 PM CDT [facility] EST. AVG GLUCOSE, A1C 260 mg/dL 01/17/2016 10:49 PM CDT [facility] Blood Collection / Unknown 01/17/2016 9:06 PM CDT 01/17/2016 9:08 PM CDT us Harshad Patrick DO CHEMISTRY ORDERABLES Final Resu lt Performing Organization Address [facility]/ZIP Co de Phone Number [facility] CLIA # [id number] [address] [place] [address] [phone] * (ABNORMAL) COMPREHENSIVE METABOLIC PANEL (01/17/2016 9:06 PM CDT) SODIUM 137 136 - 145 mmol/L 01/17/2016 11:23 PM CDT [facility] POTASSIUM 3.8 3.5 - 5.1 mmol/L 01/17/2016 11:23 PM CDT [facility] CHLORIDE 96(L) 98 - 107 mmol/L 01/17/2016 11:23 PM CDT [facility] CO2 24 22 - 29 mmol/L 01/17/2016 11:23 PM CDT [facility] CALCIUM 10.4(H) 8.6 - 10.0 mg/dL 01/17/2016 11:23 PM [facility] BUN 17 6 - 20 mg/dL 01/17/2016 11:23 PM [facility] CREATININE 0.58(L) 0.67 - 1.17 mg/dL 01/17/2016 11:23 PM [facility] GLUCOSE 178(H) 74 - 106 mg/dL 01/17/2016 11:23 PM [facility] TOTAL PROTEIN 8.3 6.6 - 8.7 g/dL 01/17/2016 11:23 PM [facility] ALBUMIN 4.3 3.5 - 5.2 g/dL 01/17/2016 11:23 PM [facility] BILIRUBIN TOTAL 0.4 0.0 - 1.2 mg/dL 01/17/2016 11:23 PM [facility] ALKALINE PHOSPHATASE 86 40 - 129 U/L 01/17/2016 11:23 PM [facility] AST 18 10 - 50 U/L 01/17/2016 11:23 PM [facility] ALT 32 10 - 50 U/L 01/17/2016 11:23 PM [facility] GFR >60 >=60 mL/min/1.7 3 sq meter 01/17/2016 11:23 PM [facility] Comment: eGFR has not been validated [...] mL/min/1.7 3 sq meter 01/17/2016 11:23 PM [facility] ANION GAP 17 12 - 20 mmol/L 01/17/2016 11:23 PM [facility] Blood Collection / Unknown 01/17/2016 9:06 PM CDT 01/17/2016 9:08 PM CDT us Harshad Patrick DO CHEMISTRY ORDERABLES Final Resu lt [facility] CLIA # [id number] [address] [place] [address] [phone] * (ABNORMAL) CBC WITH DIFFERENTIAL (01/17/2016 9:06 PM CDT) WBC 7.6 4.2 - 9.1 K/uL 01/17/2016 10:17 PM [facility] RBC 5.96 4.63 - 6.08 M/uL 01/17/2016 10:17 PM [facility] HEMOGLOBIN 16.4 13.7 - 17.5 g/dL 01/17/2016 10:17 PM [facility] HEMATOCRIT 46.5 40.1 - 51.0 % 01/17/2016 10:17 PM [facility] MCV 78.0(L) 79.0 - 92.2 fL 01/17/2016 10:17 PM [facility] MCH 27.5 25.7 - 32.2 pg 01/17/2016 10:17 PM [facility] MCHC 35.3 32.3 - 36.5 g/dL 01/17/2016 10:17 PM [facility] RDW 12.8 11.0 - 14.5 % 01/17/2016 10:17 PM [facility] RDW-STDEV 36.0(L) 36.9 - 56.9 fL 01/17/2016 10:17 PM [facility] PLATELETS 412(H) 130 - 400 K/uL 01/17/2016 10:17 PM [facility] MPV 10.1 10.0 - 14.8 fL 01/17/2016 10:17 PM [facility] NEUTROPHILS 50 34 - 68 % 01/17/2016 10:17 PM [facility] LYMPHOCYTES 39 22 - 53 % 01/17/2016 10:17 PM [facility] MONOCYTES 8 5 - 12 % 01/17/2016 10:17 PM [facility] EOSINOPHILS 3 1 - 7 % 01/17/2016 10:17 PM [facility] BASOPHILS 1 0 - 1 % 01/17/2016 10:17 PM [facility] NEUTROPHIL ABSOLUTE 3.82 1.78 - 5.38 K/uL 01/17/2016 10:17 PM [facility] LYMPHOCYTE ABSOLUTE 2.93 1.20 - 3.40 K/uL 01/17/2016 10:17 PM [facility] MONOCYTE ABSOLUTE 0.62 0.30 - 0.82 K/uL 01/17/2016 10:17 PM [facility] EOSINOPHIL ABSOLUTE 0.19 0.04 - 0.54 K/uL 01/17/2016 10:17 PM [facility] BASOPHILS ABSOLUTE 0.06 0.01 - 0.08 K/uL 01/17/2016 10:17 PM [facility] IMMATURE GRANULOCYTES 0 % 01/17/2016 10:17 PM [facility] IMMATURE GRANULOCYTES ABSOLUTE 0.00 K/uL 01/17/2016 10:17 PM [facility] Blood Collection / Unknown 01/17/2016 9:06 PM CDT 01/17/2016 9:08 PM CDT us Harshad Patrick DO HEMATOLOGY ORDERABLES Final Res ult [facility] CLIA # [id number] [address] [place] [phone] documented in this encounter Visit Diagnoses Not on filedocumented in this encounter
--- OUTSIDE RECORDS SUMMARY | 2024-12-07 15:12 | XMS_ITS | Patient Health Record ---
Author Organization [facility] Address [address] [place], [place] [id number] Care Team Providers Care Senior Web Engineer Name Role Phone Willy RAMON, Isrrael Unavailable [phone] Gloria Nelson DO Unavailable Unavailable Allergies Allergen [...] Medicare Part B Claims Department [address] [address] [place] [address] [id number] Adrián Vinson Self - patient is the insured Medical (General) History Medical History History ICD Code See scanned documentation Hospitalization History Reason Date(Month/Year) Blood clot right arm, 2004 Blood clot left leg, 2010 Blood clot right leg, 2016
--- OUTSIDE RECORDS SUMMARY | 2024-12-07 15:12 | XMS_ITS | Clinical Summary ---
Author Organization [facility] Address [address] [facility] [address] [place] [address] Phone Care Team Providers Care Sugar Refinery Supervisor Name Role Phone Unavailable Primary Care Provider [...] Comments Blood Pressure 178/94 06/03/2013 2:11 PM [facility] Pulse 115 06/03/2013 2:11 PM [facility] Temperature 36.9 C (98.4 F) 06/03/2013 2:11 PM [facility] Respiratory Rate 22 06/03/2013 2:11 PM [facility] Oxygen Saturation 97% 06/03/2013 2:11 PM [facility] Inhaled Oxygen Concentration - - Weight 132.9 kg (293 lb) 06/03/2013 2:11 PM [facility] Height 185.4 cm (6' 1 ) 06/03/2013 2:11 PM [facility] Body Mass Index 38.66 06/03/2013 2:11 PM [facility] Plan of Treatment Health Maintenance Due Date [...] - 5.9 % 01/17/2016 10:[address] [facility] EST. AVG GLUCOSE, A1C 260 mg/dL 01/17/2016 10:[address] [facility] Blood Collection / Unknown 01/17/2016 9:06 PM CDT 01/17/2016 9:08 PM CDT us Harshad W Patrick DO CHEMISTRY ORDERABLES Final Resu lt Performing Organization Address City/[facility]/ZIP Co de Phone Number [facility] CLIA # [id number] [address] [address] * (ABNORMAL) LIPID PANEL (12/28/2014 8:00 PM CDT) CHOLESTEROL 255(H) <200 mg/dL 12/28/2014 10:24 PM CDT [facility] [employer] [facility] TRIGLYCERIDE 182(H) <150 mg/dL 12/28/2014 10:24 PM CDT [facility] [employer] [facility] HDL 48 40 - 59 mg/dL 12/28/2014 10:24 PM CDT [facility] [employer] [facility] LDL CALCULATED 171(H) <100 mg/dL 12/28/2014 10:24 PM CDT [facility] [employer] [facility] NON-HDL CHOLESTEROL 207(H) <130 mg/dL 12/28/2014 10:24 PM CDT [facility] [employer] [facility] Blood 12/28/2014 8:00 PM CDT 12/28/2014 8:42 PM CDT Narrative [facility] [employer] [facility] - 12/28/2014 10:24 PM CDT TOTAL CHOLESTEROL [...] Phuc MARISCAL CHEMISTRY ORDERABLES Final Re sult [facility] [employer] [facility] CLIA # [id number] [address] [id number] from Last 3 Months or Most Recently Relevant to Health Maintenance Insurance WORKERS COMP
--- OUTSIDE RECORDS SUMMARY | 2024-12-07 15:12 | XMS_ITS | Encounter Summary ---
Author Organization [facility] Address [address] [place] [address] Care Team Providers Care Senior Strategy Analyst Name Role Phone Unavailable Primary Care Provider Unavailabl e Encounter Details Date Type Department Care Team (Late st Contact Info) Description 12/28/2014 Lab Requisition [facility] Laboratory Services [place] [address] [place] [phone] Phuc Dinh PA NO ADDRESS ON FILE [...] 255(H) <200 mg/dL 12/28/2014 10:24 PM CDT [facility] LABORATORY SERVICES [facility] TRIGLYCERIDE 182(H) <150 mg/dL 12/28/2014 10:24 PM CDT [facility] HDL 48 40 - 59 mg/dL 12/28/2014 10:24 PM CDT [facility] LDL CALCULATED 171(H) <100 mg/dL 12/28/2014 10:24 PM CDT [facility] NON-HDL CHOLESTEROL 207(H) <130 mg/dL 12/28/2014 10:24 PM CDT [facility] Blood 12/28/2014 8:00 PM CDT 12/28/2014 8:42 PM CDT Narrative [facility] - 12/28/2014 10:24 PM CDT TOTAL [...] ORDERABLES Final Re sult Performing Organization Address City/State/[facility] Co de Phone Number [facility] CLIA # [id number] [address] [place] [address] [phone] * (ABNORMAL) HEMOGLOBIN A1C (12/28/2014 8:00 PM CDT) HEMOGLOBIN A1C 11.0(H) 4.8 - 5.9 % 12/28/2014 10:25 PM CDT [facility] EST. AVG GLUCOSE, A1C 269 mg/dL 12/28/2014 10:25 PM CDT [facility] Blood 12/28/2014 8:00 PM CDT 12/28/2014 8:42 PM CDT Phuc MARISCAL CHEMISTRY ORDERABLES Final Re sult [facility] LABORATORY [facility] CLIA # [id number] [address] [place] [address] * (ABNORMAL) BASIC METABOLIC PANEL (12/28/2014 8:00 PM CDT) SODIUM 133(L) 136 - 145 mmol/L 12/28/2014 10:24 PM CDT [facility] LABORATORY [facility] POTASSIUM 4.0 3.5 - 5.1 mmol/L 12/28/2014 10:24 PM CDT [facility] CHLORIDE 98 98 - 107 mmol/L 12/28/2014 10:24 PM CDT [facility]OR[facility] CO2 22 22 - 29 mmol/L 12/28/2014 10:24 PM CDT [facility] CALCIUM 9.6 8.6 - 10.0 mg/dL 12/28/2014 10:24 PM CDT [facility] BUN 13 6 - 20 mg/dL 12/28/2014 10:24 PM CDT [facility] CREATININE 0.65(L) 0.67 - 1.17 mg/dL 12/28/2014 10:24 PM CDT [facility] GLUCOSE 337(H) 74 - 106 mg/dL 12/28/2014 10:24 PM T [facility] GFR >60 >=60 mL/min/1.7 3 sq meter 12/28/2014 10:24 PM T [facility] [employer] [facility] Comment: eGFR has not been validated for [...] 3 sq meter 12/28/2014 10:24 PM CDT [facility] [employer] SERVICES - [place] ANION GAP 13 12 - 20 mmol/L 12/28/2014 10:24 PM CDT [facility] LABORATORY [facility] Blood 12/28/2014 8:00 PM CDT 12/28/2014 8:42 PM CDT Phuc MARISCAL CHEMISTRY ORDERABLES Final Re sult Performing Organization Address City/[facility]/ZIP Co de Phone Number [facility] [employer] [facility] CLIA # [id number] [address] [place] [address] * (ABNORMAL) ALT (12/28/2014 8:00 PM CDT) ALT 69(H) 10 - 50 U/L 12/28/2014 10:24 PM CDT [facility] [employer] [facility] Blood 12/28/2014 8:00 PM CDT 12/28/2014 8:42 PM CDT Phuc MARISCAL CHEMISTRY ORDERABLES Final Re sult [facility] [employer] [facility] CLIA # [id number] [address] [place] [address] [phone] documented in this encounter Visit Diagnoses Not on filedocumented in this encounter
--- OUTSIDE RECORDS SUMMARY | 2024-12-07 15:12 | XMS_ITS | Encounter Summary ---
Author Organization [facility] Address [address] [place] [address] Care Team Providers Care Powertrain Engineer Name Role Phone Unavailable Primary Care Provider Unavailabl e Encounter Details Date Type Department Care Team (Late st Contact Info) Description 01/04/2015 Lab Requisition [facility] Laboratory Services [place] [address] [place] [phone] Harshad Patrick, DO NO ADDRESS ON FILE [...] - 4.20 uIU/mL 01/04/2015 11:47 PM CDT [facility] Blood 01/04/2015 10:4 3 PM CDT 01/04/2015 10:43 PM CDT Harshad Patrick DO CHEMISTRY ORDERABLES Final Resu lt Performing Organization Address City/[facility]/ZIP Co de Phone Number [facility] CLIA # [id number] [address] [place] [phone] * AST (01/04/2015 10:43 PM CDT) AST 28 10 - 50 U/L 01/04/2015 11:47 PM CDT [facility] Blood 01/04/2015 10:4 3 PM CDT 01/04/2015 10:43 PM CDT Harshad Patrick DO CHEMISTRY ORDERABLES Final Resu lt Performing Organization Address [facility] Co de Phone Number [facility] CLIA # [id number] [address] [place] [address]24 * ALKALINE PHOSPHATASE (01/04/2015 10:43 PM CDT) ALKALINE PHOSPHATASE 67 40 - 129 U/L 01/04/2015 11:47 PM CDT [facility] Blood 01/04/2015 10:4 3 PM CDT 01/04/2015 10:43 PM CDT Harshad Patrick DO CHEMISTRY ORDERABLES Final Resu lt Performing Organization Address [facility]/ZIP Co de Phone Number [facility] CLIA # [id number] [address] [place] [phone] * (ABNORMAL) ALT (01/04/2015 10:43 PM CDT) ALT 55(H) 10 - 50 U/L 01/04/2015 11:[address] [facility] LABORATORY SERVICES [facility] Blood 01/04/2015 10:4 3 PM CDT 01/04/2015 10:43 PM CDT us Harshad Patrick DO CHEMISTRY ORDERABLES Final Resu lt [facility] LABORATORY SERVICES [facility] CLIA # [id number] [address] [place] [address] documented in this encounter Visit Diagnoses Diagnosis Sick Other unknown and unspecified cause of morbidity or mortality documented in this encounter
[2024-12-07 15:13] VITALS: BP 120/73; PULSE 71; RESP 16; TEMP 36.7; O2SAT 97; BMI 35.6
[2024-12-07 15:36] VITALS: PULSE 75
[2024-12-07 15:40] LABS: Hematocrit 41.6 % (37-53); Hemoglobin 13.20 g/dL (11.27-16.99); Mean Corpuscular HGB Conc 31.7 g/dL (30-55); Mean Corpuscular Hemoglobin 28.4 pg (27-33); Mean Corpuscular Volume 89.5 fl (82-101); Nucleated Red Blood Cells % 0 %; Platelet Count 333 10^3/cmm (157-399); Red Blood Count 4.65 10^6/uL (3.85-5.65); White Blood Count 9.64 10^3/uL (3.29-11.43)
[2024-12-07 15:51] VITALS: PULSE 75; O2SAT 90
[2024-12-07 16:25] VITALS: PULSE 80; RESP 18
[2024-12-07] MEDS: bumetanide 0.25 mg/mL SDV 4 mL 2 MG IVP (16:25)
[2024-12-07 16:35] LABS: Troponin(5th) Baseline 262 ng/L (0-15)
[2024-12-07 16:37] LABS: Alanine Aminotransferase 21 U/L (0-41); Albumin Level 3.4 g/dL (3.5-5.2); Alkaline Phosphatase 81 U/L (40-130); Anion Gap 16.5 (5-19); Aspartate Amino Transferase 14 U/L (0-40); Blood Urea Nitrogen 26 mg/dL (8-23); Calcium 8.9 mg/dL (8.5-10.5); Carbon Dioxide 23 mmol/L (22-29); Chloride 102 mmol/L (98-107); Creatinine Clr Calc Pharmacy 79.7378; Globulin 3.4 g/dL (1.3-4.6); Glucose 142 mg/dL (65-115); NT Pro B Type Natriuretic Pept 9900 pg/mL (0-125); Osmolality Calculated 291 mOsm/kg (285-295); Potassium 4.5 mmol/L (3.5-5.1); Sodium 137 mmol/L (136-145); Total Protein 6.8 g/dL (6.6-8.7)
--- NOTE | 2024-12-07 17:15 | ED_ITS ---
HPI - SOB/Dyspnea 2 General: Chief Complaint: Shortness of Breath/Dyspnea Stated Complaint: sob, chest pain, hx of stemi Time Seen by Provider: 12/07/24 15:22 History of Present Illness: HPI Narrative: Patient is a 64-year-old gentleman with Leiden 5 mutation, CAD/NSTEMI 11/18, DM, ELSY with CKD unable to perform LHC with NSTEMI that presents due to shortness of breath and chest pain. Shortness of breath has been worsening over the last 2 days. increased his Lasix to 60 in a.m. and 40 in afternoon, with his first increase in dose yesterday. Patient has received 60 mg of Lasix this a.m., despite this, he has shortness of breath, chest pressure/heaviness without cough, or fever. Recent NSTEMI as noted was unable to perform LHC due to ELSY with creatinine just over 2, with his EF noted at 30 to 35% and global hypokinesis. Patient does state he follows a low-sodium diet, and has eggs today. Unknown weight. Associated symptoms: Reports chest pain, nausea and orthopnea; Deny abdominal pain, fever(s), palpitations or vomiting Related Data Home Medications ?Medication ?Instructions ?Recorded ?Confirmed albuterol sulfate 90 mcg/actuation 2 puff inhalation Q ID PRN 11/19/24 12/02/24 aerosol inhaler Shortness Of Breath Or Wheez ing apixaban 5 mg tablet (Eliquis) 5 mg PO BID 11/19/24 Previous Rx's ?Medication ?Instructions ?Recorded lancets 33 gauge (BD Ultra Fine #100 ea 08/19/21 Lancets) blood sugar diagnostic (Blood #200 ea 05/31/23 Glucose Test strips) blood-glucose meter #1 ea 05/31/23 lancets #200 ea 05/31/23 blood sugar diagnostic (Accu-Chek #100 ea 06/05/23 Guide test strips) blood-glucose meter (Accu-Chek #1 ea 06/05/23 Guide Glucose Meter) Stump Executive Chef Assistant #1 ea 07/06/23 fast form ulnar gutter #1 ea 08/20/23 wheel chair leg tax form preparer #1 ea 08/30/23 Right below the knne prosthetic #1 ea 09/24/23 rizatriptan 5 mg tablet See Rx Instructions PO .COMP KEREN 11/21/23 #10 tabs Cam Boot to left #1 ea 01/01/24 arnie cushion #1 ea 06/04/24 blood-glucose sensor (Dexcom G7 #9 ea 06/18/24 Sensor device) insulin regular human 100 unit/mL See Rx Instructions SUBCUT TID 90 08/11/24 injection solution (Humulin R days #30 mL Regular U-100 Insulin) insulin degludec 100 unit/mL (3 See Rx Instructions .R oute 11/24/24 mL) subcutaneous pen (Tresiba .COMPLEX #60 mL FlexTouch U-100 insulin) acetaminophen 325 mg tablet 650 mg (2 x 325 mg) PO Q6H PRN 11/27/24 Mild/Mod Pain Or Temp >/= 101 #30 tabs aspirin 81 mg tablet,delayed 81 mg PO DAILY #30 tabs 0 11/27/24 release docusate sodium 100 mg capsule 100 mg PO DAILY PRN Con stipation 11/27/24 #60 caps furosemide 40 mg tablet 40 mg PO BID #90 tabs metolazone 5 mg tablet 2.5 mg (1/2 x 5 mg) PO DAILY #30 11/27/24 tabs midodrine 5 mg tablet 5 mg PO TID #90 tabs 5 nitroglycerin 0.4 mg sublingual 0.4 mg sublingual Q5M PRN Chest 11/27/24 tablet Pain #20 tabs pantoprazole 40 mg tablet,delayed 40 mg PO DAILY #30 t abs 11/27/24 release polyethylene glycol 3350 17 gram 17 g PO BID PRN Const ipation #30 ea 11/27/24 oral powder packet potassium chloride 20 mEq 20 meq PO DAILY #30 tabs 03/14 tablet,extended release (K-Tab) tamsulosin 0.4 mg capsule 0.4 mg PO DAILY #30 caps 03/14 trazodone 50 mg tablet 50 mg PO BEDTIME PRN Insomni a #30 11/27/24 tabs Allergies Allergy/AdvReac Type Severity Reaction Status Date / Time ceftriaxone Allergy Unknown ADR-Nausea Verified 12/02/24 13:16 Review of Systems 2 Const: Denies: fever(s) or chills Eyes: Denies: change in vision or blurry vision ENMT: Denies: throat pain or dry mouth Card: Reports: chest pain, edema, dyspnea on exertion and orthopnea; Denies: palpitations Resp: Reports: dyspnea; Denies: non-productive cough GI: Reports: nausea; Denies: abdominal pain or vomiting : Denies: flank pain or difficulty urinating Musc: Reports: back pain (chronic) and joint pain (chronic); Denies: neck pain Skin/Breast: Denies: rash or pruritus Neuro: Denies: headache(s), numbness in extremities or weakness in extremities Psych: Denies: anxiety or depression PFSH ED 2 PFSH: Medical History (Updated 12/07/24 @ 18:32 by LOIDA Gupta) ELSY (acute kidney injury) Constipation History of colon polyps Factor 5 Leiden mutation, heterozygous History of DVT (deep vein thrombosis) 07/10/2019 DVT involving the popliteal veins bilaterally Closed hand fracture Right 4th metacarpal oblique, injury 04/03/2022 Bilateral leg edema Erectile dysfunction Low testosterone Anxiety and depression Diabetes type 2, uncontrolled Atherosclerotic heart disease of [place] coronary artery with other forms of angina pectoris Hypertension Hyperlipidemia Diabetic neuropathy Adenomatous colon polyp Ischemic cardiomyopathy Abnormal nuclear stress test History of claustrophobia Right foot drop 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 Surgical History (Updated 11/28/24 @ 00:00 by PERI Perry) S/P pilonidal cyst excision Stented coronary artery H/O circumcision Family History Mother , at age 45 Lung cancer smoker Grandmother Diabetes Father , at age 23 Drowning Other Hypertension Denies family history of CAD (coronary artery disease) Social History Smoking and tobacco/nicotine status: former use of tobacco/nicotine Quit status (tobacco/nicotine): has quit using Year quit tobacco: 2005 Alcohol intake: former Substance/Drug Use: former Household members: spouse and children Marital status: Number of children: 7 service: No Current occupational status: disabled 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 Abiola/B[employer]ism: Orthodoxy Special abiola needs: Yes (seth) Agree to transfusion: Yes Physical Exam 2 Const: COMMON NORMALS: no acute distress, average body habitus and patient oriented x3 GENERAL APPEARANCE: cooperative and comfortable HENMT: COMMON NORMALS: normocephalic and atraumatic HEAD & SCALP: n ormocephalic and atraumatic Eye: COMMON NORMALS: Equal, round and reactive pupils present and EOMs intact bilaterally PUPIL: Yes Equal, round and reactive pupils present Resp: EFFORT & INSPECTION: Yes respiratory distress (mild) and No retractions AUSCULTATION: crackles (distal 1/3) Laterality: bilateral Cardio: COMMON NORMALS: regular rate, regular rhythm and No murmurs present (Cardio) RATE: regular rate RHYTHM: regular rhythm GI: COMMON NORMALS: Normal to inspection, nondistended, normoactive bowel sounds present, Soft to palpation and non-tender PALPATION: Yes Soft to palpation : COMMON NORMALS: Yes no CVA tenderness BLADDER/KIDNEY EXAM: Yes no CVA tenderness Back/Pelvis: COMMON NORMALS: no CVA tenderness Extremity: COMMON NORMALS: normal to inspection, full ROM and capillary refill normal Neuro: COMMON NORMALS: patient oriented x3 Psych: COMMON NORMALS: mental status grossly normal and Normal thought process present THOUGHT PROCESS: Normal thought process present Skin: COMMON NORMALS: no rashes or lesions noted and no wounds GENERAL SKIN EXAM: no rashes or lesions noted Course 2 Vital Signs: Vital signs: Vital Signs Temperature 98.1 F 12/07/24 15:13 Pulse Rate 85 12/07/24 17:18 Respiratory Rate 18 12/07/24 16:25 Blood Pressure 150/86 12/07/24 17:18 Pulse Oximetry 93 12/07/24 17:18 Oxygen Delivery Me thod Room Air 12/07/24 17:18 MDM - SOB/Dyspnea Medical Decision Making Patient is 64-year-old gentleman with recent NSTEMI, medical management per cardiology while awaiting regulation of renal function to avoid ATN/ELSY associated with necrosis presents with chest pain, shortness of breath. He is improved on reevaluation. His troponin is flat. His oxygen saturation is 95% on room air. I have discussed options with this patient. He has a appointment with cardiology tomorrow. He will take his 60 mg of Lasix in a.m., caution on his fluid intake, salt intake, weight in the morning so it could be compared to his previous weight, as he has not been weighing, and then further coordinate with his form builder helper. All questions answered to his satisfaction. Differential Diagnosis Likely acute exacerbation of chronic obstructive airways disease and congestive heart failure Medical Records I reviewed the patient's medical records. Lab Data I reviewed the patient's lab results. 12/07/24 15:30 12/07/24 15:30 Labs/Radiology: Laboratory Results WBC 9.64 10^3/uL (3.29-11.43) 12/07/24 15:30 RBC 4.65 10^6/uL (3.85-5.65) 12/07/24 15:30 Hgb 13.20 g/dL (11.27-16.99) 12/07/24 15: Hct 41.6 % (37-53) 12/07/24 15: MCV 89.5 fl (82-101) 12/07/24 15:30 MCH 28.4 pg (27-33) 12/07/24 15: MCHC 31.7 g/dL (30-55) 12/07/24 15:30 RDW 14.1 % (12.1-15.1) 12/07/24 15:30 Plt Count 333 10^3/cmm (157-399) 12/07/24 15: MPV 10.0 fL (7.4-10.4) 12/07/24 15:30 Neut % (Auto) 72.7 % 12/07/24 15:30 Lymph % (Auto) 17.1 % 12/07/24 15:30 Nicholas % (Auto) 6.4 % 12/07/24 15:30 Eos % (Auto) 2.4 % 12/07/24 15:30 Baso % (Auto) 1.1 % 12/07/24 15:30 Neut # (Auto) 7.00 10^3/uL (1.8-7.7) 12/07/24 15:30 Lymph # (Auto) 1.7 10^3/uL (0.8-4.8) 12/07/24 15:30 Nicholas # (Auto) 0.6 10^3/uL (0.2-0.9) 12/07/24 15:30 Eos # (Auto) 0.2 10^3/uL (0.0-0.8) 12/07/24 15:30 Baso # (Auto) 0.1 10^3/uL (0.0-0.1) 12/07/24 15:30 Nucleated RBC % (auto) 0 % 12/07/24 15:30 Nucleated RBCs # 0.0 /100WBC 12/07/24 15:30 Sodium 137 mmol/L (136-145) 12/07/24 15:30 Potassium 4.5 mmol/L (3.5-5.1) 12/07/24 15:30 Chloride 102 mmol/L (98-107) 12/07/24 15:30 Carbon Dioxide 23 mmol/L (22-29) 12/07/24 15:30 Anion Gap 16.5 (5-19) 12/07/24 15:30 BUN 26 mg/dL (8-23) H 12/07/24 15:30 Creatinine 1.3 mg/dL (0.7-1.2) H 12/07/24 15:30 GFR Calculation 55.8 mL/min (90-130) L 12/07/24 15:30 Glucose 142 mg/dL (65-115) H 12/07/24 15:30 Calculated Osmolality 291 mOsm/kg (285-295) 12/07/24 15:30 Calcium 8.9 mg/dL (8.5-10.5) 12/07/24 15:30 Total Bilirubin 0.4 mg/dL (0.15-1.2) 12/07/24 15:30 AST 14 U/L (0-40) 12/07/24 15:30 ALT 21 U/L (0-41) 12/07/24 15:30 Alkaline Phosphatase 81 U/L (40-130) 12/07/24 15:30 Troponin T Baseline 262 ng/L (0-15) H* 12/07/24 15:30 Troponin T 120 Minute 264.1 ng/L (0-15) H 12/07/24 17:13 Delta Troponin T 2.1 ABS# (0-10) 12/07/24 17:13 NT-Pro-B Natriuret Pep 9900 pg/mL (0-125) H 12/07/24 15:30 Total Protein 6.8 g/dL (6.6-8.7) 12/07/24 15:30 Albumin 3.4 g/dL (3.5-5.2) L 12/07/24 15:30 Globulin 3.4 g/dL (1.3-4.6) 12/07/24 15:30 All radiology interpretation(s) finalized by discharge Discharge Plan Discharge Patient Disposition: Home Clinical Impression: Acute on chronic HFrEF (heart failure with reduced ejection fraction) Condition: Stable Prescriptions: No Action (DME) blood-glucose meter Misc See Rx Instructions .MEDSUPPLY Qty: 1 0RF Rx Instructions: Use as directed for checking blood sugar (DME) Blood Glucose Test Strip See Rx Instructions .MEDSUPPLY Qty: 200 12RF Rx Instructions: Use as directed with glucometer to check blood sugar (DME) lancets Misc See Rx Instructions .MEDSUPPLY Qty: 200 12RF Rx Instructions: Use as directed to prick skin for blood sugar checks (DME) roho cushion See Rx Instructions .Route .MEDSUPPLY Qty: 1 0RF Rx Instructions: As directed (DME) Stump Executive Chef Assistant See Rx Instructions .Route .MEDSUPPLY Qty: 1 0RF Rx Instructions: As directed by Chris and Albert rizatriptan 5 mg tablet See Rx Instructions PO .COMPLEX Qty: 10 0RF Rx Instructions: Take 1 tablet at onset of headache; if no relief, may repeat 1 tablet after at least 2 hrs. NEEDED (DME) Cam Boot to left See Rx Instructions .Route .MEDSUPPLY Qty: 1 0RF Rx Instructions: As directed (DME) lancets [BD Ultra Fine Lancets] 33 gauge misc See Rx Instructions .Route Qty: 100 0RF Rx Instructions: As directed, test blood suagr once a day. (DME) Accu-Chek Guide test strips Strip See Rx Instructions .Route Qty: 100 0RF Rx Instructions: As directed, check blood sugar, 4 times daily (DME) blood-glucose meter [Accu-Chek Guide Glucose Meter] Misc See Rx Instructions .Route Qty: 1 0RF Rx Instructions: As directed, test blood sugar once a day. (DME) fast form ulnar gutter See Rx Instructions .ROUTE .MEDSUPPLY Qty: 1 0RF Rx Instructions: As directed (DME) wheel chair leg tax form preparer See Rx Instructions .Route .MEDSUPPLY Qty: 1 0RF Rx Instructions: As directed (DME) Right below the knne prosthetic See Rx Instructions .Route .MEDSUPPLY Qty: 1 0RF Rx Instructions: As directed (DME) Dexcom G7 Sensor Device See Rx Instructions .Route Qty: 9 1RF Rx Instructions: change sensor every 10 days Humulin R Regular U-100 Insuln 100 unit/mL solution See Rx Instructions SUBCUT TID 90 Days Qty: 30 0RF Rx Instructions: Inject 3 times daily before meals per sliding scale. Glucose: 141-180:4U; 181-220:6U; 221-260:8U; 261-300:10U; 301-350:12U; 351-400:14U; >400: 16U subcutaneously three times daily; insulin degludec [Tresiba FlexTouch U-100] 100 unit/mL (3 mL) insulin pen See Rx Instructions .ROUTE .COMPLEX Qty: 60 1RF Dose Instruction: inject 56 units (0.56ml) SUBCUTANEOUSLY EVERY DAY Rx Instructions: inject 64 units (0.64ml) SUBCUTANEOUSLY EVERY DAY albuterol sulfate 90 mcg/actuation HFA aerosol inhaler 2 puff inhalation QID PRN (Reason: Shortness Of Breath Or Wheezing) Eliquis 5 mg tablet 5 mg PO BID acetaminophen 325 mg Tablet 650 mg PO Q6H PRN (Reason: Mild/Mod Pain Or Temp >/= 101) Qty: 30 0RF trazodone 50 mg Tablet 50 mg PO BEDTIME PRN (Reason: Insomnia) Qty: 30 0RF polyethylene glycol 3350 17 gram Powder In Packet 17 g PO BID PRN (Reason: Constipation) Qty: 30 0RF midodrine 5 mg Tablet 5 mg PO TID Qty: 90 0RF metolazone 5 mg Tablet 2.5 mg PO DAILY Qty: 30 0RF aspirin 81 mg Tablet,Delayed Release (Dr/Ec) 81 mg PO DAILY Qty: 30 0RF tamsulosin 0.4 mg Capsule 0.4 mg PO DAILY Qty: 30 0RF pantoprazole 40 mg Tablet,Delayed Release (Dr/Ec) 40 mg PO DAILY Qty: 30 0RF nitroglycerin 0.4 mg Tablet, Sublingual 0.4 mg sublingual Q5M PRN (Reason: Chest Pain) Qty: 20 0RF docusate sodium 100 mg Capsule 100 mg PO DAILY PRN (Reason: Constipation) Qty: 60 0RF furosemide 40 mg tablet 40 mg PO BID Qty: 90 3RF potassium chloride [K-Tab] 20 mEq tablet extended release 20 meq PO DAILY Qty: 30 0RF Discharge Orders: Discharge ED (Routine); Ordered 12/07/24 Ordered By: Priscila Carrasco Referrals: Sondra May MD [Primary Care Provider, [facility]] Discharge Diet: Low Salt Patient Instructions: Heart Failure (ED), Patient Portal & Rhina Instructions Activity Restrictions/Additional Instructions: Take 60 mg of Lasix in a.m., then follow-up with your form builder helper, for further advisement on doing the 40 mg at p.m. or changing to Bumex Continue to follow a low-salt diet, caution on fluid intake Weigh daily Return to ED for worsening shortness of breath Return to ED for chest pain, or fever greater than 100.4 ?F Print Language: Albanian Coding Level of Care Code ED Receiving Lead for Lolita Gallegos
[2024-12-07 17:18] VITALS: BP 150/86; PULSE 85; O2SAT 93
[2024-12-07 17:56] LABS: Troponin 5 2HR Delta 2.1 ABS# (0-10)
[2024-12-07 17:58] LABS: Troponin 5 2HR 264.1 ng/L (0-15)
== END 2024-12-07 18:41 | disposition home or self-care (01) ==
PROVIDERS: Emergency Provider Physician Assistant; PCP Family Medicine
DX: I50.23 Acute on chronic systolic (congestive) heart failure (principal); J44.9 Chronic obstructive pulmonary disease, unspecified; E11.9 Type 2 diabetes mellitus without complications; I10 Essential (primary) hypertension; E78.5 Hyperlipidemia, unspecified
CPT/HCPCS: 36415; 80053; 83880; 84484; 85025; 93005; 96374; 99284; J3490; J9999